=== PATIENT | male | born 1935 | race Caucasian/White ===

== ENCOUNTER 2016-09-11 11:24 | Inpatient (IN) | payer OTHER, MEDICARE ==
[~2016-09-11] VITALS: Ht 165.1 cm; Wt 90.7 kg
[~2016-09-11 11:24] MED LIST: ASPIRIN81 M4 PO; ATORVASTATIN CA40 M1 PO; BACTROBAN22 GM TOP; BLM PO; CALCIUM CARBON500 M2 PO; CALCIUM500 M1 PO; CALCIUM600 M2 PO; COUMADIN4 M1 PO; COUMADIN5 M2 PO; CYANOCOBAL1000 MCG/2 IM; DOXYCYCLINE HY100 M2 PO; GABAPENTIN300 M2 PO; LASIX40 M1 PO; LOVENOX100 MG/1 M SC; LOVENOX80 MG/0.1 SC; MEPRON750 MG/51 PO; METOPROLOL TART50 M1 PO; MILLIPRED5 M1 PO; MIRALAX119 GM PO; MIRALAX17 G1 PO; MULTI-DAY VITA1 EACH PO; OMEPRAZOLE20 M2 PO; PREDNISONE 10MG10 M1 PO; PREDNISONE10 M2 PO; PREDNISONE2.5 M1 PO; PREDNISONE20 M1 PO; PREDNISONE5 M1 PO; SENNA PLUS TAB1 EACH PO; TYLENOL325 M1 PO; VALACYCLOVIR1000 MG PO; ZITHROMAX500 M2 PO
--- NOTE | 2016-09-11 11:29 | NUR ---
PER PT VNA CAME TO VISIT AND SENT ME HERE HAD FEVER YESTERDAY AND A COUGH, ALSO FEELING KIND OF WEAK, LAST TELENOL YESTERDAY.
--- NOTE | 2016-09-11 11:30 | NUR ---
PER EMS DAUGHTER STATES JUST WEENED OFF O2.
--- NOTE | 2016-09-11 11:43 | ED DYSPNEA/ASTHMA COMPLAINT ---
History of Present Illness General Chief Complaint: Dyspnea (COPD, CHF, Other) Stated Complaint: BIBA FOR SOB Source: patient, old records, EMS Exam Limitations: no limitations Vital Signs & Intake/Output Vital Signs & Intake/Output Vital Signs Date Time Temp Pulse Resp B/P Pulse O2 O2 Flow FiO2 Ox Delivery Rate 09/12 0822 98.2 78 16 144/60 98 Nasal 2.0L Cannula 09/12 0800 92 Nasal 2.0L Cannula 09/12 0158 98.8 98 30 136/70 92 Nasal 2.0L Cannula 09/12 0156 98.8 09/12 0140 130 210/90 09/12 0133 130 210/90 09/12 0124 92 Nasal 2.0L Cannula 09/12 0054 100.0 09/12 0045 100.0 120 36 192/90 94 Nasal 2.0L Cannula 09/12 0000 92 Nasal 2.0L Cannula 09/11 2303 97.6 72 18 108/60 95 Room Air 09/11 2154 80 108/60 09/11 1942 Room Air Room Air 09/11 1907 97.4 74 22 96 Room Air 09/11 1820 97.1 79 16 110/59 94 Room Air 09/11 1555 Room Air 09/11 1412 102.0 99 20 111/53 94 Room Air 09/11 1310 101.8 09/11 1254 101.8 09/11 1130 99.7 86 24 140/60 95 Room Air ED Intake and Output 09/12 0000 09/11 1200 Intake Total 1000 Output Total 200 Balance 800 Intake, IV 1000 Number 1 Bowel Movements Output, Urine 200 Patient 200 lb 200 lb Weight Allergies Coded Allergies: NO KNOWN ALLERGIES (08/07/16) Triage Note: PER PT VNA CAME TO VISIT AND SENT ME HERE HAD FEVER YESTERDAY AND A COUGH, ALSO FEELING KIND OF WEAK, LAST TELENOL YESTERDAY. Triage Nurses Notes Reviewed? yes HPI: PATIENT IS AN 81-YEAR-OLD MALE PRESENTS COMPLAINING OF WEAKNESS, FEVERS, COUGH. Cough onset approximately 1 week ago with dietrich sputum production. Fevers and weakness onset yesterday. Patient reports he was too weak to stand this morning. Fevers up to 102F. Weakness is moderate to severe. Pain is 0 out of 10. Patient reports he received an influenza vaccination this season. Chronic lower extremity edema which is unchanged. Patient denies chest pain, abdominal pain, nausea, vomiting. (JESU COX) Reconcile Medications Aspirin (Aspirin*) 81 MG TAB.CHEW 1 TAB PO DAILY HEART Atorvastatin Calcium 40 MG TABLET 1 TAB PO 1700 HEART DISEASE Calcium Carbonate (Calcium) 600 MG (1,500 MG) TABLET 1 TAB PO DAILY SUPPLEMENT (Reported) Cyanocobalamin (Vitamin B-12) (Cyanocobalamin Injection) 1,000 MCG/1 ML VIAL 1 ML IM Q30D SUPPLEMENT (Reported) Furosemide 20 MG TABLET 1 TAB PO EOD WATER PILL (Reported) Furosemide 40 MG TABLET 1 TAB PO EOD WATER PILL (Reported) Gabapentin 300 MG CAPSULE 1 CAP PO DAILY SHINGLES (Reported) Metoprolol Tartrate 50 MG TABLET 1 TAB PO BID HEART RATE Omeprazole 20 MG CAPSULE.DR 1 CAP PO DAILY GERD (Reported) Prednisone 10 MG TABLET 0 PO DAILY POLYCHONDRITIS TAKE 3 TABS ON 08/11,08/12,08/13 TAKE 2 TABS FROM 08/13 AND STAY ON TI TILL YOU SEE DR. ZARATE Warfarin Sodium (Coumadin) 5 MG TABLET 1 TAB PO DAILY BLOOD CLOT (STANLEY BORJA,[facility]) Past History Travel History Traveled to [place] past 21 day No Medical History Any Pertinent Medical History? see below for history Neurological: Shingles left trigeminal EENT: NONE Cardiovascular: AFIB, chronic venous insuff Respiratory: NONE Gastrointestinal: GERD Hepatic: NONE Renal: NONE Musculoskeletal: osteoarthritis, rheumatoid arthritis, relapsing polychondritis SHINGLES Psychiatric: NONE Endocrine: NONE Blood Disorders: DVT (left leg) Cancer(s): NONE CIRCLE EDGER/Reproductive: NONE Other Medical Hx: Sweet syndrome Babesiosis History of MRSA: No History of VRE: No History of CDIFF: No Pneumonia Vaccine: 02/24/13 Influenza Vaccine: 06/27/16 Surgical History Surgical History: HERNIA REPAIR Psychosocial History Who do you live with Daughter Services at Home Home Health Aide, Nursing What is your primary language Sinhala Tobacco Use: Never used Family History Family History, If Any: BROTHER FH: diabetes mellitus SISTER FH: diabetes mellitus MOTHER FH: diabetes mellitus Hx Contributory? No (JESU COX) Review of Systems Review of Systems Constitutional: Reports: fever, malaise, weakness. EENTM: Reports: no symptoms. Respiratory: Reports: cough, short of breath, sputum production. Cardiovascular: Reports: peripheral edema (chronic, unchanged). Denies: chest pain, orthopena, palpitations. GI: Denies: abdominal pain, diarrhea, nausea, vomiting. Genitourinary: Reports: no symptoms. Musculoskeletal: Reports: no symptoms. Skin: Reports: no symptoms. Neurological/Psychological: Reports: no symptoms. Hematologic/Endocrine: Reports: no symptoms. Immunologic/Allergic: Reports: no symptoms. (JESU COX) Physical Exam Physical Exam General Appearance: alert, awake Head: atraumatic, normal appearance Eyes: Bilateral: normal appearance, PERRL, EOMI. Ears, Nose, Throat: normal pharynx, normal ENT inspection, hearing grossly normal Neck: normal inspection, supple, full range of motion Respiratory: chest non-tender, no respiratory distress, mild congestion left lung base Cardiovascular: regular rate/rhythm Peripheral Pulses: 2+ dorsalis pedis (R), 2+ dorsalis pedis (L) Gastrointestinal: soft, non-tender Extremities: normal capillary refill, normal range of motion, 1+ bilateral lower extremity edema Neurologic/Psych: awake, alert, oriented x 3 Skin: warm/dry Lymphatic: no anterior cervical butch Core Measures ACS in differential dx? Yes ASA ordered for poss ACS? Yes-ordered Severe Sepsis Present: No Septic Shock Present: No (JESU COX) Progress Differential Diagnosis: asthma, AMI, bronchitis, CHF, COPD, pulmonary embolism, pneumonia, unstable angina Plan of Care: Orders Procedure Date/time Status PROTHROMBIN TIME 09/12 0600 Complete MAGNESIUM 09/12 0600 Complete CBC WITHOUT DIFFERENTIAL 09/12 0600 Complete BASIC ELECTROLYTES PLUS BUN&CR 09/12 0600 Complete Lab Add-on Test 09/12 0124 Active OXYGEN SETUP (GEN) 09/12 0110 Complete TRC EVALUATION (GEN) 09/12 0100 Active TROPONIN LEVEL 09/12 0000 Complete EKG 09/12 0000 Active Heart Healthy Diet 09/11 D Active Vital Signs 09/11 2141 Active Teach/Educate 09/11 2141 Active Nutritional Intake, Monitor 09/11 2141 Active Isolation 09/11 2141 Active Intake & Output 09/11 2141 Active Patient Care Conference 09/11 2141 Active Activity/Ambulation 09/11 2141 Active RT: Evaluation 09/11 1942 Active Intake & Output 09/11 1825 Active TROPONIN LEVEL 09/11 1800 Complete EKG 09/11 1800 Active Add-on Test (ER Only) 09/11 1601 Active TRC EVALUATION (GEN) 09/11 1532 Complete Add-on Test (ER Only) 09/11 1532 Active MISTAKE 09/11 1532 Active C.DIFFICILE 09/11 1532 Active Add-on Test (ER Only) 09/11 1525 Active CULTURE,URINE 09/11 1453 Active LOWER RESPIRATORY CULTURE 09/11 1453 Active Pathway - chart 09/11 1450 Active House Staff 09/11 1450 Active Code Status 09/11 1450 Active Patient Data 09/11 1414 Active Code Status 09/11 1350 Complete Admit to inpatient 09/11 1349 Active Vital Signs 09/11 1349 Active Telemetry/Chemistry Teacher 09/11 1346 Active D-DIMER 09/11 1345 Complete THYROID STIMULATING HORMONE 09/11 1250 Complete PHOSPHORUS 09/11 1250 Complete MAGNESIUM 09/11 1250 Complete FREE T4 09/11 1250 Complete PROTHROMBIN TIME 09/11 1151 Complete RAPID VIRAL INFLUENZA A 09/11 1150 Complete LEGIONELLA URINARY ANTIGEN 09/11 1150 Active BLOOD CULTURE 09/11 1150 Active URINALYSIS 09/11 1150 Complete TROPONIN LEVEL 09/11 1150 Complete LACTIC ACID 09/11 1150 Complete COMPREHENSIVE METABOLIC PANEL 09/11 1150 Complete CBC WITHOUT DIFFERENTIAL 09/11 1150 Complete EKG 09/11 1126 Active Current Medications Sig/Renetta Start time Last Medication Dose Stop Time Status Admin Furosemide 40 MG Q48 09/13 1000 AC (Lasix) Aspirin 81 MG DAILY 09/12 1000 AC (Aspirin) Furosemide 20 MG Q48 09/12 1000 AC (Lasix) Gabapentin 300 MG DAILY 09/12 1000 AC (Neurontin) Omeprazole 20 MG DAILY 09/12 1000 AC (Prilosec) Prednisone 10 MG DAILY 09/12 1000 AC Polyethylene Glycol 17 GM AT BEDTIME 09/11 2200 AC (Miralax) Albuterol Sulfate 3 ML Q4H PRN 09/11 1545 AC (Proventil) Benzonatate 100 MG TID PRN 09/11 1500 AC (Tessalon Capsule) Diphenhydramine HCl 25 MG Q6P PRN 09/11 1500 AC (Benadryl) Hydromorphone HCl 0.5 MG Q4P PRN 09/11 1500 AC (Dilaudid) Ketorolac 15 MG Q6P PRN 09/11 1500 AC Tromethamine 09/16 1459 (Toradol) Prochlorperazine 10 MG Q6P PRN 09/11 1500 AC (Compazine) Laboratory Tests 09/12/16 0607: Anion Gap 7, Estimated GFR > 60, BUN/Creatinine Ratio 19.1, Magnesium 1.6, PT 33.7 H, INR 3.25 H, CBC w Diff NO MAN DIFF REQ, RBC 2.58 L, MCV 104.3 H, MCH 35.5 H, RDW 16.4 H, MPV 7.8, Gran % 71.3, Lymphocytes % 16.5 L, Monocytes % 11.3 H, Eosinophils % 0.6, Basophils % 0.3, Absolute Granulocytes 3.9, Absolute Lymphocytes 0.9 L, Absolute Monocytes 0.6, Absolute Eosinophils 0, Absolute Basophils 0, PUBS MCHC 34.0 09/12/16 0015: Troponin I 0.11 *H 09/11/16 1925: Urine Color YEL, Urine Clarity CLEAR, Urine pH 6.5, Ur Specific [place] 1.015, Urine Protein 100 H, Urine Ketones NEG, Urine Nitrite NEG, Urine Bilirubin NEG, Urine Urobilinogen 0.2, Ur Leukocyte Esterase TRACE H, Ur Microscopic SEDIMENT EXAMINED, Urine RBC >75 H, Urine WBC 10-15 H, Ur Epithelial Cells FEW, Granular Casts 3-5 H, Urine Hemoglobin LARGE H, Urine Glucose NEG 09/11/16 1818: Troponin I 0.17 *H 09/11/16 1450: Lactic Acid Cancelled 09/11/16 1345: PT 32.0 H, INR 3.08 H, D-Dimer 538 H 09/11/16 1250: Anion Gap 6, Estimated GFR > 60, BUN/Creatinine Ratio 23.3, Glucose 110 H, Lactic Acid 1.6, Calcium 9.2, Phosphorus 2.6, Magnesium 1.5 L, Total Bilirubin 0.5, AST 31, ALT 38, Alkaline Phosphatase 52, Troponin I 0.19 *H, Total Protein 6.6, Albumin 3.2 L, Globulin 3.4, Albumin/Globulin Ratio 0.9 L, TSH 3.510, Free T4 1.11, CBC w Diff NO MAN DIFF REQ, RBC 3.03 L, MCV 103.0 H, MCH 34.8 H , RDW 15.9 H, MPV 7.6, Gran % 69.4, Lymphocytes % 17.9 L, Monocytes % 12.1 H, Eosinophils % 0.1, Basophils % 0.5, Absolute Granulocytes 4.6, Absolute Lymphocytes 1.2, Absolute Monocytes 0.8 H, Absolute Eosinophils 0, Absolute Basophils 0, PUBS MCHC 33.8 Microbiology 09/11 1925 URINE ROUT: Urine Culture - RECD 09/11 1554 LOWER RESP: Respiratory Culture - RES 09/11 1554 LOWER RESP: Gram Stain - RES 09/11 1532 STOOL: Clostridium difficile Toxin A & B - COLB 09/11 1245 BLOOD: Blood Culture - RECD 09/11 1225 BLOOD: Blood Culture - RECD 09/11 1150 URINE ROUT: Legionella Antigen - ORD Discussed with and seen by Dr. Park 1250: Patient reevaluated. Patient's daughter reports that fever was up to 103 F yesterday evening. Increasing weakness today. Patient had a fever of 101 prior to arrival today. Patient has not taken any anti-pyretics today. Tylenol ordered. Awaiting results of chest x-ray and labs. 1340: Results of labs discussed with patient and his daughter. No chest pain. Aspirin ordered. Dr. Park to discuss case with hospitalist for admission. Cardiology paged to discuss. 1348: Dr. Park discussed patient with Dr. Gordon for admission. 1430: Discussed with Dr. Rose, will consult on patient. (EVERTON MAR,JESU) Diagnostic Imaging: Viewed by Me: Radiology Read. Discussed w/RAD: Radiology Read. Radiology Impression: PATIENT: EDITH ZHANG PRESENT AGE: 81 PATIENT ACCOUNT NO: [id number] : 33 LOCATION: [facility] ORDERING PHYSICIAN: JESU MAR SERVICE DATE: 09/11/16 EXAM TYPE: RAD - XRY-PORTABLE CHEST XRAY EXAMINATION: XR PORTABLE CHEST CLINICAL INFORMATION: Cough. Fever. Weakness. COMPARISON: Chest x-rays of 08/09/2016, 07/2016. CT chest of 08/07/16. TECHNIQUE: Portable view of the chest was obtained. FINDINGS: The patient is mildly rotated. The cardiomediastinal silhouette is unchanged with cardiomegaly. Mild blunting of the left lateral costophrenic sulcus is a stable finding and is likely related to prominent pericardial fat pad. No focal consolidation, changes of congestion or significant pleural effusions. No pneumothorax. The visualized osseous structures are unremarkable without acute abnormality. IMPRESSION: 1. No radiographic evidence of pneumonia. 2. No acute pulmonary process. DICTATED BY: TOBIN ÁLVAREZ MD DATE/TIME DICTATED:09/11/161232 COPRA PROCESSOR:ONUR DATE/TIME TRANSCRIBED:09/11/161232 CONFIDENTIAL, DO NOT COPY WITHOUT APPROPRIATE AUTHORIZATION. <Electronically signed in Other Vendor System> SIGNED BY: TOBIN ÁLVAREZ MD 09/11/16 1305 Initial ED EKG: sinus tachycardia 107 beats per minute normal axis, normal intervals, PVCs present, poor baseline in V6, no apparent acute ST/T-wave changes compared to previous EKG Rhythm Strip: normal sinus rhythm (JESU COX) Departure Departure Disposition: STILL A PATIENT Condition: Stable Clinical Impression Primary Impression: Bronchitis Secondary Impressions: Elevated troponin Referrals: SUKHJINDER CATALAN DO (PCP/Family) Departure Forms: Customer Survey General Discharge Information Admission Note Spoke With: JOYCELYN GORDON MD Documentation of Exam: Documentation of any treatments & extenuating circumstances including Concerns Regarding Discharge (functional status, medication knowledge or non-compliance, living conditions, etc.) that warrant an admission rather than observation: Cardiology consultation, telemetry monitoring, serial EKGs, serial troponins, echocardiogram (JESU COX) PA/EXCHANGE UNDERWRITING CONSULTANT Co-Sign Statement Statement: ED Attending supervision documentation- [X] I saw and evaluated the patient. I have also reviewed all the pertinent lab results and diagnostic results. I agree with the findings and the plan of care as documented in the PA's/EXCHANGE UNDERWRITING CONSULTANT's documentation. [X] I have reviewed the ED Record and agree with the PA's/EXCHANGE UNDERWRITING CONSULTANT's documentation. [] Additions or exceptions (if any) to the PAs/EXCHANGE UNDERWRITING CONSULTANT's note and plan are summarized below: [] (STANLEY BORJA,SHANNON) Critical Care Note Critical Care Note Critical Care Time: non-applicable (JESU COX)
[2016-09-11] MEDS ORDERED: FUROSEMIDE20 M1 PO (12:05)
[2016-09-11] MEDS ORDERED: FUROSEMIDE40 M1 PO (12:06)
--- NOTE | 2016-09-11 12:51 | NUR ---
PT LABORED AT REST, APPEARS SOB ALTHOUGH STATEWS O2 DOES NOT HELP
[2016-09-11 12:53] LABS: ABSOLUTE BASOPHIL COUNT 0 /CUMM (0.0-0.2); ABSOLUTE EOSINOPHIL COUNT 0 /CUMM (0.0-0.7); ABSOLUTE GRANULOCYTE CT 4.6 /CUMM (1.4-6.5); ABSOLUTE LYMPH COUNT 1.2 /CUMM (1.2-3.4); ABSOLUTE MONOCYTE COUNT 0.8 /CUMM (0.10-0.60); BASOPHIL % 0.5 % (0.0-2.0); EOSINOPHIL % 0.1 % (0-5); GRANULOCYTE % 69.4 % (42.2-75.2); HEMATOCRIT 31.2 % (42-52); MEAN CORPUSCULAR HGB 34.8 PG (27.0-31.0); MEAN CORPUSCULAR HGB CONC 33.8 G/DL (33.0-37.0); MEAN PLATELET VOLUME 7.6 FL (7.4-10.4); PLATELET COUNT 219 /CUMM (130-400); RBC DISTRIBUTION WIDTH 15.9 % (11.5-14.5); RED BLOOD CELL CT 3.03 /CUMM (4.70-6.10); WHITE BLOOD CELL COUNT 6.6 /CUMM (4.8-10.8)
--- NOTE | 2016-09-11 13:05 | RADIOLOGY REPORT ---
EXAMINATION: XR PORTABLE CHEST CLINICAL INFORMATION: Cough. Fever. Weakness. COMPARISON: Chest x-rays of 08/09/2016, 08/07/2016. CT chest of 08/07/16. TECHNIQUE: Portable view of the chest was obtained. FINDINGS: The patient is mildly rotated. The cardiomediastinal silhouette is unchanged with cardiomegaly. Mild blunting of the left lateral costophrenic sulcus is a stable finding and is likely related to prominent pericardial fat pad. No focal consolidation, changes of congestion or significant pleural effusions. No pneumothorax. The visualized osseous structures are unremarkable without acute abnormality. IMPRESSION: 1. No radiographic evidence of pneumonia. 2. No acute pulmonary process.
--- NOTE | 2016-09-11 13:10 | NUR ---
EATING SOUP AND TEA CLEARED BY ISABELA.
--- NOTE | 2016-09-11 13:38 | NUR ---
CRITICAL TEST RESULTS [id number] EDITH ZHANG 81 M TESTS AND RESULTS: TROP 0.19 Results received and read back by: EDEL PELAEZ Results received date and time: 09/11/16 1338 The following provider was notified of the results, and read the results back: ISABELA TOSCANO Notified date and time: 09/11/16 at 1333
--- NOTE | 2016-09-11 13:48 | NUR ---
BLUE TOP DRAWN AND SENT TO LAB.
--- NOTE | 2016-09-11 14:17 | NUR ---
DR. BERNARD AT BEDSIDE.
--- NOTE | 2016-09-11 14:31 | History & Physical ---
MAY BORJA,[facility] 09/11/16 1431: General Information and HPI MD Statement: I have seen and personally examined EDITH ZHANG and documented this H&P. The patient is a 81 year old M who presented with a patient stated chief complaint of [fever and weakness]. Source of Information: patient, family, old records Exam Limitations: poor historian History of Present Illness: Mr. Zhang is 81 y/o male with PMH significant for relapsing polychondritis, sweets syndrome, paroxysmal atrial fibrillation on Coumadin, rheumatoid arthritis on prednisone, DVT status post completion of Coumadin for 3 months. He has chief complaint of weakness for 3 days and fever for one day. Most of the history was obtained from his daughter, the patient is a poor historian. Patient woke up this morning feeling very weak to level that he couldn't get up from the chair and BTHBA. The patient reported that he was in his regular state of health since 3 days, afterward the patient started to have weakness and lightheadedness upon standing up from bed, and subjective fever with chills, yesterday his daughter measured his temperature and was 103 and she gave him Tylenol 2 tablets 500 mg. Also patient reported cough that started a few days ago with greenish sputum tingled with blood. He denied any chest pain, palpitation or shortness of breath on exertion although his daughter noticed some difficulty breathing this morning. The patient reported chronic diarrhea of small amount of loose stool that not associated with mucus or blood and didn' t change in frequency or consistency over period of one month. No history of recent antibiotic use. He denied any abdominal pain, nausea or vomiting, problem with urination hematuria or dysuria, new joint or muscular pain although he has chronic bilateral knee pain, skin lesions, vision changes or heating changes, no weight changes. Patient denied any history of sick contact. Patient has visiting nurse is to visit him 3 times per week, she also used to measure his INR that was 1.2 last week. Patient lives by himself and he is independent ADL and IADL Allergies/Medications Allergies: Coded Allergies: NO KNOWN ALLERGIES (08/07/16) Home Med list Aspirin (Aspirin*) 81 MG TAB.CHEW 1 TAB PO DAILY HEART Atorvastatin Calcium 40 MG TABLET 1 TAB PO 1700 HEART DISEASE Calcium Carbonate (Calcium) 600 MG (1,500 MG) TABLET 1 TAB PO DAILY SUPPLEMENT (Reported) Cyanocobalamin (Vitamin B-12) (Cyanocobalamin Injection) 1,000 MCG/1 ML VIAL 1 ML IM Q30D SUPPLEMENT (Reported) Furosemide 20 MG TABLET 1 TAB PO EOD WATER PILL (Reported) Furosemide 40 MG TABLET 1 TAB PO EOD WATER PILL (Reported) Gabapentin 300 MG CAPSULE 1 CAP PO DAILY SHINGLES (Reported) Metoprolol Tartrate 50 MG TABLET 1 TAB PO BID HEART RATE Omeprazole 20 MG CAPSULE.DR 1 CAP PO DAILY GERD (Reported) Prednisone 10 MG TABLET 0 PO DAILY POLYCHONDRITIS TAKE 3 TABS ON 08/11,08/12,08/13 TAKE 2 TABS FROM 08/13 AND STAY ON TI TILL YOU SEE DR. 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 self Services at Home: Home Health Aide, Nursing Primary Language: [place] Islander Smoking Status: Never Smoked Living Will? unknown Power of Cage Cashier/HCP? yes Functional Ability ADLs Independent: eating. Needs Assist: dressing, toileting, bathing. Ambulation: walker, non-ambulatory IADLs Independent: telephone. Needs Assist: shopping, housework, finances, food prep, transportation, medication admin. Review of Systems Review of Systems Constitutional: Denies: see HPI. Exam & Diagnostic Data Last 24 Hrs of Vital Signs/I&O Vital Signs Date Time Temp Pulse Resp B/P Pulse O2 O2 Flow FiO2 Ox Delivery Rate 09/11 1820 97.1 79 16 110/59 94 Room Air 09/11 1412 102.0 99 20 111/53 94 Room Air 09/11 1310 101.8 09/11 1254 101.8 09/11 1130 99.7 86 24 140/60 95 Room Air Intake & Output 09/11 1600 09/11 0800 09/11 0000 Intake Total Output Total Balance Patient 90.718 kg Weight Physical Exam General Appearance Alert, Oriented X3, Cooperative, No Acute Distress Skin No Rashes, No Breakdown, No Significant Lesion HEENT Atraumatic, PERRLA, EOMI, Mucous Membr. moist/pink Neck Supple Lymphatic no cervical lymphadenopathy Cardiovascular irrigular irrigular Lungs Clear to Auscultation, Normal Air Movement Abdomen Normal Bowel Sounds, Soft, No Tenderness Neurological Normal Gait, Normal Speech, Strength at 5/5 X4 Ext, Normal Tone, Sensation Intact, Cranial Nerves 3-12 NL, Reflexes 2+ Extremities No Clubbing, No Cyanosis, bilateral +1 pedal edema Vascular Normal Pulses, Pulses Symmetrical Assessment/Plan Assessment: Mr. Zhang is 81 y/o male with PMH significant for relapsing polychondritis, sweets syndrome, paroxysmal atrial fibrillation on Coumadin, rheumatoid arthritis on prednisone, DVT status post completion of Coumadin for 3 months. He has chief complaint of weakness for 3 days and fever for one day. On admission Vital signs blood pressure 111/53, pulse 99, respiratory rate 20 on room air saturation 94%, temperature 102 Labs WBC 6.6, platelet 219, H&H 10.5/31.2, sodium 152, potassium 3.5, chloride 99, bicarbonate 28, BUN 21, creatinine 0.9, glucose 110, troponin 0.1 EKG shows irregular rhythm with PVC rate of 107 and QTC 453 Chest x-ray didn't show any acute pulmonary process and no evidence of pneumonia Problem list -Productive cough -Fever -Atrial fibrillation on Coumadin -Elevated troponin #Productive cough -Patient has history of productive cough with green blood tinged sputum -History of fever with no white blood cell count -Patient saturated well on room air 94% -Chest x-ray didn't show any acute pulmonary process or evidence of pneumonia -Chest examination WNL -Acute bronchitis could be a possible cause for his cough -TRC -Consider Mucinex and/or Tessalon Perles -We will hold for antibiotic for now -Consider repeat chest x-ray within 2 days for any possible signs of pneumonia #Fever -Patient was admitted in July 2016 with history of fever of unknown origin -Urine culture, blood culture and sputum culture -Consider ESR and C reactive protein -Consider ID consultation -Consider Tylenol and Ibuprofen and [id number]-svr-[id number] for fever -PE should be ruled out, consider d-dimer, CTA in case of positive d-dimer #Elevated troponin -Troponin on admission 0.19 -EKG changes on admission -Troponin and EKG serial every 6 to trend down -Aspirin 81 mg daily #Atrial fibrillation on Coumadin -INR on admission 3.08 -Coumadin for supratherapeutic INR #Rheumatoid arthritis -Continue prednisone 10 mg by mouth daily #Hypertension and hyperlipidemia -Continue Lopressor 50 mg twice a day -Continue atorvastatin 40 mg daily -Continue frusemide 20 mg every 48 and 40 mg every 48 #History of shingles with neuropathy -Continue gabapentin 300 mg daily #Diet heart healthy diet #DVT prophylaxis ALPS, hold Coumadin for therapeutic INR #Code DNR/DNI As Ranked By This Provider Problem List: 1. Upper respiratory infection 2. Sweet syndrome 3. Varicella zoster 4. Elevated troponin 5. Shortness of breath 6. Bronchitis Core Measures/Miscellaneous Acute Coronary Syndrome ACS Diagnosis: No Cerebrovascular Accident CVA/TIA Diagnosis: No Congestive Heart Failure CHF Diagnosis: No Venous Thromboembolism VTE Risk Factors: Age > 40 VTE Prophylaxis Ordered Inpt: Pharm- [facility] prophylaxis d/t: No contraindications No VTE Pharm Prophylaxis d/t: No contraindications VTE Diagnosis: No VTE Type: NONE VTE Confirmed by (Test): NONE Severe Sepsis Severe Sepsis Present: No Septic Shock Septic Shock Present: No Miscellaneous Documentation Attending Case Discussed With: JOYCELYN BERNARD MD Primary Care Physician: SUKHJINDER CATALAN DO Patient sees these Specialists cardiology Level of Patient Care: Telemetry MAYRA BORJA,[facility] 09/11/16 1602: Resident Review Statement Resident Statement: examined this patient, discussed with record label internship, agreed with record label internship, discussed with family, reviewed EMR data (avail), discussed with nursing , discussed with case mgmt, reviewed images, amended to note Other Findings: Edith is 81-year-old man with a medical history of atrial fibrillation DVT severe pulmonary hypertension heart failure with recent ejection fraction old CVA polychondritis, Sweet syndrome, monoclonal gammopathy of unknown significance, history of pancytopenia babesiosis, sixth nerve palsy presents with 3 days of weakness subjective and objective fevers up to 102F, productive cough with greenish sputum. Also admits to chronic diarrhea for approximately one month. Denies any chest pain or any other symptom review and details. Vital signs notable for high-grade fever part 2F, heart rate 94 blood pressure 111/53, 94% on room air. Agree with Physical examination above; lungs clear, heart rate irregularly irregular. Trace pedal edema. No other findings. No leukocytosis, macrocytic anemia, CBC otherwise unremarkable troponin 0.19. INR is 3, d-dimer is elevated at 538. Urinalysis pending. We suspect this patient has viral bronchitis. He does have underlying Sweet syndrome which is a chronic inflammatory state they can elicit high-grade temperatures. Notably, however he is maintained on steroids for polychondritis. We do not suspect this patient has a bacterial infection at this point. Elevated troponin is likely demand ischemia. His Wells score for PE is 5.5. D- dimer is elevated. SaO2 is wnl, and he is not tachypneic. Do not suspect PE. - Problems - Bronchitis Pyrexia Afib DVT - Plan - Tele monitor Serial enzyme/ekg Supportive tx w/ antipyretics, anti-tussive Await blood,urine,sputum cx, urine ag for legionella & strep Cont beta amadou, aspirin, statin, lasix EOD DVT ppx; therapeutic inr DNR/DNI JOYCELYN BERNARD MD 09/11/16 0038: Attending MD Review Statement Attending Statement Attending MD Statement: examined this patient, discuss w/resident/PA/SACK FILLER, agreed w/resident/PA/SACK FILLER, discussed with family, reviewed EMR data (avail), discussed with nursing, reviewed images, amended to note Attending Assessment/Plan: The patient is an 81 yo male with h/o relapsing polychondritis, PAF (on Coumadin ), & RA who presented on the day of admission with c/o 3 day h/o progressive increased cough productive of yellow-green sputum. He also noted some weakness and lightheadedness x 3 days. abd pain. Did spike fever to 101.9. Physical Exam: VS: T 101.9, P 82, R 24, BP 140/60, PO 95% HEENT: eyes- PERRLA, EOMI flores- no lesions Neck: no bruits/JVD Chest: few rhonchi, diminished BS Cor: sl irreg, nl rate, nl S1, S2 w/o murm Abd: BS+, soft, NT, - masses or HSM Ext: mild symmetric edema 1+, non-tender, no cords Neuro: non-focal Impression/Plan: #Cough/Bronchitis- no infiltrate on CXR. Plan: Admit to telemetry (abnormal Troponin I) Follow EKG Mucinex/Tessalon PEERLA Albuterol/Tiotropium aerosol. Culture sputum. #Elevated Troponin I- no chest pain, possible demand ischemia. Plan: Continue to trend troponins. Aspirin to restart. #Rheumatoid Arthritis - Has had some recent symptoms. Plan: Continue Prednisone. Follow ESR and symptoms. #Paroxysmal Atrial Fibrillation- no h/o recent increased HR. Plan: Maintain INR 2-3 (now supratherapeutic). Continue Metoprolol. #HL- on Atorvastatin. Plan: Continue Atorvastatin. #HTN- BP as above. Plan: Continue Metoprolol. #Neuropathy- on gabapentin. Plan: Continue gabapentin.
--- NOTE | 2016-09-11 15:04 | NUR ---
DINNER TRAY ORDERED
--- NOTE | 2016-09-11 15:25 | NUR ---
ASSUMING CARE OF PT AT THIS TIME
--- NOTE | 2016-09-11 15:56 | NUR ---
SPUTUM SENT TO LAB
--- NOTE | 2016-09-11 16:38 | NUR ---
[facility] ASSIGNMENT [id number]
--- NOTE | 2016-09-11 18:21 | NUR ---
REPEAT TROPONIN DRAWN AND SENT TO LAB.
--- NOTE | 2016-09-11 18:25 | NUR ---
REPORT GIVEN TO NEISHA TORO
--- NOTE | 2016-09-11 19:41 | Cons- Cardiology ---
General Information and HPI Consulting Request Date of Consult: 09/11/16 Requested By: JOYCELYN BERNARD MD Reason for Consult: Elevated troponin History of Present Illness: The patient is an 81-year-old male with history of paroxysmal atrial fibrillation, rheumatoid arthritis, deep vein thrombosis who is followed by Dr. Gama. The patient was in his usual state of health until 3 days ago when he began developing weakness and lightheadedness. He has subjective fever and chills. Yesterday his dose measure his temperature and found to be 103. He was noted to have a recent cough productive of greenish sputum. The patient woke up in the morning feeling very weak, and he was unable to get up from a chair. He denied chest pain or shortness of breath, however his daughter noticed that he appeared to be having difficulty breathing. The patient is sleepy and is currently able to give only limited history. Allergies/Medications Allergies: Coded Allergies: NO KNOWN ALLERGIES (08/07/16) Home Med List: Aspirin (Aspirin*) 81 MG TAB.CHEW 1 TAB PO DAILY HEART Atorvastatin Calcium 40 MG TABLET 1 TAB PO 1700 HEART DISEASE Calcium Carbonate (Calcium) 600 MG (1,500 MG) TABLET 1 TAB PO DAILY SUPPLEMENT (Reported) Cyanocobalamin (Vitamin B-12) (Cyanocobalamin Injection) 1,000 MCG/1 ML VIAL 1 ML IM Q30D SUPPLEMENT (Reported) Furosemide 20 MG TABLET 1 TAB PO EOD WATER PILL (Reported) Furosemide 40 MG TABLET 1 TAB PO EOD WATER PILL (Reported) Gabapentin 300 MG CAPSULE 1 CAP PO DAILY SHINGLES (Reported) Metoprolol Tartrate 50 MG TABLET 1 TAB PO BID HEART RATE Omeprazole 20 MG CAPSULE. 1 CAP PO DAILY GERD (Reported) Prednisone 10 MG TABLET 0 PO DAILY POLYCHONDRITIS TAKE 3 TABS ON 08/11,08/12,08/13 TAKE 2 TABS FROM 08/13 AND STAY ON TI TILL YOU SEE DR. ZARATE Warfarin Sodium (Coumadin) 5 MG TABLET 1 TAB PO DAILY BLOOD CLOT Current Medications: Current Medications Sig/Renetta Start time Last Medication Dose Route Stop Time Status Admin Acetaminophen 650 MG Q6P PRN 09/11 1500 AC PO Acetaminophen 0 .STK-MED ONE 09/11 1310 DC PO Acetaminophen 650 MG ONCE ONE 09/11 1300 DC 09/11 PO 09/11 1301 1310 Albuterol Sulfate 3 ML Q4H PRN 09/11 1545 AC INH Aspirin 81 MG DAILY 09/12 1000 AC PO Aspirin 0 .STK-MED ONE 09/11 1412 DC PO Aspirin 325 MG ONCE ONE 09/11 1345 DC 09/11 PO 09/11 1346 1417 Atorvastatin Calcium 40 MG 1700 09/11 1700 AC PO Benzonatate 100 MG TID PRN 09/11 1500 AC PO Diphenhydramine HCl 25 MG Q6P PRN 09/11 1500 AC IV Furosemide 40 MG Q48 09/13 1000 AC PO Furosemide 20 MG Q48 09/12 1000 AC PO Gabapentin 300 MG DAILY 09/12 1000 AC PO Hydromorphone HCl 0.5 MG Q4P PRN 09/11 1500 AC IV Ketorolac 15 MG Q6P PRN 09/11 1500 AC Tromethamine IV 09/16 1459 Metoprolol Tartrate 50 MG BID 09/11 2200 AC PO Omeprazole 20 MG DAILY 09/12 1000 AC PO Polyethylene Glycol 17 GM AT BEDTIME 09/11 2200 AC PO Prednisone 10 MG DAILY 09/12 1000 AC PO Prochlorperazine 10 MG Q6P PRN 09/11 1500 AC IV Senna/Docusate Sodium 1 TAB AT BEDTIME 09/11 2200 AC PO Sodium Chloride 1,000 ML BOLUS ONE 09/11 1330 DC 09/11 IV 09/11 1429 1417 Review of Systems Review of Systems: No rash. No tremor. No hemoptysis. All other systems were reviewed, and were noted to be negative. 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 self Services at Home: Home Health Aide, Nursing Primary Language: German Smoking Status: Never Smoked Living Will? unknown Power of Research Study Assistant/HCP? yes Functional Ability ADLs Independent: eating. Needs Assist: dressing, toileting, bathing. Ambulation: walker, non-ambulatory IADLs Independent: telephone. Needs Assist: shopping, housework, finances, food prep, transportation, medication admin. Exam & Diagnostic Data Vital Signs and I&O Vital Signs Date Time Temp Pulse Resp B/P Pulse O2 O2 Flow FiO2 Ox Delivery Rate 09/11 1907 97.4 74 22 96 Room Air 09/11 1820 97.1 79 16 110/59 94 Room Air 09/11 1412 102.0 99 20 111/53 94 Room Air 09/11 1310 101.8 09/11 1254 101.8 09/11 1130 99.7 86 24 140/60 95 Room Air Intake & Output 09/11 1600 09/11 0800 09/11 0000 09/10 1600 09/10 0800 09/10 0000 Intake Total Output Total Balance Patient 200 lb Weight Physical Exam: Gen: The patient is in no acute distress HEENT: Normal nose, ears, and oropharynx. Pupils equal bilaterally. Conjunctiva normal. Neck: Supple with no JVD, no masses, and no thyromegaly Lungs: Clear to auscultation with normal respiratory effort Heart: RRR, S1, S2 with ectopy noted, 1/6 systolic murmur. 1+ peripheral edema, 2+ pulses in the lower extremities bilaterally Abdomen: Soft, nontender, no masses. No hepatomegaly. No splenomegaly Extremities: No clubbing or cyanosis. Normal muscle strength in the upper and lower extremities Skin: Normal skin turgor with no skin ulcers or lesions noted. Neuro: Cranial nerves intact. Sensation intact Psych: Alert and oriented 3 with appropriate affect Labs/Efrain Results: Laboratory Tests 09/11 09/11 09/11 1818 1450 1345 Chemistry Lactic Acid Cancelled Troponin I (<0.11 ng/ml) 0.17 *H Coagulation PT (9.4 - 12.5 SEC) 32.0 H INR (0.90 - 1.17) 3.08 H D-Dimer (70 - 232 ng/ml) 538 H 09/11 1250 Chemistry Sodium (137 - 145 mmol/L) 132 L Potassium (3.5 - 5.1 mmol/L) 3.5 Chloride (98 - 107 mmol/L) 99 Carbon Dioxide (22 - 30 mmol/L) 28 Anion Gap (5 - 16) 6 BUN (9 - 20 mg/dL) 21 H Creatinine (0.7 - 1.2 mg/dL) 0.9 Estimated GFR (>60 ml/min) > 60 BUN/Creatinine Ratio (7 - 25 %) 23.3 Glucose (65 - 99 mg/dL) 110 H Lactic Acid (0.7 - 2.1 mmol/L) 1.6 Calcium (8.4 - 10.2 mg/dL) 9.2 Total Bilirubin (0.2 - 1.3 mg/dL) 0.5 AST (17 - 59 U/L) 31 ALT (21 - 72 U/L) 38 Alkaline Phosphatase (< 127 U/L) 52 Troponin I (<0.11 ng/ml) 0.19 *H Total Protein (6.3 - 8.2 g/dL) 6.6 Albumin (3.5 - 5.0 g/dL) 3.2 L Globulin (1.9 - 4.2 gm/dL) 3.4 Albumin/Globulin Ratio (1.1 - 2.2 %) 0.9 L TSH (0.270 - 4.200 uIU/mL) 3.510 Free T4 (0.85 - 1.93 ng/dL) 1.11 Hematology CBC w Diff NO MAN DIFF REQ WBC (4.8 - 10.8 /CUMM) 6.6 RBC (4.70 - 6.10 /CUMM) 3.03 L Hgb (14.0 - 18.0 G/DL) 10.5 L Hct (42 - 52 %) 31.2 L MCV (80.0 - 94.0 FL) 103.0 H MCH (27.0 - 31.0 PG) 34.8 H RDW (11.5 - 14.5 %) 15.9 H Plt Count (130 - 400 /CUMM) 219 MPV (7.4 - 10.4 FL) 7.6 Gran % (42.2 - 75.2 %) 69.4 Lymphocytes % (20.5 - 51.1 %) 17.9 L Monocytes % (1.7 - 9.3 %) 12.1 H Eosinophils % (0 - 5 %) 0.1 Basophils % (0.0 - 2.0 %) 0.5 Absolute Granulocytes (1.4 - 6.5 /CUMM) 4.6 Absolute Lymphocytes (1.2 - 3.4 /CUMM) 1.2 Absolute Monocytes (0.10 - 0.60 /CUMM) 0.8 H Absolute Eosinophils (0.0 - 0.7 /CUMM) 0 Absolute Basophils (0.0 - 0.2 /CUMM) 0 PUBS MCHC (33.0 - 37.0 G/DL) 33.8 Diagnostic Data EKG Results EKG tracing is independently reviewed, and reveals normal sinus rhythm at 74 with frequent premature atrial contractions CXR Results Chest x-ray: 1. No radiographic evidence of pneumonia 2. No acute pulmonary process. Other Results Echocardiogram: There is mild to moderate concentric left ventricular hypertrophy. The inferior and posterior cole appear hypokinetic to akinetic. Left ventricular ejection fraction is visually estimated at 40-45%. Abnormal relaxation filling pattern of the left ventricle for age (stage 1 diastolic dysfunction). Right ventricular contractility is mildly decreased. Mild left atrial dilatation. The mitral valve leaflets are mild to moderately thickened. There is moderate calcification of the mitral annulus posteriorly. There is mild to moderate mitral regurgitation. Diffuse thickening of the aortic valve cusps with mildly reduced excursion. No aortic stenosis. Trace aortic regurgitation. [id number] tricuspid regurgitation. Right ventricular systolic pressure estimated to be elevated at 65-70 mmHg. Moderate to severe pulmonary hypertension. The aortic root is mildly dilated. Assessment/Plan Assessment/Plan Assessment: The patient is an 81-year-old male with history of atrial fibrillation, DVT, pulmonary hypertension, heart failure with reduced ejection fraction presenting with weakness fevers and cough. He is noted to have mild troponin elevation. He is anticoagulated on warfarin with INR 3.08. Recommendations: * Check 3rd troponin * Monitor on telemetry for arrhythmias * Continue aspirin * Continue po Lasix * Continue metoprolol Consult Acknowledgment - Thank you for your consult request.
[2016-09-11 23:03] VITALS: BP 108/60
--- NOTE | 2016-09-12 00:37 | Admission Certification ---
Admission Certification Certification Statement - As attending physician, I certify that at the time of - admission, based on clinical presentation, severity of - symptoms, need for further diagnostic testing and - therapeutic interventions, and risk of adverse outcomes - without in-hospital treatment, in my clinical assessment, - this patient requires an acute hospital stay for a minimum - of two nights or longer. I have also considered psychsocial - factors such as support system, advanced age, financial - issues, cognitive issues, and failed out-patient treatments, - past re-admission history, safety of patient, and lack of - compliance as applicable. Specific rationale supporting this admission is: Patient admitted with fever, dyspnea, elevated troponin I, atrial fibrillaion. Needs Cardiology evaluation. Serical troponins. Cardiololgy consult.
[2016-09-12 00:45] VITALS: BP 192/90
--- NOTE | 2016-09-12 01:22 | NUR ---
PATIENT NOTED TO BE IN RESPIRATORY DISTRESS AT 0015. RR 40, OXYGEN SAT 85% ON ROOM AIR, LUNG SOUNDS DIMINISHED. DR THOMAS NOTIFIED AND RESPIRATORY CALLED TO ASSESS PATIENT. PATIENT PLACED ON 2LNC OXYGEN SAT 92% RR STILL 40 PATIENT REPORTS SHORTNESS OF BREATH. BP 192/92 [address] RATE [address]. [address] THOMAS IN TO ASSESS PATIENT. DR. LUDWIG IN TO ASSESS PATIENT. RESPIRATORY ADMINISTERED ATROVENT NEBULIZER. TEMPERATURE 100.0 650 PO TYLENOL GIVEN.
[2016-09-12 01:33] VITALS: BP 210/90
--- NOTE | 2016-09-12 01:38 | RADIOLOGY REPORT ---
EXAMINATION: XR PORTABLE CHEST CLINICAL INFORMATION: Shortness of breath COMPARISON: 09/11/2016 TECHNIQUE: Portable view of the chest was obtained. FINDINGS: Lung volumes are symmetric. Assessment of the left base is limited due to the enlarged cardiac silhouette, though there may be developing patchy airspace disease. Developing mild consolidation may also be present in the right lung base. No evidence of pneumothorax or significant pleural effusion. The cardiac silhouette is enlarged. Calcification is present at the aortic arch. No acute osseous findings are seen. IMPRESSION: Suggestion of developing patchy airspace opacity in the left midlung and right base; short-term radiographic follow-up is advised.
--- NOTE | 2016-09-12 01:39 | NUR ---
PATIENT HAVING INCREASED ECTOPY. [address] LUDWIG NOTIFIED. AT BEDSIDE.
[2016-09-12 01:58] VITALS: BP 136/70
--- NOTE | 2016-09-12 02:30 | Event Note ---
Event Note Event Note: Situation: * Narrow complex tachycardia * Hypertensive emergency Brief: * Approximately 1 PM the patient was noted to be using accessory muscles for respiration. ROS: Negative for chest pain, palpitations * HR: 130s on telemetry and intermittent PVCs * BP 210/90 * Concern for patient going into unstable tachycardia A/P: * Stat CXR: Suggestion of developing patchy airspace opacity in the left midlung and right base; short-term radiographic follow-up is advised * Rx: Ipratropium 1 from respiratory therapy * Lopressor5 mg IV push 1 at 0137 with heart rate responding appropriately. NSR on telemetry * Repeat BP: 136/70 * Potassium: 3.5, magnesium: 1.5. Rx Mag-Ox 800 mg 1, k-Dur 40 mg X1 * Follow repeat electrolytes in the a.m.
[2016-09-12 06:53] LABS: ABSOLUTE BASOPHIL COUNT 0 /CUMM (0.0-0.2); ABSOLUTE EOSINOPHIL COUNT 0 /CUMM (0.0-0.7); ABSOLUTE GRANULOCYTE CT 3.9 /CUMM (1.4-6.5); ABSOLUTE LYMPH COUNT 0.9 /CUMM (1.2-3.4); ABSOLUTE MONOCYTE COUNT 0.6 /CUMM (0.10-0.60); BASOPHIL % 0.3 % (0.0-2.0); EOSINOPHIL % 0.6 % (0-5); GRANULOCYTE % 71.3 % (42.2-75.2); HEMATOCRIT 26.9 % (42-52); MEAN CORPUSCULAR HGB 35.5 PG (27.0-31.0); MEAN CORPUSCULAR VOLUME 104.3 FL (80.0-94.0); MEAN PLATELET VOLUME 7.8 FL (7.4-10.4); PLATELET COUNT 164 /CUMM (130-400); RBC DISTRIBUTION WIDTH 16.4 % (11.5-14.5); RED BLOOD CELL CT 2.58 /CUMM (4.70-6.10); WHITE BLOOD CELL COUNT 5.4 /CUMM (4.8-10.8)
[2016-09-12 06:56] LABS: PT 33.7 SEC (9.4-12.5)
--- NOTE | 2016-09-12 07:10 | PN- Housestaff ---
MAY BORJA,[facility] 09/12/16 0710: Subjective Follow-up For: Community-acquired pneumonia Atrial fibrillation on Coumadin Complaints: no complaints Tele-Events Since Last Visit: Sinus rhythm, 75-91bpm, PAC's/PVC's Over night, Sinus rhythm, sinus tachycardia 86-101 with one rise to 138bpm when he had a 5 beat run. Subjective: Patient was seen and examined this morning, no acute distress, vital signs are stable. Patient had an overnight events, SOB and blood pressure of 210/90, heart rate 1: 30 Chest x-ray shows new patchy airspace opacity in the left midlung and right base. Patient received TRC and 1 dose of Lopressor 5 mg IV and responded well Review of Systems Constitutional: Denies: see HPI. EENTM: Denies: blurred vision, nasal congestion, throat pain. Cardiovascular: Denies: chest pain, edema, palpitations. Respiratory: Reports: cough, short of breath, sputum production. Denies: hemoptysis. Gastrointestinal: Denies: abdominal pain, constipation, diarrhea, distention, nausea, bloody stool , vomiting. Genitourinary: Denies: dysuria, hematuria. Musculoskeletal: Reports: no symptoms. Objective Last 24 Hrs of Vital Signs/I&O Vital Signs Date Time Temp Pulse Resp B/P Pulse O2 O2 Flow FiO2 Ox Delivery Rate 09/12 1218 92 126/68 09/12 0928 120 140/66 09/12 0914 96 Nasal 2.0L Cannula 09/12 0822 98.2 78 16 144/60 98 Nasal 2.0L Cannula 09/12 0800 92 Nasal 2.0L Cannula 09/12 0158 98.8 98 30 136/70 92 Nasal 2.0L Cannula 09/12 0156 98.8 09/12 0140 130 210/90 09/12 0133 130 210/90 09/12 0124 92 Nasal 2.0L Cannula 09/12 0054 100.0 09/12 0045 100.0 120 36 192/90 94 Nasal 2.0L Cannula 09/12 0000 92 Nasal 2.0L Cannula 09/11 2303 97.6 72 18 108/60 95 Room Air 09/11 2154 80 108/60 09/11 1942 Room Air Room Air 09/11 1907 97.4 74 22 96 Room Air 09/11 1820 97.1 79 16 110/59 94 Room Air Intake & Output 09/12 1600 09/12 0800 09/12 0000 Intake Total 651 385 1333 Output Total 100 300 200 Balance 550 180 800 Intake, IV 250 1000 Intake, Oral 400 480 Number 1 Bowel Movements Output, Urine 100 300 200 Patient 90.718 kg Weight Physical Exam General Appearance: Alert, Oriented X3, Cooperative, No Acute Distress Skin: multiple skin rashes over bilateral forearms HEENT: Atraumatic, PERRLA, EOMI, Mucous Membr. moist/pink Neck: Supple Lymphatic: no cervical lymphadenopathy Cardiovascular: No Murmurs, irregular rate Lungs: Decreased breath sound on Right, audible wheeze, No ronchi or crepts on auscultation Abdomen: Normal Bowel Sounds, Soft, No Tenderness Neurological: Normal Gait, Normal Speech, Strength at 5/5 X4 Ext, Normal Tone, Sensation Intact, Cranial Nerves 3-12 NL, Reflexes 2+ Extremities: 1+ bilateral pedal edema Vascular: Pulses Symmetrical Assessment/Plan Assessment: Mr. Anne is 81 y/o male with PMH significant for relapsing polychondritis, sweets syndrome, paroxysmal atrial fibrillation on Coumadin, rheumatoid arthritis on prednisone, DVT status post completion of Coumadin for 3 months. He has chief complaint of weakness for 3 days and fever for one day. Problem list -Community-acquired pneumonia -Atrial fibrillation on Coumadin -Elevated troponin #Community-acquired pneumonia -Patient has history of productive cough with green blood tinged sputum -The chest x-ray was negative for any acute changes, following chest x-ray showed new patchy airspace opacity in the left midlung and right base. -Start Ceftriaxone 1000 mg daily IV and azithromycin 250 mg IV daily DAY#1 -Sputum culture grew heavy growth of staph aureus, follow up sensitivity tomorrow morning -ID consultaion #Fever -This morning temperature 98.2, on admission fever of 102, since admission patient had one spike fever overnight of 100 -Patient was admitted in July 2016 with history of fever of unknown origin -Follow up urine culture, blood culture #Elevated troponin -Troponin trending down on admission 0.19 trend down to 0.11 -EKG no changes on admission -Aspirin 81 mg daily #Atrial fibrillation on Coumadin -INR 3.25 -Hold Coumadin for supratherapeutic INR -INR target 2-3 #Rheumatoid arthritis -Continue prednisone 10 mg by mouth daily #Hypertension and hyperlipidemia -Continue Lopressor 50 mg twice a day -Continue atorvastatin 40 mg daily -Continue frusemide 20 mg every 48 and 40 mg every 48 -Start lisinopril 10 mg PO daily -Orthostate measurment is negative #History of shingles with neuropathy -Continue gabapentin 300 mg daily #Diet heart healthy diet #DVT prophylaxis ALPS, hold Coumadin for therapeutic INR #Code DNR/DNI -Consulation ID, Cardio Problem List: 1. Community acquired bacterial pneumonia 2. Bronchitis Pain Ratin Pain Location: n/a Pain Goal: Remain pain free Pain Plan: see medication Tomorrow's Labs & Rationales: CBc, CMP JOANA BORJA,JOYCELYN 09/13/16 0819: Attending MD Review Statement Attending Statement Attending MD Statement: examined this patient, discuss w/resident/PA/RESEARCH METHODOLOGIST, agreed w/resident/PA/RESEARCH METHODOLOGIST, reviewed EMR data (avail), discussed with nursing, discussed with case mgmt, amended to note Attending Assessment/Plan: The patient was seen and discussed with house staff.
--- NOTE | 2016-09-12 07:22 | Event Note ---
Event Note Event Note: Situation: Respiratory distress requiring O2 supplementation on 2L Brief assessment * VS: BP 192/90, HR 105-110 upto 130s, O2: 95 (2L) * Physical examination: Patient was alert and oriented, however in moderate distress. Respiratory: Use of accessory muscles of respiration, harsh inspiratory breath sounds. * Stat chest x-ray was unremarkable * Start troponins and EKGs were unremarkable for any new acute changes * Telemetry reading showed sinus tachycardia with some ectopy * Stat magnesium (1.5) and potassium (3.5) Assessment and plan Administered 5 mg IV bolus with improvement of heart rate to 90s, Magnesium and potassium replaced Administered ipratropium nebulizer therapy, in the setting of tachycardia albuterol was held.
[2016-09-12 08:22] VITALS: BP 144/60
--- NOTE | 2016-09-12 11:04 | PN- Cardiology ---
Subjective Subjective: The patient had an episode of moderate shortness of breath at 1:00 AM. This was associated with elevated blood pressure of 210/90 and heart rate in the 130s. He was noted to have premature ventricular contractions, sinus tachycardia, and short runs of SVT on telemetry. The episode resolved in approximately 30 minutes. A stat chest x-ray was performed which revealed a patchy airspace opacity in the left midlung and the right base. IV Lopressor was given for her rate control. Cough is somewhat better today. Weakness is improving. He had a fever of 100 at midnight, and the fever has subsequently resolved. Objective Vital Signs and I&Os Vital Signs Date Time Temp Pulse Resp B/P Pulse O2 O2 Flow FiO2 Ox Delivery Rate 09/12 0928 120 140/66 09/12 0914 96 Nasal 2.0L Cannula 09/12 0822 98.2 78 16 144/60 98 Nasal 2.0L Cannula 09/12 0800 92 Nasal 2.0L Cannula 09/12 0158 98.8 98 30 136/70 92 Nasal 2.0L Cannula 09/12 0156 98.8 09/12 0140 130 210/90 09/12 0133 130 210/90 09/12 0124 92 Nasal 2.0L Cannula 09/12 0054 100.0 09/12 0045 100.0 120 36 192/90 94 Nasal 2.0L Cannula 09/12 0000 92 Nasal 2.0L Cannula 09/11 2303 97.6 72 18 108/60 95 Room Air 09/11 2154 80 108/60 09/11 1942 Room Air Room Air 09/11 1907 97.4 74 22 96 Room Air 09/11 1820 97.1 79 16 110/59 94 Room Air 09/11 1555 Room Air 09/11 1412 102.0 99 20 111/53 94 Room Air 09/11 1310 101.8 09/11 1254 101.8 09/11 1130 99.7 86 24 140/60 95 Room Air Intake & Output 09/12 1600 09/12 0800 09/12 0000 09/11 1600 09/11 0800 09/11 0000 Intake Total 480 1000 Output Total 300 200 Balance 180 800 Intake, IV 1000 Intake, Oral 480 Number 1 Bowel Movements Output, Urine 300 200 Patient 200 lb 200 lb Weight Physical Exam: Gen: The patient is in no acute distress HEENT: Normal nose, ears, and oropharynx. Pupils equal bilaterally. Conjunctiva normal. Neck: Supple with no JVD, no masses, and no thyromegaly Lungs: Clear to auscultation with normal respiratory effort Heart: RRR, S1, S2 with ectopy noted, 1/6 systolic murmur. 1+ peripheral edema, 2+ pulses in the lower extremities bilaterally Abdomen: Soft, nontender, no masses. No hepatomegaly. No splenomegaly Extremities: No clubbing or cyanosis. Normal muscle strength in the upper and lower extremities Skin: Normal skin turgor with no skin ulcers or lesions noted. Neuro: Cranial nerves intact. Sensation intact Psych: Alert and oriented 3 with appropriate affect Current Medications: Current Medications Sig/Renetta Start time Last Medication Dose Route Stop Time Status Admin Acetaminophen 650 MG .STK-MED ONE 09/12 0041 DC PO 09/12 0042 Acetaminophen 650 MG Q6P PRN 09/11 1500 AC 09/12 PO 0054 Acetaminophen 0 .STK-MED ONE 09/11 1310 DC PO Acetaminophen 650 MG ONCE ONE 09/11 1300 DC 09/11 PO 09/11 1301 1310 Albuterol Sulfate 3 ML Q4H PRN 09/11 1545 AC INH Aspirin 81 MG DAILY 09/12 1000 AC 09/12 PO 0927 Aspirin 0 .STK-MED ONE 09/11 1412 DC PO Aspirin 325 MG ONCE ONE 09/11 1345 DC 09/11 PO 09/11 1346 1417 Atorvastatin Calcium 40 MG 1700 09/11 1700 AC 09/11 PO 2152 Azithromycin 500 MG DAILY 09/12 1000 AC Dextrose/Water 250 ML IV Benzonatate 100 MG TID PRN 09/11 1500 AC PO Ceftriaxone Sodium 1,000 MG DAILY 09/12 1000 AC IV Diphenhydramine HCl 25 MG Q6P PRN 09/11 1500 AC IV Furosemide 40 MG Q48 09/13 1000 AC PO Furosemide 20 MG Q48 09/12 1000 AC 09/12 PO 0927 Gabapentin 300 MG DAILY 09/12 1000 AC 09/12 PO 0927 Hydromorphone HCl 0.5 MG Q4P PRN 09/11 1500 AC IV Ipratropium [place] 2.5 ML Q4P PRN 09/12 0900 AC INH Ipratropium [place] 2.5 ML ONE TIME ONE 09/12 0115 DC 09/12 INH 09/12 0116 0110 Ketorolac 15 MG Q6P PRN 09/11 1500 AC Tromethamine IV 09/16 1459 Magnesium Oxide 800 MG ONE ONE 09/12 0230 DC 09/12 PO 09/12 0231 0258 Metoprolol Tartrate 5 MG ONCE ONE 09/12 0145 DC 09/12 IV 09/12 0146 0140 Metoprolol Tartrate 50 MG BID 09/11 2200 AC 09/12 PO 0928 Omeprazole 20 MG DAILY 09/12 1000 AC 09/12 PO 0927 Patient Medication 1 UNIT ONE NR 09/12 0930 Teaching ED 09/12 1530 Polyethylene Glycol 17 GM AT BEDTIME 09/11 2200 AC PO Potassium Chloride 40 MEQ ONCE ONE 09/12 0230 DC 09/12 PO 09/12 023 0258 Prednisone 10 MG DAILY 09/12 1000 AC 09/12 PO 0927 Prochlorperazine 10 MG Q6P PRN 09/11 1500 AC IV Senna/Docusate Sodium 1 TAB AT BEDTIME 09/11 2200 AC 09/11 PO 2152 Sodium Chloride 1,000 ML BOLUS ONE 09/11 1330 DC 09/11 IV 09/11 1429 1417 Results Last 48 Hrs of Labs/Mics: Laboratory Tests 09/12/16 0607: Anion Gap 7, Estimated GFR > 60, BUN/Creatinine Ratio 19.1, Magnesium 1.6, PT 33.7 H, INR 3.25 H, CBC w Diff NO MAN DIFF REQ, RBC 2.58 L, MCV 104.3 H, MCH 35.5 H, RDW 16.4 H, MPV 7.8, Gran % 71.3, Lymphocytes % 16.5 L, Monocytes % 11.3 H, Eosinophils % 0.6, Basophils % 0.3, Absolute Granulocytes 3.9, Absolute Lymphocytes 0.9 L, Absolute Monocytes 0.6, Absolute Eosinophils 0, Absolute Basophils 0, PUBS MCHC 34.0 09/12/16 0015: Troponin I 0.11 *H 09/11/165: Urine Color YEL, Urine Clarity CLEAR, Urine pH 6.5, Ur Specific Violet 1.015, Urine Protein 100 H, Urine Ketones NEG, Urine Nitrite NEG, Urine Bilirubin NEG, Urine Urobilinogen 0.2, Ur Leukocyte Esterase TRACE H, Ur Microscopic SEDIMENT EXAMINED, Urine RBC >75 H, Urine WBC 10-15 H, Ur Epithelial Cells FEW, Granular Casts 3-5 H, Urine Hemoglobin LARGE H, Urine Glucose NEG 09/11/16 1818: Troponin I 0.17 *H 09/11/16 1450: Lactic Acid Cancelled 09/11/16 1345: PT 32.0 H, INR 3.08 H, D-Dimer 538 H 09/11/16 1250: Anion Gap 6, Estimated GFR > 60, BUN/Creatinine Ratio 23.3, Glucose 110 H, Lactic Acid 1.6, Calcium 9.2, Phosphorus 2.6, Magnesium 1.5 L, Total Bilirubin 0.5, AST 31, ALT 38, Alkaline Phosphatase 52, Troponin I 0.19 *H, Total Protein 6.6, Albumin 3.2 L, Globulin 3.4, Albumin/Globulin Ratio 0.9 L, TSH 3.510, Free T4 1.11, CBC w Diff NO MAN DIFF REQ, RBC 3.03 L, MCV 103.0 H, MCH 34.8 H , RDW 15.9 H, MPV 7.6, Gran % 69.4, Lymphocytes % 17.9 L, Monocytes % 12.1 H, Eosinophils % 0.1, Basophils % 0.5, Absolute Granulocytes 4.6, Absolute Lymphocytes 1.2, Absolute Monocytes 0.8 H, Absolute Eosinophils 0, Absolute Basophils 0, PUBS MCHC 33.8 Recent Imaging Studies: traffic monitor specialist tracings are independently reviewed, and reveals sinus rhythm with episodes of sinus tachycardia and short runs of SVT. Chest x-ray 09/12/15: Suggestion of developing patchy airspace opacity in the left midlung and right base; short-term radiographic follow-up is advised. Images are reviewed. EKG tracing from today is reviewed, and reveals sinus rhythm at 96 with premature atrial complexes Assessment/Plan Assessment/Plan Assessment: 1. Paroxysmal atrial fibrillation 2. History of DVT 3. Acute on chronic HFrEF 4. Hypertension, with hypertensive urgency last night 5. Mild troponin elevation secondary to demand ischemia, decreasing Recommendations: * IV antibiotics as per the medical service * Start lisinopril 10 mg P0 daily for treatment of hypertension and left ventricle systolic dysfunction * Continue PO Lasix * Continue metoprolol 50 mg P0 twice a day * Dose warfarin for INR 2-3 Continue telemetry? Yes
[2016-09-12 16:59] VITALS: BP 110/53
--- NOTE | 2016-09-12 17:45 | Cons- Infect Disease ---
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, treated in the past with Cytoxan and Methotrexate and currently maintained on prednisone 10 mg a day, with his most recent hospitalization one month prior to admission felt to be secondary to a flareup of this disease, for which his steroids were temporarily increased, and with a history of Sweet syndrome, hospitalized 2 months prior to admission with what was felt to be a flareup of this disease, with a chronic left leg DVT and possibly new right leg DVT, for which he was restarted on Coumadin on his recent hospitalization, with the recommendation at that time for a follow-up right lower extremity Doppler after 7-10 days admitted on September 11 after presenting to the emergency room with several days of increasing weakness and cough, with green sputum, and more acute onset of fevers, chills and increasing shortness of breath. On admission he was febrile to 102. Laboratory data revealed a white blood cell count of 7000, BUN/creatinine 21 and 0.9, normal liver enzymes, troponin 0.19, INR 3.08. Urinalysis greater than 75 RBC/10-15 WBCs. Chest x-ray was negative. He was initially treated symptomatically. Overnight he was noted to be tachypneic with an increased heart rate and blood pressure. A repeat chest x-ray revealed patchy opacities in the left midlung and right base, and he was begun on Ceftriaxone and Azithromycin. His temperatures have decreased over the day. Presently he does not report any shortness of breath or chest pain. He notes an occasional cough and generalized weakness. Allergies/Medications Allergies: Coded Allergies: NO KNOWN ALLERGIES (08/07/16) Home Med List: Aspirin (Aspirin*) 81 MG TAB.CHEW 1 TAB PO DAILY HEART Atorvastatin Calcium 40 MG TABLET 1 TAB PO 1700 HEART DISEASE Calcium Carbonate (Calcium) 600 MG (1,500 MG) TABLET 1 TAB PO DAILY SUPPLEMENT (Reported) Cyanocobalamin (Vitamin B-12) (Cyanocobalamin Injection) 1,000 MCG/1 ML VIAL 1 ML IM Q30D SUPPLEMENT (Reported) Furosemide 20 MG TABLET 1 TAB PO EOD WATER PILL (Reported) Furosemide 40 MG TABLET 1 TAB PO EOD WATER PILL (Reported) Gabapentin 300 MG CAPSULE 1 CAP PO DAILY SHINGLES (Reported) Metoprolol Tartrate 50 MG TABLET 1 TAB PO BID HEART RATE Omeprazole 20 MG CAPSULE.DR 1 CAP PO DAILY GERD (Reported) Prednisone 10 MG TABLET 0 PO DAILY POLYCHONDRITIS TAKE 3 TABS ON 08/11,08/12,08/13 TAKE 2 TABS FROM 08/13 AND STAY ON TI TILL YOU SEE DR. ZARATE Warfarin Sodium (Coumadin) 5 MG TABLET 1 TAB PO DAILY BLOOD CLOT Past History Travel History Traveled to [place] past 21 day No Medical History Blood Transfusion Hx: Yes Neurological: Shingles left trigeminal EENT: NONE Cardiovascular: AFIB, chronic venous insuff Respiratory: NONE Gastrointestinal: GERD Hepatic: NONE Renal: NONE Musculoskeletal: osteoarthritis, rheumatoid arthritis, relapsing polychondritis Psychiatric: NONE Endocrine: NONE Blood Disorders: DVT (chronic on left and acute on r) Cancer(s): NONE BAR CATCHER/Reproductive: NONE Other Medical Hx: Sweet syndrome Babesiosis History of MRSA: No History of VRE: No History of CDIFF: No Isolation History: Standard Influenza Vaccine: 05/27/16 Surgical History Surgical History: HERNIA REPAIR Family History Relations & Conditions If Any: BROTHER FH: diabetes mellitus SISTER FH: diabetes mellitus MOTHER FH: diabetes mellitus Psychosocial History Where Do You Live? Home Who Do You Live With? self Services at Home: Home Health Aide, Nursing Primary Language: Latvian Smoking Status: Never Smoked Living Will? unknown Power of Electricity Trader/HCP? yes Functional Ability ADLs Independent: eating. Needs Assist: dressing, toileting, bathing. Ambulation: walker, non-ambulatory IADLs Independent: telephone. Needs Assist: shopping, housework, finances, food prep, transportation, medication admin. Review of Systems Review of Systems All Other Systems: Reviewed and Negative Exam & Diagnostic Data Last 24 Hrs of Vital Signs/I&O Vital Signs Date Time Temp Pulse Resp B/P Pulse O2 O2 Flow FiO2 Ox Delivery Rate 09/12 1659 99.2 85 17 110/53 96 Nasal 2.0L Cannula 09/12 1218 92 126/68 09/12 0928 120 140/66 09/12 0914 96 Nasal 2.0L Cannula 09/12 0822 98.2 78 16 144/60 98 Nasal 2.0L Cannula 09/12 0800 92 Nasal 2.0L Cannula 09/12 0158 98.8 98 30 136/70 92 Nasal 2.0L Cannula 09/12 0156 98.8 09/12 0140 130 210/90 09/12 0133 130 210/90 09/12 0124 92 Nasal 2.0L Cannula 09/12 0054 100.0 09/12 0045 100.0 120 36 192/90 94 Nasal 2.0L Cannula 09/12 0000 92 Nasal 2.0L Cannula 09/11 2303 97.6 72 18 108/60 95 Room Air 09/11 2154 80 108/60 09/11 1942 Room Air Room Air 09/11 1907 97.4 74 22 96 Room Air 09/11 1820 97.1 79 16 110/59 94 Room Air Intake & Output 09/12 1600 09/12 0800 09/12 0000 Intake Total 061 367 7498 Output Total 100 300 200 Balance 550 180 800 Intake, IV 250 1000 Intake, Oral 400 480 Number 1 Bowel Movements Output, Urine 100 300 200 Patient 200 lb Weight Physical Exam Other Physical Findings: He is awake and alert but appears weak and fatigued. MAXIMUM TEMPERATURE 102. Skin reveals no rash. HEENT exam mild erythema of the uvula and pharynx. Neck is supple with no adenopathy. Lungs scattered wheezes with crackles at the right base. Heart irregular rhythm with a 1/6 systolic ejection murmur. Abdomen is soft, nontender with positive bowel sounds. Back no CVA tenderness. Extremities trace edema both lower extremities, with chronic venous stasis changes. Neuro is without focality. Last 24 Hours of Lab Results: Laboratory Tests 09/12 09/12 0607 0015 Chemistry Sodium (137 - 145 mmol/L) 136 L Potassium (3.5 - 5.1 mmol/L) 3.9 Chloride (98 - 107 mmol/L) 101 Carbon Dioxide (22 - 30 mmol/L) 27 Anion Gap (5 - 16) 7 BUN (9 - 20 mg/dL) 21 H Creatinine (0.7 - 1.2 mg/dL) 1.1 Estimated GFR (>60 ml/min) > 60 BUN/Creatinine Ratio (7 - 25 %) 19.1 Magnesium (1.6 - 2.3 mg/dL) 1.6 Troponin I (<0.11 ng/ml) 0.11 *H Coagulation PT (9.4 - 12.5 SEC) 33.7 H INR (0.90 - 1.17) 3.25 H Hematology CBC w Diff NO MAN DIFF REQ WBC (4.8 - 10.8 /CUMM) 5.4 RBC (4.70 - 6.10 /CUMM) 2.58 L Hgb (14.0 - 18.0 G/DL) 9.2 L Hct (42 - 52 %) 26.9 L MCV (80.0 - 94.0 FL) 104.3 H MCH (27.0 - 31.0 PG) 35.5 H RDW (11.5 - 14.5 %) 16.4 H Plt Count (130 - 400 /CUMM) 164 MPV (7.4 - 10.4 FL) 7.8 Gran % (42.2 - 75.2 %) 71.3 Lymphocytes % (20.5 - 51.1 %) 16.5 L Monocytes % (1.7 - 9.3 %) 11.3 H Eosinophils % (0 - 5 %) 0.6 Basophils % (0.0 - 2.0 %) 0.3 Absolute Granulocytes (1.4 - 6.5 /CUMM) 3.9 Absolute Lymphocytes (1.2 - 3.4 /CUMM) 0.9 L Absolute Monocytes (0.10 - 0.60 /CUMM) 0.6 Absolute Eosinophils (0.0 - 0.7 /CUMM) 0 Absolute Basophils (0.0 - 0.2 /CUMM) 0 PUBS MCHC (33.0 - 37.0 G/DL) 34.0 09/11 1818 Chemistry Troponin I (<0.11 ng/ml) 0.17 *H Urines Urine Color (YEL,AMB,STR) YEL Urine Clarity (CLEAR) CLEAR Urine pH (5.0 - 8.0) 6.5 Ur Specific [place] (1.001 - 1.035) 1.015 Urine Protein (NEG,<30 MG/DL) 100 H Urine Ketones (NEG) NEG Urine Nitrite (NEG) NEG Urine Bilirubin (NEG) NEG Urine Urobilinogen (0.1 - 1.0 EU/dl) 0.2 Ur Leukocyte Esterase (NEG) TRACE H Ur Microscopic SEDIMENT EXAMINED Urine RBC (0 - 5 /HPF) >75 H Urine WBC (0 - 2 /HPF) 10-15 H Ur Epithelial Cells (NONE,FEW) FEW Granular Casts (NONE /LPF) 3-5 H Urine Hemoglobin (NEG) LARGE H Urine Glucose (N MG/DL) NEG Last 24 Hours of E[place] Results: Blood cultures 2 September 11 negative Urine culture September 11 negative Sputum culture September 11 positive for Staph aureus Rapid flu swab September 11 negative Diagnostic Data Recent Imaging Findings: Chest x-ray September 11, personally reviewed, negative Chest x-ray September 12, personally reviewed, reveals patchy airspace disease in the left midlung and right base Assessment/Plan Assessment/Plan Impression: This is an 81-year-old man, maintained on steroids for relapsing polychondritis, status post multiple hospitalizations over the past 9 months for different problems including Herpes zoster, Babesiosis, a flareup of his Sweet syndrome and, most recently, a flareup of his polychondritis, admitted on September 11 with several days of increasing weakness, with cough, and more acute onset of fevers, chills and shortness of breath, found to be febrile with initial chest x-ray negative but with the development of patchy opacities in the left midlung and right base on a repeat chest x-ray with sputum culture positive for Staph aureus. His clinical picture is most consistent with pneumonia, and his antibiotics can be adjusted to cover Staph aureus. Given his recent hospitalizations the possibility of MRSA must be considered and this can be covered pending the final culture. Staph aureus can complicate viral infections , such as Influenza, and it is possible that his initial illness was viral with a secondary bacterial pneumonia. Of note on his recent hospitalization a follow -up right lower extremity Doppler was recommended. Suggestion: 1. Consider need for a follow-up right lower extremity Doppler as noted above 2. Follow-up final sputum culture 3. Discontinue Ceftriaxone and Azithromycin 4. Begin Vancomycin 1 g IV every 24 hours pending above Consult Acknowledgment - Thank you for your consult request.
--- NOTE | 2016-09-12 21:56 | ULTRASOUND REPORT ---
EXAMINATION: US TRIPLEX LOWER EXTREMITY, BILATERAL CLINICAL INFORMATION: Suspected deep venous thrombosis. COMPARISON: No relevant prior imaging is available. TECHNIQUE: Color-flow triplex imaging with spectral analysis and compression Doppler were performed on the bilateral lower extremities. FINDINGS: Right: The diagnostic accuracy of this examination is limited due to patient habitus. There is a partially occlusive thrombus located within the right femoral vein. There is pitting edema within the right lower extremity. Left: The diagnostic accuracy of this examination is limited due to patient habitus. There is a partially occlusive thrombus located within the upper and mid sections of the left femoral vein. There is pitting edema within the distal left lower extremity. IMPRESSION: Positive study. There are partially occlusive deep venous thrombi within both femoral veins. This critical result was discussed with Dr. Denise Linder at 09/12/2016 9:51 PM and it was ascertained that the content and urgency of the report was understood at the time of direct communication.
--- NOTE | 2016-09-12 22:29 | Event Note ---
Event Note Event Note: Situation: * Ultrasound positive for partially occlusive deep vein thrombosis within both femoral veins BRIEF: * BL LE ultrasound today: Partially occlusive thrombus located within the right femoral vein. Partially occlusive thrombus located within the upper and mid sections of the left femoral vein * Left LE ultrasound (04/07/16): Nonocclusive thrombus is seen in the left common and superficial femoral vein extending down into the posterior tibial and peroneal trunk * BL LE ultrasound (08/08/16): Findings similar to prior exam consistent with chronic left DVT. On right, following was somewhat indeterminate and may be related to technical factors versus nonocclusive thrombus * Of note, information obtained from the patient's daughter indicates possible subtherapeutic INR (1.2) sometime prior to this admission with dosage changes in Coumadin (increased from 4-6) * Patient's INR since admission has been therapeutic: 3.08, 3.25 A/R: * After discussion with [facility] radiology, they confirmed that the right DVT appears to be a new finding in comparison with prior study * Initial plan was to start the patient on heparin drip with the differential of failed therapy while on Coumadin. However, considering that the patient was subtherapeutic at some point prior to this admission (unclear duration), there is a good possibility that this DVT on the right may have developed around that time. We thus decided NOT to start the patient on heparin drip * No evidence of PE at this time. Recommend further discussion with primary team and city carrier on continued coumadin/utility of switching to NOAC/outpatient follow-up ultrasound to assess resolution or progression of clots
[2016-09-12 23:38] VITALS: BP 120/64
--- NOTE | 2016-09-13 07:20 | PN- Housestaff ---
MAY BORJA,[facility] 09/13/16 0719: Subjective Follow-up For: Community-acquired pneumonia Atrial fibrillation on Coumadin Tele-Events Since Last Visit: Sinus rhythm 82-79 with PVC and PAC Subjective: Patient was seen and examined this morning. No night events. This morning, he had shortness of breath and audible wheezing, on 2L maintuinging satuartion above 90%. Respiratory therapist was called for TRC. His cough has improved and has no other complaints. Temperature this morning 102.7 with Tmax 102.7 developed 1 spike a fever of 100 at midnight Heart rate 120, blood pressure 150/72, respiratory rate 24 on 2 L nasal cannula 94% saturation Tele reported sinus rhythm, 82-97 beats/min, PAC's, PVC's Review of Systems Constitutional: Reports: fever. Cardiovascular: Denies: palpitations. Respiratory: Reports: cough, short of breath, sputum production, wheezing. Gastrointestinal: Denies: abdominal pain, constipation, diarrhea, nausea, vomiting. Genitourinary: Denies: dysuria, hematuria. Objective Last 24 Hrs of Vital Signs/I&O Vital Signs Date Time Temp Pulse Resp B/P Pulse O2 O2 Flow FiO2 Ox Delivery Rate 09/13 1041 98.3 09/13 0837 102.7 120 24 150/72 94 Nasal 2.0L Cannula 09/13 0830 150/72 09/13 0829 102.7 09/13 0829 150/72 09/13 0800 94 Nasal 3.0L Cannula 09/13 0800 95 Nasal 2.0L Cannula 09/13 0000 Nasal 2.0L Cannula 09/12 2338 98.3 72 18 120/64 98 Nasal 2.0L Cannula 09/12 2203 92 112/60 09/12 1659 99.2 85 17 110/53 96 Nasal 2.0L Cannula 09/12 1600 96 Nasal 2.0L Cannula Intake & Output 09/13 1600 09/13 0800 09/13 0000 Intake Total 720 890 Output Total 400 700 475 Balance 320 -700 415 Intake, IV 250 Intake, Oral 720 640 Number 1 Bowel Movements Output, Urine 400 700 475 Patient 90.718 kg Weight Physical Exam General Appearance: Alert, Oriented X3, Cooperative, Mild Distress Skin: No Rashes, No Breakdown, multiple skin rash in right upper exteremity HEENT: Atraumatic, PERRLA, EOMI, Mucous Membr. moist/pink Neck: Supple Cardiovascular: Regular Rate, Normal S1, Normal S2, No Murmurs Lungs: widspread wheeze with decrease air entery using accessory muscle Abdomen: Normal Bowel Sounds, Soft, No Tenderness Neurological: Normal Speech, Strength at 5/5 X4 Ext, Normal Tone, Sensation Intact, Cranial Nerves 3-12 NL, Reflexes 2+ Extremities: No Clubbing, No Cyanosis, Bilateral LE +1 edema Vascular: Normal Pulses Assessment/Plan Assessment: Mr. Anne is 81 y/o male with PMH significant for relapsing polychondritis, sweets syndrome, paroxysmal atrial fibrillation on Coumadin, rheumatoid arthritis on prednisone, DVT status post completion of Coumadin for 3 months. He has chief complaint of weakness for 3 days and fever for one day. Problem list -Community-acquired pneumonia -Atrial fibrillation on Coumadin -Elevated troponin #Staph aureus pneumonia -Patient has history of productive cough with green blood tinged sputum -The chest x-ray was negative for any acute changes, following chest x-ray showed new patchy airspace opacity in the left midlung and right base. -Patient recevied one dose of Ceftriaxone IV 1000 mg, azithromycin 250 mg IV, and vancomycin 1000 mg IV -Sputum culture positive for MSSA -Start oxacillin 2 mg every 4 IV -ID consultaion was obtained, thanks for recommendation we'll continue to follow #Fever -This morning temperature of 102.7 with Tmax 102.7 -Patient was admitted in July 2016 with history of fever of unknown origin -Follow up urine culture, blood culture #Elevated troponin -Troponin trending down on admission 0.19 trend down to 0.11 -EKG no changes on admission -Aspirin 81 mg daily #Atrial fibrillation on Coumadin -INR 2.14, will dose warfrain 5mg -INR target 2-3 -patient had bilateral LE doppler US yeaterday based on old recommendation from last admission 08/11, taht showed acute right femoral DVT and old left femoral DVT -Patient has HX of subtheraputic INR 1 week proir to admission #Rheumatoid arthritis -Continue prednisone 10 mg by mouth daily #Hypertension and hyperlipidemia -Continue Lopressor 50 mg twice a day -Continue atorvastatin 40 mg daily -Continue frusemide 20 mg every 48 and 40 mg every 48 -Continue lisinopril 10 mg PO daily -Orthostate measurment is negative #History of shingles with neuropathy -Continue gabapentin 300 mg daily #Diet heart healthy diet #DVT prophylaxis ALPS, hold Coumadin for therapeutic INR #Code DNR/DNI -Consulation ID, Cardio Problem List: 1. Staphylococcus aureus pneumonia 2. Atrial fibrillation Pain Ratin Pain Location: n/a Pain Goal: Remain pain free Pain Plan: see mediaction Tomorrow's Labs & Rationales: cbc, CMP, INR JOYCELYN BERNARD MD 09/13/16 2131: Attending MD Review Statement Attending Statement Attending MD Statement: examined this patient, discuss w/resident/PA/SAMPLE PREP TECHNICIAN, agreed w/resident/PA/SAMPLE PREP TECHNICIAN, reviewed EMR data (avail), discussed with nursing, discussed with case mgmt, reviewed images, amended to note Attending Assessment/Plan: The patient was seen and discussed with resident. Agree with the plan of care as outlined.
[2016-09-13 08:13] LABS: ABSOLUTE BASOPHIL COUNT 0 /CUMM (0.0-0.2); ABSOLUTE EOSINOPHIL COUNT 0.1 /CUMM (0.0-0.7); ABSOLUTE GRANULOCYTE CT 3.1 /CUMM (1.4-6.5); ABSOLUTE LYMPH COUNT 1.2 /CUMM (1.2-3.4); ABSOLUTE MONOCYTE COUNT 0.4 /CUMM (0.10-0.60); BASOPHIL % 0.5 % (0.0-2.0); EOSINOPHIL % 1.1 % (0-5); GRANULOCYTE % 63.9 % (42.2-75.2); HEMATOCRIT 27.7 % (42-52); MEAN CORPUSCULAR HGB 35.5 PG (27.0-31.0); MEAN CORPUSCULAR HGB CONC 34.2 G/DL (33.0-37.0); MEAN CORPUSCULAR VOLUME 103.9 FL (80.0-94.0); MEAN PLATELET VOLUME 8.2 FL (7.4-10.4); PLATELET COUNT 150 /CUMM (130-400); RBC DISTRIBUTION WIDTH 16.4 % (11.5-14.5); RED BLOOD CELL CT 2.67 /CUMM (4.70-6.10); WHITE BLOOD CELL COUNT 4.8 /CUMM (4.8-10.8)
[2016-09-13 08:21] LABS: PT 22.3 SEC (9.4-12.5)
[2016-09-13 08:37] VITALS: BP 150/72
--- NOTE | 2016-09-13 10:35 | PN- Infect Dx ---
Subjective Subjective: MAXIMUM TEMPERATURE 102.7 on steroids. He was short of breath earlier this morning but feels improved now, with no cough or chest discomfort. Objective Last 24 Hrs of Vital Signs/I&O Vital Signs Date Time Temp Pulse Resp B/P Pulse O2 O2 Flow FiO2 Ox Delivery Rate 09/13 0837 102.7 120 24 150/72 94 Nasal 2.0L Cannula 09/13 0830 150/72 09/13 0829 102.7 09/13 0829 150/72 09/13 0000 Nasal 2.0L Cannula 09/12 2338 98.3 72 18 120/64 98 Nasal 2.0L Cannula 09/12 2203 92 112/60 09/12 1659 99.2 85 17 110/53 96 Nasal 2.0L Cannula 09/12 1600 96 Nasal 2.0L Cannula 09/12 1218 92 126/68 Intake & Output 09/13 1600 09/13 0800 09/13 0000 Intake Total 890 Output Total 700 475 Balance -700 415 Intake, IV 250 Intake, Oral 640 Number 1 Bowel Movements Output, Urine 700 475 Physical Exam Other Physical Findings: He appears mildly dyspneic Lungs bilateral inspiratory wheezes with scattered rhonchi Heart irregular rhythm with a 1/6 systolic ejection murmur Extremities minimal edema both lower extremities Results Last 24 Hours of Lab Results: Laboratory Tests 09/13 0650 Chemistry Sodium (137 - 145 mmol/L) 133 L Potassium (3.5 - 5.1 mmol/L) 4.2 Chloride (98 - 107 mmol/L) 100 Carbon Dioxide (22 - 30 mmol/L) 24 Anion Gap (5 - 16) 10 BUN (9 - 20 mg/dL) 19 Creatinine (0.7 - 1.2 mg/dL) 0.9 Estimated GFR (>60 ml/min) > 60 BUN/Creatinine Ratio (7 - 25 %) 21.1 Coagulation PT (9.4 - 12.5 SEC) 22.3 H INR (0.90 - 1.17) 2.14 H Hematology CBC w Diff NO MAN DIFF REQ WBC (4.8 - 10.8 /CUMM) 4.8 RBC (4.70 - 6.10 /CUMM) 2.67 L Hgb (14.0 - 18.0 G/DL) 9.5 L Hct (42 - 52 %) 27.7 L MCV (80.0 - 94.0 FL) 103.9 H MCH (27.0 - 31.0 PG) 35.5 H RDW (11.5 - 14.5 %) 16.4 H Plt Count (130 - 400 /CUMM) 150 MPV (7.4 - 10.4 FL) 8.2 Gran % (42.2 - 75.2 %) 63.9 Lymphocytes % (20.5 - 51.1 %) 25.8 Monocytes % (1.7 - 9.3 %) 8.7 Eosinophils % (0 - 5 %) 1.1 Basophils % (0.0 - 2.0 %) 0.5 Absolute Granulocytes (1.4 - 6.5 /CUMM) 3.1 Absolute Lymphocytes (1.2 - 3.4 /CUMM) 1.2 Absolute Monocytes (0.10 - 0.60 /CUMM) 0.4 Absolute Eosinophils (0.0 - 0.7 /CUMM) 0.1 Absolute Basophils (0.0 - 0.2 /CUMM) 0 PUBS MCHC (33.0 - 37.0 G/DL) 34.2 Last 24 Hours of Efrain Results: Blood cultures 2 September 11 negative Sputum culture September 11 positive for Staph aureus sensitive to Oxacillin Urine culture September 11 negative Recent Imaging Studies: Dopplers of both lower extremities September 12 revealed partially occlusive DVTs within both femoral veins Assessment/Plan Impression: Fevers persist presumably secondary to Staph aureus pneumonia, which appears to be multilobar, now on Vancomycin Day 2 of treatment. The lower extremity Doppler results are noted, with confirmation of the right leg DVT. Suggestion: 1. Discontinue Vancomycin 2. Begin Oxacillin 2 g IV every 4 hours
--- NOTE | 2016-09-13 14:04 | PN- Cardiology ---
Subjective Subjective: Doing OK at the moment. Had episode of increased SOB with wheezing and elevate T earlier today. At the moment he seems slightly confused to me but denies any symptoms. Objective Vital Signs and I&Os Vital Signs Date Time Temp Pulse Resp B/P Pulse O2 O2 Flow FiO2 Ox Delivery Rate 09/13 1041 98.3 09/13 0837 102.7 120 24 150/72 94 Nasal 2.0L Cannula 09/13 0830 150/72 09/13 0829 102.7 09/13 0829 150/72 09/13 0800 94 Nasal 3.0L Cannula 09/13 0800 95 Nasal 2.0L Cannula 09/13 0000 Nasal 2.0L Cannula 09/12 2338 98.3 72 18 120/64 98 Nasal 2.0L Cannula 09/12 2203 92 112/60 09/12 1659 99.2 85 17 110/53 96 Nasal 2.0L Cannula 09/12 1600 96 Nasal 2.0L Cannula Intake & Output 09/13 1600 09/13 0800 09/13 0000 09/12 1600 09/12 0800 09/12 0000 Intake Total 890 050 458 3176 Output Total 700 475 100 300 200 Balance -700 415 550 180 800 Intake, IV 445 672 8092 Intake, Oral 640 400 480 Number 1 1 Bowel Movements Output, Urine 700 475 100 300 200 Patient 200 lb 200 lb Weight Physical Exam: General Appearance: Alert, Oriented X3, Cooperative, Mild Distress Skin: No Rashes, No Breakdown, multiple skin rash in right upper exteremity HEENT: Atraumatic, PERRLA, EOMI, Mucous Membr. moist/pink Neck: Supple Cardiovascular: Regular Rate, Normal S1, Normal S2, No Murmurs Lungs: widspread wheeze with decrease air entery using accessory muscle Abdomen: Normal Bowel Sounds, Soft, No Tenderness Neurological: Normal Speech, Strength at 5/5 X4 Ext, Normal Tone, Sensation Intact, Cranial Nerves 3-12 NL, Reflexes 2+ Extremities: No Clubbing, No Cyanosis, Bilateral LE +1 edema Vascular: Normal Pulses Current Medications: Current Medications Sig/Renetta Start time Last Medication Dose Route Stop Time Status Admin Acetaminophen 650 MG Q6P PRN 09/11 1500 AC 09/13 PO 0829 Albuterol Sulfate 3 ML BID 09/13 2200 AC INH Albuterol Sulfate 3 ML Q4H PRN 09/11 1545 AC 09/13 INH 0806 Aspirin 81 MG DAILY 09/12 1000 AC 09/13 PO 0830 Atorvastatin Calcium 40 MG 1700 09/11 1700 AC 09/12 PO 1812 Azithromycin 500 MG DAILY 09/12 1000 DC 09/12 Dextrose/Water 250 ML IV 1054 Benzonatate 100 MG TID PRN 09/11 1500 AC PO Ceftriaxone Sodium 1,000 MG DAILY 09/12 1000 DC 09/12 IV 1054 Diphenhydramine HCl 25 MG Q6P PRN 09/11 1500 AC IV Furosemide 40 MG Q48 09/13 1000 AC 09/13 PO 0830 Furosemide 20 MG Q48 09/12 1000 AC 09/12 PO 0927 Gabapentin 300 MG DAILY 09/12 1000 AC 09/13 PO 0830 Heparin Sodium 25,000 UNIT Q24H 09/12 2215 DC (Porcine) IV Sodium Chloride 500 ML Hydromorphone HCl 0.5 MG Q4P PRN 09/11 1500 AC IV Ipratropium [place] 2.5 ML BID 09/13 2200 AC INH Ipratropium [place] 2.5 ML Q4P PRN 09/12 0900 AC 09/13 INH 0806 Ketorolac 15 MG Q6P PRN 09/11 1500 AC Tromethamine IV 09/16 1459 Lisinopril 10 MG DAILY 09/12 1134 AC 09/13 PO 0829 Metoprolol Tartrate 50 MG BID 09/11 2200 AC 09/13 PO 0830 Omeprazole 20 MG DAILY 09/12 1000 AC 09/13 PO 0830 Oxacillin Sodium 2,000 MG Q4 09/13 1400 AC Sodium Chloride 100 ML IV Patient Medication 1 UNIT ONE NR 09/12 0930 DC Teaching ED 09/12 1530 Polyethylene Glycol 17 GM AT BEDTIME 09/11 2200 AC PO Prednisone 10 MG DAILY 09/12 1000 AC 09/13 PO 0830 Prochlorperazine 10 MG Q6P PRN 09/11 1500 AC IV Senna/Docusate Sodium 1 TAB AT BEDTIME 09/11 2200 AC 09/11 PO 2152 Vancomycin HCl 1,000 MG 1800 09/12 1800 DC 09/12 Dextrose/Water 250 ML IV 1825 Warfarin Sodium 5 MG COUMADIN 1700 ONE 09/13 1700 AC PO 09/13 1701 Results Last 48 Hrs of Labs/Mics: Laboratory Tests 09/13/16 0650: Anion Gap 10, Estimated GFR > 60, BUN/Creatinine Ratio 21.1, PT 22.3 H, INR 2.14 H, CBC w Diff NO MAN DIFF REQ, RBC 2.67 L, MCV 103.9 H, MCH 35.5 H, RDW 16.4 H, MPV 8.2, Gran % 63.9, Lymphocytes % 25.8, Monocytes % 8.7, Eosinophils % 1.1, Basophils % 0.5, Absolute Granulocytes 3.1, Absolute Lymphocytes 1.2, Absolute Monocytes 0.4, Absolute Eosinophils 0.1, Absolute Basophils 0, PUBS MCHC 34.2 09/12/16 0607: Anion Gap 7, Estimated GFR > 60, BUN/Creatinine Ratio 19.1, Magnesium 1.6, PT 33.7 H, INR 3.25 H, CBC w Diff NO MAN DIFF REQ, RBC 2.58 L, MCV 104.3 H, MCH 35.5 H, RDW 16.4 H, MPV 7.8, Gran % 71.3, Lymphocytes % 16.5 L, Monocytes % 11.3 H, Eosinophils % 0.6, Basophils % 0.3, Absolute Granulocytes 3.9, Absolute Lymphocytes 0.9 L, Absolute Monocytes 0.6, Absolute Eosinophils 0, Absolute Basophils 0, PUBS MCHC 34.0 09/12/16 0015: Troponin I 0.11 *H 09/11/161924: Urine Color YEL, Urine Clarity CLEAR, Urine pH 6.5, Ur Specific [place] 1.015, Urine Protein 100 H, Urine Ketones NEG, Urine Nitrite NEG, Urine Bilirubin NEG, Urine Urobilinogen 0.2, Ur Leukocyte Esterase TRACE H, Ur Microscopic SEDIMENT EXAMINED, Urine RBC >75 H, Urine WBC 10-15 H, Ur Epithelial Cells FEW, Granular Casts 3-5 H, Urine Hemoglobin LARGE H, Urine Glucose NEG 09/11/16 1818: Troponin I 0.17 *H 09/11/16 1450: Lactic Acid Cancelled Microbiology 09/11 1924 URINE ROUT: Urine Culture - COMP 09/11 1554 LOWER RESP: Respiratory Culture - COMP STAPH AUREUS 09/11 155 LOWER RESP: Gram Stain - COMP Assessment/Plan Assessment/Plan Assessment: 1. Paroxysmal atrial fibrillation 2. History of DVT 3. Acute on chronic HFrEF 4. Hypertension, with hypertensive urgency last night 5. Mild troponin elevation secondary to demand ischemia, decreasing 6. Fever with probable Staph pneumonia Recommendations: - COntinue current treatment for now. - Echocardiogram pending - COntinue antibiotics per ID - Continue anticoagulation adjusted to therapeutic INR Continue telemetry? Yes
[2016-09-13 15:47] VITALS: BP 98/56
[2016-09-13 22:41] VITALS: BP 112/66
[2016-09-14 07:45] LABS: ABSOLUTE BASOPHIL COUNT 0 /CUMM (0.0-0.2); ABSOLUTE EOSINOPHIL COUNT 0 /CUMM (0.0-0.7); ABSOLUTE GRANULOCYTE CT 3.9 /CUMM (1.4-6.5); ABSOLUTE LYMPH COUNT 0.9 /CUMM (1.2-3.4); ABSOLUTE MONOCYTE COUNT 0.4 /CUMM (0.10-0.60); BASOPHIL % 0.4 % (0.0-2.0); EOSINOPHIL % 0.7 % (0-5); GRANULOCYTE % 74.8 % (42.2-75.2); HEMATOCRIT 29.5 % (42-52); MEAN CORPUSCULAR HGB 35.3 PG (27.0-31.0); MEAN CORPUSCULAR HGB CONC 33.8 G/DL (33.0-37.0); MEAN CORPUSCULAR VOLUME 104.5 FL (80.0-94.0); MEAN PLATELET VOLUME 8.1 FL (7.4-10.4); PLATELET COUNT 143 /CUMM (130-400); RBC DISTRIBUTION WIDTH 15.8 % (11.5-14.5); RED BLOOD CELL CT 2.82 /CUMM (4.70-6.10); WHITE BLOOD CELL COUNT 5.3 /CUMM (4.8-10.8)
[2016-09-14 08:29] LABS: PT 26.2 SEC (9.4-12.5)
[2016-09-14 08:43] VITALS: BP 145/65
--- NOTE | 2016-09-14 08:50 | PN- Housestaff ---
MAY BORJA,[facility] 09/14/16 0850: Subjective Follow-up For: Staph auries pneumonia Atrial fibrillation on Coumadin Tele-Events Since Last Visit: Tele reported Sinus rhythm, 1st degree heart block, 60-97 beats/min, MS interval 0.24, PVC's, PAC's, Couplets and BBB noted. Subjective: Patient was seen and examined this morning. Patient endorses feeling cold and almost chills. He feels his cough has increased compared to yesterday but sputum appears the same yellow with no blood. No fevers. He is in mild distress due to shortness of breath and has audible wheeze. He is on 2L O2 with sat 98%. Overnight, his nurse reported that he had a few spells of feeling short of breath. Though he is on PRN and q8 TRC, he did not need PRN TRC overnight. This morning while the patient was having the PT session, he desat on 2 L nasal canula to 86% and HR increased to 180 RR with PVCs and PACs. Review of Systems Constitutional: Reports: fever. Denies: chills. EENTM: Denies: hearing changes, nasal congestion. Cardiovascular: Denies: chest pain, palpitations. Respiratory: Reports: cough, short of breath, sputum production. Gastrointestinal: Denies: abdominal pain, constipation, diarrhea, nausea, vomiting. Genitourinary: Denies: dysuria, hematuria. Objective Last 24 Hrs of Vital Signs/I&O Vital Signs Date Time Temp Pulse Resp B/P Pulse O2 O2 Flow FiO2 Ox Delivery Rate 09/14 0848 110 146/66 09/14 0847 110 146/66 09/14 0843 101.3 56 145/65 98 Room Air 09/14 0755 101.3 09/14 0000 93 Nasal 2.0L Cannula 09/13 2241 97.8 64 18 112/66 99 Nasal 2.0L Cannula 09/13 2159 80 106/60 09/13 2040 99 Nasal 3.0L Cannula 09/13 1600 Nasal 3.0L Cannula 09/13 1547 97.9 82 24 98/56 96 Nasal 2.0L Cannula 09/13 1041 98.3 Intake & Output 09/14 1600 09/14 0800 09/14 0000 Intake Total 300 700 Output Total 400 200 Balance -100 500 Intake, IV 200 220 Intake, Oral 100 480 Output, Urine 400 200 Physical Exam General Appearance: Alert, Oriented X3, Cooperative, Mild Distress Skin: right arm rash HEENT: Atraumatic, PERRLA, EOMI, Mucous Membr. moist/pink Neck: Supple Cardiovascular: Regular Rate, Normal S1, Normal S2, No Murmurs Lungs: BL expioratory wheeze Abdomen: Normal Bowel Sounds, Soft, No Tenderness Neurological: Normal Speech, Strength at 5/5 X4 Ext, Normal Tone, Sensation Intact, Cranial Nerves 3-12 NL, Reflexes 2+ Extremities: No Clubbing, No Cyanosis, No Edema Vascular: Pulses Symmetrical Assessment/Plan Assessment: Mr. Anne is 81 y/o male with PMH significant for relapsing polychondritis, sweets syndrome, paroxysmal atrial fibrillation on Coumadin, rheumatoid arthritis on prednisone, DVT status post completion of Coumadin for 3 months. He has chief complaint of weakness for 3 days and fever for one day. Problem list -Staph aureus multilobar pneumonia -Atrial fibrillation on Coumadin -Elevated troponin #Staph aureus multilobar pneumonia -Patient has history of productive cough with green blood tinged sputum -The chest x-ray was initially negative for any acute changes, following chest x -ray showed new patchy airspace opacity in the left midlung and right base. Consider repeating chest x-ray tomorrow morning -Patient recevied one dose of Ceftriaxone IV 1000 mg, azithromycin 250 mg IV, and vancomycin 1000 mg IV -Sputum culture positive for MSSA -Continue oxacillin 2 mg every 4 IV Day#3 -ID consultaion was obtained, thanks for recommendation we'll continue to follow -Patient continued to have wheezing although decreased oxygen requirement from 3 L to 2 L with saturation 98%, patient is on prednisone 10 mg by mouth daily the rheumatoid arthritis does. Will obtain pulmonology consultation -Pulmonology consultation was obtained given presistant wheeze and cough. recommenadtion to continue the current management. -Due to the fact that he has significant staph aureus pneumonia, hold off on increasing steroids -Presistant wheezing most likely related to mild pulmonary edema with betablockers playing a small role. 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 #Fever -Presistant low grade fever this morning temperature 101.3 Tmax 101.3 -Patient was admitted in July 2016 with history of fever of unknown origin -Follow up urine culture, blood culture, no growth after 2 days #Elevated troponin -Troponin trending down on admission 0.19 trend down to 0.11 -EKG no changes on admission -Aspirin 81 mg daily #Atrial fibrillation on Coumadin -INR 2.9 to will dose 2.5 warfarin -INR target 2-3 -patient had bilateral LE doppler US yeaterday based on old recommendation from last admission 08/11, taht showed acute right femoral DVT and old left femoral DVT -Patient has HX of subtheraputic INR 1 week proir to admission #Rheumatoid arthritis -Continue prednisone 10 mg by mouth daily #Hypertension and hyperlipidemia -Continue Lopressor 50 mg twice a day -Continue atorvastatin 40 mg daily -Continue frusemide 20 mg every 48 and 40 mg every 48 -Increase lisinopril 20 mg PO daily -Orthostate measurment is negative #History of shingles with neuropathy -Continue gabapentin 300 mg daily #Diet heart healthy diet #DVT prophylaxis ALPS, hold Coumadin for therapeutic INR #Code DNR/DNI -Consulation ID, Cardio, pulmonology Problem List: 1. Atrial fibrillation 2. Staphylococcus aureus pneumonia 3. Shortness of breath Pain Ratin Pain Location: N/A Pain Goal: Remain pain free Pain Plan: see mediaction Tomorrow's Labs & Rationales: CBC, CMP, INR JOANA BORJA,JOYCELYN 09/14/16 1639: Attending MD Review Statement Attending Statement Attending MD Statement: examined this patient, discuss w/resident/PA/HUMAN INSIGHTS LEAD ADS MARKETING, agreed w/resident/PA/HUMAN INSIGHTS LEAD ADS MARKETING, discussed with nursing, discussed with case mgmt, amended to note Attending Assessment/Plan: The patient was seen and discussed with house staff. Agree with the plan of care as outlined.
--- NOTE | 2016-09-14 10:24 | NUR ---
PATIENT HEART RATE WENT UP TO 190'S WHILE AMBULATING WITH PT. OXYGEN SATURATION ALSO DROPPED TO 86% ON 2L WHILE AMBULATING. PATIENT ASSISTED TO CHAIR, HEART RATE BACK TO 100'S WITH FREQUENT PVC'S. OXYGEN SATURATION BACK TO 93%. BP 140/80. DR. OLVERA NOTIFIED. STRIP PLACED IN CHART. NO FURTHER INTERVENTIONS ORDERED AT THIS TIME. WILL CONTINUE TO MONITOR.
--- NOTE | 2016-09-14 10:55 | PN- Infect Dx ---
Subjective Subjective: MAXIMUM TEMPERATURE 101.3 on steroids. He was again short of breath this morning but feels better now. He does not report cough or chest pain and has no GI or symptoms. Objective Last 24 Hrs of Vital Signs/I&O Vital Signs Date Time Temp Pulse Resp B/P Pulse O2 O2 Flow FiO2 Ox Delivery Rate 09/14 0854 99.7 09/14 0848 110 146/66 09/14 0847 110 146/66 09/14 0843 101.3 56 145/65 98 Room Air 09/14 0800 93 Nasal 2.0L Cannula 09/14 0755 101.3 09/14 0000 93 Nasal 2.0L Cannula 09/13 2241 97.8 64 18 112/66 99 Nasal 2.0L Cannula 09/13 2159 80 106/60 09/13 2040 99 Nasal 3.0L Cannula 09/13 1600 Nasal 3.0L Cannula 09/13 1547 97.9 82 24 98/56 96 Nasal 2.0L Cannula Intake & Output 09/14 1600 09/14 0800 09/14 0000 Intake Total 300 700 Output Total 400 200 Balance -100 500 Intake, IV 200 220 Intake, Oral 100 480 Output, Urine 400 200 Physical Exam Other Physical Findings: He appears more comfortable in no acute distress Lungs bilateral expiratory wheezes, with crackles at the right base, overall improved from yesterday's exam Heart irregular rhythm with no murmur Extremities minimal edema both lower extremities Results Last 24 Hours of Lab Results: Laboratory Tests 09/14 0635 Chemistry Sodium (137 - 145 mmol/L) 135 L Potassium (3.5 - 5.1 mmol/L) 4.3 Chloride (98 - 107 mmol/L) 99 Carbon Dioxide (22 - 30 mmol/L) 26 Anion Gap (5 - 16) 10 BUN (9 - 20 mg/dL) 25 H Creatinine (0.7 - 1.2 mg/dL) 1.1 Estimated GFR (>60 ml/min) > 60 BUN/Creatinine Ratio (7 - 25 %) 22.7 Coagulation PT (9.4 - 12.5 SEC) 26.2 H INR (0.90 - 1.17) 2.52 H Hematology CBC w Diff NO MAN DIFF REQ WBC (4.8 - 10.8 /CUMM) 5.3 RBC (4.70 - 6.10 /CUMM) 2.82 L Hgb (14.0 - 18.0 G/DL) 10.0 L Hct (42 - 52 %) 29.5 L MCV (80.0 - 94.0 FL) 104.5 H MCH (27.0 - 31.0 PG) 35.3 H RDW (11.5 - 14.5 %) 15.8 H Plt Count (130 - 400 /CUMM) 143 MPV (7.4 - 10.4 FL) 8.1 Gran % (42.2 - 75.2 %) 74.8 Lymphocytes % (20.5 - 51.1 %) 17.4 L Monocytes % (1.7 - 9.3 %) 6.7 Eosinophils % (0 - 5 %) 0.7 Basophils % (0.0 - 2.0 %) 0.4 Absolute Granulocytes (1.4 - 6.5 /CUMM) 3.9 Absolute Lymphocytes (1.2 - 3.4 /CUMM) 0.9 L Absolute Monocytes (0.10 - 0.60 /CUMM) 0.4 Absolute Eosinophils (0.0 - 0.7 /CUMM) 0 Absolute Basophils (0.0 - 0.2 /CUMM) 0 PUBS MCHC (33.0 - 37.0 G/DL) 33.8 Last 24 Hours of Efrain Results: Blood cultures September 11 negative Assessment/Plan Impression: Appears to be improving with persistent though lower grade fevers and with decreased oxygen requirements on Oxacillin now Day 3 of treatment for multilobar Staph aureus pneumonia. Suggestion: 1. Continue Oxacillin 2 g IV every 4 hours
--- NOTE | 2016-09-14 11:02 | PN- Cardiology ---
Subjective Subjective: The patient is comfortable. No current shortness of breath chest pain, or palpitations. No diaphoresis. No lightheadedness or dizziness. No nausea or vomiting. He continues to be febrile. Objective Vital Signs and I&Os Vital Signs Date Time Temp Pulse Resp B/P Pulse O2 O2 Flow FiO2 Ox Delivery Rate 09/14 0854 99.7 09/14 0848 110 146/66 09/14 0847 110 146/66 09/14 0843 101.3 56 145/65 98 Room Air 09/14 0800 93 Nasal 2.0L Cannula 09/14 0755 101.3 09/14 0000 93 Nasal 2.0L Cannula 09/13 2241 97.8 64 18 112/66 99 Nasal 2.0L Cannula 09/13 2159 80 106/60 09/13 2040 99 Nasal 3.0L Cannula 09/13 1600 Nasal 3.0L Cannula 09/13 1547 97.9 82 24 98/56 96 Nasal 2.0L Cannula Intake & Output 09/14 1600 09/14 0800 09/14 0000 09/13 1600 09/13 0800 09/13 0000 Intake Total 300 700 720 890 Output Total 400 200 400 700 475 Balance -100 500 320 -700 415 Intake, IV 200 220 250 Intake, Oral 100 480 720 640 Number 1 Bowel Movements Output, Urine 400 200 400 700 475 Patient 200 lb Weight Physical Exam: Gen: The patient is in no acute distress HEENT: Normal nose, ears, and oropharynx. Pupils equal bilaterally. Conjunctiva normal. Neck: Supple with no JVD, no masses, and no thyromegaly Lungs: Clear to auscultation with normal respiratory effort Heart: RRR, S1, S2 with ectopy noted, 1/6 systolic murmur. 1+ peripheral edema, 2+ pulses in the lower extremities bilaterally Abdomen: Soft, nontender, no masses. No hepatomegaly. No splenomegaly Extremities: No clubbing or cyanosis. Normal muscle strength in the upper and lower extremities Skin: Normal skin turgor with no skin ulcers or lesions noted. Neuro: Cranial nerves intact. Sensation intact Current Medications: Current Medications Sig/Renetta Start time Last Medication Dose Route Stop Time Status Admin Acetaminophen 650 MG Q6P PRN 09/11 1500 AC 09/14 PO 0755 Albuterol Sulfate 3 ML BID 09/13 2200 AC 09/14 INH 0755 Albuterol Sulfate 3 ML Q4H PRN 09/11 1545 AC 09/13 INH 0806 Aspirin 81 MG DAILY 09/12 1000 AC 09/14 PO 0847 Atorvastatin Calcium 40 MG 1700 09/11 1700 AC 09/13 PO 1742 Benzonatate 100 MG TID PRN 09/11 1500 AC PO Diphenhydramine HCl 25 MG Q6P PRN 09/11 1500 AC IV Furosemide 40 MG Q48 09/13 1000 AC 09/13 PO 0830 Furosemide 20 MG Q48 09/12 1000 AC 09/14 PO 0847 Gabapentin 300 MG DAILY 09/12 1000 AC 09/14 PO 0847 Hydromorphone HCl 0.5 MG Q4P PRN 09/11 1500 AC IV Ipratropium [place] 2.5 ML BID 09/13 2200 AC 09/14 INH 0752 Ipratropium [place] 2.5 ML Q4P PRN 09/12 0900 AC 09/13 INH 0806 Ketorolac 15 MG Q6P PRN 09/11 1500 AC Tromethamine IV 09/16 1459 Lisinopril 10 MG DAILY 09/12 1134 AC 09/14 PO 0848 Metoprolol Tartrate 50 MG BID 09/11 2200 AC 09/14 PO 0847 Omeprazole 20 MG DAILY 09/12 1000 AC 09/14 PO 0847 Oxacillin Sodium 2,000 MG Q4 09/13 1400 AC 09/14 Sodium Chloride 100 ML IV 0948 Polyethylene Glycol 17 GM AT BEDTIME 09/11 2200 AC PO Prednisone 10 MG DAILY 09/12 1000 AC 09/14 PO 0847 Prochlorperazine 10 MG Q6P PRN 09/11 1500 AC IV Senna/Docusate Sodium 1 TAB AT BEDTIME 09/11 2200 AC 09/11 PO 2152 Vancomycin HCl 1,000 MG 1800 09/12 1800 DC 09/12 Dextrose/Water 250 ML IV 1825 Warfarin Sodium 5 MG COUMADIN 1700 ONE 09/13 1700 DC 09/13 PO 09/13 1701 1743 Results Last 48 Hrs of Labs/Mics: Laboratory Tests 09/14/16 0635: Anion Gap 10, Estimated GFR > 60, BUN/Creatinine Ratio 22.7, PT 26.2 H, INR 2.52 H, CBC w Diff NO MAN DIFF REQ, RBC 2.82 L, MCV 104.5 H, MCH 35.3 H, RDW 15.8 H, MPV 8.1, Gran % 74.8, Lymphocytes % 17.4 L, Monocytes % 6.7, Eosinophils % 0.7, Basophils % 0.4, Absolute Granulocytes 3.9, Absolute Lymphocytes 0.9 L, Absolute Monocytes 0.4, Absolute Eosinophils 0, Absolute Basophils 0, PUBS MCHC 33.8 09/13/16 0650: Anion Gap 10, Estimated GFR > 60, BUN/Creatinine Ratio 21.1, PT 22.3 H, INR 2.14 H, CBC w Diff NO MAN DIFF REQ, RBC 2.67 L, MCV 103.9 H, MCH 35.5 H, RDW 16.4 H, MPV 8.2, Gran % 63.9, Lymphocytes % 25.8, Monocytes % 8.7, Eosinophils % 1.1, Basophils % 0.5, Absolute Granulocytes 3.1, Absolute Lymphocytes 1.2, Absolute Monocytes 0.4, Absolute Eosinophils 0.1, Absolute Basophils 0, PUBS MCHC 34.2 Assessment/Plan Assessment/Plan Assessment: 1. Paroxysmal atrial fibrillation 2. History of DVT 3. Acute on chronic HFrEF 4. Hypertension, mostly controlled 5. Mild troponin elevation secondary to demand ischemia, decreasing Recommendations: * IV antibiotics as per the medical service * Increase lisinopril to 20 mg daily for treatment of HFrEF, and hypertension * Continue PO Lasix * Continue metoprolol 50 mg P0 twice a day * Dose warfarin for INR 2-3 Continue telemetry? No
--- NOTE | 2016-09-14 13:36 | Cons- Pulmonary ---
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, treated in the past with Cytoxan and Methotrexate and currently maintained on prednisone 10 mg a day, with his most recent hospitalization one month prior to admission felt to be secondary to a flareup of this disease, for which his steroids were temporarily increased, and with a history of Sweet syndrome, hospitalized 2 months prior to admission with what was felt to be a flareup of this disease, with a chronic left leg DVT and possibly new right leg DVT, for which he was restarted on Coumadin on his recent hospitalization, with the recommendation at that time for a follow-up right lower extremity Doppler after 7-10 days admitted on September 11 after presenting to the emergency room with several days of increasing weakness and cough, with green sputum, and more acute onset of fevers, chills and increasing shortness of breath. On admission he was febrile to 102. Laboratory data revealed a white blood cell count of 7000, BUN/creatinine 21 and 0.9, normal liver enzymes, troponin 0.19, INR 3.08. Urinalysis greater than 75 RBC/10-15 WBCs. Subsequently he still continued to have cough and wheezing hence this consult. Patient has been on 10 mg of prednisone for his autoimmune disorder. He has had the appropriate antibiotics. After reviewing his previous history and appears that he has had the nonspecific bilateral groundglass opacities before in middle of July. He has had chronic microvascular disease and has had and he also has a hiatal hernia with chronic by basilar atelectasis bronchial wall thickening aortic valve calcification. He does not have any history suggestive of any significant smoking. Recent lower extremity Doppler has shown partially occlusive DVT within both femoral veins which appears to be chronic and seems to have had it for at least few months. Patient is on anticoagulation with INR of 2.52. Last CTA done in middle of July had shown no evidence suggestive of pulmonary embolism Recent flu swab was unremarkable Allergies/Medications Allergies: Coded Allergies: NO KNOWN ALLERGIES (08/07/16) Home Med List: Aspirin (Aspirin*) 81 MG TAB.CHEW 1 TAB PO DAILY HEART Atorvastatin Calcium 40 MG TABLET 1 TAB PO 1700 HEART DISEASE Calcium Carbonate (Calcium) 600 MG (1,500 MG) TABLET 1 TAB PO DAILY SUPPLEMENT (Reported) Cyanocobalamin (Vitamin B-12) (Cyanocobalamin Injection) 1,000 MCG/1 ML VIAL 1 ML IM Q30D SUPPLEMENT (Reported) Furosemide 20 MG TABLET 1 TAB PO EOD WATER PILL (Reported) Furosemide 40 MG TABLET 1 TAB PO EOD WATER PILL (Reported) Gabapentin 300 MG CAPSULE 1 CAP PO DAILY SHINGLES (Reported) Metoprolol Tartrate 50 MG TABLET 1 TAB PO BID HEART RATE Omeprazole 20 MG CAPSULE.DR 1 CAP PO DAILY GERD (Reported) Prednisone 10 MG TABLET 0 PO DAILY POLYCHONDRITIS TAKE 3 TABS ON 08/11,08/12,08/13 TAKE 2 TABS FROM 08/13 AND STAY ON TI TILL YOU SEE DR. ZARATE Warfarin Sodium (Coumadin) 5 MG TABLET 1 TAB PO DAILY BLOOD CLOT Review of Systems Review of Systems Constitutional: Reports: see HPI. 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 Home Who Do You Live With? self Services at Home: Home Health Aide, Nursing Primary Language: [place]ian Smoking Status: Never Smoked Living Will? unknown Power of Industrial Analyst/HCP? yes Functional Ability ADLs Independent: eating. Needs Assist: dressing, toileting, bathing. Ambulation: walker, non-ambulatory IADLs Independent: telephone. Needs Assist: shopping, housework, finances, food prep, transportation, medication admin. Exam & Diagnostic Data Last 24 Hrs of Vital Signs/I&O Vital Signs Date Time Temp Pulse Resp B/P Pulse O2 O2 Flow FiO2 Ox Delivery Rate 09/14 0854 99.7 09/14 0848 110 146/66 09/14 0847 110 146/66 09/14 0843 101.3 56 145/65 98 Room Air 09/14 0800 93 Nasal 2.0L Cannula 09/14 0755 101.3 09/14 0000 93 Nasal 2.0L Cannula 09/13 2241 97.8 64 18 112/66 99 Nasal 2.0L Cannula 09/13 2159 80 106/60 09/13 2040 99 Nasal 3.0L Cannula 09/13 1600 Nasal 3.0L Cannula 09/13 1547 97.9 82 24 98/56 96 Nasal 2.0L Cannula Intake & Output 09/14 1600 09/14 0800 09/14 0000 Intake Total 300 700 Output Total 400 200 Balance -100 500 Intake, IV 200 220 Intake, Oral 100 480 Output, Urine 400 200 Last 48 Hrs of Labs/Efrain: Laboratory Tests 09/14/16 0635: Anion Gap 10, Estimated GFR > 60, BUN/Creatinine Ratio 22.7, PT 26.2 H, INR 2.52 H, CBC w Diff NO MAN DIFF REQ, RBC 2.82 L, MCV 104.5 H, MCH 35.3 H, RDW 15.8 H, MPV 8.1, Gran % 74.8, Lymphocytes % 17.4 L, Monocytes % 6.7, Eosinophils % 0.7, Basophils % 0.4, Absolute Granulocytes 3.9, Absolute Lymphocytes 0.9 L, Absolute Monocytes 0.4, Absolute Eosinophils 0, Absolute Basophils 0, PUBS MCHC 33.8 09/13/16 0650: Anion Gap 10, Estimated GFR > 60, BUN/Creatinine Ratio 21.1, PT 22.3 H, INR 2.14 H, CBC w Diff NO MAN DIFF REQ, RBC 2.67 L, MCV 103.9 H, MCH 35.5 H, RDW 16.4 H, MPV 8.2, Gran % 63.9, Lymphocytes % 25.8, Monocytes % 8.7, Eosinophils % 1.1, Basophils % 0.5, Absolute Granulocytes 3.1, Absolute Lymphocytes 1.2, Absolute Monocytes 0.4, Absolute Eosinophils 0.1, Absolute Basophils 0, PUBS MCHC 34.2 Assessment/Plan Impression/Plan: SIGNIFICANT DATA Chest x-ray showed bilateral pulmonary infiltrates more in the left and the right Lower extremity ultrasound showed partial occlusive DVT within the both femoral veins. This appears to be chronic Previous CTA done on 08/07/2016 showed no pulmonary embolism nonspecific mild chronic probably glass opacities CT of the head done August 07 showed parenchymal volume loss CT scan of the abdomen in March 2016 showed degenerative lumbar disease otherwise unremarkable Blood work reviewed creatinine 1.1 which is slightly elevated lactic acid was normal last LDH was elevated white count has improved to 5.3 with no significant left shift his MCV has been elevated since April is anemic with hemoglobin of 10 Physical Exam: Gen: The patient is in no acute distress HEENT: Normal nose, ears, and oropharynx. Pupils equal bilaterally. Conjunctiva normal. Neck: Supple with no JVD, no masses, and no thyromegaly Lungs: Mild bilateral crackles with mild wheezing. Heart: S1, S2 with ectopy noted, 1/6 systolic murmur. 1+ peripheral edema, 2+ pulses in the lower extremities bilaterally Abdomen: Soft, nontender, no masses. No hepatomegaly. No splenomegaly Extremities: No clubbing or cyanosis. Normal muscle strength in the upper and lower extremities, minimal edema Skin: Normal skin turgor with no skin ulcers or lesions noted. Neuro: Cranial nerves intact. 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 His slowly seems to be improving with current antibiotics. (flu swab neg initially) * Nosignificant evidence suggestive of COPD and he is not a smoker * Proximal atrial fibrillation with recent acute on chronic heart failure with preserved ejection fraction on Lasix * 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 appears to be adequately anticoagulated with no evidence suggestive of active PE * Slightly elevated creatinine stage II chronic kidney disease probably * Relapsing polychondritis with some evidence suggestive of vocal cord involvement with mild wheezing with transmitted sounds but does not seem to be of any significance at this time RECOMMENDATION * Continue antibiotic - oxacillin * Continue current dose of steroid. Due to the fact that he has significant staph aureus pneumonia we will hold off on increasing his steroids * Patient does have mild wheezing most likely related to mild pulmonary edema with betablockers playing a small role. 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
[2016-09-14 16:40] VITALS: BP 127/56
[2016-09-14 20:52] VITALS: BP 120/74
[2016-09-14 23:29] VITALS: BP 120/74
--- NOTE | 2016-09-15 08:02 | PN- Housestaff ---
ASHUTOSH BORJA,[facility] 09/15/16 0802: Subjective Follow-up For: Staph auries pneumonia Atrial fibrillation on Coumadin Tele-Events Since Last Visit: SR-ST, 90-100, PACs, PVCs, triplets, couplets, 4 beats of Vtach Subjective: Patient is seen and examined at bedside today, he is alert and oriented, in no distress, mentions he is dry and wants to drink more water, also reports coughing. Patient developed fever this AM of 101.6 F Review of Systems Constitutional: Denies: chills, fever, weakness. EENTM: Reports: no symptoms. Cardiovascular: Denies: chest pain, orthopena, palpitations. Respiratory: Reports: cough. Denies: short of breath, sputum production, wheezing. Gastrointestinal: Denies: abdominal pain, changes in stool. Genitourinary: Reports: no symptoms. Denies: discharge. Musculoskeletal: Reports: no symptoms. Objective Last 24 Hrs of Vital Signs/I&O Vital Signs Date Time Temp Pulse Resp B/P Pulse O2 O2 Flow FiO2 Ox Delivery Rate 09/15 1602 97.8 73 20 108/60 93 Room Air 09/15 0914 101.6 09/15 0912 101.6 09/15 0859 130 150/72 09/15 0832 96 Nasal 1.0L Cannula 09/15 0818 99.5 130 20 152/70 94 Nasal Cannula 09/15 0800 Nasal 1.0L Cannula 09/15 0000 97 Nasal 1.0L Cannula 09/149 98.0 88 18 120/74 99 Nasal Cannula 09/14 2054 93 120/74 09/14 2051 93 120/74 97 Nasal 1.0L Cannula 09/14 2035 95 Nasal 1.0L Cannula Intake & Output 09/15 1600 09/15 0800 09/15 0000 Intake Total 150 530 720 Output Total 390 600 575 Balance -240 -70 145 Intake, IV 150 130 200 Intake, Oral 400 520 Number 1 Bowel Movements Output, Urine 390 600 575 Physical Exam General Appearance: Alert, Oriented X3, Cooperative, No Acute Distress Skin: No Rashes, No Breakdown, No Significant Lesion HEENT: Atraumatic, PERRLA, EOMI, Mucous Membr. moist/pink Neck: Supple, No JVD Cardiovascular: Regular Rate, Normal S1, Normal S2, No Murmurs Lungs: wheezing bilaterally Abdomen: Normal Bowel Sounds, Soft, No Tenderness Neurological: Normal Speech, Strength at 5/5 X4 Ext, Normal Tone, Sensation Intact Extremities: No Clubbing, No Cyanosis, No Edema, Normal Pulses, No Tenderness/ Swelling Vascular: Normal Pulses, Pulses Symmetrical Current Medications: Current Medications Sig/Renetta Start time Last Medication Dose Route Stop Time Status Admin Acetaminophen 650 MG .STK-MED ONE 09/15 0911 DC PO 09/15 0912 Acetaminophen 650 MG Q6P PRN 09/11 1500 AC 09/15 PO 0914 Albuterol Sulfate 3 ML BID 09/13 2200 AC 09/15 INH 0830 Albuterol Sulfate 3 ML Q4H PRN 09/11 1545 AC 09/13 INH 0806 Aspirin 81 MG DAILY 09/12 1000 AC 09/15 PO 0900 Atorvastatin Calcium 40 MG 1700 09/11 1700 AC 09/14 PO 1747 Benzonatate 100 MG TID 09/15 1600 AC PO Cyanocobalamin 250 MCG DAILY 09/15 1315 AC PO Diphenhydramine HCl 25 MG Q6P PRN 09/11 1500 AC IV Folic Acid 1 MG DAILY 09/15 1315 AC PO Furosemide 40 MG Q48 09/13 1000 AC 09/15 PO 0900 Furosemide 20 MG Q48 09/12 1000 AC 09/14 PO 0847 Gabapentin 300 MG DAILY 09/12 1000 AC 09/15 PO 0859 Hydromorphone HCl 0.5 MG Q4P PRN 09/11 1500 AC IV Ipratropium [place] 2.5 ML BID 09/13 2200 AC 09/15 INH 0830 Ipratropium [place] 2.5 ML Q4P PRN 09/12 0900 AC 09/13 INH 0806 Ketorolac 15 MG Q6P PRN 09/11 1500 AC Tromethamine IV 09/16 1459 Lisinopril 20 MG DAILY 09/15 1000 AC 09/15 PO 0859 Metoprolol Tartrate 50 MG BID 09/11 2200 AC 09/15 PO 0900 Omeprazole 20 MG DAILY 09/12 1000 AC 09/15 PO 0859 Oxacillin Sodium 2,000 MG Q4 09/13 1400 AC 09/15 Sodium Chloride 100 ML IV 1434 Polyethylene Glycol 17 GM AT BEDTIME 09/11 2200 AC PO Prednisone 10 MG DAILY 09/12 1000 AC 09/15 PO 0859 Prochlorperazine 10 MG Q6P PRN 09/11 1500 AC IV Senna/Docusate Sodium 1 TAB AT BEDTIME 09/11 2200 AC 09/11 PO 2152 Last 24 Hrs of Lab/Efrain Results Last 24 Hrs of Labs/Mics: Laboratory Tests 09/15/16 1740: ESR [place] Pending 09/15/16 0710: Anion Gap 8, Estimated GFR 58 L, BUN/Creatinine Ratio 19.2, PT 49.7 *H, INR 4.81 *H, CBC w Diff NO MAN DIFF REQ, RBC 2.70 L, MCV 102.8 H, MCH 35.0 H, RDW 16.4 H, MPV 8.1, Gran % 71.6, Lymphocytes % 21.3, Monocytes % 5.9, Eosinophils % 0.8, Basophils % 0.4, Absolute Granulocytes 3.8, Absolute Lymphocytes 1.1 L, Absolute Monocytes 0.3, Absolute Eosinophils 0, Absolute Basophils 0, PUBS MCHC 34.0 Microbiology 09/15 1740 BLOOD: Blood Culture - RECD 09/15 1257 BLOOD: Blood Culture - COLB Assessment/Plan Assessment: Mr. Anne is 81 y/o male with PMH significant for relapsing polychondritis, sweets syndrome, paroxysmal atrial fibrillation on Coumadin, rheumatoid arthritis on prednisone, DVT status post completion of Coumadin for 3 months. He has chief complaint of weakness for 3 days and fever for one day. Problem list -Staph aureus multilobar pneumonia -Atrial fibrillation on Coumadin -Elevated troponin #Staph aureus multilobar pneumonia -Patient has history of productive cough with green blood tinged sputum -The chest x-ray was initially negative for any acute changes, following chest x -ray showed new patchy airspace opacity in the left midlung and right base. -Patient received one dose of Ceftriaxone IV 1000 mg, azithromycin 250 mg IV, and vancomycin 1000 mg IV -Sputum culture positive for MSSA -Continue oxacillin 2 mg every 4 IV Day#4 (continue per ID for now, eventually will be able to switch to PO) -Patient continued to have wheezing although decreased oxygen requirement from 3 L to 2 L with saturation 98%, patient is on prednisone 10 mg by mouth daily the rheumatoid arthritis does. Ordered chest CT scan today (09/15/16), will follow results -Pulmonology consultation was obtained given persistent wheeze and cough -Due to the fact that he has significant staph aureus pneumonia, hold off on increasing steroids -Persistent wheezing most likely related to mild pulmonary edema with betablockers playing a small role. 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 #Fever -Persistent low grade fever, this morning temperature 101.6, new set of BCx2 sent today (09/15/16), repeated ESR -Patient was admitted in July 2016 with history of fever of unknown origin -Follow up urine culture, blood culture #Elevated troponin -Troponin trending down on admission 0.19 trend down to 0.11 -EKG no changes on admission -Aspirin 81 mg daily #Atrial fibrillation on Coumadin -INR 4.81, urine appeared pinkish-suggested mild hematuria (RBC>75 in urine analysis on admission) -held coumadin for today, will repeat INR tomorrow -INR target 2-3 -patient had bilateral LE doppler US based on old recommendation from last admission 08/11, that showed acute right femoral DVT and old left femoral DVT -Patient has HX of subtherapeutic INR 1 week prior to admission #Rheumatoid arthritis -Continue prednisone 10 mg by mouth daily #Hypertension and hyperlipidemia -Continue Lopressor 50 mg twice a day -Continue atorvastatin 40 mg daily -Continue frusemide 20 mg every 48 and 40 mg every 48 -Increase lisinopril 20 mg PO daily -Orthostats measurement is negative #History of shingles with neuropathy -Continue gabapentin 300 mg daily #Diet heart healthy diet #DVT prophylaxis ALPS, hold Coumadin for therapeutic INR #Code DNR/DNI -Consultation ID, Cardio, pulmonology Problem List: 1. Atrial fibrillation 2. Staphylococcus aureus pneumonia 3. Shortness of breath Pain Ratin Pain Location: no pain Pain Goal: Pain 4 or less Pain Plan: tylenol for mil pain Tomorrow's Labs & Rationales: CBC (anemia), BEP and Mg (hyponatremia, hypomagnesemia), INR (afib on coumadin INR supratherapeutic) JOYCELYN BERNARD MD 09/15/16 2123: Attending Review Statement Attending Statement Attending Statement: examined this patient, discuss w/resident/PA/ACCESS REPRESENTATIVE, agreed w/resident/PA/ACCESS REPRESENTATIVE, reviewed EMR data (avail), discussed with nursing, discussed with case mgmt, reviewed images, amended to note Attending Assessment/Plan: The patient was seen and discussed with house staff. Appreciate ID, pulmonary follow-up. Had temp this morning and repeat cultures. CT chest shows no empyema. Abx as per ID.
[2016-09-15 08:18] VITALS: BP 152/70
[2016-09-15 08:26] LABS: ABSOLUTE BASOPHIL COUNT 0 /CUMM (0.0-0.2); ABSOLUTE EOSINOPHIL COUNT 0 /CUMM (0.0-0.7); ABSOLUTE GRANULOCYTE CT 3.8 /CUMM (1.4-6.5); ABSOLUTE LYMPH COUNT 1.1 /CUMM (1.2-3.4); ABSOLUTE MONOCYTE COUNT 0.3 /CUMM (0.10-0.60); BASOPHIL % 0.4 % (0.0-2.0); EOSINOPHIL % 0.8 % (0-5); GRANULOCYTE % 71.6 % (42.2-75.2); HEMATOCRIT 27.8 % (42-52); MEAN CORPUSCULAR VOLUME 102.8 FL (80.0-94.0); MEAN PLATELET VOLUME 8.1 FL (7.4-10.4); PLATELET COUNT 144 /CUMM (130-400); RBC DISTRIBUTION WIDTH 16.4 % (11.5-14.5); WHITE BLOOD CELL COUNT 5.3 /CUMM (4.8-10.8)
[2016-09-15 08:31] LABS: PT 49.7 SEC (9.4-12.5)
--- NOTE | 2016-09-15 09:30 | PN- Pulmonary ---
Subjective HPI/Critical Care Issues: Complaints of feeling fatigued Still has fever Does complain of soreness in his mouth Did not sleep well Oxygen saturation is improved now on 1 L saturating 95% No nausea vomiting diarrhea, no abdominal pain. Review of symptoms otherwise unremarkable Objective Current Medications: Current Medications Sig/Renetta Start time Last Medication Dose Route Stop Time Status Admin Acetaminophen 650 MG Q6P PRN 09/11 1500 AC 09/15 PO 0914 Albuterol Sulfate 3 ML BID 09/13 2200 AC 09/15 INH 0830 Albuterol Sulfate 3 ML Q4H PRN 09/11 1545 AC 09/13 INH 0806 Aspirin 81 MG DAILY 09/12 1000 AC 09/15 PO 0900 Atorvastatin Calcium 40 MG 1700 09/11 1700 AC 09/14 PO 1747 Benzonatate 100 MG TID PRN 09/11 1500 DC PO Diphenhydramine HCl 25 MG Q6P PRN 09/11 1500 AC IV Furosemide 40 MG Q48 09/13 1000 AC 09/15 PO 0900 Furosemide 20 MG Q48 09/12 1000 AC 09/14 PO 0847 Gabapentin 300 MG DAILY 09/12 1000 AC 09/15 PO 0859 Hydromorphone HCl 0.5 MG Q4P PRN 09/11 1500 AC IV Ipratropium [place] 2.5 ML BID 09/13 2200 AC 09/15 INH 0830 Ipratropium [place] 2.5 ML Q4P PRN 09/12 0900 AC 09/13 INH 0806 Ketorolac 15 MG Q6P PRN 09/11 1500 AC Tromethamine IV 09/16 1459 Lisinopril 20 MG DAILY 09/15 1000 AC 09/15 PO 0859 Lisinopril 10 MG DAILY 09/12 1134 DC 09/14 PO 0848 Metoprolol Tartrate 50 MG BID 09/11 2200 AC 09/15 PO 0900 Omeprazole 20 MG DAILY 09/12 1000 AC 09/15 PO 0859 Oxacillin Sodium 2,000 MG Q4 09/13 1400 AC 09/15 Sodium Chloride 100 ML IV 0641 Patient Medication 1 ED .STK-MED ONE 09/14 1353 DC Teaching ED 09/14 1354 Polyethylene Glycol 17 GM AT BEDTIME 09/11 2200 AC PO Prednisone 10 MG DAILY 09/12 1000 AC 09/15 PO 0859 Prochlorperazine 10 MG Q6P PRN 09/11 1500 AC IV Senna/Docusate Sodium 1 TAB AT BEDTIME 09/11 2199 AC 09/11 PO 215 Warfarin Sodium 2.5 MG COUMADIN 1700 ONE 09/14 1700 DC 09/14 PO 09/14 1701 1747 Vital Signs & I&O Last 24 Hrs of Vitals and I&O: Vital Signs Date Time Temp Pulse Resp B/P Pulse O2 O2 Flow FiO2 Ox Delivery Rate 09/15 0914 101.6 09/15 0912 101.6 09/15 0859 130 150/72 09/15 0832 96 Nasal 1.0L Cannula 09/15 0818 99.5 130 20 152/70 94 Nasal Cannula 09/15 0000 97 Nasal 1.0L Cannula 09/14 2328 98.0 88 18 120/74 99 Nasal Cannula 09/14 2054 93 120/74 09/14 2051 93 120/74 97 Nasal 1.0L Cannula 09/14 2035 95 Nasal 1.0L Cannula 09/14 1640 97.9 59 20 127/56 98 Nasal 2.0L Cannula 09/14 1600 98 Nasal 2.0L Cannula Intake & Output 09/15 1600 09/15 0800 09/15 0000 Intake Total 530 720 Output Total 600 575 Balance -70 145 Intake, IV 130 200 Intake, Oral 400 520 Number 1 Bowel Movements Output, Urine 600 575 Laboratory Tests 09/15 09/14 0710 0635 Chemistry Sodium (137 - 145 mmol/L) 132 L 135 L Potassium (3.5 - 5.1 mmol/L) 3.8 4.3 Chloride (98 - 107 mmol/L) 97 L 99 Carbon Dioxide (22 - 30 mmol/L) 27 26 Anion Gap (5 - 16) 8 10 BUN (9 - 20 mg/dL) 23 H 25 H Creatinine (0.7 - 1.2 mg/dL) 1.2 1.1 Estimated GFR (>60 ml/min) 58 L > 60 BUN/Creatinine Ratio (7 - 25 %) 19.2 22.7 Coagulation PT (9.4 - 12.5 SEC) 49.7 *H 26.2 H INR (0.90 - 1.17) 4.81 *H 2.52 H Hematology CBC w Diff NO MAN DIFF REQ NO MAN DIFF REQ WBC (4.8 - 10.8 /CUMM) 5.3 5.3 RBC (4.70 - 6.10 /CUMM) 2.70 L 2.82 L Hgb (14.0 - 18.0 G/DL) 9.4 L 10.0 L Hct (42 - 52 %) 27.8 L 29.5 L MCV (80.0 - 94.0 FL) 102.8 H 104.5 H MCH (27.0 - 31.0 PG) 35.0 H 35.3 H RDW (11.5 - 14.5 %) 16.4 H 15.8 H Plt Count (130 - 400 /CUMM) 144 143 MPV (7.4 - 10.4 FL) 8.1 8.1 Gran % (42.2 - 75.2 %) 71.6 74.8 Lymphocytes % (20.5 - 51.1 %) 21.3 17.4 L Monocytes % (1.7 - 9.3 %) 5.9 6.7 Eosinophils % (0 - 5 %) 0.8 0.7 Basophils % (0.0 - 2.0 %) 0.4 0.4 Absolute Granulocytes (1.4 - 6.5 /CUMM) 3.8 3.9 Absolute Lymphocytes (1.2 - 3.4 /CUMM) 1.1 L 0.9 L Absolute Monocytes (0.10 - 0.60 /CUMM) 0.3 0.4 Absolute Eosinophils (0.0 - 0.7 /CUMM) 0 0 Absolute Basophils (0.0 - 0.2 /CUMM) 0 0 PUBS MCHC (33.0 - 37.0 G/DL) 34.0 33.8 Impression/Plan Impression/Plan Impression/Plan: SIGNIFICANT DATA Chest x-ray showed bilateral pulmonary infiltrates more in the left and the right Lower extremity ultrasound showed partial occlusive DVT within the both femoral veins. This appears to be chronic Previous CTA done on 08/07/2016 showed no pulmonary embolism nonspecific mild chronic probably glass opacities CT of the head done August 07 showed parenchymal volume loss CT scan of the abdomen in March 2016 showed degenerative lumbar disease otherwise unremarkable Blood work reviewed creatinine 1.1 which is slightly elevated lactic acid was normal last LDH was elevated white count has improved to 5.3 with no significant left shift his MCV has been elevated since April is anemic with hemoglobin of 10 Physical Exam: Gen: The patient is in no acute distress HEENT: Normal nose, ears, and oropharynx. Pupils equal bilaterally. Conjunctiva normal. Neck: Supple with no JVD, no masses, and no thyromegaly Lungs: Mild bilateral crackles with mild wheezing. Heart: S1, S2 with ectopy noted, 1/6 systolic murmur. Trace peripheral edema, 2+ pulses in the lower extremities bilaterally Abdomen: Soft, nontender, no masses. No hepatomegaly. No splenomegaly Extremities: No clubbing or cyanosis. Normal muscle strength in the upper and lower extremities, minimal edema Skin: Normal skin turgor with no skin ulcers or lesions noted. Neuro: Cranial nerves intact. 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 His slowly seems to be improving with current antibiotics. (flu swab neg initially). 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 If he continues to be febrile other infectious sites like seeding of the bacteria needs to be ruled out * Continue current dose of steroid. As is clinically stable we will hold off on increasing his steroids * Patient does have mild wheezing most likely related to mild pulmonary edema with betablockers playing a small role. If he continues to wheeze he probably would benefit from slight reduction of his metoprolol and institution of low- dose diltiazem for his heart rate control * Continue his nebulizer as needed 3 times a day * Can resume benzonatate for cough suppression * Magic mouthwash, by mouth B12 and folic acid * Avoid sedatives narcotics * Keep his INR more than 2 * Watch his renal function * Continue his other medications * Would need outpatient hematology evaluation for microcytic anemia despite having normal B12 and chronic venous thromboembolism * Further evaluation per ID to see whether he would need any other imaging if he continues to be febrile
--- NOTE | 2016-09-15 12:40 | PN- Infect Dx ---
Subjective Subjective: MAXIMUM TEMPERATURE 101.6 on steroids. He feels somewhat improved with decreased shortness of breath, though still reports a mild cough. He has no chest pain. He denies any GI or symptoms. Objective Last 24 Hrs of Vital Signs/I&O Vital Signs Date Time Temp Pulse Resp B/P Pulse O2 O2 Flow FiO2 Ox Delivery Rate 09/15 0914 101.6 09/15 0912 101.6 09/15 0859 130 150/72 09/15 0832 96 Nasal 1.0L Cannula 09/15 0818 99.5 130 20 152/70 94 Nasal Cannula 09/15 0000 97 Nasal 1.0L Cannula 09/14 2329 98.0 88 18 120/74 99 Nasal Cannula 09/14 2054 93 120/74 09/14 2051 93 120/74 97 Nasal 1.0L Cannula 09/14 2035 95 Nasal 1.0L Cannula 09/14 1640 97.9 59 20 127/56 98 Nasal 2.0L Cannula 09/14 1600 98 Nasal 2.0L Cannula Intake & Output 09/15 1600 09/15 0800 09/15 0000 Intake Total 530 720 Output Total 600 575 Balance -70 145 Intake, IV 130 200 Intake, Oral 400 520 Number 1 Bowel Movements Output, Urine 600 575 Physical Exam Other Physical Findings: He appears comfortable in no acute distress Lungs bibasilar crackles with no wheezes appreciated Heart regular rhythm with no murmur Abdomen is soft, nontender with positive bowel sounds Extremities trace edema both lower extremities Results Last 24 Hours of Lab Results: Laboratory Tests 09/15 0710 Chemistry Sodium (137 - 145 mmol/L) 132 L Potassium (3.5 - 5.1 mmol/L) 3.8 Chloride (98 - 107 mmol/L) 97 L Carbon Dioxide (22 - 30 mmol/L) 27 Anion Gap (5 - 16) 8 BUN (9 - 20 mg/dL) 23 H Creatinine (0.7 - 1.2 mg/dL) 1.2 Estimated GFR (>60 ml/min) 58 L BUN/Creatinine Ratio (7 - 25 %) 19.2 Coagulation PT (9.4 - 12.5 SEC) 49.7 *H INR (0.90 - 1.17) 4.81 *H Hematology CBC w Diff NO MAN DIFF REQ WBC (4.8 - 10.8 /CUMM) 5.3 RBC (4.70 - 6.10 /CUMM) 2.70 L Hgb (14.0 - 18.0 G/DL) 9.4 L Hct (42 - 52 %) 27.8 L MCV (80.0 - 94.0 FL) 102.8 H MCH (27.0 - 31.0 PG) 35.0 H RDW (11.5 - 14.5 %) 16.4 H Plt Count (130 - 400 /CUMM) 144 MPV (7.4 - 10.4 FL) 8.1 Gran % (42.2 - 75.2 %) 71.6 Lymphocytes % (20.5 - 51.1 %) 21.3 Monocytes % (1.7 - 9.3 %) 5.9 Eosinophils % (0 - 5 %) 0.8 Basophils % (0.0 - 2.0 %) 0.4 Absolute Granulocytes (1.4 - 6.5 /CUMM) 3.8 Absolute Lymphocytes (1.2 - 3.4 /CUMM) 1.1 L Absolute Monocytes (0.10 - 0.60 /CUMM) 0.3 Absolute Eosinophils (0.0 - 0.7 /CUMM) 0 Absolute Basophils (0.0 - 0.2 /CUMM) 0 PUBS MCHC (33.0 - 37.0 G/DL) 34.0 Last 24 Hours of Efrain Results: No recent cultures Assessment/Plan Impression: Persistent fevers despite 4 days of treatment, currently Oxacillin, for Staph aureus pneumonia, raising concern for a complication of pneumonia, for example empyema. His blood cultures were negative, making it less likely that he has seeded other areas and, therefore, endocarditis is less of a concern. A noninfectious process, such as a relapse of his polychondritis, is also possible. Suggestion: 1. Would do a CT of the chest, followed by thoracentesis if any significant effusion is present 2. Repeat blood cultures 2 3. Repeat ESR 4. Continue Oxacillin
--- NOTE | 2016-09-15 12:58 | PN- Cardiology ---
Subjective Subjective: clinically looks better today. No new complaints Objective Vital Signs and I&Os Vital Signs Date Time Temp Pulse Resp B/P Pulse O2 O2 Flow FiO2 Ox Delivery Rate 09/15 0914 101.6 09/15 0912 101.6 09/15 0859 130 150/72 09/15 0832 96 Nasal 1.0L Cannula 09/15 0818 99.5 130 20 152/70 94 Nasal Cannula 09/15 0000 97 Nasal 1.0L Cannula 09/14 2329 98.0 88 18 120/74 99 Nasal Cannula 09/14 2055 93 120/74 09/14 205 93 120/74 97 Nasal 1.0L Cannula 09/14 2036 95 Nasal 1.0L Cannula 09/14 1640 97.9 59 20 127/56 98 Nasal 2.0L Cannula 09/14 1600 98 Nasal 2.0L Cannula Intake & Output 09/15 1600 09/15 0800 09/15 0000 09/14 1600 09/14 0800 09/14 0000 Intake Total 530 720 740 300 700 Output Total 600 575 400 200 Balance -70 145 740 -100 500 Intake, IV 130 200 100 200 220 Intake, Oral 400 520 640 100 480 Number 1 2 Bowel Movements Output, Urine 600 575 400 200 Physical Exam: General: The patient is in no acute distress, sitting comfortably in bedside chair HEENT: Normal Neck: Supple with no JVD, no masses, and no thyromegaly, carotids normal bilaterally Lungs: Scattered rhonchi bilaterally Heart: RRR, S1, S2 with ectopy noted, 1/6 systolic murmur. Abdomen: Soft, nontender, no masses. No hepatomegaly. No splenomegaly Extremities: No clubbing or cyanosis. 1+ bilateral edema Skin: Normal Neuro: Nonfocal Current Medications: Current Medications Sig/Renetta Start time Last Medication Dose Route Stop Time Status Admin Acetaminophen 650 MG Q6P PRN 09/11 1500 AC 09/15 PO 0914 Albuterol Sulfate 3 ML BID 09/13 2200 AC 09/15 INH 0830 Albuterol Sulfate 3 ML Q4H PRN 09/11 1545 AC 09/13 INH 0806 Aspirin 81 MG DAILY 09/12 1000 AC 09/15 PO 0900 Atorvastatin Calcium 40 MG 1700 09/11 1700 AC 09/14 PO 1747 Benzonatate 100 MG TID PRN 09/11 1500 DC PO Diphenhydramine HCl 25 MG Q6P PRN 09/11 1500 AC IV Furosemide 40 MG Q48 09/13 1000 AC 09/15 PO 0900 Furosemide 20 MG Q48 09/12 1000 AC 09/14 PO 0847 Gabapentin 300 MG DAILY 09/12 1000 AC 09/15 PO 0859 Hydromorphone HCl 0.5 MG Q4P PRN 09/11 1500 AC IV Ipratropium [place] 2.5 ML BID 09/13 2200 AC 09/15 INH 0830 Ipratropium [place] 2.5 ML Q4P PRN 09/12 0900 AC 09/13 INH 0806 Ketorolac 15 MG Q6P PRN 09/11 1500 AC Tromethamine IV 09/16 1459 Lisinopril 20 MG DAILY 09/15 1000 AC 09/15 PO 0859 Metoprolol Tartrate 50 MG BID 09/11 2200 AC 09/15 PO 0900 Omeprazole 20 MG DAILY 09/12 1000 AC 09/15 PO 0859 Oxacillin Sodium 2,000 MG Q4 09/13 1400 AC 09/15 Sodium Chloride 100 ML IV 1103 Patient Medication 1 ED .STK-MED ONE 09/14 1353 [place] Teaching ED 09/14 1354 Polyethylene Glycol 17 GM AT BEDTIME 09/11 2200 AC PO Prednisone 10 MG DAILY 09/12 1000 AC 09/15 PO 0859 Prochlorperazine 10 MG Q6P PRN 09/11 1500 AC IV Senna/Docusate Sodium 1 TAB AT BEDTIME 09/11 2200 AC 09/11 PO 2152 Warfarin Sodium 2.5 MG COUMADIN 1700 ONE 09/14 1700 [place] 09/14 PO 09/14 1701 1747 Results Last 48 Hrs of Labs/Mics: Laboratory Tests 09/15/16 0710: Anion Gap 8, Estimated GFR 58 L, BUN/Creatinine Ratio 19.2, PT 49.7 *H, INR 4.81 *H, CBC w Diff NO MAN DIFF REQ, RBC 2.70 L, MCV 102.8 H, MCH 35.0 H, RDW 16.4 H, MPV 8.1, Gran % 71.6, Lymphocytes % 21.3, Monocytes % 5.9, Eosinophils % 0.8, Basophils % 0.4, Absolute Granulocytes 3.8, Absolute Lymphocytes 1.1 L, Absolute Monocytes 0.3, Absolute Eosinophils 0, Absolute Basophils 0, PUBS MCHC 34.0 09/14/16 0635: Anion Gap 10, Estimated GFR > 60, BUN/Creatinine Ratio 22.7, PT 26.2 H, INR 2.52 H, CBC w Diff NO MAN DIFF REQ, RBC 2.82 L, MCV 104.5 H, MCH 35.3 H, RDW 15.8 H, MPV 8.1, Gran % 74.8, Lymphocytes % 17.4 L, Monocytes % 6.7, Eosinophils % 0.7, Basophils % 0.4, Absolute Granulocytes 3.9, Absolute Lymphocytes 0.9 L, Absolute Monocytes 0.4, Absolute Eosinophils 0, Absolute Basophils 0, PUBS MCHC 33.8 Assessment/Plan Assessment/Plan Assessment: 1. Paroxysmal atrial fibrillation 2. History of DVT 3. Acute on chronic HFrEF 4. Hypertension, with hypertensive urgency last night 5. Mild troponin elevation secondary to demand ischemia, decreasing 6. Fever with probable Staph pneumonia Recommendations: - COntinue current treatment for now. - Echocardiogram pending - COntinue antibiotics per ID - Continue anticoagulation adjusted to therapeutic INR - Continue lasix as presently Continue telemetry? Yes
--- NOTE | 2016-09-15 15:05 | CT SCAN REPORT ---
EXAMINATION: CT CHEST WITHOUT CONTRAST CLINICAL INFORMATION: Staph aureus pneumonia. Evaluate for empyema. Shortness of breath and cough. COMPARISON: Previous chest x-rays most recent 09/12/2016 and CTA of the chest July 2016. TECHNIQUE: Multidetector volumetric CT imaging of the chest was done. Axial MIP volume rendering provided. Sagittal and coronal reformatted images were obtained. DLP: 613 mGy-cm FINDINGS: PAROLE OR PROBATION OFFICER: The cardiac silhouette is enlarged. LUNGS: There is new atelectasis or small infiltrate in the left lower lobe. There is new subsegmental atelectasis in the left upper lobe along the fissure. The previously identified increased ground-glass attenuation is still seen. This is peribronchial in distribution, greatest in the right middle and lower lobe and may be related to airways disease. The lungs are otherwise clear. No evidence of emphysema, interstitial lung disease or bronchiectasis is seen. MEDIASTINUM: There is calcification of the left lobe thyroid gland. There is diffuse prominent mediastinal lymphadenopathy. Largest lymph node is a subcarinal lymph node measuring 1.4 x 2.6 cm axial image 29 series 2 similar to CTA July 2016. Evaluation for hilar adenopathy is limited without IV contrast. There is evidence of atherosclerotic disease and coronary artery calcification. Heart is upper normal in size. There is aortic valve calcification. The thoracic aorta is upper normal in size. There is no pericardial effusion. PLEURA: There are new small bilateral pleural effusions, left greater than right. No air, heterogeneous attenuation or focal thickening to suggest empyema is seen. AXILLA: No chest wall mass or axillary adenopathy is seen. UPPER ABDOMEN: There is a 1 cm low-attenuation lesion probably representing a cyst exophytic to the upper pole of the right kidney. There is evidence of diverticulosis. OSSEOUS STRUCTURES: There are degenerative changes of the spine. There is loss of height of multiple mid and lower thoracic vertebral bodies and upper lumbar vertebral bodies unchanged from July 2016 exam. IMPRESSION: New atelectasis or small pneumonia in the left lower lobe. New subsegmental atelectasis in the posterior left upper lobe adjacent to the fissure. Persistent ground-glass attenuation seen in the lungs, greatest in the right middle and right lower lobes, peribronchial in distribution suggestive of airways disease increased from July 2016. New small bilateral pleural effusions, left greater than right. IV contrast was not administered however there are no signs to suggest an empyema. Diffuse stable mediastinal lymphadenopathy. Enlarged heart, atherosclerotic disease with coronary artery calcification. Aortic valve calcification and upper normal size thoracic aorta. Multiple stable old-appearing compression fractures.
[2016-09-15 16:02] VITALS: BP 108/60
--- NOTE | 2016-09-15 19:39 | NUR ---
MULTIPLE ATTEMPTS AT ORDERED BLOOD CULTURES. ONE SET SUCESSFULLY DRAWN, 2ND SET ATTMEPTED BY (2) MST'S AND THIS RN. PASSED INFO IN REPORT TO FOLLOWING RN.
[2016-09-15 23:22] VITALS: BP 108/56
--- NOTE | 2016-09-16 05:19 | Event Note ---
Event Note Event Note: Around 5 AM patient was noted to have multiple episodes of vtach, with the longest run being 10 beats long. Patient was asymptomatic and denied chest pain, palpitations or shortness of breath. Mg and Phos were added to AM labs to be drawn. EKG showed sinus tachycardia with HR [address]-T wave abnormalities.
--- NOTE | 2016-09-16 07:56 | PN- Housestaff ---
[facility] 09/16/16 0756: Subjective Follow-up For: Staph auries pneumonia Atrial fibrillation on Coumadin Subjective: Patient seen and examined today. Overnight reported to to have multiple episodes of vtach, with the longest run being 10 beats long. Patient was asymptomatic and denied chest pain, palpitations or shortness of breath. EKG showed sinus tachycardia with HR [address]-T wave abnormalities. He was lying comfortably in no distress this morning, he had a fever 102.6 today, otherwise otherwise does remain within normal limits. He endorses cough, but otherwise no complaints. Review of Systems Constitutional: Reports: see HPI. Objective Last 24 Hrs of Vital Signs/I&O Vital Signs Date Time Temp Pulse Resp B/P Pulse O2 O2 Flow FiO2 Ox Delivery Rate 09/16 0849 65 140/60 09/16 0848 65 140/60 09/16 0800 102.6 65 20 140/60 91 Room Air 09/16 0732 100.4 09/16 0000 94 Room Air 09/15 2322 97.7 78 16 108/56 94 Room Air 09/15 2212 85 110/64 09/15 2146 95 Room Air 09/15 1602 97.8 73 20 108/60 93 Room Air 09/15 0914 101.6 09/15 0912 101.6 Intake & Output 09/16 1600 09/16 0800 09/16 0000 Intake Total 660 320 Output Total 1575 675 Balance -915 -355 Intake, IV 260 220 Intake, Oral 400 100 Number 0 0 Bowel Movements Output, Urine 1575 675 Physical Exam General Appearance: Alert, Oriented X3, Cooperative, No Acute Distress Cardiovascular: Regular Rate, Normal S1, Normal S2 Lungs: bilateral wheeze Abdomen: Normal Bowel Sounds, Soft, No Tenderness Extremities: No Clubbing, No Cyanosis, No Edema Current Medications: Current Medications Sig/Renetta Start time Last Medication Dose Route Stop Time Status Admin Acetaminophen 650 MG ONCE ONE 09/16 0715 DC 09/16 PO 09/16 715 0732 Acetaminophen 650 MG .STK-MED ONE 09/15 0911 DC PO 09/15 0912 Acetaminophen 650 MG Q6P PRN 09/11 1500 AC 09/15 PO 0914 Albuterol Sulfate 3 ML BID 09/13 2200 AC 09/15 INH 2038 Albuterol Sulfate 3 ML Q4H PRN 09/11 1545 AC 09/13 INH 0806 Aspirin 81 MG DAILY 09/12 1000 AC 09/16 PO 0848 Atorvastatin Calcium 40 MG 1700 09/11 1700 AC 09/15 PO 1935 Benzonatate 100 MG TID 09/15 1600 AC 09/16 PO 0849 Cyanocobalamin 250 MCG DAILY 09/15 1315 AC 09/16 PO 0849 Diphenhydramine HCl 25 MG Q6P PRN 09/11 1500 AC IV Folic Acid 1 MG DAILY 09/15 1315 AC 09/16 PO 0848 Furosemide 40 MG Q48 09/13 1000 AC 09/15 PO 0900 Furosemide 20 MG Q48 09/12 1000 AC 09/16 PO 0848 Gabapentin 300 MG DAILY 09/12 1000 AC 09/16 PO 0849 Hydromorphone HCl 0.5 MG Q4P PRN 09/11 1500 AC IV Ipratropium [place] 2.5 ML BID 09/13 2200 AC 09/15 INH 2038 Ipratropium [place] 2.5 ML Q4P PRN 09/12 0900 AC 09/13 INH 0806 Ketorolac 15 MG Q6P PRN 09/11 1500 AC Tromethamine IV 09/16 1459 Lidocaine/Diphenhydr/ 10 ML BID PRN 09/15 2030 AC 09/15 Alum/Mg/Simeth PO 2219 Lisinopril 20 MG DAILY 09/15 1000 AC 09/16 PO 0849 Metoprolol Tartrate 50 MG BID 09/11 2200 AC 09/16 PO 0848 Omeprazole 20 MG DAILY 09/12 1000 AC 09/16 PO 0849 Oxacillin Sodium 2,000 MG Q4 09/13 1400 AC 09/16 Sodium Chloride 100 ML IV 0848 Polyethylene Glycol 17 GM AT BEDTIME 09/11 2200 AC PO Prednisone 10 MG DAILY 09/12 1000 AC 09/16 PO 0849 Prochlorperazine 10 MG Q6P PRN 09/11 1500 AC IV Senna/Docusate Sodium 1 TAB AT BEDTIME 09/11 2199 AC 09/11 PO 2152 Last 24 Hrs of Lab/Efrain Results Last 24 Hrs of Labs/Mics: Laboratory Tests 09/16/16 0715: Anion Gap 11, Estimated GFR 48 L, BUN/Creatinine Ratio 20.7, Phosphorus 3.7, Magnesium 1.3 L, PT 50.3 *H, INR 4.87 *H, CBC w Diff Pending, WBC Pending, RBC Pending, Hgb Pending, Hct Pending, MCV Pending, MCH Pending, RDW Pending, Plt Count Pending, MPV Pending, PUBS MCHC Pending 09/15/16 1740: ESR Westergren > 130 H Microbiology 09/15 2223 BLOOD: Blood Culture - RECD 09/15 1739 BLOOD: Blood Culture - RECD Assessment/Plan Assessment: Mr. Anne is 81 y/o male with PMH significant for relapsing polychondritis, sweets syndrome, paroxysmal atrial fibrillation on Coumadin, rheumatoid arthritis on prednisone, DVT status post completion of Coumadin for 3 months. He has chief complaint of weakness for 3 days and fever for one day. Problem list -Staph aureus multilobar pneumonia -Atrial fibrillation on Coumadin -Elevated troponin #Staph aureus multilobar pneumonia -Patient has history of productive cough with green blood tinged sputum -The chest x-ray was initially negative for any acute changes, following chest x -ray showed new patchy airspace opacity in the left midlung and right base. -Patient received one dose of Ceftriaxone IV 1000 mg, azithromycin 250 mg IV, and vancomycin 1000 mg IV -Sputum culture positive for MSSA -Continue oxacillin 2 mg every 4 IV Day#5 (continue per ID for now, eventually will be able to switch to PO) -Patient continued to have wheezing although decreased oxygen requirement from 3 L to 2 L with saturation 98%, patient is on prednisone 10 mg by mouth daily the rheumatoid arthritis does. chest CT showed evidence of New atelectasis or small pneumonia in the left lower lobe -Pulmonology consultation was obtained given persistent wheeze and cough -Due to the fact that he has significant staph aureus pneumonia, hold off on increasing steroids -Persistent wheezing most likely related to mild pulmonary edema with betablockers playing a small role. 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 #Fever -Persistent low grade fever, this morning temperature 102.6, new set of BCx2 pending, repeated ESR increased -Patient was admitted in July 2016 with history of fever of unknown origin -Follow up urine culture, blood culture #Elevated troponin -Troponin trending down on admission 0.19 trend down to 0.11 -EKG no changes on admission -Aspirin 81 mg daily #Atrial fibrillation on Coumadin -INR 4.81, urine appeared pinkish-suggested mild hematuria (RBC>75 in urine analysis on admission) -held coumadin for today as INR supratherapeutic, will repeat INR tomorrow -INR target 2-3 -patient had bilateral LE doppler US based on old recommendation from last admission 08/11, that showed acute right femoral DVT and old left femoral DVT -Patient has HX of subtherapeutic INR 1 week prior to admission #Rheumatoid arthritis -Continue prednisone 10 mg by mouth daily #Hypertension and hyperlipidemia -Continue Lopressor 50 mg twice a day -Continue atorvastatin 40 mg daily -Continue frusemide 20 mg every 48 and 40 mg every 48 -Increase lisinopril 20 mg PO daily -Orthostats measurement is negative #History of shingles with neuropathy -Continue gabapentin 300 mg daily #Diet heart healthy diet #DVT prophylaxis ALPS, hold Coumadin for therapeutic INR #Code DNR/DNI -Consultation ID, Cardio, pulmonology Problem List: 1. Atrial fibrillation 2. Staphylococcus aureus pneumonia 3. Shortness of breath Pain Ratin Pain Location: none Pain Goal: Pain 4 or less Pain Plan: Mild pain pathway Tomorrow's Labs & Rationales: CBC wbC monitoring in setting of infection, BEP and Mg (hyponatremia, hypomagnesemia), INR (afib on coumadin INR supratherapeutic) [facility] 09/16/16 1409: Attending MD Review Statement Attending Statement Attending MD Statement: examined this patient, discuss w/resident/PA/RECEPTIONIST SCHEDULER, agreed w/resident/PA/RECEPTIONIST SCHEDULER, discussed with family, reviewed EMR data (avail), discussed with nursing, discussed with case mgmt, reviewed images, amended to note Attending Assessment/Plan: Patient sitting comfortably in bed. Denies any chest pain or trouble breathing. Low-grade temperatures since morning. CT scan of the chest without contrast performed yesterday shows small bilateral pleural effusion. He defervesced to 97.5. Worsening creatinine noted. Had runs of SVTs overnight most likely secondary to hypomagnesemia. Recommendations 1. Fever -? Ongoing infectious process / relapsing polychondritis involving the airways/ drug fever Repeat blood cultures. Continue oxacillin for now. Follow-up ID recommendations. We may need rheumatology input, if the patient keeps on spiking fever to rule out relapsing polychondritis, the a CT chest showing airway disease(current infection could be the secondary infection because of airway obstruction primarily due to polychondritis) and worsening renal function. ? Increase the dose of steroids. 2. Replete electrolytes. Keep magnesium 2 and potassium 4. Make sure cardiology is aware about the runs of SVTs, most likely it is secondary to hypomagnesemia. 3. Hold Coumadin for supratherapeutic INR 4. Hold Lasix for now as his kidney function is worsening. Could give 500 ml IVF as he already got his lasix today. Monitor renal function closely. waych for fluid overload, as he has Diastolic CHF (EF 45%).
[2016-09-16 08:00] VITALS: BP 140/60
[2016-09-16 08:28] LABS: ABSOLUTE BASOPHIL COUNT 0 /CUMM (0.0-0.2); ABSOLUTE EOSINOPHIL COUNT 0 /CUMM (0.0-0.7); ABSOLUTE GRANULOCYTE CT 5.7 /CUMM (1.4-6.5); ABSOLUTE LYMPH COUNT 1.3 /CUMM (1.2-3.4); ABSOLUTE MONOCYTE COUNT 0 /CUMM (0.10-0.60); BASOPHIL % 0.2 % (0.0-2.0); EOSINOPHIL % 0.5 % (0-5); GRANULOCYTE % 80.7 % (42.2-75.2); HEMATOCRIT 29.5 % (42-52); MEAN CORPUSCULAR HGB 34.8 PG (27.0-31.0); MEAN CORPUSCULAR HGB CONC 33.6 G/DL (33.0-37.0); MEAN CORPUSCULAR VOLUME 103.5 FL (80.0-94.0); MEAN PLATELET VOLUME 8.2 FL (7.4-10.4); PLATELET COUNT 144 /CUMM (130-400); RBC DISTRIBUTION WIDTH 16.3 % (11.5-14.5); RED BLOOD CELL CT 2.85 /CUMM (4.70-6.10)
[2016-09-16 08:44] LABS: PT 50.3 SEC (9.4-12.5)
--- NOTE | 2016-09-16 09:32 | PN- Pulmonary ---
Subjective HPI/Critical Care Issues: Patient feels comfortable without shortness of breath or chest pain Objective Current Medications: Current Medications Sig/Renetta Start time Last Medication Dose Route Stop Time Status Admin Acetaminophen 650 MG ONCE ONE 09/16 0715 DC 09/16 PO 09/16 0716 0732 Acetaminophen 650 MG Q6P PRN 09/11 1500 AC 09/15 PO 0914 Albuterol Sulfate 3 ML BID 09/13 2200 AC 09/16 INH 0923 Albuterol Sulfate 3 ML Q4H PRN 09/11 1545 AC 09/13 INH 0806 Aspirin 81 MG DAILY 09/12 1000 AC 09/16 PO 0848 Atorvastatin Calcium 40 MG 1700 09/11 1700 AC 09/15 PO 1935 Benzonatate 100 MG TID 09/15 1600 AC 09/16 PO 0849 Cyanocobalamin 250 MCG DAILY 09/15 1315 AC 09/16 PO 0849 Diphenhydramine HCl 25 MG Q6P PRN 09/11 1500 AC IV Folic Acid 1 MG DAILY 09/15 1315 AC 09/16 PO 0848 Furosemide 40 MG Q48 09/13 1000 AC 09/15 PO 0900 Furosemide 20 MG Q48 09/12 1000 AC 09/16 PO 0848 Gabapentin 300 MG DAILY 09/12 1000 AC 09/16 PO 0849 Hydromorphone HCl 0.5 MG Q4P PRN 09/11 1500 AC IV Ipratropium [place] 2.5 ML BID 09/13 2200 AC 09/15 INH 2038 Ipratropium [place] 2.5 ML Q4P PRN 09/12 0900 AC 09/13 INH 0806 Ketorolac 15 MG Q6P PRN 09/11 1500 AC Tromethamine IV 09/16 1459 Lidocaine/Diphenhydr/ 10 ML BID PRN 09/15 2030 AC 09/15 Alum/Mg/Simeth PO 2219 Lisinopril 20 MG DAILY 09/15 1000 AC 09/16 PO 0849 Metoprolol Tartrate 50 MG BID 09/11 2200 AC 09/16 PO 0848 Omeprazole 20 MG DAILY 09/12 1000 AC 09/16 PO 0849 Oxacillin Sodium 2,000 MG Q4 09/13 1400 AC 09/16 Sodium Chloride 100 ML IV 0848 Polyethylene Glycol 17 GM AT BEDTIME 09/11 2200 AC PO Prednisone 10 MG DAILY 09/12 1000 AC 09/16 PO 0849 Prochlorperazine 10 MG Q6P PRN 09/11 1500 AC IV Senna/Docusate Sodium 1 TAB AT BEDTIME 09/11 2200 AC 09/11 PO 2152 Vital Signs & I&O Last 24 Hrs of Vitals and I&O: Vital Signs Date Time Temp Pulse Resp B/P Pulse O2 O2 Flow FiO2 Ox Delivery Rate 09/16 0925 93 Room Air 09/16 0918 100.2 09/16 0917 100.2 09/16 0849 65 140/60 09/16 0848 65 140/60 09/16 0800 Nasal 5.0L Cannula 09/16 0800 102.6 65 20 140/60 91 Room Air 09/16 0732 100.4 09/16 0000 94 Room Air 09/15 2322 97.7 78 16 108/56 94 Room Air 09/15 2212 85 110/64 09/15 2146 95 Room Air 09/15 1602 97.8 73 20 108/60 93 Room Air Intake & Output 09/16 1600 09/16 0800 09/16 0000 Intake Total 660 320 Output Total 1575 675 Balance -915 -355 Intake, IV 260 220 Intake, Oral 400 100 Number 0 0 Bowel Movements Output, Urine 1575 675 Room air oxygen saturation 93% patient continues to remain febrile [address] scan does not show significant effusions Impression/Plan Impression/Plan Impression/Plan: 81-year-old gentleman persistent fevers in the setting of what is believed to be MSSA pneumonia. Recommendations: Follow-up on previous recommendations. Discuss with infectious disease for evaluation of his persistent fever. Repeat sputum C&S
--- NOTE | 2016-09-16 09:55 | NUR ---
PT AT 0827 HAD A 4 BEAT RUN OF VTACH. PT VSS. PT HAS NO COMPLAINTS AT THIS TIME. DR. SMALLS MADE AWARE, WILL CHECK BLOOD WORK AND CONTINUE TO MONITOR.
[2016-09-16 16:20] VITALS: BP 102/58
[2016-09-16 16:35] VITALS: BP 102/56
--- NOTE | 2016-09-16 16:44 | NUR ---
PT HAD 6 BEAT RUN OF VTACH AT 1620. PT DENIED ANY SYMPTOMS, STATED HE JUST COUGHED. BP 102/60, HR 66, O2 SAT 95% ON RA. DR SMALLS NOTIFIED. WILL CONTINUE TO MONITOR.
[2016-09-16 18:00] VITALS: BP 98/58
--- NOTE | 2016-09-16 18:00 | NUR ---
PT HAD 17 BEAT RUN OF VTACH. PT ALERT, EATING DINNER. HE STATED THAT HE COUGHED. DENIED ANY SYMPTOMS. BP 98/58. DR SMALLS NOTIFIED. NEW ORDER OBTAINED TO REDRAW MAGNESIUM LEVEL, AND RECHECK BP IN 1 HOUR. WILL CONTINUE TO MONITOR. PT NOW IN NSR, HR 70S.
[2016-09-16 19:10] VITALS: BP 96/60
[2016-09-17 00:27] VITALS: BP 118/78
[2016-09-17 07:56] VITALS: BP 136/70
--- NOTE | 2016-09-17 08:25 | PN- Infect Dx ---
Subjective Subjective: MAXIMUM TEMPERATURE 102.6 on steroids, with temperature to 102 again this morning. He notes a mild, nonproductive cough, but denies any shortness of breath or chest discomfort. He notes some loose or soft, but not liquidy, stools, with mild abdominal discomfort. He denies any dysuria. He has no other complaints of pain. He has had multiple episodes of V. tach, which have been asymptomatic. Objective Last 24 Hrs of Vital Signs/I&O Vital Signs Date Time Temp Pulse Resp B/P Pulse O2 O2 Flow FiO2 Ox Delivery Rate 09/17 0756 102.0 94 20 136/70 94 Room Air 09/17 0027 97.9 65 20 118/78 94 09/16 2200 78 108/70 09/16 1935 98 Room Air 09/16 1910 96/60 09/16 1800 98/58 09/16 1635 97.6 70 22 102/56 96 Room Air 09/16 1620 102/58 09/16 1038 97.5 09/16 0925 93 Room Air 09/16 0918 100.2 09/16 0917 100.2 09/16 0849 65 140/60 09/16 0848 65 140/60 Intake & Output 09/17 1600 09/17 0800 09/17 0000 Intake Total 250 1162.5 Output Total 1150 600 Balance -900 562.5 Intake, IV 250 562.5 Intake, Oral 600 Output, Urine 1150 600 Physical Exam Other Physical Findings: He appears mildly uncomfortable but in no acute distress Skin no rash HEENT negative Neck is supple with no adenopathy Lungs crackles at the right base Heart regular rhythm with no murmur Abdomen is soft, mildly tender on palpation diffusely, with no guarding or rebound, positive bowel sounds Back no CVA tenderness Extremities trace edema both lower extremities, with chronic venous stasis changes Results Last 24 Hours of Lab Results: Laboratory Tests 09/17 09/16 0700 1830 Chemistry Sodium Pending Potassium Pending Chloride Pending Carbon Dioxide Pending Anion Gap Pending BUN Pending Creatinine Pending BUN/Creatinine Ratio Pending Phosphorus Pending Magnesium (1.6 - 2.3 mg/dL) Pending 2.0 Coagulation PT Pending INR Pending Hematology CBC w Diff Pending WBC Pending RBC Pending Hgb Pending Hct Pending MCV Pending MCH Pending RDW Pending Plt Count Pending MPV Pending PUBS MCHC Pending Last 24 Hours of Efrain Results: Blood cultures September 15 negative Recent Imaging Studies: CT of the chest September 15 new left lower lobe density; new subsegmental atelectasis in the left upper lobe; groundglass attenuation, peribronchial in distribution, greatest in the right middle lobe and right lower lobe; new small bilateral pleural effusions, left greater than right Assessment/Plan Impression: Recurrent fevers despite now 6 days of treatment, currently on Oxacillin, for Staph aureus pneumonia. His respiratory status has improved, and the recent CT scan does not suggest any obstruction or significant effusion to suggest an empyema. He has no other obvious focus of infection, though he does report loose stools, raising concern for C. difficile. His white blood cell count remains normal, but this has not been a useful parameter for him in the past and is, therefore, of unclear significance. A flareup of his relapsing polychondritis is possible, with his ESR still quite elevated, though he has no new symptoms to suggest this. Drug fever is also possible, though he has no rash or eosinophils on his recent CBC. His elevated BUN/creatinine yesterday may be prerenal, with Lasix held, but other possibilities include urinary retention or interstitial nephritis, for example secondary to the Oxacillin. Suggestion: 1. Stool for C. difficile 2. Repeat urinalysis and urine culture 3. Bladder scan to rule out urinary retention and follow BUN/creatinine closely 4. Follow-up Echocardiogram, with further evaluation/management of his runs of V. tach per Cardiology 5. Would consider ultrasound of the left chest to better evaluate the left pleural effusion (with possible thoracentesis if significant) 6. Would consider increasing steroids empirically if above evaluation negative 7. Continue Oxacillin pending above
[2016-09-17 08:37] LABS: PT 40.3 SEC (9.4-12.5)
[2016-09-17 10:24] LABS: ABSOLUTE BASOPHIL COUNT 0 /CUMM (0.0-0.2); ABSOLUTE EOSINOPHIL COUNT 0.1 /CUMM (0.0-0.7); ABSOLUTE GRANULOCYTE CT 5.6 /CUMM (1.4-6.5); ABSOLUTE LYMPH COUNT 1.4 /CUMM (1.2-3.4); ABSOLUTE MONOCYTE COUNT 0.3 /CUMM (0.10-0.60); BASOPHIL % 0.2 % (0.0-2.0); EOSINOPHIL % 0.8 % (0-5); GRANULOCYTE % 76.3 % (42.2-75.2); MEAN CORPUSCULAR HGB 34.6 PG (27.0-31.0); MEAN CORPUSCULAR HGB CONC 33.6 G/DL (33.0-37.0); MEAN PLATELET VOLUME 8.1 FL (7.4-10.4); PLATELET COUNT 155 /CUMM (130-400); RBC DISTRIBUTION WIDTH 16.5 % (11.5-14.5); RED BLOOD CELL CT 2.82 /CUMM (4.70-6.10); WHITE BLOOD CELL COUNT 7.4 /CUMM (4.8-10.8)
--- NOTE | 2016-09-17 10:56 | PN- Housestaff ---
MAY BORJA,[facility] 09/17/16 1056: Subjective Follow-up For: Staph auries pneumonia Atrial fibrillation on Coumadin Subjective: Patient was seen and examined this morning. He reported not feeling well becuase of the fever 102 and cough with yellow-white sputum. He is not in distress although he still complains of being short of breath on ambulation and at times, at rest. He reported having 2 bowel movements this morning. Review of Systems Constitutional: Reports: fever. Denies: chills. Respiratory: Reports: cough, short of breath, sputum production. Gastrointestinal: Reports: changes in stool. Denies: abdominal pain, constipation, nausea, vomiting. Genitourinary: Denies: dysuria, hematuria. Objective Last 24 Hrs of Vital Signs/I&O Vital Signs Date Time Temp Pulse Resp B/P Pulse O2 O2 Flow FiO2 Ox Delivery Rate 09/17 1011 98.7 09/17 0821 102.0 09/17 0821 94 136/70 09/17 0820 94 136/70 09/17 0800 Nasal 2.0L Cannula 09/17 0756 102.0 94 20 136/70 94 Room Air 09/17 0027 97.9 65 20 118/78 94 09/16 2200 78 108/70 09/16 1935 98 Room Air 09/16 1910 96/60 09/16 1800 98/58 09/16 1635 97.6 70 22 102/56 96 Room Air 09/16 1620 102/58 Intake & Output 09/17 1600 09/17 0800 09/17 0000 Intake Total 250 1162.5 Output Total 1150 600 Balance -900 562.5 Intake, IV 250 562.5 Intake, Oral 600 Output, Urine 1150 600 Physical Exam General Appearance: Alert, Oriented X3, Cooperative, Mild Distress Skin: No Rashes, No Breakdown, No Significant Lesion Cardiovascular: irrigular irrigular Lungs: Normal Air Movement, scattered wheeze Abdomen: Normal Bowel Sounds, Soft, No Tenderness Neurological: Normal Speech, Strength at 5/5 X4 Ext, Normal Tone, Sensation Intact, Cranial Nerves 3-12 NL, Reflexes 2+ Extremities: No Clubbing, No Cyanosis, bilateral trace edema Assessment/Plan Assessment: Mr. Anne is 81 y/o male with PMH significant for relapsing polychondritis, sweets syndrome, paroxysmal atrial fibrillation on Coumadin, rheumatoid arthritis on prednisone, DVT status post completion of Coumadin for 3 months. He has chief complaint of weakness for 3 days and fever for one day. Problem list -Staph aureus multilobar pneumonia -Atrial fibrillation on Coumadin -Elevated troponin #Staph aureus multilobar pneumonia -Patient has history of productive cough with green blood tinged sputum -The chest x-ray was initially negative for any acute changes, following chest x -ray showed new patchy airspace opacity in the left midlung and right base. -Patient received one dose of Ceftriaxone IV 1000 mg, azithromycin 250 mg IV, and vancomycin 1000 mg IV -Sputum culture positive for MSSA -Continue oxacillin 2 mg every 4 IV Day#6 (continue per ID for now, eventually will be able to switch to PO) -Patient continued to have wheezing although decreased oxygen requirement from 3 L to 2 L with saturation 98%, patient is on prednisone 10 mg by mouth daily the rheumatoid arthritis does. chest CT showed evidence of New atelectasis or small pneumonia in the left lower lobe -Pulmonology consultation was obtained given persistent wheeze and cough -Due to the fact that he has significant staph aureus pneumonia, hold off on increasing steroids -Persistent wheezing most likely related to mild pulmonary edema with betablockers playing a small role. 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 Repeated ESR is elevated 09/15 130 -Patient was admitted in July 2016 with history of fever of unknown origin -Follow up urine culture, blood culture #Elevated troponin -Troponin trending down on admission 0.19 trend down to 0.11 -EKG no changes on admission -Aspirin 81 mg daily #Atrial fibrillation on Coumadin -INR 3.89 -held coumadin for today as INR supratherapeutic, will repeat INR tomorrow -INR target 2-3 -patient had bilateral LE doppler US based on old recommendation from last admission 08/11, that showed acute right femoral DVT and old left femoral DVT -Patient has HX of subtherapeutic INR 1 week prior to admission #Rheumatoid arthritis -Continue prednisone 10 mg by mouth daily #Hypertension and hyperlipidemia -Continue Lopressor 50 mg twice a day -Continue atorvastatin 40 mg daily -Continue frusemide 20 mg every 48 and 40 mg every 48 -Increase lisinopril 20 mg PO daily -Orthostats measurement is negative #History of shingles with neuropathy -Continue gabapentin 300 mg daily #Diet heart healthy diet #DVT prophylaxis ALPS, hold Coumadin for therapeutic INR #Code DNR/DNI -Consultation ID, Cardio, pulmonology Problem List: 1. Staphylococcus aureus pneumonia 2. Atrial fibrillation Pain Ratin Pain Location: n/a Pain Goal: Pain 4 or less Pain Plan: see mediaction Tomorrow's Labs & Rationales: cbc, cmp, inr BELLA BORJA,[facility] 09/17/16 1200: Attending MD Review Statement Attending Statement Attending MD Statement: examined this patient, discuss w/resident/PA/CAR CLERK PULLMAN, agreed w/resident/PA/CAR CLERK PULLMAN, discussed with family, reviewed EMR data (avail), discussed with nursing, discussed with case mgmt, reviewed images, amended to note Attending Assessment/Plan: Patient sitting comfortably in bed. Offers no complaints. Is concerned about his ongoing fevers. Had a run of 17 beats last evening and has been having PVCs. Appreciate ID input. Please follow-up ID recommendations. Replete electrolytes as needed Please inform cardiology regarding his arrhythmias. Most likely this is due to his ongoing fevers and electrolyte depletion. ? Increase the dose of metoprolol.
--- NOTE | 2016-09-17 11:28 | PN- Pulmonary ---
Subjective HPI/Critical Care Issues: Patient feels comfortable without short of breath or chest pain he remains on room air oxygen he continues to have daily fevers infectious disease recommendations reviewed Objective Current Medications: Current Medications Sig/Renetta Start time Last Medication Dose Route Stop Time Status Admin Acetaminophen 650 MG Q6P PRN 09/11 1500 AC 09/17 PO 0821 Albuterol Sulfate 3 ML Q4P PRN 09/16 1945 AC INH Albuterol Sulfate 3 ML BID 09/13 2200 DC 09/16 INH 0923 Albuterol Sulfate 3 ML Q4H PRN 09/11 1545 DC 09/13 INH 0806 Aspirin 81 MG DAILY 09/12 1000 AC 09/17 PO 0820 Atorvastatin Calcium 40 MG 1700 09/11 1700 AC 09/16 PO 1614 Benzonatate 100 MG TID 09/15 1600 AC 09/17 PO 0821 Cyanocobalamin 250 MCG DAILY 09/15 1315 AC 09/17 PO 0821 Diphenhydramine HCl 25 MG Q6P PRN 09/11 1500 AC IV Folic Acid 1 MG DAILY 09/15 1315 AC 09/17 PO 0820 Furosemide 20 MG Q48 09/12 1000 DC 09/16 PO 0848 Gabapentin 300 MG DAILY 09/12 1000 AC 09/17 PO 0821 Hydromorphone HCl 0.5 MG Q4P PRN 09/11 1500 AC IV Ipratropium [place] 2.5 ML Q4P PRN 09/16 1945 AC INH Ipratropium [place] 2.5 ML BID 09/13 2200 DC 09/15 INH 2038 Ipratropium [place] 2.5 ML Q4P PRN 09/12 0900 DC 09/13 INH 0806 Ketorolac 15 MG Q6P PRN 09/11 1500 DC Tromethamine IV 09/16 1459 Lidocaine/Diphenhydr/ 10 ML BID PRN 09/15 2030 AC 09/15 Alum/Mg/Simeth PO 2219 Lisinopril 20 MG DAILY 09/15 1000 AC 09/17 PO 0821 Magnesium Oxide 400 MG ONE ONE 09/17 1100 DC PO 09/17 1101 Magnesium Sulfate 1 GM Q2H 09/16 1045 DC 09/16 Dextrose/Water 100 ML IV 09/16 1444 1417 Metoprolol Tartrate 50 MG BID 09/11 2200 AC 09/17 PO 0820 Omeprazole 20 MG DAILY 09/12 1000 AC 09/17 PO 0821 Oxacillin Sodium 2,000 MG Q4 09/13 1400 AC 09/17 Sodium Chloride 100 ML IV 1013 Polyethylene Glycol 17 GM AT BEDTIME 09/11 2200 AC 09/16 PO 2159 Potassium Chloride 20 MEQ ONCE ONE 09/17 1100 DC PO 09/17 1101 Prednisone 10 MG DAILY 09/12 1000 AC 09/17 PO 0821 Prochlorperazine 10 MG Q6P PRN 09/11 1500 AC IV Senna/Docusate Sodium 1 TAB AT BEDTIME 09/11 2200 AC 09/16 PO 2200 Sodium Chloride 500 ML BOLUS ONE 09/16 1445 DC 09/16 IV 09/16 2124 1615 Vital Signs & I&O Last 24 Hrs of Vitals and I&O: Vital Signs Date Time Temp Pulse Resp B/P Pulse O2 O2 Flow FiO2 Ox Delivery Rate 09/17 1011 98.7 09/17 0821 102.0 09/17 0821 94 136/70 09/17 0820 94 136/70 09/17 0800 Nasal 2.0L Cannula 09/17 0756 102.0 94 20 136/70 94 Room Air 09/17 0027 97.9 65 20 118/78 94 09/16 2200 78 108/70 09/16 1935 98 Room Air 09/16 1910 96/60 09/16 1800 98/58 09/16 1635 97.6 70 22 102/56 96 Room Air 09/16 1620 102/58 Intake & Output 09/17 1600 09/17 0800 09/17 0000 Intake Total 250 1162.5 Output Total 1150 600 Balance -900 562.5 Intake, IV 250 562.5 Intake, Oral 600 Output, Urine 1150 600 Oxygen saturation room air 94% exam of his chest shows scattered rhonchi cardiac exam shows regular S1 and S2 without murmurs Impression/Plan Impression/Plan Impression/Plan: 81-year-old gentleman persistent fevers in the setting of what is believed to be MSSA pneumonia. Recommendations: Follow-up on previous recommendations. Discuss with infectious disease for evaluation of his persistent fever. Repeat sputum C&S. Agree with re-imaging of the chest to evaluate left pleural effusion for possible thoracentesis. Respiratory status otherwise stable
--- NOTE | 2016-09-17 15:59 | ULTRASOUND REPORT ---
EXAMINATION: US PLEURAL EFFUSION CLINICAL INFORMATION: Fever, cough and shortness of breath cervical question pleural effusion. COMPARISON: CT thorax dated 09/15/2015. TECHNIQUE: A curved array transducer is utilized. FINDINGS: No definite pleural effusion is seen bilaterally. IMPRESSION: No definite pleural effusion is seen of the bilateral pleural cavities upon examination with ultrasound.
[2016-09-17 16:01] VITALS: BP 110/64
[2016-09-17 23:00] VITALS: BP 122/60
[2016-09-18 07:44] VITALS: BP 148/62
[2016-09-18 08:25] LABS: PT 24.5 SEC (9.4-12.5)
[2016-09-18 08:34] LABS: ABSOLUTE BASOPHIL COUNT 0 /CUMM (0.0-0.2); ABSOLUTE EOSINOPHIL COUNT 0.1 /CUMM (0.0-0.7); ABSOLUTE LYMPH COUNT 1.5 /CUMM (1.2-3.4); ABSOLUTE MONOCYTE COUNT 0.4 /CUMM (0.10-0.60); BASOPHIL % 0.2 % (0.0-2.0); EOSINOPHIL % 1.1 % (0-5); GRANULOCYTE % 70.9 % (42.2-75.2); HEMATOCRIT 29.3 % (42-52); MEAN CORPUSCULAR HGB 34.6 PG (27.0-31.0); MEAN CORPUSCULAR HGB CONC 33.4 G/DL (33.0-37.0); MEAN CORPUSCULAR VOLUME 103.6 FL (80.0-94.0); MEAN PLATELET VOLUME 7.8 FL (7.4-10.4); PLATELET COUNT 163 /CUMM (130-400); RBC DISTRIBUTION WIDTH 16.8 % (11.5-14.5); RED BLOOD CELL CT 2.83 /CUMM (4.70-6.10)
--- NOTE | 2016-09-18 09:21 | PN- Housestaff ---
MAY BORJA,[facility] 09/18/16 0920: Subjective Follow-up For: Staph auries pneumonia Atrial fibrillation on Coumadin Tele-Events Since Last Visit: Sinus rhythm, heart rate 61-93 with PVC Patient had a run of V. tach on Saturday 09/16 Subjective: Patient was seen and examined this morning. He complains of stomach discomfort, no pain/nausea/diarrhea. He has had 4 soft stools with no blood or mucous. His stool was sent for C.Diff toxin and report pending. He continues to cough up yellow-white sputum, but has improved compared since yesterday. Nurse reported a temperature of 102 F yesterday. This morning he had a temperature of 99.8. Review of Systems Constitutional: Denies: see HPI. Objective Last 24 Hrs of Vital Signs/I&O Vital Signs Date Time Temp Pulse Resp B/P Pulse O2 O2 Flow FiO2 Ox Delivery Rate 09/18 0917 95 Room Air 09/18 0744 99.3 90 18 148/62 94 Room Air 09/17 2300 97.7 68 18 122/60 96 Room Air 09/17 2214 83 110/60 09/17 1601 97.6 71 20 110/64 94 Room Air 09/17 1011 98.7 Intake & Output 09/18 1600 09/18 0800 09/18 0000 Intake Total 750 460 Output Total 1100 600 Balance -350 -140 Intake, IV 200 100 Intake, Oral 550 360 Number 0 0 Bowel Movements Output, Urine 1100 600 Physical Exam General Appearance: Alert, Oriented X3, Cooperative, No Acute Distress Skin: No Rashes, No Breakdown HEENT: Atraumatic, PERRLA, EOMI, Mucous Membr. moist/pink Neck: Supple Cardiovascular: Regular Rate, Normal S1, Normal S2, No Murmurs Lungs: Clear to Auscultation, Normal Air Movement Abdomen: Normal Bowel Sounds, Soft, No Tenderness Neurological: Normal Speech, Strength at 5/5 X4 Ext, Normal Tone, Sensation Intact, Cranial Nerves 3-12 NL, Reflexes 2+ Extremities: No Clubbing, No Cyanosis, bilateral trace pedal edema Vascular: Pulses Symmetrical Assessment/Plan Assessment: Mr. Anne is 81 y/o male with PMH significant for relapsing polychondritis, sweets syndrome, paroxysmal atrial fibrillation on Coumadin, rheumatoid arthritis on prednisone, DVT status post completion of Coumadin for 3 months. He has chief complaint of weakness for 3 days and fever for one day. Problem list -Staph aureus multilobar pneumonia -Atrial fibrillation on Coumadin -Elevated troponin #Staph aureus multilobar pneumonia -Patient has history of productive cough with green blood tinged sputum -The chest x-ray was initially negative for any acute changes, following chest x -ray showed new patchy airspace opacity in the left midlung and right base. -Patient received one dose of Ceftriaxone IV 1000 mg, azithromycin 250 mg IV, and vancomycin 1000 mg IV -Sputum culture positive for MSSA -Continue oxacillin 2 mg every 4 IV Day#7 (continue per ID for now, eventually will be able to switch to PO) -Patient continued to have wheezing although decreased oxygen requirement from 3 L to 2 L with saturation 98%, patient is on prednisone 10 mg by mouth daily the rheumatoid arthritis does. -Chest CT showed evidence of New atelectasis or small pneumonia in the left lower lobe 09/15 -Chest US for evaluation of plueral effusion perviously noted in last chest CT failed to define pleural effusion 09/17 -A decubetus CXR was ordered today09/18, will holdvASA in anticipation for thoracocentesis -Pulmonology consultation was obtained given persistent wheeze and cough -Due to the fact that he has significant staph aureus pneumonia, hold off on increasing steroids -Persistent wheezing most likely related to mild pulmonary edema with betablockers playing a small role. 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 Repeated ESR is elevated 09/15 130 -Patient was admitted in July 2016 with history of fever of unknown origin -Follow up urine culture, blood culture and sputum culture #Elevated troponin -Troponin trending down on admission 0.19 trend down to 0.11 -EKG no changes on admission -Aspirin 81 mg daily #Atrial fibrillation on Coumadin -INR 2.35 -coumadin 1 mg dosed today -INR target 2-3 -patient had bilateral LE doppler US based on old recommendation from last admission 08/11, that showed acute right femoral DVT and old left femoral DVT -Patient has HX of subtherapeutic INR 1 week prior to admission #Rheumatoid arthritis -Continue prednisone 10 mg by mouth daily -Rheumatology consulation was placed for next Sunday #Hypertension and hyperlipidemia -Increase Lopressor to 100 mg twice a day given the runs of Nisa in 09/16. Watch for worsening wheezing -Continue atorvastatin 40 mg daily -Continue frusemide 20 mg every 48 and 40 mg every 48 -Increase lisinopril 20 mg PO daily -Orthostats measurement is negative #History of shingles with neuropathy -Continue gabapentin 300 mg daily #Diet heart healthy diet #DVT prophylaxis ALPS, hold Coumadin for therapeutic INR #Code DNR/DNI -Consultation ID, Cardio, pulmonology, Rheum pending Problem List: 1. Sweet syndrome 2. Atrial fibrillation 3. Staphylococcus aureus pneumonia 4. Shortness of breath Pain Ratin Pain Location: n/a Pain Goal: Pain 4 or less Pain Plan: see medication Tomorrow's Labs & Rationales: CBC, CMP, INR JOYCELYN BERNARD MD 09/18/16 2133: Attending MD Review Statement Attending Statement Attending MD Statement: examined this patient, discuss w/resident/PA/VESSEL TRAFFIC OFFICER, agreed w/resident/PA/VESSEL TRAFFIC OFFICER, reviewed EMR data (avail), discussed with nursing, discussed with case mgmt, amended to note Attending Assessment/Plan: The patient was seen and discussed with house staff. Appreciate Cardiology input regarding vtach. Stool negative for C-diff. Only low grade fever today. Will continue to follow.
--- NOTE | 2016-09-18 12:01 | PN- Cardiology ---
Subjective Subjective: Feeling well. No chest pain. No palpitations. No lightheadedness or dizziness. No nausea or vomiting. He was noted to have a 17 beat run of ventricular tachycardia on September 06 setting of hypomagnesemia. Magnesium was repleted, and he has not had significant recurrent ventricular tachycardia. Objective Vital Signs and I&Os Vital Signs Date Time Temp Pulse Resp B/P Pulse O2 O2 Flow FiO2 Ox Delivery Rate 09/18 0942 99.8 90 18 148/62 09/18 0941 99.8 90 18 148/62 09/18 0940 99.8 09/18 0917 95 Room Air 09/18 0744 99.3 90 18 148/62 94 Room Air 09/17 2300 97.7 68 18 122/60 96 Room Air 09/17 2214 83 110/60 09/17 1601 97.6 71 20 110/64 94 Room Air Intake & Output 09/18 1600 09/18 0800 09/18 0000 09/17 1600 09/17 0800 09/17 0000 Intake Total 750 460 368 060 2126.5 Output Total 1100 299 635 8518 600 Balance -350 -140 430 -900 562.5 Intake, IV 200 100 200 250 562.5 Intake, Oral 550 360 480 600 Number 0 0 1 Bowel Movements Output, Urine 1100 881 480 3357 600 Physical Exam: Gen: NAD HEENT: normal Lungs: clear to auscultation, normal resp. effort Heart: RRR, S1, S2, 1/6 systolic murmur Abdomen: Soft, nontender, no masses Extremities: Trace edema Neuro: Alert and oriented x 3, cranial nerves intact Current Medications: Current Medications Sig/Renetta Start time Last Medication Dose Route Stop Time Status Admin Acetaminophen 650 MG Q6P PRN 09/11 1500 AC 09/18 PO 0940 Albuterol Sulfate 3 ML Q4P PRN 09/16 1945 AC INH Aspirin 81 MG DAILY 09/12 1000 AC 09/18 PO 0941 Atorvastatin Calcium 40 MG 1700 09/11 1700 AC 09/17 PO 1759 Benzonatate 100 MG TID 09/15 1600 AC 09/18 PO 0942 Cyanocobalamin 250 MCG DAILY 09/15 1315 AC 09/18 PO 0941 Diphenhydramine HCl 25 MG Q6P PRN 09/11 1500 AC IV Folic Acid 1 MG DAILY 09/15 1315 AC 09/18 PO 0941 Gabapentin 300 MG DAILY 09/12 1000 AC 09/18 PO 0942 Hydromorphone HCl 0.5 MG Q4P PRN 09/11 1500 AC IV Ipratropium [place] 2.5 ML Q4P PRN 09/16 1945 AC INH Lidocaine/Diphenhydr/ 10 ML BID PRN 09/15 2030 AC 09/15 Alum/Mg/Simeth PO 2219 Lisinopril 20 MG DAILY 09/15 1000 AC 09/18 PO 0942 Metoprolol Tartrate 50 MG BID 09/11 220 AC 09/18 PO 0941 Omeprazole 20 MG DAILY 09/12 1000 AC 09/18 PO 0942 Oxacillin Sodium 2,000 MG Q4 09/13 1400 AC 09/18 Sodium Chloride 100 ML IV 0946 Polyethylene Glycol 17 GM AT BEDTIME 09/11 2199 AC 09/16 PO 2159 Prednisone 10 MG DAILY 09/12 1000 AC 09/18 PO 0942 Prochlorperazine 10 MG Q6P PRN 09/11 1500 AC IV Senna/Docusate Sodium 1 TAB AT BEDTIME 09/11 2199 AC 09/16 PO 2200 Results Last 48 Hrs of Labs/Mics: Laboratory Tests 09/18/16 0650: Anion Gap 10, Estimated GFR 53 L, BUN/Creatinine Ratio 19.2 09/18/16 0645: PT 24.5 H, INR 2.35 H, CBC w Diff NO MAN DIFF REQ, RBC 2.83 L, MCV 103.6 H, MCH 34.6 H, RDW 16.8 H, MPV 7.8, Gran % 70.9, Lymphocytes % 22.0, Monocytes % 5.8, Eosinophils % 1.1, Basophils % 0.2, Absolute Granulocytes 5.0, Absolute Lymphocytes 1.5, Absolute Monocytes 0.4, Absolute Eosinophils 0.1, Absolute Basophils 0, PUBS MCHC 33.4 09/17/16 1359: Urine Color YEL, Urine Clarity CLEAR, Urine pH 6.5, Ur Specific [place] 1.010, Urine Protein 30 H, Urine Ketones NEG, Urine Nitrite NEG, Urine Bilirubin NEG, Urine Urobilinogen 0.2, Ur Leukocyte Esterase NEG, Ur Microscopic SEDIMENT EXAMINED, Urine RBC 50-75 H, Urine WBC 3-5 H, Ur Epithelial Cells RARE, Urine Hemoglobin LARGE H, Urine Glucose NEG 09/17/16 0700: Anion Gap 9, Estimated GFR 53 L, BUN/Creatinine Ratio 20.8, Phosphorus 3.7, Magnesium 1.7, PT 40.3 H, INR 3.89 H, CBC w Diff NO MAN DIFF REQ, RBC 2.82 L, MCV 103.0 H, MCH 34.6 H, RDW 16.5 H, MPV 8.1, Gran % 76.3 H, Lymphocytes % 18.7 L, Monocytes % 4.0, Eosinophils % 0.8, Basophils % 0.2, Absolute Granulocytes 5.6, Absolute Lymphocytes 1.4, Absolute Monocytes 0.3, Absolute Eosinophils 0.1, Absolute Basophils 0, PUBS MCHC 33.6 09/16/16 1830: Magnesium 2.0 Assessment/Plan Assessment/Plan Assessment: 1. Paroxysmal atrial fibrillation 2. History of DVT 3. Acute on chronic HFrEF, improved. LVEF 40-45 percent 4. Hypertension, mostly controlled 5. Mild troponin elevation secondary to demand ischemia 6. Nonsustained ventricular tachycardia in the setting of hypomagnesemia, improved Recommendations: * Increase metoprolol to 100 mg PO twice a day for treatment of nonsustained ventricular tachycardia, and HFrEF * Continue other cardiac medications. * Dose warfarin for INR 2-3 Continue telemetry? Yes
--- NOTE | 2016-09-18 13:33 | PN- Pulmonary ---
Subjective HPI/Critical Care Issues: Feeling well. No chest pain. No palpitations. No lightheadedness or dizziness. No nausea or vomiting. He was noted to have a 17 beat run of ventricular tachycardia on September 06 setting of hypomagnesemia. Magnesium was repleted, and he has not had significant recurrent ventricular tachycardia. Objective Current Medications: Current Medications Sig/Renetta Start time Last Medication Dose Route Stop Time Status Admin Acetaminophen 650 MG Q6P PRN 09/11 1500 AC 09/18 PO 0940 Albuterol Sulfate 3 ML Q4P PRN 09/16 194 AC INH Aspirin 81 MG DAILY 09/12 1000 AC 09/18 PO 0941 Atorvastatin Calcium 40 MG 1700 09/11 1700 AC 09/17 PO 1759 Benzonatate 100 MG TID 09/15 1600 AC 09/18 PO 0942 Cyanocobalamin 250 MCG DAILY 09/15 1315 AC 09/18 PO 0941 Diphenhydramine HCl 25 MG Q6P PRN 09/11 1500 AC IV Folic Acid 1 MG DAILY 09/15 1315 AC 09/18 PO 0941 Gabapentin 300 MG DAILY 09/12 1000 AC 09/18 PO 0942 Hydromorphone HCl 0.5 MG Q4P PRN 09/11 1500 AC IV Ipratropium [place] 2.5 ML Q4P PRN 09/16 194 AC INH Lidocaine/Diphenhydr/ 10 ML BID PRN 09/15 2030 AC 09/15 Alum/Mg/Simeth PO 2219 Lisinopril 20 MG DAILY 09/15 1000 AC 09/18 PO 0942 Metoprolol Tartrate 50 MG BID 09/11 2200 AC 09/18 PO 0941 Omeprazole 20 MG DAILY 09/12 1000 AC 09/18 PO 0942 Oxacillin Sodium 2,000 MG Q4 09/13 1400 AC 09/18 Sodium Chloride 100 ML IV 0946 Polyethylene Glycol 17 GM AT BEDTIME 09/11 2200 AC 09/16 PO 2159 Prednisone 10 MG DAILY 09/12 1000 AC 09/18 PO 0942 Prochlorperazine 10 MG Q6P PRN 09/11 1500 AC IV Senna/Docusate Sodium 1 TAB AT BEDTIME 09/110 AC 09/16 PO 2200 Vital Signs & I&O Last 24 Hrs of Vitals and I&O: Vital Signs Date Time Temp Pulse Resp B/P Pulse O2 O2 Flow FiO2 Ox Delivery Rate 09/18 0942 99.8 90 18 148/62 09/18 0941 99.8 90 18 148/62 09/18 0940 99.8 09/18 0917 95 Room Air 09/18 0744 99.3 90 18 148/62 94 Room Air 09/17 2300 97.7 68 18 122/60 96 Room Air 09/17 2214 83 110/60 09/17 1601 97.6 71 20 110/64 94 Room Air Intake & Output 09/18 1600 09/18 0800 09/18 0000 Intake Total 750 460 Output Total 1100 600 Balance -350 -140 Intake, IV 200 100 Intake, Oral 550 360 Number 0 0 Bowel Movements Output, Urine 1100 600 Impression/Plan Impression/Plan Impression/Plan: SIGNIFICANT DATA CT chest on IMPRESSION: New atelectasis or small pneumonia in the left lower lobe. New subsegmental atelectasis in the posterior left upper lobe adjacent to the fissure. Persistent ground-glass attenuation seen in the lungs, greatest in the right middle and right lower lobes, peribronchial in distribution suggestive of airways disease increased from July 2016. New small bilateral pleural effusions, left greater than right. IV contrast was not administered however there are no signs to suggest an empyema. Diffuse stable mediastinal lymphadenopathy. Enlarged heart, atherosclerotic disease with coronary artery calcification. Aortic valve calcification and upper normal size thoracic aorta. Multiple stable old-appearing compression fractures. Chest x-ray showed bilateral pulmonary infiltrates more in the left and the right Lower extremity ultrasound showed partial occlusive DVT within the both femoral veins. This appears to be chronic Previous CTA done on 08/07/2016 showed no pulmonary embolism nonspecific mild chronic probably glass opacities CT of the head done August 07 showed parenchymal volume loss CT scan of the abdomen in March 2016 showed degenerative lumbar disease otherwise unremarkable Blood work reviewed creatinine 1.1 which is slightly elevated lactic acid was normal last LDH was elevated white count has improved to 5.3 with no significant left shift his MCV has been elevated since April is anemic with hemoglobin of 10 Physical Exam: Gen: The patient is in no acute distress HEENT: Normal nose, ears, and oropharynx. Pupils equal bilaterally. Conjunctiva normal. Neck: Supple with no JVD, no masses, and no thyromegaly Lungs: Mild bilateral crackles with mild wheezing. Heart: S1, S2 with ectopy noted, 1/6 systolic murmur. Trace peripheral edema, 2+ pulses in the lower extremities bilaterally Abdomen: Soft, nontender, no masses. No hepatomegaly. No splenomegaly Extremities: No clubbing or cyanosis. Normal muscle strength in the upper and lower extremities, minimal edema Skin: Normal skin turgor with no skin ulcers or lesions noted. Neuro: Cranial nerves intact. 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 His slowly seems to be improving with current antibiotics. (flu swab neg initially). 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 As is clinically stable we will hold off on increasing his steroids * Patient does have mild wheezing most likely related to mild pulmonary edema with betablockers playing a small role. IF beta blockers were to be increase watch for worsening wheezing * Continue his nebulizer as needed 3 times a day only as needed with ipratropium and use albuterol only as needed * Benzonatate for cough suppression, can dc in few days * Magic mouthwash can be dcd if he is better, by mouth B12 and folic acid * Avoid sedatives narcotics * Keep his INR more than 2 * Watch his renal function * Hold asa in anticipation of thoracentesis * We may have to transition to heparin if his effusion is large by cxr * Continue his other medications * Would need outpatient hematology evaluation for macrocytic anemia despite having normal B12 and chronic venous thromboembolism
--- NOTE | 2016-09-18 14:38 | PN- Infect Dx ---
Subjective Subjective: Afebrile with last fever, to 102, yesterday morning. He feels well with minimal cough and no shortness of breath or chest pain. Objective Last 24 Hrs of Vital Signs/I&O Vital Signs Date Time Temp Pulse Resp B/P Pulse O2 O2 Flow FiO2 Ox Delivery Rate 09/18 0942 99.8 90 18 148/62 09/18 0941 99.8 90 18 148/62 09/18 0940 99.8 09/18 0917 95 Room Air 09/18 0744 99.3 90 18 148/62 94 Room Air 09/17 2300 97.7 68 18 122/60 96 Room Air 09/17 2214 83 110/60 09/17 1601 97.6 71 20 110/64 94 Room Air Intake & Output 09/18 1600 09/18 0800 09/18 0000 Intake Total 750 460 Output Total 1100 600 Balance -350 -140 Intake, IV 200 100 Intake, Oral 550 360 Number 0 0 Bowel Movements Output, Urine 1100 600 Physical Exam Other Physical Findings: He appears comfortable in no acute distress Lungs bibasilar crackles Heart regular rhythm with no murmur Extremities trace edema both lower extremities Results Last 24 Hours of Lab Results: Laboratory Tests 09/18 09/18 0650 0645 Chemistry Sodium (137 - 145 mmol/L) 137 Potassium (3.5 - 5.1 mmol/L) 4.2 Chloride (98 - 107 mmol/L) 101 Carbon Dioxide (22 - 30 mmol/L) 25 Anion Gap (5 - 16) 10 BUN (9 - 20 mg/dL) 25 H Creatinine (0.7 - 1.2 mg/dL) 1.3 H Estimated GFR (>60 ml/min) 53 L BUN/Creatinine Ratio (7 - 25 %) 19.2 Coagulation PT (9.4 - 12.5 SEC) 24.5 H INR (0.90 - 1.17) 2.35 H Hematology CBC w Diff NO MAN DIFF REQ WBC (4.8 - 10.8 /CUMM) 7.0 RBC (4.70 - 6.10 /CUMM) 2.83 L Hgb (14.0 - 18.0 G/DL) 9.8 L Hct (42 - 52 %) 29.3 L MCV (80.0 - 94.0 FL) 103.6 H MCH (27.0 - 31.0 PG) 34.6 H RDW (11.5 - 14.5 %) 16.8 H Plt Count (130 - 400 /CUMM) 163 MPV (7.4 - 10.4 FL) 7.8 Gran % (42.2 - 75.2 %) 70.9 Lymphocytes % (20.5 - 51.1 %) 22.0 Monocytes % (1.7 - 9.3 %) 5.8 Eosinophils % (0 - 5 %) 1.1 Basophils % (0.0 - 2.0 %) 0.2 Absolute Granulocytes (1.4 - 6.5 /CUMM) 5.0 Absolute Lymphocytes (1.2 - 3.4 /CUMM) 1.5 Absolute Monocytes (0.10 - 0.60 /CUMM) 0.4 Absolute Eosinophils (0.0 - 0.7 /CUMM) 0.1 Absolute Basophils (0.0 - 0.2 /CUMM) 0 PUBS MCHC (33.0 - 37.0 G/DL) 33.4 Last 24 Hours of Efrain Results: Blood cultures September 17 negative Urine culture September 17 negative Stool C. difficile September 17 negative Recent Imaging Studies: Ultrasound of the chest September 17 no definite pleural effusion Assessment/Plan Impression: No further fevers over the past 24 hours now Day 7 of treatment, currently on Oxacillin, for Staph aureus pneumonia. His respiratory status has improved, and the recent ultrasound does not reveal any definite pleural effusion to suggest an empyema. His BUN/creatinine have improved slightly, suggesting the increase was secondary to a prerenal process, likely related to the Lasix, which has been held. Suggestion: 1. Follow-up Echocardiogram, with further evaluation/management of his runs of V. tach and fluids per Cardiology 2. Continue Oxacillin
[2016-09-18 16:30] VITALS: BP 118/58
--- NOTE | 2016-09-18 23:06 | RADIOLOGY REPORT ---
EXAMINATION: XR DECUBITUS FILMS CLINICAL INFORMATION: Left pleural effusion COMPARISON: Chest CT 09/15/2016. FINDINGS: A small left-sided pleural effusion is seen layering dependently within the left thoracic cavity. There is similar airspace opacity at the left lung base that could again reflect pneumonia. Cardiac silhouette is enlarged and unchanged. Osseous structures remain stable. No pneumothorax. IMPRESSION: Small left pleural effusion. There is similar airspace opacity at the left lung base that could again reflect pneumonia.
[2016-09-19] VITALS: BP 124/62
[2016-09-19 07:51] LABS: ABSOLUTE BASOPHIL COUNT 0 /CUMM (0.0-0.2); ABSOLUTE EOSINOPHIL COUNT 0.1 /CUMM (0.0-0.7); ABSOLUTE GRANULOCYTE CT 3.5 /CUMM (1.4-6.5); ABSOLUTE LYMPH COUNT 1.7 /CUMM (1.2-3.4); ABSOLUTE MONOCYTE COUNT 0.4 /CUMM (0.10-0.60); BASOPHIL % 0.4 % (0.0-2.0); HEMATOCRIT 26.4 % (42-52); MEAN CORPUSCULAR HGB CONC 33.9 G/DL (33.0-37.0); MEAN CORPUSCULAR VOLUME 103.3 FL (80.0-94.0); MEAN PLATELET VOLUME 7.6 FL (7.4-10.4); PLATELET COUNT 166 /CUMM (130-400); RBC DISTRIBUTION WIDTH 16.5 % (11.5-14.5); RED BLOOD CELL CT 2.56 /CUMM (4.70-6.10); WHITE BLOOD CELL COUNT 5.6 /CUMM (4.8-10.8)
[2016-09-19 08:27] LABS: PT 19.3 SEC (9.4-12.5)
[2016-09-19 08:51] VITALS: BP 160/76
--- NOTE | 2016-09-19 09:50 | PN- Housestaff ---
MAY BORJA,[facility] 09/19/16 0950: Subjective Follow-up For: Staph auries pneumonia Atrial fibrillation on Coumadin Tele-Events Since Last Visit: Sinus rhythm with heart rate 72-82 with multiple PVC and PAC overnight Subjective: Patient was seen and examined this morning. He feels well and says his cough has reduced. He had no overnight events. Review of Systems Constitutional: Denies: see HPI. Objective Last 24 Hrs of Vital Signs/I&O Vital Signs Date Time Temp Pulse Resp B/P Pulse O2 O2 Flow FiO2 Ox Delivery Rate 09/19 1454 97.8 63 18 121/58 93 Room Air 09/19 1121 87 160/76 09/19 1120 87 160/76 09/19 0945 93 Room Air Room Air 09/19 0851 98.5 87 22 160/76 95 Room Air 09/19 0000 97.2 75 20 124/62 96 Room Air 09/18 2300 69 124/62 09/18 2228 94 Room Air Intake & Output 09/19 1600 09/19 0800 09/19 0000 Intake Total 500 650 850 Output Total 755 814 0823 Balance 75 -150 -250 Intake, IV 200 200 Intake, Oral 500 450 650 Number 0 0 Bowel Movements Output, Urine 198 919 5385 Physical Exam General Appearance: Alert, Oriented X3, Cooperative, No Acute Distress Skin: No Rashes, No Breakdown, No Significant Lesion HEENT: Atraumatic, PERRLA, EOMI, Mucous Membr. moist/pink Neck: Supple Cardiovascular: Regular Rate, Normal S1, Normal S2, No Murmurs Lungs: Normal Air Movement, occational wheeze Abdomen: Normal Bowel Sounds, Soft, No Tenderness Neurological: Normal Gait, Normal Speech, Strength at 5/5 X4 Ext, Normal Tone, Sensation Intact, Cranial Nerves 3-12 NL, Reflexes 2+ Extremities: No Clubbing, No Cyanosis, bilateral +1 pedal edema Assessment/Plan Assessment: Mr. Anne is 81 y/o male with PMH significant for relapsing polychondritis, sweets syndrome, paroxysmal atrial fibrillation on Coumadin, rheumatoid arthritis on prednisone, DVT status post completion of Coumadin for 3 months. He has chief complaint of weakness for 3 days and fever for one day. Patient is for an suspected discharge tomorrow morning Problem list -Staph aureus multilobar pneumonia -Atrial fibrillation on Coumadin -Elevated troponin #Staph aureus multilobar pneumonia -Patient has history of productive cough with green blood tinged sputum, improved -The chest x-ray was initially negative for any acute changes, following chest x -ray showed new patchy airspace opacity in the left midlung and right base. -Patient received one dose of Ceftriaxone IV 1000 mg, azithromycin 250 mg IV, and vancomycin 1000 mg IV -Sputum culture positive for MSSA -Discontinue oxacillin 2 mg every 4 IV Day#8 -Start Dicloxacillin 500 mg po every 6 hours to complete a ten-day course of antibiotics -Continue prednisone 10 mg by mouth daily the rheumatoid arthritis does. -Chest CT showed evidence of New atelectasis or small pneumonia in the left lower lobe 09/15 -Chest US for evaluation of plueral effusion perviously noted in last chest CT failed to define pleural effusion 09/17 -A decubetus CXR small left pleural effusion. 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 #Fever -MAXIMUM TEMPERATURE 99.8 -Sputum culture, blood culture 09/17 pending -Urinalysis is negative, urine culture positive for gram-negative throats mostly contamination given that patient has no urinary symptoms and negative UA Repeated -Patient was admitted in July 2016 with history of fever of unknown origin #Elevated troponin -Troponin trending down on admission 0.19 trend down to 0.11 -EKG no changes on admission -Continue Aspirin 81 mg daily #Atrial fibrillation on Coumadin -INR 1.85 -Dose coumadin 5 mg today -INR target 2-3 -patient had bilateral LE doppler US based on old recommendation from last admission 08/11, that showed acute right femoral DVT and old left femoral DVT -Patient has HX of subtherapeutic INR 1 week prior to admission #Rheumatoid arthritis -Continue prednisone 10 mg by mouth daily -Rheumatology consulation was placed for next Sunday #Hypertension and hyperlipidemia -Continue Lopressor to 100 mg twice a day given the runs of Nisa in 09/16. Watch for worsening wheezing -Continue atorvastatin 40 mg daily -Continue frusemide 20 mg every 48 and 40 mg every 48 -Increase lisinopril 20 mg PO daily -Orthostats measurement is negative #History of shingles with neuropathy -Continue gabapentin 300 mg daily #Diet heart healthy diet #DVT prophylaxis ALPS, hold Coumadin for therapeutic INR #Code DNR/DNI -Consultation ID, Cardio, pulmonology, Rheum pending Problem List: 1. Atrial fibrillation 2. Staphylococcus aureus pneumonia Pain Ratin Pain Location: n/a Pain Goal: Pain 4 or less Pain Plan: see medication Tomorrow's Labs & Rationales: CBC, CMP, INR JOYCELYN BERNARD MD 09/19/16 2306: Attending MD Review Statement Attending Statement Attending MD Statement: examined this patient, discuss w/resident/PA/[employer], agreed w/resident/PA/[employer], reviewed EMR data (avail), discussed with nursing, discussed with case mgmt, amended to note Attending Assessment/Plan: The patient was seen and discussed with house staff. Agree with the plan of care as outlined. Appreciate ID input.
--- NOTE | 2016-09-19 11:25 | PN- Pulmonary ---
Subjective HPI/Critical Care Issues: Sleeping comfortably. Minimal cough. Fever curve has certainly come down and has been afebrile since Oxygen saturation is adequate. Still complains of fatigue. No significant arrhythmia. Significant data reviewed. Chest x-ray showed small left pleural effusion airspace opacities. The left lung base. Ultrasound of the chest did not reveal much of pleural fluid. Blood work reviewed creatinine up to 1.4. White count 5.9 hemoglobin 9. INR is 1.85 Objective Current Medications: Current Medications Sig/Renetta Start time Last Medication Dose Route Stop Time Status Admin Acetaminophen 650 MG Q6P PRN 09/11 1500 AC 09/18 PO 0940 Albuterol Sulfate 3 ML Q4P PRN 09/16 194 AC INH Aspirin 81 MG DAILY 09/12 1000 DC 09/18 PO 0941 Atorvastatin Calcium 40 MG 1700 09/11 1700 AC 09/18 PO 1634 Benzonatate 100 MG TID 09/15 1600 AC 09/19 PO 1121 Cyanocobalamin 250 MCG DAILY 09/15 1315 AC 09/19 PO 1121 Diphenhydramine HCl 25 MG Q6P PRN 09/11 1500 AC IV Folic Acid 1 MG DAILY 09/15 1315 AC 09/19 PO 1120 Gabapentin 300 MG DAILY 09/12 1000 AC 09/19 PO 1121 Hydromorphone HCl 0.5 MG Q4P PRN 09/11 1500 DC IV Ipratropium [place] 2.5 ML Q4P PRN 09/16 194 AC INH Lidocaine/Diphenhydr/ 10 ML BID PRN 09/15 2030 AC 09/15 Alum/Mg/Simeth PO 2219 Lisinopril 20 MG DAILY 09/15 1000 AC 09/19 PO 1121 Loperamide HCl 2 MG Q6P PRN 09/18 2230 AC PO Metoprolol Tartrate 100 MG BID 09/18 2200 AC 09/19 PO 1120 Metoprolol Tartrate 50 MG BID 09/11 2200 DC 09/18 PO 0941 Omeprazole 20 MG DAILY 09/12 1000 AC 09/19 PO 1121 Oxacillin Sodium 2,000 MG Q4 09/13 1400 AC 09/19 Sodium Chloride 100 ML IV 1121 Polyethylene Glycol 17 GM AT BEDTIME 09/11 2200 AC 09/16 PO 2159 Prednisone 10 MG DAILY 09/12 1000 AC 09/19 PO 1121 Prochlorperazine 10 MG Q6P PRN 09/11 1500 AC IV Senna/Docusate Sodium 1 TAB AT BEDTIME 09/11 2200 AC 09/16 PO 2200 Warfarin Sodium 1 MG COUMADIN 1700 ONE 09/18 1700 DC 09/18 PO 09/18 1701 1634 Vital Signs & I&O Last 24 Hrs of Vitals and I&O: Vital Signs Date Time Temp Pulse Resp B/P Pulse O2 O2 Flow FiO2 Ox Delivery Rate 09/19 1121 87 160/76 09/19 1120 87 160/76 09/19 0945 93 Room Air Room Air 09/19 0851 98.5 87 22 160/76 95 Room Air 09/19 0000 97.2 75 20 124/62 96 Room Air 09/18 2300 69 124/62 09/18 2228 94 Room Air 09/18 1630 97.7 71 20 118/58 93 Room Air Intake & Output 09/19 1600 09/19 0800 09/19 0000 Intake Total 650 850 Output Total 800 1100 Balance -150 -250 Intake, IV 200 200 Intake, Oral 450 650 Number 0 0 Bowel Movements Output, Urine 800 1100 Impression/Plan Impression/Plan Impression/Plan: SIGNIFICANT DATA CT chest on IMPRESSION: New atelectasis or small pneumonia in the left lower lobe. New subsegmental atelectasis in the posterior left upper lobe adjacent to the fissure. Persistent ground-glass attenuation seen in the lungs, greatest in the right middle and right lower lobes, peribronchial in distribution suggestive of airways disease increased from July 2016. New small bilateral pleural effusions, left greater than right. IV contrast was not administered however there are no signs to suggest an empyema. Diffuse stable mediastinal lymphadenopathy. Enlarged heart, atherosclerotic disease with coronary artery calcification. Aortic valve calcification and upper normal size thoracic aorta. Multiple stable old-appearing compression fractures. Chest x-ray showed bilateral pulmonary infiltrates more in the left and the right Lower extremity ultrasound showed partial occlusive DVT within the both femoral veins. This appears to be chronic Previous CTA done on 08/07/2016 showed no pulmonary embolism nonspecific mild chronic probably glass opacities CT of the head done August 07 showed parenchymal volume loss CT scan of the abdomen in March 2016 showed degenerative lumbar disease otherwise unremarkable Blood work reviewed creatinine 1.1 which is slightly elevated lactic acid was normal last LDH was elevated white count has improved to 5.3 with no significant left shift his MCV has been elevated since April is anemic with hemoglobin of 10 Physical Exam: Gen: The patient is in no acute distress HEENT: Normal nose, ears, and oropharynx. Pupils equal bilaterally. Conjunctiva normal. Neck: Supple with no JVD, no masses, and no thyromegaly Lungs: Mild bilateral crackles with mild wheezing. Heart: S1, S2 with ectopy noted, 1/6 systolic murmur. Trace peripheral edema, 2+ pulses in the lower extremities bilaterally Abdomen: Soft, nontender, no masses. No hepatomegaly. No splenomegaly Extremities: No clubbing or cyanosis. Normal muscle strength in the upper and lower extremities, minimal edema Skin: Normal skin turgor with no skin ulcers or lesions noted. Neuro: Cranial nerves intact. 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 His slowly seems to be improving with current antibiotics. (flu swab neg initially). Fever seems to have resolved * Small non tapable effusions both sides due to fluid overload, improving. 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 As is clinically stable we will hold off on increasing his steroids * Patient does have mild wheezing most likely related to mild pulmonary edema with betablockers playing a small role. IF beta blockers were to be increase watch for worsening wheezing, if he develops significant wheezing with very high -dose of beta amadou. This may need to be reduced * Continue his nebulizer as needed 3 times a day only as needed with ipratropium and use albuterol only as needed * Benzonatate for cough suppression, can dc in few days * Magic mouthwash can be dcd if he is better, by mouth B12 and folic acid * Avoid sedatives narcotics * Keep his INR more than 2 * Watch his renal function * If asa needed can resume * Continue his other medications * Would need outpatient hematology evaluation for macrocytic anemia despite having normal B12 and for eval of chronic venous thromboembolism
--- NOTE | 2016-09-19 13:51 | PN- Infect Dx ---
Subjective Subjective: Afebrile on steroids. He feels well with no complaints. Objective Last 24 Hrs of Vital Signs/I&O Vital Signs Date Time Temp Pulse Resp B/P Pulse O2 O2 Flow FiO2 Ox Delivery Rate 09/19 1121 87 160/76 09/19 1120 87 160/76 09/19 0945 93 Room Air Room Air 09/19 0851 98.5 87 22 160/76 95 Room Air 09/19 0000 97.2 75 20 124/62 96 Room Air 09/18 2300 69 124/62 09/18 2228 94 Room Air 09/18 1630 97.7 71 20 118/58 93 Room Air Intake & Output 09/19 1600 09/19 0800 09/19 0000 Intake Total 650 850 Output Total 800 1100 Balance -150 -250 Intake, IV 200 200 Intake, Oral 450 650 Number 0 0 Bowel Movements Output, Urine 800 1100 Physical Exam Other Physical Findings: He appears comfortable in no acute distress Lungs are clear Heart regular rhythm with no murmur Back no CVA tenderness Extremities trace pedal edema both lower extremities Results Last 24 Hours of Lab Results: Laboratory Tests 09/19 0635 Chemistry Sodium (137 - 145 mmol/L) 138 Potassium (3.5 - 5.1 mmol/L) 4.1 Chloride (98 - 107 mmol/L) 103 Carbon Dioxide (22 - 30 mmol/L) 25 Anion Gap (5 - 16) 10 BUN (9 - 20 mg/dL) 24 H Creatinine (0.7 - 1.2 mg/dL) 1.4 H Estimated GFR (>60 ml/min) 48 L BUN/Creatinine Ratio (7 - 25 %) 17.1 Magnesium (1.6 - 2.3 mg/dL) 1.7 Coagulation PT (9.4 - 12.5 SEC) 19.3 H INR (0.90 - 1.17) 1.85 H Hematology CBC w Diff NO MAN DIFF REQ WBC (4.8 - 10.8 /CUMM) 5.6 RBC (4.70 - 6.10 /CUMM) 2.56 L Hgb (14.0 - 18.0 G/DL) 9.0 L Hct (42 - 52 %) 26.4 L MCV (80.0 - 94.0 FL) 103.3 H MCH (27.0 - 31.0 PG) 35.0 H RDW (11.5 - 14.5 %) 16.5 H Plt Count (130 - 400 /CUMM) 166 MPV (7.4 - 10.4 FL) 7.6 Gran % (42.2 - 75.2 %) 62.0 Lymphocytes % (20.5 - 51.1 %) 29.6 Monocytes % (1.7 - 9.3 %) 7.0 Eosinophils % (0 - 5 %) 1.0 Basophils % (0.0 - 2.0 %) 0.4 Absolute Granulocytes (1.4 - 6.5 /CUMM) 3.5 Absolute Lymphocytes (1.2 - 3.4 /CUMM) 1.7 Absolute Monocytes (0.10 - 0.60 /CUMM) 0.4 Absolute Eosinophils (0.0 - 0.7 /CUMM) 0.1 Absolute Basophils (0.0 - 0.2 /CUMM) 0 PUBS MCHC (33.0 - 37.0 G/DL) 33.9 Last 24 Hours of Efrain Results: Blood cultures 2 September 17 negative Urine culture September 17 greater than 100,000 colonies of gram-negative rods Recent Imaging Studies: Decubitus x-ray of the chest September 18 reveals a small layering left pleural effusion Assessment/Plan Impression: Overall improved on Oxacillin now Day 8 of treatment for Staph aureus pneumonia, with temperatures and white blood cell count remaining normal (on steroids). The positive urine culture may represent a contaminant as he has no urinary symptoms and his urinalysis is not suggestive of infection; therefore no treatment should be necessary. Suggestion: 1. Discontinue Oxacillin and begin Dicloxacillin 500 mg po every 6 hours to complete a ten-day course of antibiotics
[2016-09-19 14:54] VITALS: BP 121/58
--- NOTE | 2016-09-19 16:31 | PN- Cardiology ---
Subjective Subjective: Feeling well. No chest pain. No palpitations. No lightheadedness or dizziness. No nausea or vomiting. Multiple 3 beat runs of ventricular tachycardia noted. Objective Vital Signs and I&Os Vital Signs Date Time Temp Pulse Resp B/P Pulse O2 O2 Flow FiO2 Ox Delivery Rate 09/19 1454 97.8 63 18 121/58 93 Room Air 09/19 1121 87 160/76 09/19 1120 87 160/76 09/19 0945 93 Room Air Room Air 09/19 0851 98.5 87 22 160/76 95 Room Air 09/19 0000 97.2 75 20 124/62 96 Room Air 09/18 2300 69 124/62 09/18 2228 94 Room Air 09/18 1630 97.7 71 20 118/58 93 Room Air Intake & Output 09/19 1600 09/19 0800 09/19 0000 09/18 1600 09/18 0800 09/18 0000 Intake Total 500 650 850 530 750 460 Output Total 607 327 9831 375 1100 600 Balance 75 -150 -250 155 -350 -140 Intake, IV 200 200 80 200 100 Intake, Oral 500 450 650 450 550 360 Number 0 0 0 0 Bowel Movements Output, Urine 516 904 5492 375 1100 600 Physical Exam: Gen: NAD HEENT: normal Lungs: clear to auscultation, normal resp. effort Heart: RRR, S1, S2, 1/6 systolic murmur Abdomen: Soft, nontender, no masses Extremities: Trace edema Neuro: Alert and oriented x 3, cranial nerves intact Current Medications: Current Medications Sig/Renetta Start time Last Medication Dose Route Stop Time Status Admin Acetaminophen 650 MG Q6P PRN 09/11 1500 AC 09/18 PO 0940 Albuterol Sulfate 3 ML Q4P PRN 09/16 1945 AC INH Atorvastatin Calcium 40 MG 1700 09/11 1700 AC 09/18 PO 1634 Benzonatate 100 MG TID 09/15 1600 AC 09/19 PO 1121 Cyanocobalamin 250 MCG DAILY 09/15 1315 AC 09/19 PO 1121 Dicloxacillin Sodium 500 MG Q6 09/20 0600 AC PO 09/21 2300 Diphenhydramine HCl 25 MG Q6P PRN 09/11 1500 AC IV Folic Acid 1 MG DAILY 09/15 1315 AC 09/19 PO 1120 Gabapentin 300 MG DAILY 09/12 1000 AC 09/19 PO 1121 Ipratropium Dearing 2.5 ML Q4P PRN 09/16 1945 AC INH Lidocaine/Diphenhydr/ 10 ML BID PRN 09/15 2030 AC 09/15 Alum/Mg/Simeth PO 2219 Lisinopril 20 MG DAILY 09/15 1000 AC 09/19 PO 1121 Loperamide HCl 2 MG Q6P PRN 09/18 2230 AC PO Metoprolol Tartrate 100 MG BID 09/18 2200 AC 09/19 PO 1120 Omeprazole 20 MG DAILY 09/12 1000 AC 09/19 PO 1121 Oxacillin Sodium 2,000 MG Q4 09/13 1400 AC 09/19 Sodium Chloride 100 ML IV 1121 Polyethylene Glycol 17 GM AT BEDTIME 09/11 2200 AC 09/16 PO 2159 Prednisone 10 MG DAILY 09/12 1000 AC 09/19 PO 1121 Prochlorperazine 10 MG Q6P PRN 09/11 1500 AC IV Senna/Docusate Sodium 1 TAB AT BEDTIME 09/11 2200 AC 09/16 PO 2200 Warfarin Sodium 5 MG COUMADIN 1700 ONE 09/19 1700 AC PO 09/19 1701 Warfarin Sodium 1 MG COUMADIN 1700 ONE 09/18 1700 DC 09/18 PO 09/18 1701 1634 Results Last 48 Hrs of Labs/Mics: Laboratory Tests 09/19/16 0635: Anion Gap 10, Estimated GFR 48 L, BUN/Creatinine Ratio 17.1, Magnesium 1.7, PT 19.3 H, INR 1.85 H, CBC w Diff NO MAN DIFF REQ, RBC 2.56 L, MCV 103.3 H, MCH 35.0 H, RDW 16.5 H, MPV 7.6, Gran % 62.0, Lymphocytes % 29.6, Monocytes % 7.0, Eosinophils % 1.0, Basophils % 0.4, Absolute Granulocytes 3.5, Absolute Lymphocytes 1.7, Absolute Monocytes 0.4, Absolute Eosinophils 0.1, Absolute Basophils 0, PUBS MCHC 33.9 09/18/16 0650: Anion Gap 10, Estimated GFR 53 L, BUN/Creatinine Ratio 19.2 09/18/16 0645: PT 24.5 H, INR 2.35 H, CBC w Diff NO MAN DIFF REQ, RBC 2.83 L, MCV 103.6 H, MCH 34.6 H, RDW 16.8 H, MPV 7.8, Gran % 70.9, Lymphocytes % 22.0, Monocytes % 5.8, Eosinophils % 1.1, Basophils % 0.2, Absolute Granulocytes 5.0, Absolute Lymphocytes 1.5, Absolute Monocytes 0.4, Absolute Eosinophils 0.1, Absolute Basophils 0, PUBS MCHC 33.4 Recent Imaging Studies: Decubitus CXR: Small left pleural effusion. There is similar airspace opacity at the left lung base that could again reflect pneumonia. Assessment/Plan Assessment/Plan Assessment: 1. Paroxysmal atrial fibrillation 2. History of DVT 3. Acute on chronic HFrEF, improved. LVEF 40-45 percent 4. Hypertension, mostly controlled 5. Mild troponin elevation secondary to demand ischemia 6. Nonsustained ventricular tachycardia in the setting of hypomagnesemia, improved 7. Community acquired pneumonia Recommendations: * Continue metoprolol * Antibiotics as per the medical service * Continue other cardiac medications. * Dose warfarin for INR 2-3 Continue telemetry? Yes
--- NOTE | 2016-09-19 20:07 | ECHOCARDIOGRAM REPORT ---
EDITH ZHANG Age: 81 : 1935 Gender: M Exam Date: 09/19/2016 10:51 Exam Location: [address] Ht (in): 65 Wt (lb): 199 BSA: 2.07 BP: 160 / 76 Ordering Physician: RICARDO OLVERA MD Referring Physician: RICARDO OLVERA MD Technologist: Sami Iverson [facility] Room Number: 189-1 Indications: Atrial fibrillation Rhythm: Sinus Technical Quality: Technically difficult study FINDINGS Left Ventricle Normal size left ventricle. Normal left ventricular wall thickness. Borderline reduced left ventricular systolic function. Left ventricular ejection fraction is estimated at 50%. Mild global hypokinesis. Right Ventricle Right ventricle at upper limits of normal. Reduced right ventricular global systolic function. Right Atrium Normal right atrial size. Left Atrium Mild left atrial dilatation. Mitral Valve Mitral valve thickened. Mild mitral regurgitation. Aortic Valve Diffuse thickening of the aortic valve cusps with reduced excursion. No aortic stenosis. No aortic regurgitation. Tricuspid Valve Tricuspid valve not well visualized, grossly normal. Mild tricuspid regurgitation. Right ventricular systolic pressure estimated to be elevated at 70 mmHg. Pulmonic Valve Pulmonic valve not well visualized, grossly normal. Pericardium No pericardial effusion. Great Vessels Normal size aortic root. CONCLUSIONS Normal size left ventricle. Normal left ventricular wall thickness. Left ventricular ejection fraction is estimated at 50%. Mild global hypokinesis. Right ventricle at upper limits of normal. Reduced right ventricular global systolic function. Mild left atrial dilatation. Mild mitral regurgitation. Mild tricuspid regurgitation. Right ventricular systolic pressure estimated to be elevated at 70 mmHg. Borderline reduced left ventricular systolic function. Tray Rose M.D. (Electronically Signed) Final Date: 19 September 2016 20:07 MEASUREMENTS (Male / Female) Normal Values 2D ECHO LV Diastolic Diameter PLAX 5.3 cm 4.2 - 5.9 / 3.9 - 5.3 cm LV Systolic Diameter PLAX 3.8 cm 2.1 - 4.0 cm LV Fractional Shortening PLAX 28.3 % 25 - 46 % LV Ejection Fraction 2D Teich 54.2 % IVS Diastolic Thickness 1.0 cm LVPW Diastolic Thickness 1.0 cm LV Relative Wall Thickness 0.4 RV Internal Dim ED PLAX 3.8 cm 1.9 - 3.8 cm LVOT Diameter 2.1 cm Aortic Root Diameter 3.7 cm LA Systolic Diameter LX 4.2 cm 3.0 - 4.0 / 2.7 - 3.8 cm Ascending Aorta Diameter 3.4 cm DOPPLER AV Peak Velocity 190.0 cm/s AV Peak Gradient 14.4 mmHg AV Mean Velocity 133.0 cm/s AV Mean Gradient 8.0 mmHg AV Velocity Time Integral 45.3 cm LVOT Peak Velocity 79.7 cm/s LVOT Peak Gradient 2.5 mmHg LVOT Mean Velocity 48.2 cm/s LVOT Mean Gradient 1.0 mmHg LVOT Velocity Time Integral 21.7 cm LVOT Stroke Volume 75.2 cm AV Area Cont Eq vti 1.7 cm AV Area Cont Eq pk 1.5 cm MV Peak Velocity 109.0 cm/s MV Peak Gradient 4.8 mmHg MV Mean Velocity 55.2 cm/s MV Mean Gradient 1.0 mmHg Mitral E Point Velocity 92.3 cm/s Mitral A Point Velocity 84.4 cm/s Mitral E to A Ratio 1.1 MV PHT Velocity 83.0 cm/s MV Deceleration [place] 197.0 cm/s MV Pressure Half Time 126.4 ms MV Area PHT 1.7 cm MV Deceleration Time 232.0 ms MR Peak Velocity 571.0 cm/s MR Peak Gradient 130.4 mmHg TR Peak Velocity 389.0 cm/s TR Peak Gradient 60.5 mmHg Right Atrial Pressure 10.0 mmHg Pulmonary Artery Systolic Pressu 70.5 mmHg Right Ventricular Systolic Press 70.5 mmHg PV Peak Velocity 76.1 cm/s PV Peak Gradient 2.3 mmHg PV Mean Velocity 55.8 cm/s PV Mean Gradient 1.0 mmHg PV Velocity Time Integral 16.3 cm LV E' Lateral Velocity 6.3 cm/s Mitral E to LV E' Lateral Ratio 14.6 LV E' Septal Velocity 6.4 cm/s Mitral E to LV E' Septal Ratio 14.4
[2016-09-19 23:00] VITALS: BP 116/60
--- NOTE | 2016-09-20 07:21 | PN- Housestaff ---
MAY BORJA,[facility] 09/20/16 0721: Subjective Follow-up For: Staph auries pneumonia Atrial fibrillation on Coumadin Tele-Events Since Last Visit: Sinus rhythm sinus bradycardia with heart rate 50s to 70s 3 beats of Review of Systems Constitutional: Denies: no symptoms. Objective Last 24 Hrs of Vital Signs/I&O Vital Signs Date Time Temp Pulse Resp B/P Pulse O2 O2 Flow FiO2 Ox Delivery Rate 09/20 1047 144/70 09/20 1047 144/70 09/20 0808 98.3 68 20 150/72 96 Room Air 09/20 0000 Room Air 09/19 2300 98.0 68 18 116/60 95 Room Air 09/19 2130 96 Room Air 09/19 2129 83 116/60 09/19 1454 97.8 63 18 121/58 93 Room Air Intake & Output 09/20 1600 09/20 0800 09/20 0000 Intake Total 220 440 Output Total 600 450 Balance -380 -10 Intake, IV 100 200 Intake, Oral 120 240 Output, Urine 600 450 Physical Exam General Appearance: Alert, Oriented X3, Cooperative, No Acute Distress Skin: No Rashes, No Breakdown, No Significant Lesion HEENT: Atraumatic, PERRLA, EOMI, Mucous Membr. moist/pink Neck: Supple, No JVD Cardiovascular: irrigular irrigular Lungs: Clear to Auscultation, Normal Air Movement Abdomen: Normal Bowel Sounds, Soft, No Tenderness Neurological: Normal Gait, Normal Speech, Strength at 5/5 X4 Ext, Normal Tone, Sensation Intact, Cranial Nerves 3-12 NL, Reflexes 2+ Extremities: No Clubbing, No Cyanosis, bilateral +1 pedal edema Assessment/Plan Assessment: Mr. Anne is 81 y/o male with PMH significant for relapsing polychondritis, sweets syndrome, paroxysmal atrial fibrillation on Coumadin, rheumatoid arthritis on prednisone, DVT status post completion of Coumadin for 3 months. He has chief complaint of weakness for 3 days and fever for one day. Patient will be discharged to home/self care this afternoon Problem list -Staph aureus multilobar pneumonia -Atrial fibrillation on Coumadin -Elevated troponin #Staph aureus multilobar pneumonia -Patient has history of productive cough with green blood tinged sputum, improved -The chest x-ray was initially negative for any acute changes, following chest x -ray showed new patchy airspace opacity in the left midlung and right base. -Patient received one dose of Ceftriaxone IV 1000 mg, azithromycin 250 mg IV, and vancomycin 1000 mg IV -Sputum culture positive for MSSA -Continue Dicloxacillin 500 mg po every 6 hours Day#8 -To complete ten-day course of antibiotics -Continue prednisone 10 mg by mouth daily the rheumatoid arthritis does. -Chest CT showed evidence of New atelectasis or small pneumonia in the left lower lobe 09/15 -Chest US for evaluation of plueral effusion perviously noted in last chest CT failed to define pleural effusion 09/17 -A decubetus CXR small left pleural effusion. 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 patient recevied 5 mg yesterday -INR target 2-3 -patient had bilateral LE doppler US based on old recommendation from last admission 08/11, that showed acute right femoral DVT and old left femoral DVT -Patient has HX of subtherapeutic INR 1 week prior to admission #Rheumatoid arthritis -Continue prednisone 10 mg by mouth daily -Rheumatology consulation was placed for next Sunday #Hypertension and hyperlipidemia -Continue Lopressor to 100 mg twice a day given the runs of JessciaFib in 09/16. Watch for worsening wheezing -Continue atorvastatin 40 mg daily -Continue frusemide 20 mg every 48 and 40 mg every 48 -Increase lisinopril 20 mg PO daily -Orthostats measurement is negative #History of shingles with neuropathy -Continue gabapentin 300 mg daily #Diet heart healthy diet #DVT prophylaxis ALPS, hold Coumadin for therapeutic INR #Code DNR/DNI -Consultation ID, Cardio, pulmonology, Rheum pending Problem List: 1. Staphylococcus aureus pneumonia 2. Atrial fibrillation Pain Ratin Pain Location: n/a Pain Goal: Remain pain free Pain Plan: see medication Tomorrow's Labs & Rationales: none JOYCELYN BERNARD MD 09/20/162045: Attending MD Review Statement Attending Statement Attending MD Statement: examined this patient, discuss w/resident/PA/ASSEMBLER SKYLIGHTS, agreed w/resident/PA/ASSEMBLER SKYLIGHTS, reviewed EMR data (avail), discussed with nursing, discussed with case mgmt, amended to note Attending Assessment/Plan: The patient was seen and discussed with house staff. Agree with plan of care as outlined. OK to discharge today with 2 days remaining of 10 day course of antibiotics.
[2016-09-20 08:08] VITALS: BP 150/72
[2016-09-20 08:32] LABS: PT 16.9 SEC (9.4-12.5)
[2016-09-20 08:40] LABS: ABSOLUTE BASOPHIL COUNT 0 /CUMM (0.0-0.2); ABSOLUTE EOSINOPHIL COUNT 0.1 /CUMM (0.0-0.7); ABSOLUTE GRANULOCYTE CT 3.1 /CUMM (1.4-6.5); ABSOLUTE LYMPH COUNT 1.9 /CUMM (1.2-3.4); ABSOLUTE MONOCYTE COUNT 0.3 /CUMM (0.10-0.60); BASOPHIL % 0.5 % (0.0-2.0); EOSINOPHIL % 1.2 % (0-5); GRANULOCYTE % 56.9 % (42.2-75.2); HEMATOCRIT 26.5 % (42-52); MEAN CORPUSCULAR HGB 34.7 PG (27.0-31.0); MEAN CORPUSCULAR HGB CONC 33.6 G/DL (33.0-37.0); MEAN CORPUSCULAR VOLUME 103.4 FL (80.0-94.0); MEAN PLATELET VOLUME 7.6 FL (7.4-10.4); PLATELET COUNT 180 /CUMM (130-400); RBC DISTRIBUTION WIDTH 16.6 % (11.5-14.5); RED BLOOD CELL CT 2.57 /CUMM (4.70-6.10); WHITE BLOOD CELL COUNT 5.5 /CUMM (4.8-10.8)
[2016-09-20] MEDS ORDERED: DICLOXACILLIN500 M2 PO (09:44)
[2016-09-20] MEDS ORDERED: LISINOPRIL20 M1 PO (09:46)
[2016-09-20] MEDS ORDERED: FOLIC ACID1 M1 PO (09:56)
[2016-09-20] MEDS ORDERED: METOPROLOL TART50 M1 PO (10:00)
--- NOTE | 2016-09-20 10:09 | Patient Discharge Instructions ---
Discharge Instructions General Discharge Information You were seen/treated for: Staph auries pneumonia Atrial fibrillation on Coumadin Special Instructions: -Please follow up with your PCP within one week after discharge -Please follow up with your flight engineer within one week after discharge -Please follow up with INR clinic tomorrow, you will be given for prescripation INR Acute Coronary Syndrome Inclusion Criteria At DC or during hospital stay patient has or had the following: ACS DIAGNOSIS No Discharge Core Measures Meds if any: Prescribed or Continued at Discharge Meds if any: NOT Prescribed or Continued at Discharge Congestive Heart Failure Inclusion Criteria At DC or during hospital stay patient has or had the following: CHF DIAGNOSIS No Discharge Core Measures Meds if any: Prescribed or Continued at Discharge Meds if any: NOT Prescribed or Continued at Discharge Cerebrovascular accident Inclusion Criteria At DC or during hospital stay patient has or had the following: CVA/TIA Diagnosis No Discharge Core Measures Meds if any: Prescribed or Continued at Discharge Meds if any: NOT Prescribed or Continued at Discharge Venous thromboembolism Inclusion Criteria VTE Diagnosis Yes VTE Type Deep Venous Thrombosis VTE Confirmed by (Test) EXT BILATERAL VENOUS DOPP Discharge Core Measures - Per Current guidelines, there needs to be overlap - treatment for the first 5 days of Warfarin therapy. - If discharged on Warfarin prior to 5 days of - overlap therapy, the patient will need to be - assessed for post discharge needs including - *Post discharge parental anticoagulation - *Warfarin and/or parental anticoagulation education - *Follow up date to check INR post discharge At least 5 days overlap therapy as Inpatient Yes Meds if any: Prescribed or Continued at Discharge Warfarin Yes Note: Overlap Therapy is Warfarin and Anticoagulant Meds if any: NOT Prescribed or Continued at Discharge
[2016-09-20 10:47] VITALS: BP 144/70
--- NOTE | 2016-09-20 13:09 | PN- Pulmonary ---
Subjective HPI/Critical Care Issues: Staph auries pneumonia Atrial fibrillation on Coumadin Tele-Events Since Last Visit: Sinus rhythm sinus bradycardia with heart rate 50s to 70s 3 beats of Feels well afebrile ROs neg Objective Current Medications: Current Medications Sig/Renetta Start time Last Medication Dose Route Stop Time Status Admin Acetaminophen 650 MG Q6P PRN 09/11 1500 AC 09/18 PO 0940 Albuterol Sulfate 3 ML Q4P PRN 09/16 194 AC INH Aspirin 81 MG DAILY 09/20 1000 AC 09/20 PO 1048 Atorvastatin Calcium 40 MG 1700 09/11 1700 AC 09/19 PO 1700 Benzonatate 100 MG TID 09/15 1600 AC 09/20 PO 1047 Cyanocobalamin 250 MCG DAILY 09/15 1315 AC 09/20 PO 1047 Dicloxacillin Sodium 500 MG Q6 09/20 0600 AC 09/20 PO 09/21 2300 1052 Diphenhydramine HCl 25 MG Q6P PRN 09/11 1500 AC IV Folic Acid 1 MG DAILY 09/15 1315 AC 09/20 PO 1048 Furosemide 20 MG Q48 09/20 1000 AC 09/20 PO 1048 Gabapentin 300 MG DAILY 09/12 1000 AC 09/20 PO 1047 Ipratropium [place] 2.5 ML Q4P PRN 09/16 194 AC INH Lidocaine/Diphenhydr/ 10 ML BID PRN 09/15 2030 AC 09/15 Alum/Mg/Simeth PO 2219 Lisinopril 20 MG DAILY 09/15 1000 AC 09/20 PO 1047 Loperamide HCl 2 MG Q6P PRN 09/18 2230 AC PO Magnesium Oxide 400 MG ONE ONE 09/19 1715 DC 09/19 PO 09/19 1716 1840 Metoprolol Tartrate 100 MG BID 09/18 2200 AC 09/20 PO 1047 Omeprazole 20 MG DAILY 09/12 1000 AC 09/20 PO 1047 Oxacillin Sodium 2,000 MG Q4 09/13 1400 DC 09/20 Sodium Chloride 100 ML IV 0256 Polyethylene Glycol 17 GM AT BEDTIME 09/11 2200 AC 09/16 PO 2159 Prednisone 10 MG DAILY 09/12 1000 AC 09/20 PO 1047 Prochlorperazine 10 MG Q6P PRN 09/11 1500 AC IV Senna/Docusate Sodium 1 TAB AT BEDTIME 09/11 2199 AC 09/16 PO 220 Warfarin Sodium 5 MG COUMADIN 170 ONE 09/20 1700 AC PO 09/20 1701 Warfarin Sodium 5 MG COUMADIN 170 ONE 09/19 170 DC 09/19 PO 09/19 1700 170 Vital Signs & I&O Last 24 Hrs of Vitals and I&O: Vital Signs Date Time Temp Pulse Resp B/P Pulse O2 O2 Flow FiO2 Ox Delivery Rate 09/20 1047 144/70 09/20 1047 144/70 09/20 0808 98.3 68 20 150/72 96 Room Air 09/20 0000 Room Air 09/19 2300 98.0 68 18 116/60 95 Room Air 09/19 2130 96 Room Air 09/19 2129 83 116/60 09/19 1454 97.8 63 18 121/58 93 Room Air Intake & Output 09/20 1600 09/20 0800 09/20 0000 Intake Total 220 440 Output Total 600 450 Balance -380 -10 Intake, IV 100 200 Intake, Oral 120 240 Output, Urine 600 450 Laboratory Tests 09/20 09/19 0700 0635 Chemistry Sodium (137 - 145 mmol/L) 135 L 138 Potassium (3.5 - 5.1 mmol/L) 4.0 4.1 Chloride (98 - 107 mmol/L) 104 103 Carbon Dioxide (22 - 30 mmol/L) 24 25 Anion Gap (5 - 16) 7 10 BUN (9 - 20 mg/dL) 22 H 24 H Creatinine (0.7 - 1.2 mg/dL) 1.3 H 1.4 H Estimated GFR (>60 ml/min) 53 L 48 L BUN/Creatinine Ratio (7 - 25 %) 16.9 17.1 Magnesium (1.6 - 2.3 mg/dL) 1.7 Coagulation PT (9.4 - 12.5 SEC) 16.9 H 19.3 H INR (0.90 - 1.17) 1.62 H 1.85 H Hematology CBC w Diff NO MAN DIFF REQ NO MAN DIFF REQ WBC (4.8 - 10.8 /CUMM) 5.5 5.6 RBC (4.70 - 6.10 /CUMM) 2.57 L 2.56 L Hgb (14.0 - 18.0 G/DL) 8.9 L 9.0 L Hct (42 - 52 %) 26.5 L 26.4 L MCV (80.0 - 94.0 FL) 103.4 H 103.3 H MCH (27.0 - 31.0 PG) 34.7 H 35.0 H RDW (11.5 - 14.5 %) 16.6 H 16.5 H Plt Count (130 - 400 /CUMM) 180 166 MPV (7.4 - 10.4 FL) 7.6 7.6 Gran % (42.2 - 75.2 %) 56.9 62.0 Lymphocytes % (20.5 - 51.1 %) 35.2 29.6 Monocytes % (1.7 - 9.3 %) 6.2 7.0 Eosinophils % (0 - 5 %) 1.2 1.0 Basophils % (0.0 - 2.0 %) 0.5 0.4 Absolute Granulocytes (1.4 - 6.5 /CUMM) 3.1 3.5 Absolute Lymphocytes (1.2 - 3.4 /CUMM) 1.9 1.7 Absolute Monocytes (0.10 - 0.60 /CUMM) 0.3 0.4 Absolute Eosinophils (0.0 - 0.7 /CUMM) 0.1 0.1 Absolute Basophils (0.0 - 0.2 /CUMM) 0 0 PUBS MCHC (33.0 - 37.0 G/DL) 33.6 33.9 Microbiology Date/Time Procedure - Status Source Growth 09/17 2034 Blood Culture - RES BLOOD 09/17 2034 Blood Culture - RES BLOOD 09/17 1358 Urine Culture - RES URINE ROUT GRAM NEGATIVE RODS 09/17 1358 Clostridium difficile Toxin A & B - COMP STOOL Impression/Plan Impression/Plan Impression/Plan: SIGNIFICANT DATA CT chest on IMPRESSION: New atelectasis or small pneumonia in the left lower lobe. New subsegmental atelectasis in the posterior left upper lobe adjacent to the fissure. Persistent ground-glass attenuation seen in the lungs, greatest in the right middle and right lower lobes, peribronchial in distribution suggestive of airways disease increased from July 2016. New small bilateral pleural effusions, left greater than right. IV contrast was not administered however there are no signs to suggest an empyema. Diffuse stable mediastinal lymphadenopathy. Enlarged heart, atherosclerotic disease with coronary artery calcification. Aortic valve calcification and upper normal size thoracic aorta. Multiple stable old-appearing compression fractures. Chest x-ray showed bilateral pulmonary infiltrates more in the left and the right Lower extremity ultrasound showed partial occlusive DVT within the both femoral veins. This appears to be chronic Previous CTA done on 08/07/2016 showed no pulmonary embolism nonspecific mild chronic probably glass opacities CT of the head done August 07 showed parenchymal volume loss CT scan of the abdomen in March 2016 showed degenerative lumbar disease otherwise unremarkable Blood work reviewed creatinine 1.1 which is slightly elevated lactic acid was normal last LDH was elevated white count has improved to 5.3 with no significant left shift his MCV has been elevated since April is anemic with hemoglobin of 10 Physical Exam: Gen: The patient is in no acute distress HEENT: Normal nose, ears, and oropharynx. Pupils equal bilaterally. Conjunctiva normal. Neck: Supple with no JVD, no masses, and no thyromegaly Lungs: Mild bilateral crackles with mild wheezing. Heart: S1, S2 with ectopy noted, 1/6 systolic murmur. Trace peripheral edema, 2+ pulses in the lower extremities bilaterally Abdomen: Soft, nontender, no masses. No hepatomegaly. No splenomegaly Extremities: No clubbing or cyanosis. Normal muscle strength in the upper and lower extremities, minimal edema Skin: Normal skin turgor with no skin ulcers or lesions noted. Neuro: Cranial nerves intact. 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 His slowly seems to be improving with current antibiotics. (flu swab neg initially). Fever seems to have resolved. NOw on po abx * Small non tapable effusions both sides due to fluid overload, improving. Ultrasound did not reveal enough fluid to be tapped * No significant evidence suggestive of COPD and he is not a smoker * Proximal atrial fibrillation with recent acute on chronic heart failure with preserved ejection fraction on Lasix * 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 appears to be adequately anticoagulated with no evidence suggestive of active PE * Slightly elevated creatinine stage II chronic kidney disease probably * Relapsing polychondritis with some evidence suggestive of vocal cord involvement with mild wheezing with transmitted sounds but does not seem to be of any significance at this time * Has chronic low back pain and degenerative back issues * * NSVT with low magnesium now stable RECOMMENDATION * Continue antibiotic - PO diclox * Warfain, prednisone po * Seems to be tolerating high dose betablocker * Use neb only prn from now on * dc Benzonatate * Start proair 2 puff q 4 prn and spiriva one puff daily * Avoid sedatives narcotics * Keep his INR more than 2 IF dcd will follow as out pt with a cxr prior to appt
--- NOTE | 2016-09-20 13:28 | PN- Cardiology ---
Subjective Subjective: Clinical stable. Respiratory status stable. Edema improved. No specific complaints. Objective Vital Signs and I&Os Vital Signs Date Time Temp Pulse Resp B/P Pulse O2 O2 Flow FiO2 Ox Delivery Rate 09/20 1047 144/70 09/20 1047 144/70 09/20 0808 98.3 68 20 150/72 96 Room Air 09/20 0000 Room Air 09/19 2300 98.0 68 18 116/60 95 Room Air 09/19 2130 96 Room Air 09/19 2129 83 116/60 09/19 1454 97.8 63 18 121/58 93 Room Air Intake & Output 09/20 1600 09/20 0800 09/20 0000 09/19 1600 09/19 0800 09/19 0000 Intake Total 220 440 500 650 850 Output Total 600 450 328 204 7781 Balance -380 -10 75 -150 -250 Intake, IV 100 200 200 200 Intake, Oral 120 240 500 450 650 Number 0 0 Bowel Movements Output, Urine 600 450 510 542 8097 Current Medications: Current Medications Sig/Renetta Start time Last Medication Dose Route Stop Time Status Admin Acetaminophen 650 MG Q6P PRN 09/11 1500 AC 09/18 PO 0940 Albuterol Sulfate 3 ML Q4P PRN 09/16 194 AC INH Aspirin 81 MG DAILY 09/20 1000 AC 09/20 PO 1048 Atorvastatin Calcium 40 MG 1700 09/11 1700 AC 09/19 PO 1700 Benzonatate 100 MG TID 09/15 1600 AC 09/20 PO 1047 Cyanocobalamin 250 MCG DAILY 09/15 1315 AC 09/20 PO 1047 Dicloxacillin Sodium 500 MG Q6 09/20 0600 AC 09/20 PO 09/21 2300 1052 Diphenhydramine HCl 25 MG Q6P PRN 09/11 1500 AC IV Folic Acid 1 MG DAILY 09/15 1315 AC 09/20 PO 1048 Furosemide 20 MG Q48 09/20 1000 AC 09/20 PO 1048 Gabapentin 300 MG DAILY 09/12 1000 AC 09/20 PO 1047 Ipratropium [place] 2.5 ML Q4P PRN 09/16 194 AC INH Lidocaine/Diphenhydr/ 10 ML BID PRN 09/15 2030 AC 09/15 Alum/Mg/Simeth PO 2219 Lisinopril 20 MG DAILY 09/15 1000 AC 09/20 PO 1047 Loperamide HCl 2 MG Q6P PRN 09/18 2230 AC PO Magnesium Oxide 400 MG ONE ONE 09/19 1715 DC 09/19 PO 09/19 1716 1840 Metoprolol Tartrate 100 MG BID 09/18 2200 AC 09/20 PO 1047 Omeprazole 20 MG DAILY 09/12 1000 AC 09/20 PO 1047 Oxacillin Sodium 2,000 MG Q4 09/13 1400 DC 09/20 Sodium Chloride 100 ML IV 0256 Polyethylene Glycol 17 GM AT BEDTIME 09/11 220 AC 09/16 PO 2159 Prednisone 10 MG DAILY 09/12 1000 AC 09/20 PO 1047 Prochlorperazine 10 MG Q6P PRN 09/11 1500 AC IV Senna/Docusate Sodium 1 TAB AT BEDTIME 09/11 220 AC 09/16 PO 2200 Warfarin Sodium 5 MG COUMADIN 170 ONE 09/20 1700 AC PO 09/20 1701 Warfarin Sodium 5 MG COUMADIN 1700 ONE 09/19 1700 DC 09/19 PO 09/19 170 1702 Results Last 48 Hrs of Labs/Mics: Laboratory Tests 09/20/16 0700: Anion Gap 7, Estimated GFR 53 L, BUN/Creatinine Ratio 16.9, PT 16.9 H, INR 1.62 H, CBC w Diff NO MAN DIFF REQ, RBC 2.57 L, MCV 103.4 H, MCH 34.7 H, RDW 16.6 H, MPV 7.6, Gran % 56.9, Lymphocytes % 35.2, Monocytes % 6.2, Eosinophils % 1.2, Basophils % 0.5, Absolute Granulocytes 3.1, Absolute Lymphocytes 1.9, Absolute Monocytes 0.3, Absolute Eosinophils 0.1, Absolute Basophils 0, PUBS MCHC 33.6 09/19/16 0635: Anion Gap 10, Estimated GFR 48 L, BUN/Creatinine Ratio 17.1, Magnesium 1.7, PT 19.3 H, INR 1.85 H, CBC w Diff NO MAN DIFF REQ, RBC 2.56 L, MCV 103.3 H, MCH 35.0 H, RDW 16.5 H, MPV 7.6, Gran % 62.0, Lymphocytes % 29.6, Monocytes % 7.0, Eosinophils % 1.0, Basophils % 0.4, Absolute Granulocytes 3.5, Absolute Lymphocytes 1.7, Absolute Monocytes 0.4, Absolute Eosinophils 0.1, Absolute Basophils 0, PUBS MCHC 33.9 Assessment/Plan Assessment/Plan Assessment: 1. Paroxysmal atrial fibrillation 2. History of DVT 3. Acute on chronic HFrEF 4. Hypertension, with hypertensive urgency last night 5. Mild troponin elevation secondary to demand ischemia, decreasing 6. Fever with probable Staph pneumonia Recommendations: Continue telemetry? Yes
--- NOTE | 2016-09-20 14:53 | Discharge Summary ---
Visit Information Visit Dates Admission Date: 09/11/16 Discharge Date: 09/20/16 Hospital Course Course Attending Physician: JOYCELYN BERNARD MD Primary Care Physician: SUKHJINDER CATALAN DO Hospital Course: Mr. Anne is 81 y/o male with a past medical history significant for relapsing polychondritis, Sweets syndrome, paroxysmal atrial fibrillation on Coumadin, rheumatoid arthritis on prednisone, DVT status post completion of Coumadin for 3 months. He was admitted for a chief complaint of weakness for 3 days and fever for one day. Problem list -Staph aureus multilobar pneumonia -Atrial fibrillation on Coumadin -Elevated troponin #Staph aureus multilobar pneumonia -Patient has history of productive cough with green blood tinged sputum, improved -The chest x-ray was initially negative for any acute changes, following chest x -ray showed new patchy airspace opacity in the left midlung and right base. -Patient received one dose of Ceftriaxone IV 1000 mg, azithromycin 250 mg IV, and vancomycin 1000 mg IV -Sputum culture positive for MSSA and patient was started on oxacillin 2g IV q4 till 8 days of antibiotics and sent home on Dicloxacillin 500 mg po every 6 hours for the 2 days. He should complete a ten-day course of antibiotics -Continue prednisone 10 mg by mouth daily the rheumatoid arthritis does. -Chest CT showed evidence of New atelectasis or small pneumonia in the left lower lobe on 09/15 -Chest USG for evaluation of plueral effusion perviously noted in last chest CT failed to define pleural effusion 09/17 -A decubetus CXR small left pleural effusion. 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 #Fever -Most probably related to current infection MMSA pneumonia -Patient was admitted in July 2016 with history of fever of unknown origin #Elevated troponin -Troponin trending down on admission 0.19 trend down to 0.11 -EKG no changes on admission -Continue Aspirin 81 mg daily #Atrial fibrillation on Coumadin -INR 1.62 -Continue coumadin 5 mg PO daily -INR target 2-3 -patient had bilateral LE doppler US based on old recommendation from last admission 08/11, that showed acute right femoral DVT and old left femoral DVT -Patient has HX of subtherapeutic INR 1 week prior to admission #Rheumatoid arthritis -Continue prednisone 10 mg by mouth daily #Hypertension and hyperlipidemia -Lopressor to 100 mg twice a day -atorvastatin 40 mg daily -frusemide 20 mg every 48 and 40 mg every 48 -lisinopril 20 mg PO daily -Orthostats measurement is negative #History of shingles with neuropathy -Continue gabapentin 300 mg daily Allergies: Coded Allergies: NO KNOWN ALLERGIES (08/07/16) Disposition Summary Disposition Principal Diagnosis: Staph aureus community acquired pneumonia Additional Diagnosis: Atrial fibrillation Discharge Disposition: home or self care Discharge Instructions General Discharge Information Code Status: Do Not Resucitate/Intubat Patient's Diet: Heart healthy diet Patient's Activity: As tolerated Follow-Up Instructions/Appts: -Please follow up with your PCP within one week after discharge -Please follow up with your computing tutor within one week after discharge -Please follow up with INR clinic tomorrow, you will be given for prescripation INR Medications at Discharge Discharge Medications: Continue taking these medications: Omeprazole (Omeprazole) 20 MG CAPSULE. 1 Capsule ORAL DAILY Comments: GIVEN 09/20/16 @ 104 Cyanocobalamin (Vitamin B-12) (Cyanocobalamin Injection) 1,000 MCG/1 ML VIAL 1 Milliliters INTRAMUSC ONCE A MONTH Comments: GIVEN 09/20/16 @ 1041 Gabapentin (Gabapentin) 300 MG CAPSULE 1 Capsule ORAL DAILY Qty = 60 Comments: GIVEN 09/20/16 @ 1042 Calcium Carbonate (Calcium) 600 MG (1,500 MG) TABLET 1 Tablet ORAL DAILY Comments: NOT GIVEN THIS ADMISSION Atorvastatin Calcium (Atorvastatin Calcium) 40 MG TABLET 1 Tablet ORAL 5 PM Days = 30 Comments: GIVEN 09/19/16 @ 1700 Aspirin (Aspirin*) 81 MG TAB.CHEW 1 Tablet ORAL DAILY Days = 30 Comments: GIVEN 09/20/16 @ 1048 Prednisone (Prednisone) 10 MG TABLET 0 ORAL DAILY Qty = 30 Instructions: TAKE 3 TABS ON 08/11,08/12,08/13 TAKE 2 TABS FROM 08/13 AND STAY ON TI TILL YOU SEE DR. ZARATE Comments: GIVEN 09/20/16 @ 1049 Warfarin Sodium (Coumadin) 5 MG TABLET 1 Tablet ORAL DAILY Days = 30 Comments: GIVEN 09/19/16 @ 1702 TAKE 5 MG TONIGHT Furosemide (Furosemide) 20 MG TABLET 1 Tablet ORAL Every other day Comments: GIVEN 09/20/16 @ 1048 Furosemide (Furosemide) 40 MG TABLET 1 Tablet ORAL Every other day Comments: GIVEN 09/15/16 @ 0900 Start taking the following new medications: Dicloxacillin Sodium (Dicloxacillin Sodium) 500 MG CAPSULE 1 Capsule ORAL 4 TIMES A DAY Qty = 7 No Refills Comments: GIVEN 09/20/16 @ 1052 Lisinopril (Lisinopril) 20 MG TABLET 1 Tablet ORAL DAILY Qty = 30 No Refills Comments: GIVEN 09/20/16 @ 1047 Folic Acid (Folic Acid) 1 MG TABLET 1 Tablet ORAL DAILY Qty = 30 No Refills Comments: GIVEN 09/20/16 @ 1048 The following medications have been changed: Old: Metoprolol Tartrate (Metoprolol Tartrate) 50 MG TABLET 1 Tablet ORAL TWICE DAILY Days = 30 New: Metoprolol Tartrate (Metoprolol Tartrate) 50 MG TABLET 100 Tablet ORAL TWICE DAILY Qty = 60 Comments: GIVEN 09/20/16 @ 1047 Copies To: JAROCHO BORJA,TATMU Amaya; SUKHJINDER CATALAN DO; EFRAIN BORJA,KARINA Attending MD Review Statement Documenting Attending: JOYCELYN BERNARD MD Other Findings: The patient was seen and agree with the plan of care upon discharge.
== END 2016-09-20 14:59 | disposition home health service (06) | DRG 178 ==
LOC: ENRESERVTM → ENRESERVDT → ERH 11:24 → ERHI 13:49 → 1NO 13:49 → ENPENDDIS 13:49 → ERHI 14:26 → ERH 14:26 → 1NO 18:47
PROVIDERS: Internal Medicine Hematology & Oncology; Ophthalmology; Physician Assistant; Student in an Organized Health Care Education/Training Program; ADMIT Internal Medicine
DX: J15.211 Pneumonia due to Methicillin susceptible Staphylococcus aureus (principal); I24.8 Other forms of acute ischemic heart disease; I50.22 Chronic systolic (congestive) heart failure; I27.2 Other secondary pulmonary hypertension; E83.42 Hypomagnesemia; I11.0 Hypertensive heart disease with heart failure; I48.0 Paroxysmal atrial fibrillation; J20.9 Acute bronchitis, unspecified; I47.9 Paroxysmal tachycardia, unspecified; Z79.01 Long term (current) use of anticoagulants; M94.1 Relapsing polychondritis; Z86.718 Personal history of other venous thrombosis and embolism
CPT/HCPCS: 1NP; 87184; 36415; 71035; 81001; 82436; 87040; 87070; 87086; 87147; 87449; 87804; 87804-59; 93005; 93010; 93306; 93970; 97110-GO; 97116-GO; 97162-GP; 97530-GO; J0456; J0696; J0780; J1200; J1644; J3370; J3490; J7040; J7060; J7512

== ENCOUNTER 2017-03-13 19:40 | Inpatient (IN) | payer OTHER, MEDICARE ==
[~2017-03-13] VITALS: Ht 167.6 cm; Wt 93.4 kg
[~2017-03-13 19:40] MED LIST changes: +CALCIUM 600 +1 EAC6 PO; -CALCIUM600 M2 PO; +DICLOXACILLIN500 M2 PO; +FOLIC ACID1 M1 PO; +FUROSEMIDE20 M1 PO; +FUROSEMIDE40 M1 PO; +LISINOPRIL20 M1 PO
--- NOTE | 2017-03-13 19:56 | ED AMS/SEIZURE/WEAK/DIZZY ---
History of Present Illness General Chief Complaint: Altered Mental Status Stated Complaint: BIBA AMS Source: patient Exam Limitations: confusion, poor historian Vital Signs & Intake/Output Vital Signs & Intake/Output Vital Signs Date Time Temp Pulse Resp B/P B/P Pulse O2 O2 Flow FiO2 Mean Ox Delivery Rate 03/16 2249 98.0 72 20 130/68 98 Room Air 03/16 2153 94 130/68 03/16 1448 98.1 72 18 138/80 98 Room Air 03/16 1132 88 146/82 03/16 1129 88 146/82 03/16 0800 Room Air 03/16 0736 152/78 03/16 0718 98.4 66 20 98 Room Air 03/16 0000 Room Air ED Intake and Output 03/16 0000 03/15 1200 Intake Total 1650 100 Output Total 550 Balance 1100 100 Intake, IV 450 Intake, Oral 1200 100 Number 3 Bowel Movements Output, Urine 550 Allergies Coded Allergies: NO KNOWN ALLERGIES (08/07/16) Reconcile Medications Aspirin (Aspirin*) 81 MG TAB.CHEW 1 TAB PO DAILY HEART Atorvastatin Calcium (Lipitor) 20 MG TABLET 1 TAB PO DAILY CHOLESTEROL ( Reported) Calcium Carbonate/Vitamin D3 (Calcium 600 + Vitamin D Sftgl) 600 MG-500 CAPSULE 1 TAB PO DAILY SUPPLEMENT (Reported) Cyanocobalamin (Vitamin B-12) (Cyanocobalamin Injection) 1,000 MCG/1 ML VIAL 1 ML IM Q30D SUPPLEMENT (Reported) Folic Acid 1 MG TABLET 1 TAB PO DAILY ANEMIA Furosemide 20 MG TABLET 1 TAB PO EOD WATER PILL (Reported) Gabapentin 300 MG CAPSULE 1 CAP PO TID SHINGLES (Reported) Lisinopril 20 MG TABLET 1 TAB PO DAILY HIGH BLOOD PRESSURE Metoprolol Tartrate 50 MG TABLET 100 TAB PO BID HEART RATE Omeprazole 20 MG CAPSULE.DR 1 CAP PO DAILY GERD (Reported) Prednisone 5 MG TABLET 1 TAB PO BID POLYCHONDRITIS (Reported) Warfarin Sodium (Coumadin) 5 MG TABLET 1 TAB PO DAILY BLOOD CLOT Triage Nurses Notes Reviewed? yes HPI: Patient presents for evaluation of altered mental status. He apparently was found at home (he lives alone) by his daughter just prior to arrival he was last seen at about 6:00 last night. Patient was found somnolent and incontinent. He has no specific complaint at this time but does not know why he is here in the emergency department. Past History Travel History Traveled to [place] past 21 day No Medical History Any Pertinent Medical History? 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 No Review of Systems Review of Systems Constitutional: Reports: no symptoms. EENTM: Reports: no symptoms. Respiratory: Reports: no symptoms. Cardiovascular: Reports: no symptoms. GI: Reports: no symptoms. Genitourinary: Reports: no symptoms. Musculoskeletal: Reports: no symptoms. Skin: Reports: no symptoms. Neurological/Psychological: Reports: no symptoms. Hematologic/Endocrine: Reports: no symptoms. Immunologic/Allergic: Reports: no symptoms. All Other Systems: Reviewed and Negative Physical Exam Physical Exam General Appearance: SEE BELOW Comments: Gen.: Well-nourished, well-developed, no acute respiratory distress. Head: Normocephalic, atraumatic. Eyes: Normal inspection bilaterally Ears: Normal inspection bilaterally Nose: Normal inspection Throat/mouth : Moist mucosa Neck: Supple, full range of motion, no goiter Heart: Regular rate and rhythm, no murmurs rubs or gallops Lungs: Clear to auscultation bilaterally with normal air entry Chest: Nontender Back: Normal range of motion Abdomen: Soft, nontender, nondistended, normal bowel sounds Extremities: Normal range of motion grossly, equal radial pulses, no cyanosis, bilateral lower extremity edema Neurologic: Cranial nerves grossly intact, speech is clear Skin: warm and dry Psychiatric: Calm, cooperative, no apparent delusions or hallucinations Core Measures ACS in differential dx? No CVA/TIA Diagnosis: No Severe Sepsis Present: No Septic Shock Present: No Progress Differential Diagnosis: arrythmia, anemia, CVA/stroke, dehydration, electrolyte imbalance, GI bleed, hypoglycemia, pneumonia, sepsis, UTI/pyelo Plan of Care: Orders Procedure Date/time Status PROTHROMBIN TIME 03/17 600 Active LDH (LACT ACID DEHYDROGENASE) 03/17 600 Active CBC WITHOUT DIFFERENTIAL 03/17 600 Active BASIC ELECTROLYTES PLUS BUN&CR 03/17 600 Active Therapeutic Exercise 03/16 UNK Complete Gait Training 03/16 UNK Complete MISSING MEDICATION FORM 03/16 UNK Active Current Medications Sig/Renetta Start time Last Medication Dose Stop Time Status Admin Azithromycin 500 MG DAILY 03/17 1000 AC (Zithromax) Warfarin Sodium 7.5 MG COUMADIN 1700 ONE 03/16 1700 CAN (Coumadin) 03/16 1701 Atovaquone 750 MG BID 03/16 1306 AC 03/16 (Mepron Sanjana 750MG/ 2147 5ML) Metoprolol Tartrate 25 MG BID 03/16 1000 AC 03/16 (Lopressor) 2153 Doxycycline Hyclate 100 MG Q12 03/15 1000 AC 03/16 (Vibramycin) 2147 Sodium Chloride 100 ML (Normal Saline 0.9%) Gabapentin 300 MG DAILY 03/14 1200 AC 03/16 (Neurontin) 0917 Aspirin 81 MG DAILY 03/14 1000 AC 03/16 (Aspirin) 0917 Atorvastatin Calcium 20 MG DAILY 03/14 1000 AC 03/16 (Lipitor) 0917 Prednisone 5 MG BID 03/14 1000 AC 03/16 2147 Metronidazole 500 MG Q8H 03/14 0600 AC 03/16 (Flagyl) 1352 N/A 1 UNIT (No Carrier) Acetaminophen 650 MG Q6P PRN 03/14 0045 AC (Tylenol) Acetaminophen 1,000 MG Q8P PRN 03/14 0045 AC 03/14 (Ofirmev) 0515 Laboratory Tests 03/16/17 0618: Anion Gap 5, Estimated GFR > 60, BUN/Creatinine Ratio 25.6 H, Total Bilirubin 0.3, Direct Bilirubin 0.3, AST 77 H, ALT 59, Alkaline Phosphatase 52, Lactate Dehydrogenase 884 H, Total Protein 5.4 L, Albumin 2.5 L, PT 21.7 H, INR 2.08 H, CBC w Diff MAN DIFF ORDERED, RBC 3.10 L, MCV 99.6 H, MCH 33.0 H, RDW 15.2 H, MPV 8.8, Gran % 48.8, Lymphocytes % 42.7, Monocytes % 6.0, Eosinophils % 1.7 , Basophils % 0.8, Absolute Granulocytes 1.0 L, Segmented Neutrophils 40 L, Band Neutrophils 12 H, Absolute Lymphocytes 0.8 L, Lymphocytes 44, Absolute Monocytes 0.1 L, Eosinophils 3, Absolute Eosinophils 0, Absolute Basophils 0, Metamyelocytes 1, Platelet Estimate DECREASED, Normocytic RBCs VERIFIED, Normochromic RBCs VERIFIED, PUBS MCHC 33.1 Diagnostic Imaging: Discussed w/RAD: Radiology Read, CT Scan. Radiology Impression: PATIENT: EDITH ZHANG PRESENT AGE: 82 PATIENT ACCOUNT NO: [id number] : 33 LOCATION: [facility] ORDERING PHYSICIAN: LUIS A RYAN MD SERVICE DATE: 03/13/17 EXAM TYPE: CAT - CT HEAD WO IV CONTRAST EXAMINATION: CT HEAD WITHOUT CONTRAST CLINICAL INFORMATION: CVA. Altered mental status. COMPARISON: CT head 08/07/2016 TECHNIQUE: Contiguous axial imaging was performed from the skull base to vertex without intravenous administration of contrast. DLP: 619.83 mGy-cm FINDINGS: There is no evidence of acute intracranial hemorrhage or territorial infarction. No abnormal mass effect or midline shift is seen. Aguilar to white matter differentiation is well preserved. No extra-axial fluid collections are identified. There is atrophy with prominence of the ventricles and the sulci and hypodensity of the periventricular white matter due to chronic small vessel ischemic disease. There is vascular calcifications of the internal carotid arteries bilaterally. The osseous structures and soft tissues are normal. The mastoid air cells and visualized portions of the paranasal sinuses are well aerated. IMPRESSION: No acute intracranial pathology. DICTATED BY: DEMARCO MODI MD DATE/TIME DICTATED:03/13/172102 CALL CENTER RECEPTIONIST:ONUR DATE/TIME TRANSCRIBED:03/13/172102 CONFIDENTIAL, DO NOT COPY WITHOUT APPROPRIATE AUTHORIZATION. <Electronically signed in Other Vendor System> SIGNED BY: DEMARCO MODI MD 03/13/172112 CXR Impression: PATIENT: EDITH ZHANG PRESENT AGE: 82 PATIENT ACCOUNT NO: [id number] : 33 LOCATION: [facility] ORDERING PHYSICIAN: LUIS A RYAN MD SERVICE DATE: 03/13/17 EXAM TYPE: RAD - XRY-PORTABLE CHEST XRAY EXAMINATION: CHEST 1 VIEW CLINICAL INFORMATION: Altered mental status. CHF. COMPARISON: 11/02/2016. TECHNIQUE: An AP view of the chest is provided. FINDINGS: The cardiac silhouette is enlarged, but stable. The mediastinal and hilar contours are unremarkable. There are neither pleural effusions nor pneumothoraces. There are no consolidations. The osseous structures are unremarkable. IMPRESSION: No evidence for acute disease. DICTATED BY: JOYCELYN HSIEH MD DATE/TIME DICTATED:03/13/172132 CALL CENTER RECEPTIONIST: ONUR DATE/TIME TRANSCRIBED:03/13/172132 CONFIDENTIAL, DO NOT COPY WITHOUT APPROPRIATE AUTHORIZATION. <Electronically signed in Other Vendor System> SIGNED BY: JOYCELYN HSIEH MD 03/13/172137 Initial ED EKG: NSR, nonspecific ST T wave chg Prior EKG: unchanged Departure Departure Disposition: STILL A PATIENT Condition: Stable Clinical Impression Primary Impression: Fever Qualifiers: Fever type: unspecified Qualified Code: R50.9 - Fever, unspecified Secondary Impressions: Anemia Qualifiers: Anemia type: unspecified type Qualified Code: D64.9 - Anemia, unspecified Hypoglycemia Hypokalemia Referrals: SUKHJINDER CATALAN DO (PCP/Family) Departure Forms: Customer Survey General Discharge Information Admission Note Spoke With: GABRIELA ROGERS MDKonrad Documentation of Exam: Documentation of any treatments & extenuating circumstances including Concerns Regarding Discharge (functional status, medication knowledge or non-compliance, living conditions, etc.) that warrant an admission rather than observation: Patient has a fever of unclear etiology. If the fever is due to an underlying bacterial infection this patient is at very high risk of sepsis and mortality. His fever has altered his mental status and has caused profound weakness as indicated by the fact that he was found in his own excrement at home. He is unable to maintain ADLs or comply with outpatient treatment. He now requires hospitalization and treatment with IV fluids, antipyretics and monitoring of vital signs electrolytes and hematocrit/hemoglobin. Culture results should be followed and treated accordingly. Infectious disease consultation should be considered given the unclear nature of the patient's fever. Given his advanced age and multiple medical comorbidities and I feel his treatment and recovery will be prolonged and complicated. I feel this patient will require a multiple day hospitalization.
[2017-03-13] MEDS ORDERED: LIPITOR20 M2 PO (19:58)
[2017-03-13] MEDS ORDERED: PREDNISONE5 M1 PO (20:00)
--- NOTE | 2017-03-13 20:14 | NUR ---
PT BIBA FROM HOME WITH ALTERED MENTAL STATUS. PER EMS, PT LIVES HOME ALONE AND CARES FOR HIMSELF. PER EMS, PT'S DAUGHTER WAS NOT ABLE TO GET IN CONTACT WITH PT TODAY, SO SHE STOPPED BY HIS HOUSE AND FOUND THE PT ALTERED, SITTING IN A CHAIR INCONTINENT OF STOOL. PT ARRIVES TO ED ALERT AND ORIENTED. ANSWERING QUESTIONS CORRECTLY. PT HAS MASSIVE AMOUNT OF DRY STOOL TO GROIN, LEGS, ABDOMEN AND HANDS. PT STATES HE DOES NOT REMEMBER WHEN ANY OF THAT HAPPENED. PT ARRIVES WITH RECTAL TEMP OF 104.6, 95% ON ROOM AIR AND HEART RATE OF [address] RYAN AT BEDSIDE FOR EVAL.
--- NOTE | 2017-03-13 20:30 | NUR ---
OFIRMEV ADMINISTERED BY MUNA GRIFFIN FOR RECTAL TEMP OF 104.6. NS INFUSING PER EMAR. WILL CONTINUE TO MONITOR.
--- NOTE | 2017-03-13 20:46 | NUR ---
LAV, BLUE, SSTX3, PINK, DELEON AND 1ST SET OF BLOOD CULTURES SENT TO LAB.
--- NOTE | 2017-03-13 20:47 | NUR ---
PT TAKEN FOR CAT SCAN AT THIS TIME.
[2017-03-13 20:56] LABS: ABSOLUTE BASOPHIL COUNT 0 /CUMM (0.0-0.2); ABSOLUTE EOSINOPHIL COUNT 0 /CUMM (0.0-0.7); ABSOLUTE GRANULOCYTE CT 1.7 /CUMM (1.4-6.5); ABSOLUTE LYMPH COUNT 1.1 /CUMM (1.2-3.4); ABSOLUTE MONOCYTE COUNT 0.2 /CUMM (0.10-0.60); BASOPHIL % 0.4 % (0.0-2.0); EOSINOPHIL % 0.6 % (0-5); MEAN CORPUSCULAR HGB 32.7 PG (27.0-31.0); MEAN CORPUSCULAR VOLUME 99.3 FL (80.0-94.0); MEAN PLATELET VOLUME 7.4 FL (7.4-10.4); PLATELET COUNT 108 /CUMM (130-400); RED BLOOD CELL CT 2.72 /CUMM (4.70-6.10)
--- NOTE | 2017-03-13 21:05 | NUR ---
CRITICAL TEST RESULTS [id number] EDITH ZHANG 82 M TESTS AND RESULTS: POTASSIUM 2.6 CALCIUM 5.5 Results received and read back by: WOODROW SARABIA Results received date and time: 03/13/172104 The following provider was notified of the results, and read the results back: DR RYAN Notified date and time: 03/13/17 at 210
--- NOTE | 2017-03-13 21:13 | CT SCAN REPORT ---
EXAMINATION: CT HEAD WITHOUT CONTRAST CLINICAL INFORMATION: CVA. Altered mental status. COMPARISON: CT head 08/07/2016 TECHNIQUE: Contiguous axial imaging was performed from the skull base to vertex without intravenous administration of contrast. DLP: 619.83 mGy-cm FINDINGS: There is no evidence of acute intracranial hemorrhage or territorial infarction. No abnormal mass effect or midline shift is seen. Aguilar to white matter differentiation is well preserved. No extra-axial fluid collections are identified. There is atrophy with prominence of the ventricles and the sulci and hypodensity of the periventricular white matter due to chronic small vessel ischemic disease. There is vascular calcifications of the internal carotid arteries bilaterally. The osseous structures and soft tissues are normal. The mastoid air cells and visualized portions of the paranasal sinuses are well aerated. IMPRESSION: No acute intracranial pathology.
--- NOTE | 2017-03-13 21:38 | RADIOLOGY REPORT ---
EXAMINATION: CHEST 1 VIEW CLINICAL INFORMATION: Altered mental status. CHF. COMPARISON: 11/02/2016. TECHNIQUE: An AP view of the chest is provided. FINDINGS: The cardiac silhouette is enlarged, but stable. The mediastinal and hilar contours are unremarkable. There are neither pleural effusions nor pneumothoraces. There are no consolidations. The osseous structures are unremarkable. IMPRESSION: No evidence for acute disease.
--- NOTE | 2017-03-13 21:50 | NUR ---
PT BP 92/50. DR RYAN MADE AWARE. WILL RE-EVALUATE BP. PT PLACED ON BED MAC.
--- NOTE | 2017-03-13 22:13 | NUR ---
PT BP NOW 99/54. DR RYAN AWARE.
--- NOTE | 2017-03-13 23:19 | NUR ---
HOUSESTAFF AT BEDSIDE FOR EVAL
--- NOTE | 2017-03-13 23:19 | NUR ---
VANCOMYCIN INITATED PER EMAR.
--- NOTE | 2017-03-14 00:37 | History & Physical ---
ELZA MANNING 03/14/17 0037: General Information and HPI MD Statement: I have seen and personally examined EDITH ZHANG and documented this H&P. The patient is a 82 year old M who presented with a patient stated chief complaint of lethargy, weakness and diarrhea for one day []. Source of Information: patient, family Exam Limitations: no limitations History of Present Illness: Patient is 82-year-old male with past medical history significant for hypertension, sWEETS disease, poly chondritis, rheumatoid arthritis, osteoarthritis, questionable atrial fibrillation, congestive heart failure, history of DVT on Coumadin came with chief complaint of lethargy and weakness for 1 day. Patient lives by himself and visited by her daughter almost daily. When her daughter went to check on him he was found very weak and lethargic and had loose stool all around him. He was alert but was very weak. According to daughter he was having some diarrhea and fever last week but they thought he had some viral infection which she might give him. He was doing fine until yesterday when her daughter saw him around 6 PM when he had soup. He denied any outside food intake. Patient admit for having dry heaves/nausea but he denied any vomiting. He admits that he has multiple loose bowel movements since morning but denied any blood in stool. He had we abdominal pain especially right lower quadrant. He denied any black tarry stools. He didn't travel recently or any recent antibiotic use. He wasn't sure if he passed out. He denied any chest pain, palpitations, headache, dizziness, shortness of breath, any urinary complaints. Of note patient's daughter found ticks on him recently. Vital signs on admission were temperature 104.6, pulse 95, respiratory rate 20, blood pressure 169% 3 later on dropped to 99/54 and he was saturating 94% on 2 L nasal cannula. Labs were RBC count 3.0, hemoglobin 8.9, hematocrit 27.0, platelet count 108, INR 3.57, sodium 135, potassium 2.6, BUNs 24, creatinine 1.0, magnesium 1.0, phosphorus 1.7, calcium 5.5, albumin 1.7. T4 3 0.2, thyroxine-binding index 63.[address] and chest x-ray were negative Physical examination Alert and oriented 2 Head atraumatic Neck supple Chest left basal rhonchi/ Heart S1-S2 normal with no added sounds Abdomen soft and nontender Extremities shows mild bilateral lower extremity edema and chronic venous stasis changes No neurological deficit noted on neurological examination Allergies/Medications Allergies: Coded Allergies: NO KNOWN ALLERGIES (08/07/16) Home Med list Aspirin (Aspirin*) 81 MG TAB.CHEW 1 TAB PO DAILY HEART Atorvastatin Calcium (Lipitor) 20 MG TABLET 1 TAB PO DAILY CHOLESTEROL ( Reported) Calcium Carbonate/Vitamin D3 (Calcium 600 + Vitamin D Sftgl) 600 MG-500 CAPSULE 1 TAB PO DAILY SUPPLEMENT (Reported) Cyanocobalamin (Vitamin B-12) (Cyanocobalamin Injection) 1,000 MCG/1 ML VIAL 1 ML IM Q30D SUPPLEMENT (Reported) Folic Acid 1 MG TABLET 1 TAB PO DAILY ANEMIA Furosemide 20 MG TABLET 1 TAB PO EOD WATER PILL (Reported) Gabapentin 300 MG CAPSULE 1 CAP PO TID SHINGLES (Reported) Lisinopril 20 MG TABLET 1 TAB PO DAILY HIGH BLOOD PRESSURE Metoprolol Tartrate 50 MG TABLET 100 TAB PO BID HEART RATE Omeprazole 20 MG CAPSULE.DR 1 CAP PO DAILY GERD (Reported) Prednisone 5 MG TABLET 1 TAB PO BID POLYCHONDRITIS (Reported) Warfarin Sodium (Coumadin) 5 MG TABLET 1 TAB PO DAILY BLOOD CLOT Compliance With Home Meds: GOOD Past History Travel History Traveled to [place] past 21 day No Medical History Neurological: Shingles left trigeminal EENT: NONE Cardiovascular: AFIB, chronic venous insuff Respiratory: NONE Gastrointestinal: GERD Hepatic: NONE Renal: NONE Musculoskeletal: osteoarthritis, rheumatoid arthritis, relapsing polychondritis SWEETS DISEASE Psychiatric: NONE Endocrine: NONE Blood Disorders: 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 self Services at Home: Home Health Aide, Nursing Primary Language: Setswana ETOH Use: denies use Illicit Drug Use: denies illicit drug use Living Will? unknown Power of Learning Services Coordinator/HCP? yes Functional Ability ADLs Independent: eating. Needs Assist: dressing, toileting, bathing. Ambulation: walker, non-ambulatory IADLs Independent: telephone. Needs Assist: shopping, housework, finances, food prep, transportation, medication admin. Review of Systems Review of Systems Constitutional: Reports: fever, malaise, weakness. Denies: chills. EENTM: Denies: blurred vision, double vision. Cardiovascular: Reports: edema. Denies: chest pain. Respiratory: Denies: cough, hemoptysis, orthopnea. GI: Reports: diarrhea, nausea. Genitourinary: Denies: dysuria, frequency. Musculoskeletal: Denies: gout, joint pain. Skin: Reports: see HPI. Exam & Diagnostic Data Last 24 Hrs of Vital Signs/I&O Vital Signs Date Time Temp Pulse Resp B/P B/P Pulse O2 O2 Flow FiO2 Mean Ox Delivery Rate 03/14 0027 97.6 74 16 113/54 98 Nasal 5.0L Cannula 03/13 2317 98/54 03/13 2239 90/52 03/13 2212 102.3 93 20 99/54 94 Nasal 2.0L Cannula 03/13 2144 92/50 03/13 2030 104.6 03/13 2012 104.6 95 20 169/73 95 Room Air Intake & Output 03/14 0800 03/14 0000 03/13 1600 Intake Total 0 Output Total Balance 0 Intake, Oral 0 Patient 206 lb Weight Weight Reported by Patient Measurement Method Physical Exam General Appearance Alert, Cooperative, No Acute Distress Skin No Rashes HEENT Atraumatic, PERRLA, DRY MUCUS MEMBRANES Neck Supple, No JVD Cardiovascular Regular Rate, Normal S1, Normal S2 Lungs Normal Air Movement Abdomen Soft, No Tenderness Last 24 Hrs of Labs/Efrain: Laboratory Tests 03/13/172116: Urine Opiates Screen < 100.00, Methadone Screen < 40, Barbiturate Screen < 60, Ur Phencyclidine Scrn < 6.00, Amphetamines Screen < 100, U Benzodiazepines Scrn < 85, Urine Cocaine Screen < 50, Urine Cannabis Screen < 5.00, Urine Color YEL, Urine Clarity CLEAR, Urine pH 6.0, Ur Specific [place] 1.015, Urine Protein TRACE H, Urine Ketones NEG, Urine Nitrite NEG, Urine Bilirubin NEG, Urine Urobilinogen 0.2, Ur Leukocyte Esterase NEG, Ur Microscopic SEDIMENT EXAMINED, Urine RBC 3-5, Urine WBC 5-10 H, Ur Epithelial Cells RARE, Urine Bacteria FEW H, Urine Hemoglobin MOD H, Urine Glucose NEG 03/13/172036: Lactic Acid 1.1 03/13/172036: Anion Gap 6, Estimated GFR > 60, BUN/Creatinine Ratio 24.0, Glucose 63 L, Calcium 5.5 *L, Phosphorus 1.7 L, Magnesium 1.0 L, Total Bilirubin 0.2, AST 26 , ALT 30, Alkaline Phosphatase 32, Troponin I 0.09, Total Protein 4.0 L, Albumin 1.7 L, Globulin 2.3, Albumin/Globulin Ratio 0.7 L, 25-OH Vitamin D Total 29.0 L, TSH 4.070, Thyroxine (T4) 3.2 L, Thyroxine Binding Indx 63.6 H, PTH Intact 17.5, PT 37.0 H, INR 3.57 H, CBC w Diff NO MAN DIFF REQ, RBC 2.72 L, MCV 99.3 H, MCH 32.7 H, RDW 15.0 H, MPV 7.4, Gran % 58.0, Lymphocytes % 35.8, Monocytes % 5.2, Eosinophils % 0.6, Basophils % 0.4, Absolute Granulocytes 1.7, Absolute Lymphocytes 1.1 L, Absolute Monocytes 0.2, Absolute Eosinophils 0 , Absolute Basophils 0, PUBS MCHC 33.0, Serum Alcohol < 10.0 Microbiology 03/14 200 STOOL: Vibrio Culture - ORD 03/14 020 STOOL: Yersinia Culture - ORD 03/14 020 STOOL: Stool Culture - ORD 03/13 2341 STOOL: Clostridium difficile Toxin A & B - ORD 03/13 2305 LOWER RESP: Respiratory Culture - ORD 03/13 230 LOWER RESP: Gram Stain - ORD 03/13 214 BLOOD: Blood Culture - RECD 03/13 2117 URINE ROUT: Urine Culture - RECD 03/13 2037 BLOOD: Blood Culture - RECD Diagnostic Data EKG Results Normal sinus rhythm no acute changes CXR Results FINDINGS: The cardiac silhouette is enlarged, but stable. The mediastinal and hilar contours are unremarkable. There are neither pleural effusions nor pneumothoraces. There are no consolidations. The osseous structures are unremarkable. IMPRESSION: No evidence for acute disease. Assessment/Plan Assessment: Assessment and plan Patient is 82-year-old male with history of CHF, DVT/atrial fibrillation on Coumadin, hypertension, dyslipidemia, sweets disease, poly chondritis on chronic prednisone, rheumatoid arthritis, osteoarthritis came with weakness pathology and diarrhea. Admit patient under medical floor and will take care for the following problems 1. Worsening lethargy and weakness most likely due to diarrhea which could be viral but we will rule out C. difficile/diverticulitis 2. Fever could be due to abdominal infection/viral etiology/tickborne illness 3. History of Sweet syndrome 4. History of rheumatoid arthritis/osteoarthritis and poorly chondritis 5. History of atrial fibrillation/DVT on Coumadin with supratherapeutic INR Plan We will admit patient on general medical floor Patient had episodes of hypotension in the emergency room most likely due to dehydration due to diarrhea and responded well with fluid resuscitation. We will continue gentle IV hydration and will keep his blood pressure within normal range We will hold on his antihypertensives and nephrotoxic medications Given his history of tick bite we will give patient a dose of doxycycline and patient was already given ceftaz and vancomycin in the emergency room due to high-grade fever of unknown etiology We ordered CT abdomen and chest look for source of infection and we will treat him accordingly. We will check peripheral smear for any evidence of babesiosis We will continue his prednisone Given supratherapeutic INR we will hold Coumadin dose according to INR We will request ID evaluation in a.m. Patient was found to be hypokalemic on admission which was repleted and we will repeat labs in a few hours and will replete potassium accordingly Most likely due to diarrhea was found to be hypokalemic and hypomagnesemic we will replete his electrolytes. We will check his stool for C. difficile, stool culture, stool for ova and parasites We will trend troponins EKGs to rule out ACS. Consider repeating thyroid function once he will be more stable. Heart healthy diet Pharmacological DVT prophylaxis on Coumadin currently supratherapeutic INR Patient is DNI DNR but okay for central line and pressors if needed As Ranked By This Provider Problem List: 1. Fever Qualifiers Fever type: unspecified Qualified Code: R50.9 - Fever, unspecified 2. Hypokalemia 3. Hypoglycemia Core Measures/Miscellaneous Acute Coronary Syndrome ACS Diagnosis: No Cerebrovascular Accident CVA/TIA Diagnosis: No Congestive Heart Failure CHF Diagnosis: No VTE (View Protocol) VTE Risk Factors: Age > 40 No [facility] VTE prophylaxis d/t: No contraindications No VTE Pharm Prophylaxis d/t: Blood coag disorder VTE Diagnosis: No VTE Type: NONE VTE Confirmed by (Test): NONE Sepsis (View Protocol) Severe Sepsis Present: No Septic Shock Septic Shock Present: No Miscellaneous Documentation Attending Case Discussed With: [facility] Primary Care Physician: SUKHJINDER CATALAN DO Patient sees these Specialists [facility] Level of Patient Care: General Medicine Resident Review Statement Resident Statement: examined this patient Other Findings: Patient was admitted by resident [facility]17 0547: Attending MD Review Statement Attending Statement Attending MD Statement: examined this patient, discuss w/resident/PA/REFERENCE INVESTIGATOR, agreed w/resident/PA/REFERENCE INVESTIGATOR, discussed with family Attending Assessment/Plan: 82 yo M with h/o 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 Daughter Scarlet is a pharmacy informaticist at [place]. Daughter states, patient was in his usual state of health until last night. Patient lives by himself. This evening, he did not answer his phone, so daughter went to check on him and found him slumped over the kitchen table although not unconscious. He was very weak, and was found sitting in his own feces. He apparently had episode of diarrhea and fever 1 week prior but since it resolved on its own, daughter felt it was viral. Today, he started experiencing multiple episodes of diarrhea, right sided abdominal discomfort and nausea, but no vomiting. No outside food intake and no recent antibiotic use. There is also a h/o tick bites, 2 weeks back she removed a tick from his body. No obvious rash. Vitals: Tmax 104.7, tachycardic to 100-110's, BP 92/50 --> 90/52 --> 113/54, sats 100% on 4L. Exam: awake, lethargic, oriented and arousable to verbal stimuli, diaphoretic in mild distress, dry mucous membranes, Chest bibasilar crackles, Heart S1S2 regular, systolic murmur+, Abd soft, distended, lower abdomen tenderness, BS+. LE: trace edema, with chronic venous stasis. Labs: WBC 3.0, bands 4, H/H 8.9/27 (baseline), macrocytic anemia, Plt 108, INR 3.57, Na 135, K 2.6, bicarb 15, BUN 24, creat 1.0, glucose 63, lactic acid 1.1, Ca 5.5, PO4 1.7, Mag 1.0, LFTs normal, trop neg, Albumin 1.7, TSH normal, PTH normal. UA clear. Utox neg. Alcohol < 10. CXR neg. Head CT neg. EKG: SR, PVCs. Echo (Aug 2016): EF 50%, mild global hypokinesis, pulm htn. Nuclear stress test (November 2016): reversible ischemia of apex and apical anterior wall, EF normal. Stool guaiac negative. 1. Lethargy, AMS with fever, hypotension in this elderly patient with profuse diarrhea, ruling in for sepsis (leukopenia, fever, tachycardia). Plan was to admit to medical floor, aggressive fluid resuscitation, trend lactic acid and broad spectrum antibiotics (Ceftaz and Vanco were given in ER), we added Doxycycline for tick-borne illness. Given his profuse diarrhea, we sent him for panCT with IV contrast for concerns of acute abdominal pathology and possibility of a pneumonia. CT showed moderate to severe diverticulosis in descending and sigmoid colon with signs of early diverticulitis. Panculture, stool studies, rule out Cdiff, fluids, monitor for fluid overload given h/o HfrEF, IV ceftriaxone and flagyl for now. Last EGD/colonscopy (2013): nonerosive GERD, extensive diverticula sigmoid to proximal transverse, left colon polyp. Please note, repeat BEP showed worsening renal functions DESHAUN (creat 1.7 from 1.0 on admission) with metabolic acidosis. CT with contrast was performed prior to these results. We have given 2 L Normal saline after this, will trend renal functions in AM. Hold all anti-hypertensives until BP stabilizes. If persistent hypotension, will give stress dose steroids as patient is on chronic prednisone therapy. Given his previous h/o babesiosis (Mar 2016), and recent tick encounter with pancytopenia, tick borne illness remains in the differential. One dose of Doxycycline was given in ER. We will obtain peripheral smear and obtain ID and hematology consults. Send Lyme and tick panel. Patient has received about 3.5 L of fluid in the ER, we are backing off for now as BP has improved and patient has tendency to go into heart failure. Please monitor respiratory status for the same. 2. Elevated troponin (0.18 2nd set) with no acute EKG changes, likely demand ischemia. Patient will now be admitted to Telemetry, monitored for arrhythmias. Trend troponins, continue aspirin. Obtain echo and cardio consult. Replete all electrolytes potassium, magnesium and calcium. Corrected calcium is 7.3. 3. Supratherapeutic INR.Hold coumadin, recheck INR in AM. DVT ppx INR supratherapeutic on coumadin. DNR/I but ok with central line and pressors.
--- NOTE | 2017-03-14 01:27 | NUR ---
PT ASSIGNED TO [facility] [phone]
--- NOTE | 2017-03-14 02:02 | NUR ---
REPORT GIVEN TO MNUA COLE ON GEN MED.
--- NOTE | 2017-03-14 03:35 | NUR ---
LABS DRAWN -- SST X 2, DELEON,LAV ALL SENT
--- NOTE | 2017-03-14 04:14 | NUR ---
PT TO CAT SCAN AT THIS TIME.
--- NOTE | 2017-03-14 04:19 | NUR ---
CRITICAL TEST RESULTS [id number] EDITH ZHANG 82 M TESTS AND RESULTS: TROPONIN 0.18 Results received and read back by: WOODROW SARABIA Results received date and time: 03/14/17 8057 The following provider was notified of the results, and read the results back: LORI AT [facility] Notified date and time: 03/14/17 at 8751
--- NOTE | 2017-03-14 05:04 | NUR ---
PER DR ROGERS, PT WILL BE ADMITTED TO TELEMETRY.
--- NOTE | 2017-03-14 05:06 | CT SCAN REPORT ---
EXAMINATION: CT CHEST WITH AND WITHOUT CONTRAST CT ABDOMEN AND PELVIS WITH CONTRAST CLINICAL INFORMATION: Fever. Abdominal pain. Diarrhea. COMPARISON: No pertinent prior studies are available for comparison. TECHNIQUE: Multidetector volumetric imaging was performed from the thoracic inlet through the pubic symphysis before and after the administration of intravenous contrast material. A total of 95 mL Optiray-320 was administered intravenously. Sagittal and coronal images were reformatted. DOSE: 2666 mGy-cm FINDINGS: -CHEST- LUNG: Mild dependent atelectasis is present within the lower lobes. No consolidation. Central airways are clear. No pulmonary nodules. MEDIASTINUM: Calcific atherosclerosis is present in the thoracic aorta and coronary arteries. Calcifications are present on the aortic and mitral valves. No pericardial effusion. PERICARDIUM/PLEURA: No significant effusion. No pleural mass or thickening. CHEST WALL/AXILLA: Healing fractures of the right fourth, fifth, sixth, and seventh ribs are noted anteriorly, likely chronic in nature. No acute fractures. No axillary adenopathy. -ABDOMEN/PELVIS- LIVER, GALLBLADDER, BILIARY TREE: The liver is normal in size, shape, and attenuation. No focal hepatic lesion or biliary ductal dilatation is present. The gallbladder is unremarkable with no evidence of radiopaque gallstones, gallbladder wall thickening, or obvious pericholecystic inflammatory changes. PANCREAS: Unremarkable. SPLEEN: Unremarkable. ADRENAL GLANDS: Unremarkable. KIDNEYS AND URETERS: Small subcentimeter cystic foci are present in both kidneys, too small to characterize but most likely corresponding to simple renal cysts. No suspicious renal lesions are identified. Kidneys normal in size, contour, and attenuation. There is perinephric stranding bilaterally. No hydronephrosis. Ureters are normal in course and caliber. BLADDER: Multiple small bladder diverticula are identified. Bladder is otherwise unremarkable. GASTROINTESTINAL TRACT: Small sliding-type hernia. Stomach, small bowel, and colon are normal in caliber. There is moderate to severe diverticulosis in the descending and sigmoid colon. At the junction of the sigmoid colon and descending colon, there is very mild pericolonic fat stranding which may be due to an area of early acute diverticulitis or mild diverticular inflammation. No evidence of perforation or abscess. No separate areas of pericolonic inflammation or bowel wall thickening identified. Appendix is normal. ABDOMINAL WALL: No significant hernia is appreciated. VASCULATURE: Abdominal aorta is normal in caliber. Calcific atherosclerotic disease is present in the abdominal aorta and it iliac and visceral branches. LYMPH NODES: No lymphadenopathy. . PELVIC VISCERA: The prostate and seminal vesicles are normal in size. Central calcifications are present in the prostate gland. OSSEUS STRUCTURES: Bones are osteopenic. Compression deformities are present throughout the lower thoracic and lumbar spine involving T7, T8, T10, T11, L1, L2, L3, L4, and L5. This appearance is unchanged from prior. No new compression deformities are identified. There is moderate to severe multilevel degenerative disc disease and facet arthropathy throughout the lumbar spine. Degenerative arthritis is present in both hips and SI joints. IMPRESSION: 1. Moderate to severe diverticulosis in the descending and sigmoid colon with subtle pericolonic fat stranding around the diverticula at the junction of the descending sigmoid colon. These findings are concerning for early changes of diverticulitis/very mild diverticular inflammation. Recommend correlation for tenderness or pain in the left midabdomen. 2. Otherwise, no acute findings are identified in the chest, abdomen, and pelvis. 3. Bladder diverticula. 4. Multilevel compression deformities in the lower thoracic and lumbar spine, unchanged from prior. No acute fractures are identified.
--- NOTE | 2017-03-14 05:13 | Admission Certification ---
Admission Certification Certification Statement - As attending physician, I certify that at the time of - admission, based on clinical presentation, severity of - symptoms, need for further diagnostic testing and - therapeutic interventions, and risk of adverse outcomes - without in-hospital treatment, in my clinical assessment, - this patient requires an acute hospital stay for a minimum - of two nights or longer. I have also considered psychsocial - factors such as support system, advanced age, financial - issues, cognitive issues, and failed out-patient treatments, - past re-admission history, safety of patient, and lack of - compliance as applicable. Specific rationale supporting this admission is: Fever, altered mental status, diverticulitis, elevated troponin.
--- NOTE | 2017-03-14 05:21 | NUR ---
INCONTINENT OF LG AMT OF LOOSE LIQ BROWN STOOL. SKINS VERY WARM. REMAINS COOPERATIVE AND ALERT.
[2017-03-14 06:57] LABS: ABSOLUTE BASOPHIL COUNT 0 /CUMM (0.0-0.2); ABSOLUTE EOSINOPHIL COUNT 0 /CUMM (0.0-0.7); ABSOLUTE GRANULOCYTE CT 2.8 /CUMM (1.4-6.5); ABSOLUTE LYMPH COUNT 1.1 /CUMM (1.2-3.4); ABSOLUTE MONOCYTE COUNT 0.1 /CUMM (0.10-0.60); BASOPHIL % 0.4 % (0.0-2.0); EOSINOPHIL % 0.3 % (0-5); GRANULOCYTE % 69.1 % (42.2-75.2); MEAN CORPUSCULAR HGB 32.9 PG (27.0-31.0); MEAN CORPUSCULAR HGB CONC 32.9 G/DL (33.0-37.0); MEAN CORPUSCULAR VOLUME 100.1 FL (80.0-94.0); MEAN PLATELET VOLUME 8.4 FL (7.4-10.4); PLATELET COUNT 126 /CUMM (130-400); RBC DISTRIBUTION WIDTH 15.5 % (11.5-14.5)
[2017-03-14 06:58] LABS: HEMATOCRIT 36.5 % (42-52); RED BLOOD CELL CT 3.64 /CUMM (4.70-6.10)
--- NOTE | 2017-03-14 07:33 | NUR ---
REPORT GIVEN TO MUNA PAT.
--- NOTE | 2017-03-14 07:53 | NUR ---
SMALL AMOUNT OF BROWN MUCOUS STOOL NOTED, SKIN AND PERICARE GIVEN, REPEAT RECTAL TEMP 101.9, BP 76/40, DR Yrn ARCE NOTIFIED AND IN TO EVAL PT. DAUGHTER REMAINS AT BEDSIDE.
--- NOTE | 2017-03-14 09:17 | NUR ---
AM MEDS GIVEN ORDERED, TOLERATED WELL. DAUGHTER REMAINS AT BEDSIDE.
--- NOTE | 2017-03-14 09:28 | PN- Housestaff ---
YAZMIN BORJA,DILIA 03/14/1727: Subjective Follow-up For: Diarrhea Lethargy and weakness Fever Complaints: patient states that he feels weak Subjective: Patient is seen and examined bedside in the ED. He states that he feels weak. Review of Systems Constitutional: Reports: weakness. Cardiovascular: Reports: peripheral edema. Respiratory: Reports: short of breath. Gastrointestinal: Reports: abdominal pain, diarrhea. Skin: Reports: no symptoms. Objective Last 24 Hrs of Vital Signs/I&O Vital Signs Date Time Temp Pulse Resp B/P B/P Pulse O2 O2 Flow FiO2 Mean Ox Delivery Rate 03/15 0801 98.7 73 20 132/68 97 Room Air 03/15 08 Nasal 4.0L Cannula 03/14 2050 Nasal 4.0L Cannula 03/148 98.0 81 18 142/72 100 03/14 1449 99.5 74 20 103/51 98 Nasal 4.0L Cannula Intake & Output 03/15 1600 03/15 0800 03/15 0000 Intake Total 970 100 100 Output Total 300 200 Balance 670 100 -100 Intake, IV 250 Intake, Oral 720 100 100 Number 2 Bowel Movements Output, Urine 300 200 Physical Exam General Appearance: Alert, Oriented X3, Cooperative, No Acute Distress Skin Temp/Moisture Exam: Warm/Dry Sepsis Skin Exam (color): Normal for Ethnicity HEENT: Atraumatic, PERRLA, EOMI Lymphatic: negative axillary and cervical lymph nodes Cardiovascular: Regular Rate, Normal S1, Normal S2, No Murmurs, Gallops, Rubs Lungs: Clear to Auscultation, Normal Air Movement Abdomen: Normal Bowel Sounds, Soft, right quadrant tenderness Neurological: Normal Speech Extremities: Normal Pulses, No Tenderness/Swelling Vascular: Normal Pulses, Pulses Symmetrical Sepsis Peripheral Pulse Location: Radial Sepsis Peripheral Pulse Exam: Normal Sepsis Cap Refill Exam: <2 Sec Current Medications: Current Medications Sig/Renetta Start time Last Medication Dose Route Stop Time Status Admin Acetaminophen 650 MG Q6P PRN 03/14 0045 AC PO Acetaminophen 1,000 MG Q8P PRN 03/14 0045 AC 03/14 IV 0515 Aspirin 81 MG DAILY 03/14 1000 AC 03/15 PO 0924 Atorvastatin Calcium 20 MG DAILY 03/14 1000 AC 03/15 PO 0924 Ceftriaxone Sodium 1,000 MG DAILY 03/14 1000 AC 03/15 IV 0925 Doxycycline Hyclate 100 MG Q12 03/15 1000 AC 03/15 Sodium Chloride 100 ML IV 1235 Gabapentin 300 MG DAILY 03/14 1200 AC 03/15 PO 0925 Metronidazole 500 MG Q8H 03/14 0600 03/15 N/A 1 UNIT IV 1358 Patient Medication 1 ED .STK-MED ONE 03/15 1413 [facility] ED 03/15 1414 Prednisone 5 MG BID 03/14 1000 AC 03/15 PO 0925 Warfarin Sodium 7.5 MG COUMADIN 1700 ONE 03/15 1700 AC PO 03/15 1701 Warfarin Sodium 5 MG COUMADIN 1700 ONE 03/14 1700 DC 03/14 PO 03/14 170 2233 Last 24 Hrs of Lab/Efrain Results Last 24 Hrs of Labs/Mics: Laboratory Tests 03/15/17 0620: Anion Gap 7, Estimated GFR > 60, BUN/Creatinine Ratio 29.0 H, Lactate Dehydrogenase 1138 H, PT 19.5 H, INR 1.87 H, CBC w Diff MAN DIFF ORDERED, RBC 3.30 L, MCV 99.8 H, MCH 33.2 H, RDW 15.0 H, MPV 8.4, Gran % 68.2, Lymphocytes % 25.8, Monocytes % 4.4, Eosinophils % 1.2, Basophils % 0.4, Absolute Granulocytes 1.7, Segmented Neutrophils 64, Band Neutrophils 10 H, Absolute Lymphocytes 0.6 L, Lymphocytes 22, Monocytes 4, Absolute Monocytes 0.1 L, Absolute Eosinophils 0, Absolute Basophils 0, Platelet Estimate DECREASED, Polychromasia 1+, Anisocytosis 1+, Macrocytic Cells 1+, PUBS MCHC 33.2 03/15/17 0600: Babesia microti DNA PCR Pending, Ehrlichia DNA (PCR) Pending 03/14/17 1651: PT 19.7 H, INR 1.89 H Assessment/Plan Assessment: Assessment Patient is 82-year-old male with past medical history significant for hypertension, Sweets disease, polychondritis, rheumatoid arthritis, osteoarthritis, atrial fibrillation, history of Lyme disease and babesiosis, congestive heart failure, history of DVT on Coumadin, history of hfeHF, came with chief complaint of lethargy, weakness for one day and one week worth of RLL abdominal pain and diarrhea. In the ED, patient was found to be hypotensive to 90/52 with heart rates between 100-110, sating 94% on 2L NC. His temperature was 104.6. EKG was normal and initial troponin was . CXR no evidence of acute disease. WBCs were 3.0, Hb 8.9, platelets 108, INR 3.57, K 2.6, Cr 1.0, Mg 1.0, LA 1.1. Plan Hypotension: Lethargy, weakness, hypotension likely due to dehydration 2/2 diarrhea * Patient responded well with fluid resuscitation in ED- received 3.5 L * Continue rehydration and monitor BP and HR * Hold antihypertensives * Patient has history of HfrEF and clinically edema, monitor for fluid overload in light of this. Last echo done in August 2016 showed EF 50%, mild global hypokinesis, pulm htn. Last nuclear stress test done in November 2016 showed reversible ischemia of apex and apical anterior wall, EF normal. * If persistent hypotension, will give stress dose steroids as patient is on chronic prednisone therapy for his polychondritis 5mg. Diarrhea * CT abdomen with contrast for source of infection and diarrhea showed evidence of severe diverticulosis in the descending and sigmoid colon with signs of early diverticulitis. * Add flagyll to antibiotic regimen. * Guaic negative * Check stool for c. diff, culture, O+P, vibrio, yersenia * Last EGD/colonscopy (2013): nonerosive GERD, extensive diverticula sigmoid to proximal transverse, left colon polyp. Fever of Unknown Origin * Patient was septic in ED with tachycardia, fever, leukopenia * Lactic Acid 1.1 now. Trend. * Given history of multiple tick-borne illnesses and pancytopenia, give patient doxycycline. * He has been given ceftax and vancomycin broad spectrum in the ED * CXR and CT chest showed no source of infection * Follow blood cultures and urine cultures * Peripheral smear for babesiosis * UA clear * ID and Hematology consults Elevated Troponins * Second set troponins positive * To rule out ACS * Continue ASA * Normal EKGs point to demand ischemia due to hypotension * Wait for third set troponins Atrial Fibrillation * In light of this and elevated troponins, will admit to telemetry. * Patient is on coumadin * Currently supratherapeutic at 3.57 * Hold Coumadin for now and INR tomorrow Hypokalemia and Hypomagnesemia and Hypocalcemia * Corrected Ca2+ is normal * Most likely due to diarrhea * Replete with kdur and Mg * BEP to reevaluate Worsening Renal Function * In the ED, Cr was 1.0. * Now it is 1.7. * CT was performed before these results. We have given 2L NS after this. Trend renal function. Heart Healthy diet DNR/DNI DVT Prophylaxis: on Coumadin Problem List: 1. Diarrhea 2. Anemia 3. Hypokalemia 4. Hypoglycemia 5. Fever 6. Atrial fibrillation 7. Elevated troponin 8. Diverticulitis 9. Diverticulosis Pain Ratin Pain Location: right abdomen Pain Goal: Pain 4 or less Pain Plan: tylenol Tomorrow's Labs & Rationales: inr, cbc, bep DVT/Prophylaxis: pharmacological JOYCELYN BERNARD MD 03/14/17 1842: Attending MD Review Statement Attending Statement Attending MD Statement: examined this patient, discuss w/resident/PA/FINANCIAL ADVISOR TRAINEE, agreed w/resident/PA/FINANCIAL ADVISOR TRAINEE, reviewed EMR data (avail), discussed with nursing, reviewed images, amended to note Attending Assessment/Plan: The patient was seen and discussed with house staff and family (daughter). Clinically improved with no abdominal pain or diarrhea at present. Lyme negative. Heme/Onc input appreciated. Await ID input .ECHO.
--- NOTE | 2017-03-14 09:35 | NUR ---
CRITICAL TEST RESULTS [id number] EDITH ZHANG 82 M TESTS AND RESULTS: TROPONIN: 0.29 Results received and read back by: RONEY WATERMAN Results received date and time: 03/14/17 0936 The following provider was notified of the results, and read the results back: DR ARCE Notified date and time: 03/14/17 at 0936
--- NOTE | 2017-03-14 10:09 | NUR ---
HOUSE STAFF DR Yrn ARCE PAGED X 3, AWAITING RETURN CALL.
--- NOTE | 2017-03-14 10:30 | NUR ---
DR DILIA ARCE UPDATED.
--- NOTE | 2017-03-14 11:03 | Cons- Hematology ---
General Information and HPI Consulting Request Date of Consult: 03/14/17 Requested By: KEN BORJA,ASUNCION Reason for Consult: pancytopenia Source of Information: patient, family, old records Exam Limitations: no limitations History of Present Illness: Mr. Anne is an 82-year-old male with history of DVT, vitamin B12 deficiency, polychondritis, RA, CHF, and hypertension who presented to the hosptial with 1 day of fatigue, lethargy, and diarrhea. He was doing okay prior to yesterday. He has had fever and chills. He did have fever last week also. He reports some nausea. Diarrhea is loose. He denies any bleeding. He had some abdominal pain. His has had tick bites with last being 2 weeks ago or so. He has no shortness of breath or chest pain. On presentation, he was febrile with temperature of 104.6F. His blood work demonstrated low WBC at 3.0, Hgb at 8.9, Hct 27%, and platelet of 108,000. He feels about the same today. Allergies/Medications Allergies: Coded Allergies: NO KNOWN ALLERGIES (08/07/16) Home Med List: Aspirin (Aspirin*) 81 MG TAB.CHEW 1 TAB PO DAILY HEART Atorvastatin Calcium (Lipitor) 20 MG TABLET 1 TAB PO DAILY CHOLESTEROL ( Reported) Calcium Carbonate/Vitamin D3 (Calcium 600 + Vitamin D Sftgl) 600 MG-500 CAPSULE 1 TAB PO DAILY SUPPLEMENT (Reported) Cyanocobalamin (Vitamin B-12) (Cyanocobalamin Injection) 1,000 MCG/1 ML VIAL 1 ML IM Q30D SUPPLEMENT (Reported) Folic Acid 1 MG TABLET 1 TAB PO DAILY ANEMIA Furosemide 20 MG TABLET 1 TAB PO EOD WATER PILL (Reported) Gabapentin 300 MG CAPSULE 1 CAP PO TID SHINGLES (Reported) Lisinopril 20 MG TABLET 1 TAB PO DAILY HIGH BLOOD PRESSURE Metoprolol Tartrate 50 MG TABLET 100 TAB PO BID HEART RATE Omeprazole 20 MG CAPSULE.DR 1 CAP PO DAILY GERD (Reported) Prednisone 5 MG TABLET 1 TAB PO BID POLYCHONDRITIS (Reported) Warfarin Sodium (Coumadin) 5 MG TABLET 1 TAB PO DAILY BLOOD CLOT Current Medications: Current Medications Sig/Renetta Start time Last Medication Dose Route Stop Time Status Admin Acetaminophen 0 .STK-MED ONE 03/14 519 DC IV Acetaminophen 650 MG Q6P PRN 07/19 0045 AC PO Acetaminophen 1,000 MG Q8P PRN 03/14 0045 AC 03/14 IV 0515 Acetaminophen 1,000 MG ONCE ONE 03/13 2030 DC 03/13 N/A 1 UNIT IV 03/13 2044 2030 Acetaminophen 0 .STK-MED ONE 03/13 2014 DC IV Aspirin 81 MG DAILY 03/14 1000 AC PO Atorvastatin Calcium 20 MG DAILY 03/14 1000 AC PO Ceftazidime 0 .STK-MED ONE 03/13 2224 DC .ROUTE Ceftazidime 1,000 MG ONCE ONE 03/13 2200 DC 03/13 IV 03/13 2201 2239 Ceftriaxone Sodium 1,000 MG DAILY 03/14 1000 AC IV Dextrose 0 .STK-MED ONE 03/13 2225 DC IV Dextrose 25 GM ONCE ONE 03/13 2215 DC 03/13 IV 03/13 221 2239 Doxycycline Hyclate 100 MG ONCE ONE 03/14 0015 DC 03/14 Sodium Chloride 100 ML IV 03/14 0120 0349 Magnesium Sulfate 1 GM ONCE ONE 03/13 2345 DC 03/14 Dextrose/Water 100 ML IV 03/14 0344 0049 Metronidazole 500 MG Q8H 03/14 0600 AC 03/14 N/A 1 UNIT IV 0556 Metronidazole 500 MG ONCE ONE 03/13 2345 CAN N/A 1 UNIT IV 03/14 0044 Potassium Chloride 0 .STK-MED ONE 03/13 2224 DC PO Potassium Chloride 40 MEQ ONCE ONE 03/13 2145 DC 03/14 PO 03/13 2146 0049 Potassium Chloride 10 MEQ ONCE ONE 03/13 2145 DC 03/13 IV 03/13 2146 2239 Prednisone 5 MG BID 03/14 1000 AC PO Sodium Chloride 1,000 ML Q13H 03/14 0515 DC IV 03/14 1814 Sodium Chloride 1,000 ML BOLUS ONE 03/13 2300 DC 03/14 IV 03/13 2359 0049 Sodium Chloride 1,000 ML BOLUS ONE 03/13 2300 DC 03/14 IV 03/13 2359 0335 Sodium Chloride 1,000 ML BOLUS ONE 03/13 2300 DC 03/14 IV 03/13 2359 0350 Sodium Chloride 500 ML BOLUS ONE 03/13 2230 DC 03/13 IV 03/13 2329 2239 Sodium Chloride 1,000 ML ONCE ONE 03/13 2030 DC 03/13 IV 03/14 0309 2030 Vancomycin HCl 0 .STK-MED ONE 03/13 2225 DC .ROUTE Vancomycin HCl 1,000 MG ONCE ONE 03/13 2200 DC 03/13 Sodium Chloride 250 ML IV 03/13 6911 9221 Review of Systems Review of Systems Constitutional: Reports: chills, fever, malaise, weakness. Cardiovascular: Reports: peripheral edema. Denies: chest pain. Respiratory: Reports: short of breath. Denies: cough. GI: Reports: abdominal pain, diarrhea, nausea. Denies: melena, bloody stool, vomiting. Musculoskeletal: Reports: back pain. Skin: Denies: rash. Neurological/Psychological: Denies: anxiety. 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 self Services at Home: Home Health Aide, Nursing Primary Language: Ukrainian ETOH Use: denies use Illicit Drug Use: denies illicit drug use Living Will? unknown Power of Local Company Truck Driver/HCP? yes Functional Ability ADLs Independent: eating. Needs Assist: dressing, toileting, bathing. Ambulation: walker, non-ambulatory IADLs Independent: telephone. Needs Assist: shopping, housework, finances, food prep, transportation, medication admin. Exam & Diagnostic Data Vital Signs and I&O Vital Signs Date Time Temp Pulse Resp B/P B/P Pulse O2 O2 Flow FiO2 Mean Ox Delivery Rate 03/14 0818 101.8 88 23 108/48 95 Nasal 4.0L Cannula 03/14 0743 101.9 85 22 74/36 96 Nasal 3.0L Cannula 03/14 0515 104.7 03/14 0437 104.7 104 23 150/68 100 Nasal 4.0L Cannula 03/14 0403 102.1 98 20 122/59 96 Nasal 4.0L Cannula 03/14 0027 97.6 74 16 113/54 98 Nasal 5.0L Cannula 03/13 2317 98/54 03/13 2239 90/52 03/13 2212 102.3 93 20 99/54 94 Nasal 2.0L Cannula 03/13 2144 92/50 03/13 2030 104.6 03/13 2012 104.6 95 20 169/73 95 Room Air Intake & Output 03/14 1600 03/14 0800 03/14 0000 Intake Total 0 Output Total Balance 0 Intake, Oral 0 Patient 93.44 kg Weight Weight Reported by Patient Measurement Method Physical Exam General Appearance: no apparent distress, awake, comfortable Head: atraumatic Ears, Nose, Throat: normal pharynx, on 2L NC Respiratory: normal breath sounds, chest non-tender, no respiratory distress, quiet respiration Gastrointestinal: normal bowel sounds, no organomegaly, tenderness Extremities: normal inspection, bilateral lower extremity edema Neurologic/Psych: alert, oriented x 3 Skin: mild erythema and hyperpigmentation in BLE Last 48 Hours of Lab Results: Laboratory Tests 03/14 03/14 03/14 0838 0600 0325 Chemistry Sodium (137 - 145 mmol/L) 136 L Cancelled Potassium (3.5 - 5.1 mmol/L) 4.7 Cancelled Chloride (98 - 107 mmol/L) 107 Cancelled Carbon Dioxide (22 - 30 mmol/L) 21 L Cancelled Anion Gap (5 - 16) 8 Cancelled BUN (9 - 20 mg/dL) 37 H Cancelled Creatinine (0.7 - 1.2 mg/dL) 1.8 H Cancelled Estimated GFR (>60 ml/min) 36 L BUN/Creatinine Ratio (7 - 25 %) 20.6 Cancelled Lactic Acid (0.7 - 2.1 mmol/L) 1.6 Troponin I (<0.11 ng/ml) 0.29 *H Coagulation PT Cancelled INR Cancelled Hematology CBC w Diff Cancelled WBC Cancelled RBC Cancelled Hgb Cancelled Hct Cancelled MCV Cancelled MCH Cancelled RDW Cancelled Plt Count Cancelled MPV Cancelled Segmented Neutrophils Cancelled PUBS MCHC Cancelled 03/14 03/13 0325 2117 Chemistry Sodium (137 - 145 mmol/L) 136 L Potassium (3.5 - 5.1 mmol/L) 5.4 H Chloride (98 - 107 mmol/L) 105 Carbon Dioxide (22 - 30 mmol/L) 21 L Anion Gap (5 - 16) 10 BUN (9 - 20 mg/dL) 38 H Creatinine (0.7 - 1.2 mg/dL) 1.7 H Estimated GFR (>60 ml/min) 39 L BUN/Creatinine Ratio (7 - 25 %) 22.4 Troponin I (<0.11 ng/ml) 0.18 *H Hematology CBC w Diff MAN DIFF ORDERED WBC (4.8 - 10.8 /CUMM) 4.0 L RBC (4.70 - 6.10 /CUMM) 3.64 L Hgb (14.0 - 18.0 G/DL) 12.0 L Hct (42 - 52 %) 36.5 L MCV (80.0 - 94.0 FL) 100.1 H MCH (27.0 - 31.0 PG) 32.9 H RDW (11.5 - 14.5 %) 15.5 H Plt Count (130 - 400 /CUMM) 126 L MPV (7.4 - 10.4 FL) 8.4 Gran % (42.2 - 75.2 %) 69.1 Lymphocytes % (20.5 - 51.1 %) 27.2 Monocytes % (1.7 - 9.3 %) 3.0 Eosinophils % (0 - 5 %) 0.3 Basophils % (0.0 - 2.0 %) 0.4 Absolute Granulocytes (1.4 - 6.5 /CUMM) 2.8 Segmented Neutrophils (42.2 - 75.2 %) 56 Band Neutrophils (0.0 - 5.0 %) 4 Absolute Lymphocytes (1.2 - 3.4 /CUMM) 1.1 L Lymphocytes (20.5 - 51.1 %) 34 Monocytes (1.7 - 9.3 %) 6 Absolute Monocytes (0.10 - 0.60 /CUMM) 0.1 L Absolute Eosinophils (0.0 - 0.7 /CUMM) 0 Absolute Basophils (0.0 - 0.2 /CUMM) 0 Platelet Estimate (ADEQUATE) DECREASED Polychromasia 1+ Hypochromic-Microcytic 1+ Anisocytosis 1+ PUBS MCHC (33.0 - 37.0 G/DL) 32.9 L Other Body Source Fld Total RBCs Counted (%) 100 Serology Lyme Disease Antibody Pending Toxicology Urine Opiates Screen (>2000 NG/ML) < 100.00 Methadone Screen (>300 NG/ML) < 40 Barbiturate Screen (>200 NG/ML) < 60 Ur Phencyclidine Scrn (>25 NG/ML) < 6.00 Amphetamines Screen (>1000 NG/ML) < 100 U Benzodiazepines Scrn (>200 NG/ML) < 85 Urine Cocaine Screen (>300 NG/ML) < 50 Urine Cannabis Screen (>50 NG/ML) < 5.00 Urines Urine Color (YEL,AMB,STR) YEL Urine Clarity (CLEAR) CLEAR Urine pH (5.0 - 8.0) 6.0 Ur Specific [place] (1.001 - 1.035) 1.015 Urine Protein (NEG,<30 MG/DL) TRACE H Urine Ketones (NEG) NEG Urine Nitrite (NEG) NEG Urine Bilirubin (NEG) NEG Urine Urobilinogen (0.1 - 1.0 EU/dl) 0.2 Ur Leukocyte Esterase (NEG) NEG Ur Microscopic SEDIMENT EXAMINED Urine RBC (0 - 5 /HPF) 3-5 Urine WBC (0 - 2 /HPF) 5-10 H Ur Epithelial Cells (NONE,FEW) RARE Urine Bacteria (NEG/NONE) FEW H Urine Hemoglobin (NEG) MOD H Urine Glucose (N MG/DL) NEG 03/13 Chemistry Sodium (137 - 145 mmol/L) 135 L Potassium (3.5 - 5.1 mmol/L) 2.6 *L Chloride (98 - 107 mmol/L) 114 H Carbon Dioxide (22 - 30 mmol/L) 15 L Anion Gap (5 - 16) 6 BUN (9 - 20 mg/dL) 24 H Creatinine (0.7 - 1.2 mg/dL) 1.0 Estimated GFR (>60 ml/min) > 60 BUN/Creatinine Ratio (7 - 25 %) 24.0 Glucose (65 - 99 mg/dL) 63 L Lactic Acid (0.7 - 2.1 mmol/L) 1.1 Calcium (8.4 - 10.2 mg/dL) 5.5 *L Phosphorus (2.5 - 4.5 mg/dL) 1.7 L Magnesium (1.6 - 2.3 mg/dL) 1.0 L Total Bilirubin (0.2 - 1.3 mg/dL) 0.2 AST (17 - 59 U/L) 26 ALT (21 - 72 U/L) 30 Alkaline Phosphatase (< 127 U/L) 32 Troponin I (<0.11 ng/ml) 0.09 Total Protein (6.3 - 8.2 g/dL) 4.0 L Albumin (3.5 - 5.0 g/dL) 1.7 L Globulin (1.9 - 4.2 gm/dL) 2.3 Albumin/Globulin Ratio (1.1 - 2.2 %) 0.7 L 25-OH Vitamin D Total (30 - 100 ng/ml) 29.0 L TSH (0.270 - 4.200 uIU/mL) 4.070 Thyroxine (T4) (4.5 - 10.9 ug/dL) 3.2 L Thyroxine Binding Indx (23.5 - 40.5 % UPTAKE) 63.6 H PTH Intact (13.8 - 85 pg/ml) 17.5 Coagulation PT (9.4 - 12.5 SEC) 37.0 H INR (0.90 - 1.17) 3.57 H Hematology CBC w Diff NO MAN DIFF REQ WBC (4.8 - 10.8 /CUMM) 3.0 L RBC (4.70 - 6.10 /CUMM) 2.72 L Hgb (14.0 - 18.0 G/DL) 8.9 L Hct (42 - 52 %) 27.0 L MCV (80.0 - 94.0 FL) 99.3 H MCH (27.0 - 31.0 PG) 32.7 H RDW (11.5 - 14.5 %) 15.0 H Plt Count (130 - 400 /CUMM) 108 L MPV (7.4 - 10.4 FL) 7.4 Gran % (42.2 - 75.2 %) 58.0 Lymphocytes % (20.5 - 51.1 %) 35.8 Monocytes % (1.7 - 9.3 %) 5.2 Eosinophils % (0 - 5 %) 0.6 Basophils % (0.0 - 2.0 %) 0.4 Absolute Granulocytes (1.4 - 6.5 /CUMM) 1.7 Absolute Lymphocytes (1.2 - 3.4 /CUMM) 1.1 L Absolute Monocytes (0.10 - 0.60 /CUMM) 0.2 Absolute Eosinophils (0.0 - 0.7 /CUMM) 0 Absolute Basophils (0.0 - 0.2 /CUMM) 0 PUBS MCHC (33.0 - 37.0 G/DL) 33.0 Toxicology Serum Alcohol (<10 MG/DL) < 10.0 Imaging/Other Studies: CT chest/abdomen/pelvis 03/13/2017: 1. Moderate to severe diverticulosis in the descending and sigmoid colon with subtle pericolonic fat stranding around the diverticula at the junction of the descending sigmoid colon. These findings are concerning for early changes of diverticulitis/very mild diverticular inflammation. Recommend correlation for tenderness or pain in the left midabdomen. 2. Otherwise, no acute findings are identified in the chest, abdomen, and pelvis. 3. Bladder diverticula. 4. Multilevel compression deformities in the lower thoracic and lumbar spine, unchanged from prior. No acute fractures are identified. Assessment/Plan Assessment: Mr. Anne is an 82-year-old male with history of DVT, vitamin B12 deficiency, polychondritis, RA, CHF, and hypertension who presented to the hosptial with 1 day of fatigue, lethargy, and diarrhea. He presented with symptoms concerning for gastroenteritis/diverticulitis. Previous blood work 4 weeks ago was normal. Pancytopenia may be secondary to infectious etiology. He has had exposure to ticks and tick bites. He has previous babesiosis. This is concerning for a tick-borne disease. Peripheral blood smear was reviewed and did not notice any obvious any evidence of babesiosis. He does have some bands. He continues to be febrile. Renal function is a little worse today. This may be pre-renal in nature. Counts have improved today. He is on antibiotics at the moment. His blood count may be monitored for now. Recommendations: 1. Evaluate tick borne disease 2. Stool evaluation 3. Follow up blood cultures 4. Follow up ID evaluation 5. Monitor counts 6. Vitamin B12 1000 mcg IM due today Problem List: 1. Pancytopenia 2. Deep vein thrombosis of left lower extremity Other Findings/Comments: Please call [phone] with any questions or concerns. Consult Acknowledgment - Thank you for your consult request.
--- NOTE | 2017-03-14 11:17 | NUR ---
DR HERNANDEZ IN TO EVAL. DAUGHTER REMAINS AT BEDSIDE.
--- NOTE | 2017-03-14 11:27 | NUR ---
DIETARY CALLED FOR HEART HEALTHY DIET.
--- NOTE | 2017-03-14 11:32 | Cons- Cardiology ---
General Information and HPI Consulting Request Date of Consult: 03/14/17 Requested By: KEN BORJA,ASUNCION Reason for Consult: Elevated troponin in the setting of diarrhea, DESHAUN, altered mental status, hypotension. Source of Information: patient, family, old records Exam Limitations: no limitations History of Present Illness: Edith Zhang is an 81-year-old male who was seen in [facility] in July 2016 for arrhythmias. He h as per as a history of relapsing polychondritis, previous Babesiosis, and possible paroxysmal atrial fibrillation , although this has never been definitely documented. 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 He came to the hospital on 08/07/2016 complaining of weakness, fatigue, and palpitations. He was found to be tachycardic with multiple PACs but no definite atrial fibrillation was seen. The patient also had a history of DVT and had been on Coumadin for 3 months which was recently stopped. In the Emergency Department he had a CTA which was negative for pulmonary embolism. He had been given beta blockers and also some steroids. The patient had a Holter monitor in June 2016 showing sinus rhythm with an average rate of 98, with very frequent ventricular and supraventricular ectopy. There were also some runs of ventricular tachycardia and supraventricular tachycardia. In the hospital we started him on beta blockers which slowed his rate somewhat but he still had a lot of ectopy. There was evidence of congestive heart failure on chest x-ray, which was treated with Lasix. The echocardiogram showed an ejection fraction of 40% to 45% with moderate to severe pulmonary hypertension. Eventually he was discharged home on Lopressor, warfarin, Lasix and atorvastatin from a cardiac standpoint. At the time of his post hospital visit I recommended a stress test, which would be a Persantine stress test, however he ended up back in the hospital from 09/11 to 09/20/2016 with pneumonia. He also had a slightly elevated troponin of 0.19 which decreased. He was therefore watched on the monitor and seen by Dr. Hernandez and Dr. Rose, who were covering me at the time. He had no further cardiac issues during the hospitalization. He did have another echocardiogram on 09/19/16 which showed left ventricular ejection fraction of 50%, some aortic sclerosis, and severely elevated pulmonary artery pressure at 70 mmHg. Subsequently we did do his stress test on 12/18/2016. This was read as a small area of moderately diminished activity involving the apex and adjacent apical anterior wall. It was read as mild ischemia in that area. When I looked at it myself I thought it was pretty minimal, and quantitatively it came out to be almost normal. I last saw her Edith in the office a couple of months ago at which time he was doing fine. He did not have any cardiac symptoms at that time. He is now admitted for severe diarrhea, electrolyte imbalance, hypotension and acute kidney injury. He is also noted to have elevated troponin currently a maximum of 0.29. He denies any chest pain, shortness of breath, palpitations, moshe syncope. He may have had some seizure activity at home, this is not clear, possibly due to hypotension. Currently he is awake, alert and in no distress. Allergies/Medications Allergies: Coded Allergies: NO KNOWN ALLERGIES (08/07/16) Home Med List: Aspirin (Aspirin*) 81 MG TAB.CHEW 1 TAB PO DAILY HEART Atorvastatin Calcium (Lipitor) 20 MG TABLET 1 TAB PO DAILY CHOLESTEROL ( Reported) Calcium Carbonate/Vitamin D3 (Calcium 600 + Vitamin D Sftgl) 600 MG-500 CAPSULE 1 TAB PO DAILY SUPPLEMENT (Reported) Cyanocobalamin (Vitamin B-12) (Cyanocobalamin Injection) 1,000 MCG/1 ML VIAL 1 ML IM Q30D SUPPLEMENT (Reported) Folic Acid 1 MG TABLET 1 TAB PO DAILY ANEMIA Furosemide 20 MG TABLET 1 TAB PO EOD WATER PILL (Reported) Gabapentin 300 MG CAPSULE 1 CAP PO TID SHINGLES (Reported) Lisinopril 20 MG TABLET 1 TAB PO DAILY HIGH BLOOD PRESSURE Metoprolol Tartrate 50 MG TABLET 100 TAB PO BID HEART RATE Omeprazole 20 MG CAPSULE.DR 1 CAP PO DAILY GERD (Reported) Prednisone 5 MG TABLET 1 TAB PO BID POLYCHONDRITIS (Reported) Warfarin Sodium (Coumadin) 5 MG TABLET 1 TAB PO DAILY BLOOD CLOT Review of Systems Review of Systems: No other complaints Past History Travel History Traveled to [place] past 21 day No Medical History Neurological: Shingles left trigeminal EENT: NONE Cardiovascular: AFIB, chronic venous insuff Respiratory: NONE Gastrointestinal: GERD Hepatic: NONE Renal: NONE Musculoskeletal: osteoarthritis, rheumatoid arthritis, relapsing polychondritis SWEETS DISEASE Psychiatric: NONE Endocrine: NONE Blood Disorders: DVT (chronic on left and acute on r), B12 DEFICIENCY Cancer(s): NONE 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 self Services at Home: Home Health Aide, Nursing Primary Language: Montenegrin ETOH Use: denies use Illicit Drug Use: denies illicit drug use Living Will? unknown Power of Cipher Expert/HCP? yes Functional Ability ADLs Independent: eating. Needs Assist: dressing, toileting, bathing. Ambulation: walker, non-ambulatory IADLs Independent: telephone. Needs Assist: shopping, housework, finances, food prep, transportation, medication admin. Exam & Diagnostic Data Vital Signs and I&O Vital Signs Date Time Temp Pulse Resp B/P B/P Pulse O2 O2 Flow FiO2 Mean Ox Delivery Rate 03/14 1115 88 18 102/52 96 Nasal 4.0L Cannula 03/14 0900 88 18 102/54 95 Nasal 4.0L Cannula 03/14 0818 101.8 88 23 108/48 95 Nasal 4.0L Cannula 03/14 0743 101.9 85 22 74/36 96 Nasal 3.0L Cannula 03/14 0515 104.7 03/14 0437 104.7 104 23 150/68 100 Nasal 4.0L Cannula 03/14 0403 102.1 98 20 122/59 96 Nasal 4.0L Cannula 03/14 0027 97.6 74 16 113/54 98 Nasal 5.0L Cannula 03/13 2317 98/54 03/13 2239 90/52 03/13 2212 102.3 93 20 99/54 94 Nasal 2.0L Cannula 03/13 2144 92/50 03/13 2030 104.6 03/13 2012 104.6 95 20 169/73 95 Room Air Intake & Output 03/14 1600 03/14 0803/14 0000 03/13 1600 03/13 0800 03/13 0000 Intake Total 0 Output Total Balance 0 Intake, Oral 0 Patient 206 lb Weight Weight Reported by Patient Measurement Method Physical Exam: He is in no distress, awake, alert, appropriate HEENT exam normal Neck veins not distended Carotids normal Chest is clear Heart regular rhythm no murmurs No peripheral edema Labs/Efrain Results: Laboratory Tests 03/14 03/14 03/14 0838 0600 0325 Chemistry Sodium (137 - 145 mmol/L) 136 L Cancelled Potassium (3.5 - 5.1 mmol/L) 4.7 Cancelled Chloride (98 - 107 mmol/L) 107 Cancelled Carbon Dioxide (22 - 30 mmol/L) 21 L Cancelled Anion Gap (5 - 16) 8 Cancelled BUN (9 - 20 mg/dL) 37 H Cancelled Creatinine (0.7 - 1.2 mg/dL) 1.8 H Cancelled Estimated GFR (>60 ml/min) 36 L BUN/Creatinine Ratio (7 - 25 %) 20.6 Cancelled Lactic Acid (0.7 - 2.1 mmol/L) 1.6 Troponin I (<0.11 ng/ml) 0.29 *H Coagulation PT Cancelled INR Cancelled Hematology CBC w Diff Cancelled WBC Cancelled RBC Cancelled Hgb Cancelled Hct Cancelled MCV Cancelled MCH Cancelled RDW Cancelled Plt Count Cancelled MPV Cancelled Segmented Neutrophils Cancelled PUBS MCHC Cancelled 03/14 03/13 5368 3840 Chemistry Sodium (137 - 145 mmol/L) 136 L Potassium (3.5 - 5.1 mmol/L) 5.4 H Chloride (98 - 107 mmol/L) 105 Carbon Dioxide (22 - 30 mmol/L) 21 L Anion Gap (5 - 16) 10 BUN (9 - 20 mg/dL) 38 H Creatinine (0.7 - 1.2 mg/dL) 1.7 H Estimated GFR (>60 ml/min) 39 L BUN/Creatinine Ratio (7 - 25 %) 22.4 Troponin I (<0.11 ng/ml) 0.18 *H Hematology CBC w Diff MAN DIFF ORDERED WBC (4.8 - 10.8 /CUMM) 4.0 L RBC (4.70 - 6.10 /CUMM) 3.64 L Hgb (14.0 - 18.0 G/DL) 12.0 L Hct (42 - 52 %) 36.5 L MCV (80.0 - 94.0 FL) 100.1 H MCH (27.0 - 31.0 PG) 32.9 H RDW (11.5 - 14.5 %) 15.5 H Plt Count (130 - 400 /CUMM) 126 L MPV (7.4 - 10.4 FL) 8.4 Gran % (42.2 - 75.2 %) 69.1 Lymphocytes % (20.5 - 51.1 %) 27.2 Monocytes % (1.7 - 9.3 %) 3.0 Eosinophils % (0 - 5 %) 0.3 Basophils % (0.0 - 2.0 %) 0.4 Absolute Granulocytes (1.4 - 6.5 /CUMM) 2.8 Segmented Neutrophils (42.2 - 75.2 %) 56 Band Neutrophils (0.0 - 5.0 %) 4 Absolute Lymphocytes (1.2 - 3.4 /CUMM) 1.1 L Lymphocytes (20.5 - 51.1 %) 34 Monocytes (1.7 - 9.3 %) 6 Absolute Monocytes (0.10 - 0.60 /CUMM) 0.1 L Absolute Eosinophils (0.0 - 0.7 /CUMM) 0 Absolute Basophils (0.0 - 0.2 /CUMM) 0 Platelet Estimate (ADEQUATE) DECREASED Polychromasia 1+ Hypochromic-Microcytic 1+ Anisocytosis 1+ PUBS MCHC (33.0 - 37.0 G/DL) 32.9 L Other Body Source Fld Total RBCs Counted (%) 100 Serology Lyme Disease Antibody Pending Toxicology Urine Opiates Screen (>2000 NG/ML) < 100.00 Methadone Screen (>300 NG/ML) < 40 Barbiturate Screen (>200 NG/ML) < 60 Ur Phencyclidine Scrn (>25 NG/ML) < 6.00 Amphetamines Screen (>1000 NG/ML) < 100 U Benzodiazepines Scrn (>200 NG/ML) < 85 Urine Cocaine Screen (>300 NG/ML) < 50 Urine Cannabis Screen (>50 NG/ML) < 5.00 Urines Urine Color (YEL,AMB,STR) YEL Urine Clarity (CLEAR) CLEAR Urine pH (5.0 - 8.0) 6.0 Ur Specific [place] (1.001 - 1.035) 1.015 Urine Protein (NEG,<30 MG/DL) TRACE H Urine Ketones (NEG) NEG Urine Nitrite (NEG) NEG Urine Bilirubin (NEG) NEG Urine Urobilinogen (0.1 - 1.0 EU/dl) 0.2 Ur Leukocyte Esterase (NEG) NEG Ur Microscopic SEDIMENT EXAMINED Urine RBC (0 - 5 /HPF) 3-5 Urine WBC (0 - 2 /HPF) 5-10 H Ur Epithelial Cells (NONE,FEW) RARE Urine Bacteria (NEG/NONE) FEW H Urine Hemoglobin (NEG) MOD H Urine Glucose (N MG/DL) NEG 03/13 Chemistry Sodium (137 - 145 mmol/L) 135 L Potassium (3.5 - 5.1 mmol/L) 2.6 *L Chloride (98 - 107 mmol/L) 114 H Carbon Dioxide (22 - 30 mmol/L) 15 L Anion Gap (5 - 16) 6 BUN (9 - 20 mg/dL) 24 H Creatinine (0.7 - 1.2 mg/dL) 1.0 Estimated GFR (>60 ml/min) > 60 BUN/Creatinine Ratio (7 - 25 %) 24.0 Glucose (65 - 99 mg/dL) 63 L Lactic Acid (0.7 - 2.1 mmol/L) 1.1 Calcium (8.4 - 10.2 mg/dL) 5.5 *L Phosphorus (2.5 - 4.5 mg/dL) 1.7 L Magnesium (1.6 - 2.3 mg/dL) 1.0 L Total Bilirubin (0.2 - 1.3 mg/dL) 0.2 AST (17 - 59 U/L) 26 ALT (21 - 72 U/L) 30 Alkaline Phosphatase (< 127 U/L) 32 Troponin I (<0.11 ng/ml) 0.09 Total Protein (6.3 - 8.2 g/dL) 4.0 L Albumin (3.5 - 5.0 g/dL) 1.7 L Globulin (1.9 - 4.2 gm/dL) 2.3 Albumin/Globulin Ratio (1.1 - 2.2 %) 0.7 L 25-OH Vitamin D Total (30 - 100 ng/ml) 29.0 L TSH (0.270 - 4.200 uIU/mL) 4.070 Thyroxine (T4) (4.5 - 10.9 ug/dL) 3.2 L Thyroxine Binding Indx (23.5 - 40.5 % UPTAKE) 63.6 H PTH Intact (13.8 - 85 pg/ml) 17.5 Coagulation PT (9.4 - 12.5 SEC) 37.0 H INR (0.90 - 1.17) 3.57 H Hematology CBC w Diff NO MAN DIFF REQ WBC (4.8 - 10.8 /CUMM) 3.0 L RBC (4.70 - 6.10 /CUMM) 2.72 L Hgb (14.0 - 18.0 G/DL) 8.9 L Hct (42 - 52 %) 27.0 L MCV (80.0 - 94.0 FL) 99.3 H MCH (27.0 - 31.0 PG) 32.7 H RDW (11.5 - 14.5 %) 15.0 H Plt Count (130 - 400 /CUMM) 108 L MPV (7.4 - 10.4 FL) 7.4 Gran % (42.2 - 75.2 %) 58.0 Lymphocytes % (20.5 - 51.1 %) 35.8 Monocytes % (1.7 - 9.3 %) 5.2 Eosinophils % (0 - 5 %) 0.6 Basophils % (0.0 - 2.0 %) 0.4 Absolute Granulocytes (1.4 - 6.5 /CUMM) 1.7 Absolute Lymphocytes (1.2 - 3.4 /CUMM) 1.1 L Absolute Monocytes (0.10 - 0.60 /CUMM) 0.2 Absolute Eosinophils (0.0 - 0.7 /CUMM) 0 Absolute Basophils (0.0 - 0.2 /CUMM) 0 PUBS MCHC (33.0 - 37.0 G/DL) 33.0 Toxicology Serum Alcohol (<10 MG/DL) < 10.0 Diagnostic Data EKG Results Initial electrocardiogram showed sinus rhythm at a rate of 93 with multiple PVCs and some PACs. There is borderline left axis deviation, possible old inferior WI. Repeat EKG at 2 AM showed sinus rhythm at a rate of 101 with multiple PVCs and is otherwise unchanged from the initial EKG. CXR Results PATIENT: EDITH ZHANG PRESENT AGE: 82 PATIENT ACCOUNT NO: [id number] : 33 LOCATION: [facility] ORDERING PHYSICIAN: LUIS A RYAN MD SERVICE DATE: 03/13/17 EXAM TYPE: RAD - XRY-PORTABLE CHEST XRAY EXAMINATION: CHEST 1 VIEW CLINICAL INFORMATION: Altered mental status. CHF. COMPARISON: 11/02/2016. TECHNIQUE: An AP view of the chest is provided. FINDINGS: The cardiac silhouette is enlarged, but stable. The mediastinal and hilar contours are unremarkable. There are neither pleural effusions nor pneumothoraces. There are no consolidations. The osseous structures are unremarkable. IMPRESSION: No evidence for acute disease. DICTATED BY: JOYCELYN HSIEH MD DATE/TIME DICTATED:03/13/172132 RN DERMATOLOGY:ONUR DATE/TIME TRANSCRIBED:03/13/172132 CONFIDENTIAL, DO NOT COPY WITHOUT APPROPRIATE AUTHORIZATION. <Electronically signed in Other Vendor System> SIGNED BY: JOYCELYN HSIEH MD 03/13/172137 Other Results CT of the chest and abdomen showed diverticulosis Assessment/Plan Assessment/Plan The patient is an 82-year-old man with chronic ectopy and possibly some mild ischemia on a previous stress test. He was been largely asymptomatic from a cardiac standpoint recently. He presents with diarrhea and severe electrolyte abnormalities. He has was most likely hypotensive and there is one low blood pressure documented in the ER. He has mildly elevated troponin to a maximum of 0.29. Most likely this is demand ischemia from his hypotension. He also has frequent PVCs, which is chronic for him. I recommend just monitoring for now. We will trend his troponins. I would obtain a follow-up echocardiogram which he had on a previous admission and showed good left ventricular function and severe pulmonary hypertension. This should definitely be reassessed. There are no plans at this time for invasive or interventional cardiac evaluation. Consult Acknowledgment - Thank you for your consult request.
--- NOTE | 2017-03-14 11:42 | NUR ---
REPORT GIVEN TO JUANJO TORO, PT TO ROOM # [id number], DAUGHTER REMAINS WITH PT.
--- NOTE | 2017-03-14 11:43 | NUR ---
TEMP 99.6 TYMPANIC.
--- NOTE | 2017-03-14 13:00 | NUR ---
RESTING QUIETLY. OPENS EYES OCCASIONALLY.
--- NOTE | 2017-03-14 14:40 | NUR ---
REPEAT EKG TROPONIN DONE.
--- NOTE | 2017-03-14 14:47 | NUR ---
BLOOD DRAWN AND SENT TO LAB 1SST
--- NOTE | 2017-03-14 15:26 | NUR ---
CRITICAL TEST RESULTS [id number] EDITH ZHANG 82 M TESTS AND RESULTS: TROPONIN 0.13 Results received and read back by: TYRONE SALDIVAR Results received date and time: 03/14/17 1526 The following provider was notified of the results, and read the results back: SKYFF Notified date and time: 03/14/17 at 1526
--- NOTE | 2017-03-14 16:52 | NUR ---
BED ASSIGNMENT [id number]
--- NOTE | 2017-03-14 16:57 | NUR ---
PT BLOOD SENT TO THE LAB ,BLUE
--- NOTE | 2017-03-14 17:05 | NUR ---
BLOOD DRAWN AND SENT TO LAB
[2017-03-14 17:15] LABS: PT 19.7 SEC (9.4-12.5)
--- NOTE | 2017-03-14 19:02 | NUR ---
REPORT GIVEN TO NURSE RAMACHANDRAN ON 1N. PT TO BE TRANSPORTED TO [facility]
[2017-03-14 19:38] VITALS: BP 142/72
--- NOTE | 2017-03-14 20:40 | Cons- Infect Disease ---
General Information and HPI Consulting Request Date of Consult: 03/14/17 Requested By: JOYCELYN BERNARD MD Reason for Consult: fever Source of Information: patient, primary team Exam Limitations: clinical condition History of Present Illness: 82-year-old male with past medical history significant for hypertension, polychondritis, rheumatoid arthritis, osteoarthritis, questionable atrial fibrillation, congestive heart failure, history of DVT on Coumadin came with chief complaint of loose stools, lethargy and weakness for 1 day. Patient lives by himself and visited by her daughter almost daily. According to daughter he was having some diarrhea and fever last week but they thought he had some viral infection which she might give him. He c/o multiple loose bowel movements, denies seeing any blood in stool. He had we abdominal pain especially right lower quadrant. He denied any black tarry stools. He didn't travel recently or any recent antibiotic use. He wasn't sure if he passed out. He denied any chest pain, palpitations, headache, dizziness, shortness of breath, any urinary complaints. Of note patient's daughter found ticks on him recently. Patient febrile today 104 F; fever curve trending down. Less diarrhea this evening. Feels very sleepy. Allergies/Medications Allergies: Coded Allergies: NO KNOWN ALLERGIES (08/07/16) Home Med List: Aspirin (Aspirin*) 81 MG TAB.CHEW 1 TAB PO DAILY HEART Atorvastatin Calcium (Lipitor) 20 MG TABLET 1 TAB PO DAILY CHOLESTEROL ( Reported) Calcium Carbonate/Vitamin D3 (Calcium 600 + Vitamin D Sftgl) 600 MG-500 CAPSULE 1 TAB PO DAILY SUPPLEMENT (Reported) Cyanocobalamin (Vitamin B-12) (Cyanocobalamin Injection) 1,000 MCG/1 ML VIAL 1 ML IM Q30D SUPPLEMENT (Reported) Folic Acid 1 MG TABLET 1 TAB PO DAILY ANEMIA Furosemide 20 MG TABLET 1 TAB PO EOD WATER PILL (Reported) Gabapentin 300 MG CAPSULE 1 CAP PO TID SHINGLES (Reported) Lisinopril 20 MG TABLET 1 TAB PO DAILY HIGH BLOOD PRESSURE Metoprolol Tartrate 50 MG TABLET 100 TAB PO BID HEART RATE Omeprazole 20 MG CAPSULE.DR 1 CAP PO DAILY GERD (Reported) Prednisone 5 MG TABLET 1 TAB PO BID POLYCHONDRITIS (Reported) Warfarin Sodium (Coumadin) 5 MG TABLET 1 TAB PO DAILY BLOOD CLOT Current Medications: Current Medications Sig/Renetta Start time Last Medication Dose Route Stop Time Status Admin Acetaminophen 0 .STK-MED ONE 03/14 05 DC IV Acetaminophen 650 MG Q6P PRN 03/14 0045 AC PO Acetaminophen 1,000 MG Q8P PRN 03/14 0045 AC 03/14 IV 0515 Acetaminophen 1,000 MG ONCE ONE 03/13 2030 DC 03/13 N/A 1 UNIT IV 03/13 2044 2030 Aspirin 81 MG DAILY 03/14 1000 AC 03/14 PO 1007 Atorvastatin Calcium 20 MG DAILY 03/14 1000 AC 03/14 PO 1007 Ceftazidime 0 .STK-MED ONE 03/13 2224 DC .ROUTE Ceftazidime 1,000 MG ONCE ONE 03/13 2200 DC 03/13 IV 03/13 2201 2239 Ceftriaxone Sodium 1,000 MG DAILY 03/14 1000 AC 03/14 IV 1007 Cyanocobalamin 1,000 MCG ONCE ONE 03/14 1445 DC 03/14 IM 03/14 1446 1736 Dextrose 0 .STK-MED ONE 03/13 2225 DC IV Dextrose 25 GM ONCE ONE 03/13 2215 DC 03/13 IV 03/13 2216 2239 Doxycycline Hyclate 100 MG ONCE ONE 03/14 0015 DC 03/14 Sodium Chloride 100 ML IV 03/14 0120 0349 Gabapentin 300 MG Q8 03/14 1400 DC PO Gabapentin 0 .STK-MED ONE 03/14 1225 DC PO Gabapentin 300 MG DAILY 03/14 1200 AC 03/14 PO 1223 Magnesium Sulfate 1 GM ONCE ONE 03/13 2345 DC 03/14 Dextrose/Water 100 ML IV 03/14 0344 0049 Metronidazole 500 MG Q8H 03/14 0600 AC 03/14 N/A 1 UNIT IV 1342 Metronidazole 500 MG ONCE ONE 03/13 2345 CAN N/A 1 UNIT IV 03/14 0044 Potassium Chloride 0 .STK-MED ONE 03/13 2224 DC PO Potassium Chloride 40 MEQ ONCE ONE 03/13 2145 DC 03/14 PO 03/13 2146 0049 Potassium Chloride 10 MEQ ONCE ONE 03/13 2145 DC 03/13 IV 03/13 2146 2239 Prednisone 5 MG BID 03/14 1000 AC 03/14 PO 1007 Sodium Chloride 1,000 ML Q13H 03/14 0515 DC IV 03/14 1814 Sodium Chloride 1,000 ML BOLUS ONE 03/13 2300 DC 03/14 IV 03/13 2359 0049 Sodium Chloride 1,000 ML BOLUS ONE 03/13 2300 DC 03/14 IV 03/13 2359 0335 Sodium Chloride 1,000 ML BOLUS ONE 03/13 2300 DC 03/14 IV 03/13 235 0350 Sodium Chloride 500 ML BOLUS ONE 03/13 2230 DC 03/13 IV 03/13 2329 2239 Sodium Chloride 1,000 ML ONCE ONE 03/13 2030 DC 03/13 IV 03/14 0309 2030 Vancomycin HCl 0 .STK-MED ONE 03/13 2225 DC .ROUTE Vancomycin HCl 1,000 MG ONCE ONE 03/13 2200 DC 03/13 Sodium Chloride 250 ML IV 03/13 2259 2319 Warfarin Sodium 5 MG COUMADIN 1700 ONE 03/14 1700 DC PO 03/14 1701 Past History Travel History Traveled to [place] past 21 day No Medical History Neurological: Shingles left trigeminal EENT: NONE Cardiovascular: AFIB, chronic venous insuff Respiratory: NONE Gastrointestinal: GERD Hepatic: NONE Renal: NONE Musculoskeletal: osteoarthritis, rheumatoid arthritis, relapsing polychondritis SWEETS DISEASE Psychiatric: NONE Endocrine: NONE Blood Disorders: 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 self Services at Home: Home Health Aide, Nursing Primary Language: Portuguese ETOH Use: denies use Illicit Drug Use: denies illicit drug use Living Will? unknown Power of Deputy Manager/HCP? yes Functional Ability ADLs Independent: eating. Needs Assist: dressing, toileting, bathing. Ambulation: walker, non-ambulatory IADLs Independent: telephone. Needs Assist: shopping, housework, finances, food prep, transportation, medication admin. Review of Systems Comments 12 points reviewed as noted, otherwise negative. Fever for the past week. Exam & Diagnostic Data Last 24 Hrs of Vital Signs/I&O Vital Signs Date Time Temp Pulse Resp B/P B/P Pulse O2 O2 Flow FiO2 Mean Ox Delivery Rate 03/14 1938 98.0 81 18 142/72 100 03/14 1449 99.5 74 20 103/51 98 Nasal 4.0L Cannula 03/14 1217 99.0 03/14 1115 99.6 88 18 102/52 96 Nasal 4.0L Cannula 03/14 0900 88 18 102/54 95 Nasal 4.0L Cannula 03/14 0818 101.8 88 23 108/48 95 Nasal 4.0L Cannula 03/14 0743 101.9 85 22 74/36 96 Nasal 3.0L Cannula 03/14 0515 104.7 03/14 0437 104.7 104 23 150/68 100 Nasal 4.0L Cannula 03/14 0403 102.1 98 20 122/59 96 Nasal 4.0L Cannula 03/14 0027 97.6 74 16 113/54 98 Nasal 5.0L Cannula 03/13 2317 98/54 03/13 2239 90/52 03/13 2212 102.3 93 20 99/54 94 Nasal 2.0L Cannula 03/13 2144 92/50 03/13 2030 104.6 Intake & Output 03/14 1600 03/14 0800 03/14 0000 Intake Total 0 Output Total Balance 0 Intake, Oral 0 Patient 206 lb Weight Weight Reported by Patient Measurement Method Physical Exam Other Physical Findings: General Appearance: no apparent distress, awake, comfortable Head: atraumatic Ears, Nose, Throat: normal pharynx, on 2L NC Respiratory: normal breath sounds, chest non-tender, no respiratory distress, quiet respiration Gastrointestinal: normal bowel sounds, no organomegaly, tenderness Extremities: normal inspection, bilateral lower extremity edema Neurologic/Psych: alert, oriented x 3 Skin: mild erythema and hyperpigmentation in BLE; changes consistent w/ stasis derm,artitis Last 24 Hours of Lab Results: Laboratory Tests 03/14 03/14 03/14 03/14 03/14 1651 1445 0838 0600 0325 Chemistry Sodium (137 - 145 mmol/L) 136 L Cancelled Potassium (3.5 - 5.1 mmol/L) 4.7 Cancelled Chloride (98 - 107 mmol/L) 107 Cancelled Carbon Dioxide (22 - 30 mmol/L) 21 L Cancelled Anion Gap (5 - 16) 8 Cancelled BUN (9 - 20 mg/dL) 37 H Cancelled Creatinine (0.7 - 1.2 mg/dL) 1.8 H Cancelled Estimated GFR (>60 ml/min) 36 L BUN/Creatinine Ratio (7 - 25 %) 20.6 Cancelled Lactic Acid (0.7 - 2.1 mmol/L) 1.6 Troponin I (<0.11 ng/ml) 0.13 *H 0.29 *H Coagulation PT (9.4 - 12.5 SEC) 19.7 H Cancelled INR (0.90 - 1.17) 1.89 H Cancelled Hematology CBC w Diff Cancelled WBC Cancelled RBC Cancelled Hgb Cancelled Hct Cancelled MCV Cancelled MCH Cancelled RDW Cancelled Plt Count Cancelled MPV Cancelled Segmented Neutrophils Cancelled PUBS MCHC Cancelled 03/14 03/13 8735 2117 Chemistry Sodium (137 - 145 mmol/L) 136 L Potassium (3.5 - 5.1 mmol/L) 5.4 H Chloride (98 - 107 mmol/L) 105 Carbon Dioxide (22 - 30 mmol/L) 21 L Anion Gap (5 - 16) 10 BUN (9 - 20 mg/dL) 38 H Creatinine (0.7 - 1.2 mg/dL) 1.7 H Estimated GFR (>60 ml/min) 39 L BUN/Creatinine Ratio (7 - 25 %) 22.4 Troponin I (<0.11 ng/ml) 0.18 *H Hematology CBC w Diff MAN DIFF ORDERED WBC (4.8 - 10.8 /CUMM) 4.0 L RBC (4.70 - 6.10 /CUMM) 3.64 L Hgb (14.0 - 18.0 G/DL) 12.0 L Hct (42 - 52 %) 36.5 L MCV (80.0 - 94.0 FL) 100.1 H MCH (27.0 - 31.0 PG) 32.9 H RDW (11.5 - 14.5 %) 15.5 H Plt Count (130 - 400 /CUMM) 126 L MPV (7.4 - 10.4 FL) 8.4 Gran % (42.2 - 75.2 %) 69.1 Lymphocytes % (20.5 - 51.1 %) 27.2 Monocytes % (1.7 - 9.3 %) 3.0 Eosinophils % (0 - 5 %) 0.3 Basophils % (0.0 - 2.0 %) 0.4 Absolute Granulocytes (1.4 - 6.5 /CUMM) 2.8 Segmented Neutrophils (42.2 - 75.2 %) 56 Band Neutrophils (0.0 - 5.0 %) 4 Absolute Lymphocytes (1.2 - 3.4 /CUMM) 1.1 L Lymphocytes (20.5 - 51.1 %) 34 Monocytes (1.7 - 9.3 %) 6 Absolute Monocytes (0.10 - 0.60 /CUMM) 0.1 L Absolute Eosinophils (0.0 - 0.7 /CUMM) 0 Absolute Basophils (0.0 - 0.2 /CUMM) 0 Platelet Estimate (ADEQUATE) DECREASED Polychromasia 1+ Hypochromic-Microcytic 1+ Anisocytosis 1+ PUBS MCHC (33.0 - 37.0 G/DL) 32.9 L Other Body Source Fld Total RBCs Counted (%) 100 Serology Lyme Disease Antibody (RATIO) 0.55 Toxicology Urine Opiates Screen (>2000 NG/ML) < 100.00 Methadone Screen (>300 NG/ML) < 40 Barbiturate Screen (>200 NG/ML) < 60 Ur Phencyclidine Scrn (>25 NG/ML) < 6.00 Amphetamines Screen (>1000 NG/ML) < 100 U Benzodiazepines Scrn (>200 NG/ML) < 85 Urine Cocaine Screen (>300 NG/ML) < 50 Urine Cannabis Screen (>50 NG/ML) < 5.00 Urines Urine Color (YEL,AMB,STR) YEL Urine Clarity (CLEAR) CLEAR Urine pH (5.0 - 8.0) 6.0 Ur Specific [place] (1.001 - 1.035) 1.015 Urine Protein (NEG,<30 MG/DL) TRACE H Urine Ketones (NEG) NEG Urine Nitrite (NEG) NEG Urine Bilirubin (NEG) NEG Urine Urobilinogen (0.1 - 1.0 EU/dl) 0.2 Ur Leukocyte Esterase (NEG) NEG Ur Microscopic SEDIMENT EXAMINED Urine RBC (0 - 5 /HPF) 3-5 Urine WBC (0 - 2 /HPF) 5-10 H Ur Epithelial Cells (NONE,FEW) RARE Urine Bacteria (NEG/NONE) FEW H Urine Hemoglobin (NEG) MOD H Urine Glucose (N MG/DL) NEG 03/13 Chemistry Sodium (137 - 145 mmol/L) 135 L Potassium (3.5 - 5.1 mmol/L) 2.6 *L Chloride (98 - 107 mmol/L) 114 H Carbon Dioxide (22 - 30 mmol/L) 15 L Anion Gap (5 - 16) 6 BUN (9 - 20 mg/dL) 24 H Creatinine (0.7 - 1.2 mg/dL) 1.0 Estimated GFR (>60 ml/min) > 60 BUN/Creatinine Ratio (7 - 25 %) 24.0 Glucose (65 - 99 mg/dL) 63 L Lactic Acid (0.7 - 2.1 mmol/L) 1.1 Calcium (8.4 - 10.2 mg/dL) 5.5 *L Phosphorus (2.5 - 4.5 mg/dL) 1.7 L Magnesium (1.6 - 2.3 mg/dL) 1.0 L Total Bilirubin (0.2 - 1.3 mg/dL) 0.2 AST (17 - 59 U/L) 26 ALT (21 - 72 U/L) 30 Alkaline Phosphatase (< 127 U/L) 32 Troponin I (<0.11 ng/ml) 0.09 Total Protein (6.3 - 8.2 g/dL) 4.0 L Albumin (3.5 - 5.0 g/dL) 1.7 L Globulin (1.9 - 4.2 gm/dL) 2.3 Albumin/Globulin Ratio (1.1 - 2.2 %) 0.7 L 25-OH Vitamin D Total (30 - 100 ng/ml) 29.0 L TSH (0.270 - 4.200 uIU/mL) 4.070 Thyroxine (T4) (4.5 - 10.9 ug/dL) 3.2 L Thyroxine Binding Indx (23.5 - 40.5 % UPTAKE) 63.6 H PTH Intact (13.8 - 85 pg/ml) 17.5 Coagulation PT (9.4 - 12.5 SEC) 37.0 H INR (0.90 - 1.17) 3.57 H Hematology CBC w Diff NO MAN DIFF REQ WBC (4.8 - 10.8 /CUMM) 3.0 L RBC (4.70 - 6.10 /CUMM) 2.72 L Hgb (14.0 - 18.0 G/DL) 8.9 L Hct (42 - 52 %) 27.0 L MCV (80.0 - 94.0 FL) 99.3 H MCH (27.0 - 31.0 PG) 32.7 H RDW (11.5 - 14.5 %) 15.0 H Plt Count (130 - 400 /CUMM) 108 L MPV (7.4 - 10.4 FL) 7.4 Gran % (42.2 - 75.2 %) 58.0 Lymphocytes % (20.5 - 51.1 %) 35.8 Monocytes % (1.7 - 9.3 %) 5.2 Eosinophils % (0 - 5 %) 0.6 Basophils % (0.0 - 2.0 %) 0.4 Absolute Granulocytes (1.4 - 6.5 /CUMM) 1.7 Absolute Lymphocytes (1.2 - 3.4 /CUMM) 1.1 L Absolute Monocytes (0.10 - 0.60 /CUMM) 0.2 Absolute Eosinophils (0.0 - 0.7 /CUMM) 0 Absolute Basophils (0.0 - 0.2 /CUMM) 0 PUBS MCHC (33.0 - 37.0 G/DL) 33.0 Toxicology Serum Alcohol (<10 MG/DL) < 10.0 Last 24 Hours of E[place] Results: atient : EDITH ZHANG Acct: [id number] DR: JOYCELYN BERNARD MD Birthdate: [birth year] Age/Sex: 82/M Unit: [id number] Loc: 1NO 179- 01 Status : ADM IN SPEC #: [id number] EDITH: 03/13/17 STATUS: RES RECD: 03/13/[address]: SHELBY BORJA,LUIS A Belcher SOURCE: BLOOD ENTR: 03/13/[address] [facility] [address]: SUKHJINDER CATALAN DO SPDESC: 1ST/VENOUS ORDERED: BLOOD CULTURE Procedure Result > BLOOD CULTURE REPORT Preliminary 03/14/17-1252 No growth after 1 day incubation. Specimen is examined continuously for 5 days before final report unless culture becomes positive. Diagnostic Data Recent Imaging Findings: CT abd 03/13/17: IMPRESSION: 1. Moderate to severe diverticulosis in the descending and sigmoid colon with subtle pericolonic fat stranding around the diverticula at the junction of the descending sigmoid colon. These findings are concerning for early changes of diverticulitis/very mild diverticular inflammation. Recommend correlation for tenderness or pain in the left midabdomen. 2. Otherwise, no acute findings are identified in the chest, abdomen, and pelvis. 3. Bladder diverticula. 4. Multilevel compression deformities in the lower thoracic and lumbar spine, unchanged from prior. No acute fractures are identified. Assessment/Plan Assessment/Plan Impression: 82-year-old male with history of DVT, vitamin B12 deficiency, polychondritis, RA, CHF, and hypertension who presented to the hospital with high fever. Eval gastroenteritis/diverticulitis. F/u stool cx for Salmonella, Shigella, Campylobacter and C. diff toxin assay. Fever/ r/o blood stream infection; BC pnd. of note mild diverticulitis findings will not explain high fever; currently treated w/ iv CTX/metronidazole. Leukopenia/thrombocytropenia likely secondary to infectious etiology. Eval tick- borne disease. Per hematology peripheral blood smear neg for Babesia. DESHAUN likely pre-renal in nature. Suggestion: 1. F/U stool culture; obtain WBC in stool and norovirus RT PCR in stool. 2. Obtain Babesia DNA PCR. F/U Ehrlichia/Lyme serology. Continue doxycycline 100 mg iv bid. 3. Trend CBC/BMP/LDFT's. LDH in am. 4. If worsening anemia empiric treatment for babesiosis w/ azithromycin 500 mg po daily/mepron 750 mg po bid. Consult Acknowledgment - Thank you for your consult request.
[2017-03-15 08:01] VITALS: BP 132/68
[2017-03-15 08:07] LABS: ABSOLUTE BASOPHIL COUNT 0 /CUMM (0.0-0.2); ABSOLUTE EOSINOPHIL COUNT 0 /CUMM (0.0-0.7); ABSOLUTE GRANULOCYTE CT 1.7 /CUMM (1.4-6.5); ABSOLUTE LYMPH COUNT 0.6 /CUMM (1.2-3.4); ABSOLUTE MONOCYTE COUNT 0.1 /CUMM (0.10-0.60); BASOPHIL % 0.4 % (0.0-2.0); EOSINOPHIL % 1.2 % (0-5); GRANULOCYTE % 68.2 % (42.2-75.2); HEMATOCRIT 32.9 % (42-52); MEAN CORPUSCULAR HGB 33.2 PG (27.0-31.0); MEAN CORPUSCULAR HGB CONC 33.2 G/DL (33.0-37.0); MEAN CORPUSCULAR VOLUME 99.8 FL (80.0-94.0); MEAN PLATELET VOLUME 8.4 FL (7.4-10.4); PLATELET COUNT 78 /CUMM (130-400); WHITE BLOOD CELL COUNT 2.5 /CUMM (4.8-10.8)
[2017-03-15 08:42] LABS: PT 19.5 SEC (9.4-12.5)
--- NOTE | 2017-03-15 09:30 | ECHOCARDIOGRAM REPORT ---
EDITH ZHANG Age: 82 : 1935 Gender: M Exam Date: 03/14/2017 16:34 Exam Location: ER Ht (in): 66 Wt (lb): 206 BSA: 2.12 BP: 102 / 52 Ordering Physician: DEE LOWE MD Referring Physician: Aayush Gama MD Chief, SoC Technologist: Gloria Skaggs [facility] Room Number: [id number] Indications: CARDIAC MASS Rhythm: Sinus Technical Quality: Fair FINDINGS Left Ventricle Normal size left ventricle. Moderate concentric left ventricular hypertrophy. Normal left ventricular ejection fraction visually estimated at >65 %. No obvious regional wall motion abnormalities. Abnormal relaxation filling pattern of the left ventricle for age (stage 1 diastolic dysfunction). Right Ventricle Right ventricle not well visualized, grossly normal. Right Atrium Normal right atrial size. Left Atrium Left atrial size at the upper limits of normal. Mitral Valve Mild thickening/calcification of the mitral valve leaflets. Mild mitral annular calcification. Trace mitral regurgitation. Aortic Valve Diffuse thickening of the aortic valve cusps with reduced excursion. Mild aortic stenosis. No aortic regurgitation. Tricuspid Valve Tricuspid valve is normal in structure and function. Trace tricuspid regurgitation. Right ventricular systolic pressure estimated to be elevated at 35-40 mmHg. Pulmonic Valve Structurally normal pulmonic valve. There is no pulmonic regurgitation. Pericardium Normal pericardium without effusion. No pleural effusion. Great Vessels Normal aortic root dimension. The aortic arch and great vessels are not well seen. CONCLUSIONS Moderate concentric left ventricular hypertrophy. Normal left ventricular ejection fraction visually estimated at >65 Abnormal relaxation filling pattern of the left ventricle for age (stage 1 diastolic dysfunction). Left atrial size at the upper limits of normal. Mild thickening/calcification of the mitral valve leaflets. Mild mitral annular calcification. Trace mitral regurgitation. Diffuse thickening of the aortic valve cusps with reduced excursion. Mild aortic stenosis. Right ventricular systolic pressure estimated to be elevated at 35- 40 mmHg. Compared to the study of 09/19 2016, there is now LVH and good left ventricular systolic function. There is now mild aortic stenosis and pulmonary artery pressure is reduced over the previous value. Aayush Gama M.D. (Electronically Signed) Final Date: 15 March 2017 09:29 MEASUREMENTS (Male / Female) Normal Values 2D ECHO LV Diastolic Diameter PLAX 4.4 cm 4.2 - 5.9 / 3.9 - 5.3 cm LV Systolic Diameter PLAX 3.1 cm 2.1 - 4.0 cm LV Fractional Shortening PLAX 29.5 % 25 - 46 % LV Ejection Fraction 2D Teich 56.8 % IVS Diastolic Thickness 1.5 cm LVPW Diastolic Thickness 1.3 cm LV Relative Wall Thickness 0.6 RV Internal Dim ED PLAX 3.1 cm 1.9 - 3.8 cm LVOT Diameter 2.1 cm Aortic Root Diameter 3.1 cm LA Systolic Diameter LX 3.7 cm 3.0 - 4.0 / 2.7 - 3.8 cm LA Volume 40.0 cm 18 - 58 / 22 - 52 cm Ascending Aorta Diameter 3.2 cm DOPPLER AV Peak Velocity 226.0 cm/s AV Peak Gradient 20.4 mmHg AV Mean Velocity 166.0 cm/s AV Mean Gradient 12.0 mmHg AV Velocity Time Integral 41.5 cm LVOT Peak Velocity 95.5 cm/s LVOT Peak Gradient 3.6 mmHg LVOT Mean Velocity 64.2 cm/s LVOT Mean Gradient 2.0 mmHg LVOT Velocity Time Integral 19.4 cm LVOT Stroke Volume 67.2 cm AV Area Cont Eq vti 1.6 cm AV Area Cont Eq pk 1.5 cm MV Peak Velocity 88.0 cm/s MV Peak Gradient 3.1 mmHg MV Mean Velocity 56.6 cm/s MV Mean Gradient 1.0 mmHg Mitral E Point Velocity 69.3 cm/s Mitral A Point Velocity 85.2 cm/s Mitral E to A Ratio 0.8 MV PHT Velocity 80.7 cm/s MV Deceleration [place] 261.0 cm/s MV Pressure Half Time 92.8 ms MV Area PHT 2.4 cm MV Deceleration Time 187.0 ms TR Peak Velocity 287.0 cm/s TR Peak Gradient 32.9 mmHg Right Atrial Pressure 5.0 mmHg Pulmonary Artery Systolic Pressu 37.9 mmHg Right Ventricular Systolic Press 37.9 mmHg PV Peak Velocity 103.0 cm/s PV Peak Gradient 4.2 mmHg PV Mean Velocity 66.0 cm/s PV Mean Gradient 2.0 mmHg PV Velocity Time Integral 15.0 cm LV E' Lateral Velocity 9.8 cm/s Mitral E to LV E' Lateral Ratio 7.1 LV E' Septal Velocity 5.3 cm/s Mitral E to LV E' Septal Ratio 13.1
--- NOTE | 2017-03-15 09:42 | PN- Hematology ---
Subjective Subjective: He feels better. He is afebrile. He has not had a bowel movement. Review of Systems Constitutional: Reports: weakness. Denies: chills, fever. Cardiovascular: Denies: chest pain. Gastrointestinal: Denies: abdominal pain, diarrhea, nausea. Genitourinary: Denies: dysuria. Musculoskeletal: Denies: no symptoms. Neurological/Psychological: Denies: confusion, depressed. Hematologic/Endocrine: Denies: bruising, bleeding. All Other Systems: Reviewed and Negative Objective Vital Signs and I&Os Vital Signs Date Time Temp Pulse Resp B/P B/P Pulse O2 O2 Flow FiO2 Mean Ox Delivery Rate 03/15 0801 98.7 73 20 132/68 97 Room Air 03/15 08 Nasal 4.0L Cannula 03/140 Nasal 4.0L Cannula 03/14 1938 98.0 81 18 142/72 100 03/14 1449 99.5 74 20 103/51 98 Nasal 4.0L Cannula 03/14 1217 99.0 03/14 1115 99.6 88 18 102/52 96 Nasal 4.0L Cannula 03/14 0900 88 18 102/54 95 Nasal 4.0L Cannula Intake & Output 03/15 1600 03/15 0800 03/15 0000 03/14 1600 03/14 0800 03/14 0000 Intake Total 100 100 0 Output Total 200 Balance 100 -100 0 Intake, Oral 100 100 0 Output, Urine 200 Patient 93.44 kg Weight Weight Reported by Patient Measurement Method Physical Exam: General Appearance: no apparent distress, awake, comfortable Head: atraumatic Ears, Nose, Throat: normal pharynx, on 2L NC Respiratory: normal breath sounds, chest non-tender, no respiratory distress, quiet respiration Gastrointestinal: normal bowel sounds, no organomegaly, tenderness Extremities: normal inspection, bilateral upper and lower extremity edema Neurologic/Psych: alert, oriented x 3 Skin: mild erythema and hyperpigmentation in BLE Current Medications: Current Medications Sig/Renetta Start time Last Medication Dose Route Stop Time Status Admin Acetaminophen 650 MG Q6P PRN 03/14 0045 AC PO Acetaminophen 1,000 MG Q8P PRN 03/14 0045 AC 03/14 IV 0515 Aspirin 81 MG DAILY 03/14 1000 AC 03/14 PO 1007 Atorvastatin Calcium 20 MG DAILY 03/14 1000 AC 03/14 PO 1007 Ceftriaxone Sodium 1,000 MG DAILY 03/14 1000 AC 03/14 IV 1007 Cyanocobalamin 1,000 MCG ONCE ONE 03/14 1445 DC 03/14 IM 03/14 1446 1736 Doxycycline Hyclate 100 MG Q12 03/15 1000 AC Sodium Chloride 100 ML IV Gabapentin 300 MG Q8 03/14 1400 DC PO Gabapentin 0 .STK-MED ONE 03/14 1225 DC PO Gabapentin 300 MG DAILY 03/14 1200 AC 03/14 PO 1223 Metronidazole 500 MG Q8H 03/14 0600 AC 03/15 N/A 1 UNIT IV 0558 Prednisone 5 MG BID 03/14 1000 AC 03/14 PO 2232 Warfarin Sodium 5 MG COUMADIN 1700 ONE 03/14 1700 DC 03/14 PO 03/14 1701 2233 Results Last 24 Hours of Lab Results: Laboratory Tests 03/15 03/15 03/14 03/14 0620 0600 1651 1445 Chemistry Sodium (137 - 145 mmol/L) 137 Potassium (3.5 - 5.1 mmol/L) 4.8 Chloride (98 - 107 mmol/L) 110 H Carbon Dioxide (22 - 30 mmol/L) 21 L Anion Gap (5 - 16) 7 BUN (9 - 20 mg/dL) 29 H Creatinine (0.7 - 1.2 mg/dL) 1.0 Estimated GFR (>60 ml/min) > 60 BUN/Creatinine Ratio (7 - 25 %) 29.0 H Lactate Dehydrogenase (313 - 618 U/L) 1138 H Troponin I (<0.11 ng/ml) 0.13 *H Coagulation PT (9.4 - 12.5 SEC) 19.5 H 19.7 H INR (0.90 - 1.17) 1.87 H 1.89 H Hematology CBC w Diff Pending WBC Pending RBC Pending Hgb Pending Hct Pending MCV Pending MCH Pending RDW Pending Plt Count Pending MPV Pending Gran % Pending Lymphocytes % Pending Monocytes % Pending Eosinophils % Pending Basophils % Pending Absolute Granulocytes Pending Absolute Lymphocytes Pending Absolute Monocytes Pending Absolute Eosinophils Pending Absolute Basophils Pending PUBS MCHC Pending Serology Babesia microti DNA PCR Pending Ehrlichia DNA (PCR) Pending Assessment/Plan Assessment/Recommendations: Mr. Anne is an 82-year-old male with history of DVT, vitamin B12 deficiency, polychondritis, RA, CHF, and hypertension who presented to the hosptial with 1 day of fatigue, lethargy, and diarrhea. He presented with symptoms concerning for gastroenteritis/diverticulitis. Previous blood work 4 weeks ago was normal. Pancytopenia may be secondary to infectious etiology. He has had exposure to ticks and tick bites. He has previous babesiosis. This is concerning for a tick-borne disease. Renal function is improved. Blood work is pending. He is afebrile currently. He is doing well on antibiotic. Recommendations: 1. Follow up tick-borne disease evaluation 2. Follow up Stool evaluation 3. Follow up blood cultures 4. Continue antibiotics as per ID 5. Monitor CBC Please call [phone] with any questions or concerns Problem List: 1. Diarrhea 2. Pancytopenia 3. Deep vein thrombosis of left lower extremity
--- NOTE | 2017-03-15 10:22 | PN- Cardiology ---
Subjective Subjective: The patient is feeling better today. He is not having any diarrhea. He is not having any cardiac symptoms. He has not had any arrhythmias. His troponin peaked at 0.29. He did not have any EKG changes. His echocardiogram showed good left ventricular function. His pulmonary artery pressure was not as high as on his previous echo. He has mild aortic stenosis. His electrolytes are back to normal. Objective Vital Signs and I&Os Vital Signs Date Time Temp Pulse Resp B/P B/P Pulse O2 O2 Flow FiO2 Mean Ox Delivery Rate 03/15 0801 98.7 73 20 132/68 97 Room Air 03/15 08 Nasal 4.0L Cannula 03/14 2050 Nasal 4.0L Cannula 03/14 1938 98.0 81 18 142/72 100 03/14 1449 99.5 74 20 103/51 98 Nasal 4.0L Cannula 03/14 1217 99.0 03/14 1115 99.6 88 18 102/52 96 Nasal 4.0L Cannula Intake & Output 03/15 1600 03/15 0800 03/15 0000 03/14 1600 03/14 0800 03/14 0000 Intake Total 100 100 0 Output Total 200 Balance 100 -100 0 Intake, Oral 100 100 0 Output, Urine 200 Patient 206 lb Weight Weight Reported by Patient Measurement Method Physical Exam: He is in no distress HEENT exam is normal Chest is clear Heart reveals grade 2-3/6 systolic ejection murmur at the base Extremities no edema Current Medications: Current Medications Sig/Renetta Start time Last Medication Dose Route Stop Time Status Admin Acetaminophen 650 MG Q6P PRN 03/14 0045 AC PO Acetaminophen 1,000 MG Q8P PRN 03/14 0045 AC 03/14 IV 0515 Aspirin 81 MG DAILY 03/14 1000 AC 03/15 PO 0924 Atorvastatin Calcium 20 MG DAILY 03/14 1000 AC 03/15 PO 0924 Ceftriaxone Sodium 1,000 MG DAILY 03/14 1000 AC 03/15 IV 0925 Cyanocobalamin 1,000 MCG ONCE ONE 03/14 1445 DC 03/14 IM 03/14 1446 1736 Doxycycline Hyclate 100 MG Q12 03/15 1000 AC Sodium Chloride 100 ML IV Gabapentin 300 MG Q8 03/14 1400 DC PO Gabapentin 0 .STK-MED ONE 03/14 1225 DC PO Gabapentin 300 MG DAILY 03/14 1200 AC 03/15 PO 0925 Metronidazole 500 MG Q8H 03/14 0600 AC 03/15 N/A 1 UNIT IV 0558 Prednisone 5 MG BID 03/14 1000 AC 03/15 PO 0925 Warfarin Sodium 5 MG COUMADIN 1700 ONE 03/14 1700 DC 03/14 PO 03/14 1701 2233 Results Last 48 Hrs of Labs/Mics: Laboratory Tests 03/15/17 0620: Anion Gap 7, Estimated GFR > 60, BUN/Creatinine Ratio 29.0 H, Lactate Dehydrogenase 1138 H, PT 19.5 H, INR 1.87 H, CBC w Diff MAN DIFF ORDERED, RBC 3.30 L, MCV 99.8 H, MCH 33.2 H, RDW 15.0 H, MPV 8.4, Gran % 68.2, Lymphocytes % 25.8, Monocytes % 4.4, Eosinophils % 1.2, Basophils % 0.4, Absolute Granulocytes 1.7, Segmented Neutrophils Pending, Absolute Lymphocytes 0.6 L, Absolute Monocytes 0.1 L, Absolute Eosinophils 0, Absolute Basophils 0, PUBS MCHC 33.2 03/15/17 0600: Babesia microti DNA PCR Pending, Ehrlichia DNA (PCR) Pending 03/14/17 1651: PT 19.7 H, INR 1.89 H 03/14/17 1445: Troponin I 0.13 *H 03/14/17 0838: Anion Gap 8, Estimated GFR 36 L, BUN/Creatinine Ratio 20.6, Troponin I 0.29 *H 03/14/17 0800: CBC w Diff Cancelled, WBC Cancelled, RBC Cancelled, Hgb Cancelled, Hct Cancelled , MCV Cancelled, MCH Cancelled, RDW Cancelled, Plt Count Cancelled, MPV Cancelled, PUBS MCHC Cancelled 03/14/17 0600: Sodium Cancelled, Potassium Cancelled, Chloride Cancelled, Carbon Dioxide Cancelled, Anion Gap Cancelled, BUN Cancelled, Creatinine Cancelled, BUN/ Creatinine Ratio Cancelled, PT Cancelled, INR Cancelled, CBC w Diff Cancelled, WBC Cancelled, RBC Cancelled, Hgb Cancelled, Hct Cancelled, MCV Cancelled, MCH Cancelled, RDW Cancelled, Plt Count Cancelled, MPV Cancelled, PUBS MCHC Cancelled 03/14/17 0325: Lactic Acid 1.6, Segmented Neutrophils Cancelled 03/14/17 0325: Anion Gap 10, Estimated GFR 39 L, BUN/Creatinine Ratio 22.4, Troponin I 0.18 *H , CBC w Diff MAN DIFF ORDERED, RBC 3.64 L, MCV 100.1 H, MCH 32.9 H, RDW 15.5 H, MPV 8.4, Gran % 69.1, Lymphocytes % 27.2, Monocytes % 3.0, Eosinophils % 0.3, Basophils % 0.4, Absolute Granulocytes 2.8, Segmented Neutrophils 56, Band Neutrophils 4, Absolute Lymphocytes 1.1 L, Lymphocytes 34, Monocytes 6, Absolute Monocytes 0.1 L, Absolute Eosinophils 0, Absolute Basophils 0, Platelet Estimate DECREASED, Polychromasia 1+, Hypochromic-Microcytic 1+, Anisocytosis 1+, PUBS MCHC 32.9 L, Fld Total RBCs Counted 100, Lyme Disease Antibody 0.55 03/13/172116: Urine Opiates Screen < 100.00, Methadone Screen < 40, Barbiturate Screen < 60, Ur Phencyclidine Scrn < 6.00, Amphetamines Screen < 100, U Benzodiazepines Scrn < 85, Urine Cocaine Screen < 50, Urine Cannabis Screen < 5.00, Urine Color YEL, Urine Clarity CLEAR, Urine pH 6.0, Ur Specific [place] 1.015, Urine Protein TRACE H, Urine Ketones NEG, Urine Nitrite NEG, Urine Bilirubin NEG, Urine Urobilinogen 0.2, Ur Leukocyte Esterase NEG, Ur Microscopic SEDIMENT EXAMINED, Urine RBC 3-5, Urine WBC 5-10 H, Ur Epithelial Cells RARE, Urine Bacteria FEW H, Urine Hemoglobin MOD H, Urine Glucose NEG 03/13/172036: Lactic Acid 1.1 03/13/172036: Anion Gap 6, Estimated GFR > 60, BUN/Creatinine Ratio 24.0, Glucose 63 L, Calcium 5.5 *L, Phosphorus 1.7 L, Magnesium 1.0 L, Total Bilirubin 0.2, AST 26 , ALT 30, Alkaline Phosphatase 32, Troponin I 0.09, Total Protein 4.0 L, Albumin 1.7 L, Globulin 2.3, Albumin/Globulin Ratio 0.7 L, 25-OH Vitamin D Total 29.0 L, TSH 4.070, Thyroxine (T4) 3.2 L, Thyroxine Binding Indx 63.6 H, PTH Intact 17.5, PT 37.0 H, INR 3.57 H, CBC w Diff NO MAN DIFF REQ, RBC 2.72 L, MCV 99.3 H, MCH 32.7 H, RDW 15.0 H, MPV 7.4, Gran % 58.0, Lymphocytes % 35.8, Monocytes % 5.2, Eosinophils % 0.6, Basophils % 0.4, Absolute Granulocytes 1.7, Absolute Lymphocytes 1.1 L, Absolute Monocytes 0.2, Absolute Eosinophils 0 , Absolute Basophils 0, PUBS MCHC 33.0, Serum Alcohol < 10.0 Microbiology 03/14 0317 STOOL: Clostridium difficile Toxin A & B - COMP Recent Imaging Studies: CONCLUSIONS Moderate concentric left ventricular hypertrophy. Normal left ventricular ejection fraction visually estimated at >65 Abnormal relaxation filling pattern of the left ventricle for age (stage 1 diastolic dysfunction). Left atrial size at the upper limits of normal. Mild thickening/calcification of the mitral valve leaflets. Mild mitral annular calcification. Trace mitral regurgitation. Diffuse thickening of the aortic valve cusps with reduced excursion. Mild aortic stenosis. Right ventricular systolic pressure estimated to be elevated at 35- 40 mmHg. Compared to the study of 09/19 2016, there is now LVH and good left ventricular systolic function. There is now mild aortic stenosis and pulmonary artery pressure is reduced over the previous value. Aayush Gama M.D. (Electronically Signed) Final Date: 15 March 2017 Assessment/Plan Assessment/Plan Uriah is doing better. He had a mildly elevated troponin probably secondary to demand ischemia from hypotension. His echocardiographic findings are encouraging. He can be ambulated and possibly discharged tomorrow pending physical therapy evaluation. Continue telemetry? Yes
--- NOTE | 2017-03-15 14:56 | PN- Infect Dx ---
Subjective Subjective: Feeling better. No fever. Two loose BM today according to the patient. Review of Systems Comments: 12 points reviewed as noted, otherwise negative. Objective Last 24 Hrs of Vital Signs/I&O Vital Signs Date Time Temp Pulse Resp B/P B/P Pulse O2 O2 Flow FiO2 Mean Ox Delivery Rate 03/15 0801 98.7 73 20 132/68 97 Room Air 03/15 0800 Nasal 4.0L Cannula 03/14 2050 Nasal 4.0L Cannula 03/14 1938 98.0 81 18 142/72 100 03/14 1449 99.5 74 20 103/51 98 Nasal 4.0L Cannula Intake & Output 03/15 1600 03/15 0800 03/15 0000 Intake Total 970 100 100 Output Total 300 200 Balance 670 100 -100 Intake, IV 250 Intake, Oral 720 100 100 Number 2 Bowel Movements Output, Urine 300 200 Physical Exam Other Physical Findings: General Appearance: no apparent distress, awake, comfortable Head: atraumatic Ears, Nose, Throat: normal pharynx, on 2L NC Respiratory: normal breath sounds, chest non-tender, no respiratory distress, quiet respiration Gastrointestinal: normal bowel sounds, no organomegaly, tenderness Extremities: normal inspection, bilateral lower extremity edema Neurologic/Psych: alert, oriented x 3 Skin: mild erythema and hyperpigmentation in BLE; changes consistent w/ stasis dermatitis Results Last 24 Hours of Lab Results: Laboratory Tests 03/15 03/15 03/14 0620 0600 1651 Chemistry Sodium (137 - 145 mmol/L) 137 Potassium (3.5 - 5.1 mmol/L) 4.8 Chloride (98 - 107 mmol/L) 110 H Carbon Dioxide (22 - 30 mmol/L) 21 L Anion Gap (5 - 16) 7 BUN (9 - 20 mg/dL) 29 H Creatinine (0.7 - 1.2 mg/dL) 1.0 Estimated GFR (>60 ml/min) > 60 BUN/Creatinine Ratio (7 - 25 %) 29.0 H Lactate Dehydrogenase (313 - 618 U/L) 1138 H Coagulation PT (9.4 - 12.5 SEC) 19.5 H 19.7 H INR (0.90 - 1.17) 1.87 H 1.89 H Hematology CBC w Diff MAN DIFF ORDERED WBC (4.8 - 10.8 /CUMM) 2.5 L RBC (4.70 - 6.10 /CUMM) 3.30 L Hgb (14.0 - 18.0 G/DL) 10.9 L Hct (42 - 52 %) 32.9 L MCV (80.0 - 94.0 FL) 99.8 H MCH (27.0 - 31.0 PG) 33.2 H RDW (11.5 - 14.5 %) 15.0 H Plt Count (130 - 400 /CUMM) 78 L MPV (7.4 - 10.4 FL) 8.4 Gran % (42.2 - 75.2 %) 68.2 Lymphocytes % (20.5 - 51.1 %) 25.8 Monocytes % (1.7 - 9.3 %) 4.4 Eosinophils % (0 - 5 %) 1.2 Basophils % (0.0 - 2.0 %) 0.4 Absolute Granulocytes (1.4 - 6.5 /CUMM) 1.7 Segmented Neutrophils (42.2 - 75.2 %) 64 Band Neutrophils (0.0 - 5.0 %) 10 H Absolute Lymphocytes (1.2 - 3.4 /CUMM) 0.6 L Lymphocytes (20.5 - 51.1 %) 22 Monocytes (1.7 - 9.3 %) 4 Absolute Monocytes (0.10 - 0.60 /CUMM) 0.1 L Absolute Eosinophils (0.0 - 0.7 /CUMM) 0 Absolute Basophils (0.0 - 0.2 /CUMM) 0 Platelet Estimate (ADEQUATE) DECREASED Polychromasia 1+ Anisocytosis 1+ Macrocytic Cells 1+ PUBS MCHC (33.0 - 37.0 G/DL) 33.2 Serology Babesia microti DNA PCR Pending Ehrlichia DNA (PCR) Pending 03/14 1445 Chemistry Troponin I (<0.11 ng/ml) 0.13 *H Last 24 Hours of Efrain Results: OURCE: STOOL ENTR: 03/14/[address]: LUIS A RYAN MD SPDESC: SUKHJINDER CATALAN DO ORDERED: STOOL CULTURE, STOOL: R/O YERS, STOOL: R/O VIBR Procedure Result > STOOL CULTURE Preliminary 03/15/17 Mixed urban after 1 day > RULE OUT YERSINIA CULTURE Preliminary 03/15/17 NO GROWTH AFTER 1 DAY > VIBRIO CULTURE Preliminary 03/15/17-0818 NO GROWTH AFTER 1 DAY > SHIGA TOXIN 1 AKA EHEC Final 03/15/17-1233 NEGATIVE; NOT DETECTED. > SHIGA TOXIN 2 AKA EHEC Final 03/15/17-1233 NEGATIVE; NOT DETECTED. C. diff test negative. Recent Imaging Studies: 2D echo 03/15/17; CONCLUSIONS Moderate concentric left ventricular hypertrophy. Normal left ventricular ejection fraction visually estimated at >65 Abnormal relaxation filling pattern of the left ventricle for age (stage 1 diastolic dysfunction). Left atrial size at the upper limits of normal. Mild thickening/calcification of the mitral valve leaflets. Mild mitral annular calcification. Trace mitral regurgitation. Diffuse thickening of the aortic valve cusps with reduced excursion. Mild aortic stenosis. Right ventricular systolic pressure estimated to be elevated at 35- 40 mmHg. Compared to the study of 09/19 2016, there is now LVH and good left ventricular systolic function. There is now mild aortic stenosis and pulmonary artery pressure is reduced over the previous value. Aayush Gama M.D. (Electronically Signed) Final Date: 15 March 2017 09:29 Assessment/Plan Impression: 82-year-old male with history of DVT, vitamin B12 deficiency, polychondritis, RA , CHF, and hypertension who presented to the hospital with high fever; clinically improved, although worsening leukoenia/thrombocytopenia. Eval gastroenteritis/earlydiverticulitis treated w/ iv CTX/metronidazole since admission (Shiga toxin neg as well as C. difficile assay). Worsening leukopenia/thrombocytropenia likely secondary to infectious etiology; serology pending. Eval tick-borne disease. Anemia (multifacytorial) DESHAUN (pre-renal in nature); kidney function improved. Suggestion: 1. F/u Babesia and Ehrlichia DNA PCR. Continue doxycycline 100 mg iv bid D #2/ . 3. Trend CBC/BMP/LDFT's. LDH in am. 4. If further worsening anemia empiric treatment for babesiosis w/ azithromycin 500 mg po daily/mepron 750 mg po bid.
[2017-03-15 15:21] VITALS: BP 128/70
--- NOTE | 2017-03-15 16:53 | PN- Housestaff ---
YAZMIN BORJA,DILIA 03/15/17 1653: Subjective Follow-up For: diarrhea weakness suprtherapeutic inr Complaints: pain scale (0-10) Subjective: pateint was seen and examined. Appears uncomfortable. In mild pain, right lower quadrant. States that he feels very weak. Review of Systems Constitutional: Reports: diaphoresis, weakness. Cardiovascular: Reports: no symptoms. Respiratory: Reports: no symptoms. Gastrointestinal: Reports: abdominal pain, diarrhea. Genitourinary: Reports: no symptoms. Skin: Reports: no symptoms. Hematologic/Endocrine: Reports: bruising. Objective Last 24 Hrs of Vital Signs/I&O Vital Signs Date Time Temp Pulse Resp B/P B/P Pulse O2 O2 Flow FiO2 Mean Ox Delivery Rate 03/19 1609 98.1 70 20 150/60 97 Room Air 03/19 0850 75 130/80 03/19 0532 97.9 75 18 130/80 97 Room Air 03/18 2211 97.7 81 18 128/80 100 Room Air 03/18 2153 81 128/80 Intake & Output 03/19 1600 03/19 0800 03/19 0000 Intake Total 100 730 Output Total 400 650 Balance -300 80 Intake, IV 130 Intake, Oral 100 600 Number 1 Bowel Movements Output, Urine 400 650 Physical Exam General Appearance: Alert, Oriented X3, Cooperative, No Acute Distress Skin: No Rashes, No Breakdown, No Significant Lesion Skin Temp/Moisture Exam: Warm/Dry Sepsis Skin Exam (color): Normal for Ethnicity HEENT: Atraumatic, EOMI, Mucous Membr. moist/pink Neck: Supple Cardiovascular: Regular Rate, Normal S1, Normal S2, Gallops, Rubs Lungs: Clear to Auscultation Abdomen: Normal Bowel Sounds, Soft, No Hepatospenomegaly, No Masses Neurological: Normal Speech Extremities: Normal Pulses Vascular: Normal Pulses Sepsis Peripheral Pulse Location: Radial Sepsis Peripheral Pulse Exam: Normal Current Medications: Current Medications Sig/Renetta Start time Last Medication Dose Route Stop Time Status Admin Acetaminophen 650 MG Q6P PRN 03/14 0045 AC PO Acetaminophen 1,000 MG Q8P PRN 03/14 0045 DC 03/14 IV 0515 Aspirin 81 MG DAILY 03/14 1000 AC 03/19 PO 0849 Atorvastatin Calcium 20 MG DAILY 03/14 1000 AC 03/19 PO 0849 Atovaquone 750 MG BID 03/16 1306 AC 03/19 PO 0848 Azithromycin 500 MG DAILY 03/17 1000 AC 03/19 PO 0850 Cyanocobalamin 5 MCG ONCE ONE 03/19 0945 CAN SC 03/19 0946 Doxycycline Hyclate 100 MG BID 03/19 1041 AC 03/19 PO 1409 Doxycycline Hyclate 100 MG Q12 03/15 1000 DC 03/19 Sodium Chloride 100 ML IV 0848 Gabapentin 300 MG DAILY 03/14 1200 AC 03/19 PO 0849 Lactobacillus 1 CAP DAILY 03/17 1242 AC 03/19 Acidophilus PO 0850 Metoprolol Tartrate 50 MG BID 03/19 2200 AC PO Metoprolol Tartrate 25 MG BID 03/16 1000 DC 03/19 PO 0850 Phytonadione 5 MG ONCE ONE 03/19 1115 DC 03/19 SC 03/19 1116 1409 Prednisone 5 MG BID 03/14 1000 AC 03/19 PO 0849 Last 24 Hrs of Lab/Efrain Results Last 24 Hrs of Labs/Mics: Laboratory Tests 03/19/17 0722: Anion Gap 8, Estimated GFR > 60, BUN/Creatinine Ratio 24.4, Calcium 8.8, PT 63.2 *H, INR 6.13 *H, CBC w Diff NO MAN DIFF REQ, RBC 3.25 L, MCV 99.3 H, MCH 32.9 H, RDW 15.6 H, MPV 8.5, Gran % 38.7 L, Lymphocytes % 53.2 H, Monocytes % 6.0, Eosinophils % 1.5, Basophils % 0.6, Absolute Granulocytes 1.8, Absolute Lymphocytes 2.5, Absolute Monocytes 0.3, Absolute Eosinophils 0.1, Absolute Basophils 0, PUBS MCHC 33.1, A.phagocytophil DNA PCR Pending 03/18/17 1811: C. difficile Tox B Gene Pending Microbiology 03/19 1057 STOOL: Clostridium difficile Toxin A & B - COMP Assessment/Plan Assessment: Assessment Patient is 82-year-old male with past medical history significant for hypertension, Sweets disease, polychondritis, rheumatoid arthritis, osteoarthritis, atrial fibrillation, history of Lyme disease and babesiosis, congestive heart failure, history of DVT on Coumadin, history of hfeHF, came with chief complaint of lethargy, weakness for one day and one week worth of RLL abdominal pain and diarrhea. In the ED, patient was found to be hypotensive to 90/52 with heart rates between 100-110, sating 94% on 2L NC. His temperature was 104.6. EKG was normal and initial troponin was . CXR no evidence of acute disease. WBCs were 3.0, Hb 8.9, platelets 108, INR 3.57, K 2.6, Cr 1.0, Mg 1.0, LA 1.1. Plan Hypotension: Lethargy, weakness, hypotension likely due to dehydration 2/2 diarrhea * Patient responded well with fluid resuscitation in ED- received 3.5 L * Continue rehydration and monitor BP and HR * Hold antihypertensives * Patient has history of HfrEF and clinically edema, monitor for fluid overload in light of this. Last echo done in August 2016 showed EF 50%, mild global hypokinesis, pulm htn. Last nuclear stress test done in November 2016 showed reversible ischemia of apex and apical anterior wall, EF normal. * If persistent hypotension, will give stress dose steroids as patient is on chronic prednisone therapy for his polychondritis 5mg. Diarrhea * CT abdomen with contrast for source of infection and diarrhea showed evidence of severe diverticulosis in the descending and sigmoid colon with signs of early diverticulitis. * Add flagyll to antibiotic regimen. * Guaic negative * Check stool for c. diff, culture, O+P, vibrio, yersenia * Last EGD/colonscopy (2013): nonerosive GERD, extensive diverticula sigmoid to proximal transverse, left colon polyp. Fever of Unknown Origin * Patient was septic in ED with tachycardia, fever, leukopenia * WBC 2.5 * Lactic Acid 1.1 now. Trend. * Given history of multiple tick-borne illnesses and pancytopenia, give patient doxycycline. * He has been given ceftax and vancomycin broad spectrum in the ED * CXR and CT chest showed no source of infection * Follow blood cultures and urine cultures * Peripheral smear for babesiosis POSITIVE, Ehrlichia NEGATIVE * Start azithromycin for babesiosis with atovaquone * UA clear * LDH 1138 * ID and Hematology consults Elevated Troponins * Troponins not increasing * To rule out ACS * Continue ASA * Normal EKGs point to demand ischemia due to hypotension * Wait for third set troponins Atrial Fibrillation * In light of this and elevated troponins, will admit to telemetry. * Patient is on coumadin * Currently supratherapeutic at 1.87 * Coumadin INR tomorrow Hypokalemia and Hypomagnesemia and Hypocalcemia * Corrected Ca2+ is normal * Most likely due to diarrhea * Replete with kdur and Mg * BEP to reevaluate Worsening Renal Function * In the ED, Cr was 1.0. * Now it is 1.7. * CT was performed before these results. We have given 2L NS after this. Trend renal function. Heart Healthy diet DNR/DNI DVT Prophylaxis: on Coumadin Problem List: 1. Tick-borne disease 2. Diverticulosis 3. Diverticulitis 4. Diarrhea 5. Hypokalemia 6. Hypoglycemia 7. Atrial fibrillation 8. Fever Pain Ratin Pain Location: right lower quadrant pain on palpation Pain Goal: Pain 4 or less Pain Plan: . Tomorrow's Labs & Rationales: cbc bep inr JOYCELYN BERNARD MD 03/15/17 7429: Attending Review Statement Attending Statement Attending MD Statement: examined this patient, discuss w/resident/PA/CHAIN SAW MECHANIC, agreed w/resident/PA/CHAIN SAW MECHANIC, reviewed EMR data (avail), discussed with nursing, discussed with case mgmt, amended to note Attending Assessment/Plan: The patient was seen and discussed with house staff. Significantly improved since yesterday. No further diarrhea as per patient, however still with abdominal symptoms. ID input appreciated. Will continue to treat for diverticulitis and with doxycycline for tick borne disease. Follow-up CBC, labs, etc. as per ID and consider treating for Babesiosis pending trends. Continue PT daily.
--- NOTE | 2017-03-15 19:17 | NUR ---
PT HAD A 13 BEAT RUN V-TACH. PT ASYMPTOMATIC SITTING IN CHAIR PLAYING ON IPAD. VSS BP 160/76, HR 82, RR 20. MANAGER DISASTER RECOVERY JACOB HOPE AWARE. WILL CONTINUE TO MONITOR PT.
[2017-03-15 22:00] VITALS: BP 148/82
[2017-03-16 07:36] VITALS: BP 152/78
--- NOTE | 2017-03-16 07:36 | PN- Hematology ---
Subjective Subjective: He is feeling better. Diarrhea has stopped. He has some nausea and stomach pain. He is eating well. He has been afebrile. Review of Systems Constitutional: Denies: chills, fever, weakness. Cardiovascular: Denies: chest pain. Gastrointestinal: Reports: abdominal pain, nausea. Denies: diarrhea. Genitourinary: Denies: dysuria. Musculoskeletal: Denies: back pain. Neurological/Psychological: Denies: confusion, depressed. Hematologic/Endocrine: Reports: bruising. Denies: bleeding. All Other Systems: Reviewed and Negative Objective Vital Signs and I&Os Vital Signs Date Time Temp Pulse Resp B/P B/P Pulse O2 O2 Flow FiO2 Mean Ox Delivery Rate 03/16 0718 98.4 66 20 98 Room Air 03/16 0000 Room Air 03/15 2200 98.0 72 22 148/82 98 Room Air 03/15 1521 97.4 80 18 128/70 97 Room Air 03/15 0801 98.7 73 20 132/68 97 Room Air 03/15 0800 Nasal 4.0L Cannula Intake & Output 03/16 0800 03/16 0000 03/15 1600 03/15 0800 03/15 0000 03/14 1600 Intake Total 220 680 970 100 100 Output Total 550 250 300 200 Balance -330 430 670 100 -100 Intake, IV 100 200 250 Intake, Oral 120 480 720 100 100 Number 0 1 2 Bowel Movements Output, Urine 550 250 300 200 Physical Exam: General Appearance: no apparent distress, awake, comfortable Head: atraumatic Ears, Nose, Throat: normal pharynx, on 2L NC Respiratory: normal breath sounds, chest non-tender, no respiratory distress, quiet respiration Gastrointestinal: normal bowel sounds, no organomegaly, tenderness Extremities: normal inspection, bilateral upper and lower extremity edema Neurologic/Psych: alert, oriented x 3 Skin: mild erythema and hyperpigmentation in BLE; bruising in bilateral upper extremities; 1+edema in extremities. Current Medications: Current Medications Sig/Renetta Start time Last Medication Dose Route Stop Time Status Admin Acetaminophen 650 MG Q6P PRN 03/14 0045 AC PO Acetaminophen 1,000 MG Q8P PRN 03/14 0045 AC 03/14 IV 0515 Aspirin 81 MG DAILY 03/14 1000 AC 03/15 PO 0924 Atorvastatin Calcium 20 MG DAILY 03/14 1000 AC 03/15 PO 0924 Ceftriaxone Sodium 1,000 MG DAILY 03/14 1000 AC 03/15 IV 0925 Doxycycline Hyclate 100 MG Q12 03/15 1000 AC 03/15 Sodium Chloride 100 ML IV 2159 Gabapentin 300 MG DAILY 03/14 1200 AC 03/15 PO 0925 Metronidazole 500 MG Q8H 03/14 0600 AC 03/16 N/A 1 UNIT IV 0508 Patient Medication 1 ED .STK-MED ONE 03/15 1413 DC Teaching ED 03/15 1414 Prednisone 5 MG BID 03/14 1000 AC 03/15 PO 2100 Warfarin Sodium 7.5 MG COUMADIN 1700 ONE 03/15 1700 DC 03/15 PO 03/15 1701 1806 Results Last 24 Hours of Lab Results: Laboratory Tests 03/16 03/15 0618 2330 Chemistry Sodium Pending Potassium Pending Chloride Pending Carbon Dioxide Pending Anion Gap Pending BUN Pending Creatinine Pending BUN/Creatinine Ratio Pending Magnesium (1.6 - 2.3 mg/dL) 1.9 Total Bilirubin Pending Direct Bilirubin Pending AST Pending ALT Pending Alkaline Phosphatase Pending Lactate Dehydrogenase Pending Total Protein Pending Albumin Pending Coagulation PT Pending INR Pending Hematology CBC w Diff Pending WBC Pending RBC Pending Hgb Pending Hct Pending MCV Pending MCH Pending RDW Pending Plt Count Pending MPV Pending PUBS MCHC Pending Assessment/Plan Assessment/Recommendations: Mr. Anne is an 82-year-old male with history of DVT, vitamin B12 deficiency, polychondritis, RA, CHF, and hypertension who presented to the hosptial with 1 day of fatigue, lethargy, and diarrhea. He presented with symptoms concerning for gastroenteritis/diverticulitis. Previous blood work 4 weeks ago was normal. Pancytopenia may be secondary to infectious etiology. He has had exposure to ticks and tick bites. He has previous babesiosis. This is concerning for a tick-borne disease. Evaluation is pending. Renal function has improved. He is now afebrile. Blood cultures have been negative. Diarrhea has improved. Bloow work should start to improve with his improving clinical condition. He will continue on his current antibiotics as per ID. Recommendations: 1. Follow up tick-borne disease evaluation 2. Follow up blood cultures 3. Continue antibiotics as per ID 4. Monitor CBC daily Please call [phone] with any questions or concerns Problem List: 1. Diverticulitis 2. Pancytopenia
[2017-03-16 08:25] LABS: ABSOLUTE BASOPHIL COUNT 0 /CUMM (0.0-0.2); ABSOLUTE EOSINOPHIL COUNT 0 /CUMM (0.0-0.7); ABSOLUTE LYMPH COUNT 0.8 /CUMM (1.2-3.4); ABSOLUTE MONOCYTE COUNT 0.1 /CUMM (0.10-0.60); BASOPHIL % 0.8 % (0.0-2.0); EOSINOPHIL % 1.7 % (0-5); GRANULOCYTE % 48.8 % (42.2-75.2); HEMATOCRIT 30.9 % (42-52); MEAN CORPUSCULAR HGB CONC 33.1 G/DL (33.0-37.0); MEAN CORPUSCULAR VOLUME 99.6 FL (80.0-94.0); MEAN PLATELET VOLUME 8.8 FL (7.4-10.4); PLATELET COUNT 72 /CUMM (130-400); RBC DISTRIBUTION WIDTH 15.2 % (11.5-14.5)
[2017-03-16 08:26] LABS: PT 21.7 SEC (9.4-12.5)
--- NOTE | 2017-03-16 09:37 | NUR ---
LATE ENTRY FROM 07:53 PT HAD A 19 BEAT RUN OF V-TACH, PT ASYMPTOMATIC AND GETTING OUT OF BED TO CHAIR WITH TECH. STRIP GIVEN TO FIRE ASSISTANT DILIA AND STRIP SHOWN TO DR HERNANDEZ. WILL CONTINUE TO MONITOR.
[2017-03-16 09:47] VITALS: BP 166/82
--- NOTE | 2017-03-16 09:49 | PN- Cardiology ---
Subjective Subjective: The patient is feeling better. He is sitting up in a chair. He is afebrile. He is not having diarrhea. His electrolytes are improved. However he has had at least 2 episodes of nonsustained ventricular tachycardia on the monitor. One of them was last evening and one of them this morning. He denies any chest pain , shortness of breath, dizziness. He is not currently on beta blockers. Objective Vital Signs and I&Os Vital Signs Date Time Temp Pulse Resp B/P B/P Pulse O2 O2 Flow FiO2 Mean Ox Delivery Rate 03/16 0947 70 166/82 03/16 0800 Room Air 03/16 0736 152/78 03/16 0718 98.4 66 20 98 Room Air 03/16 0000 Room Air 03/15 2200 98.0 72 22 148/82 98 Room Air 03/15 1521 97.4 80 18 128/70 97 Room Air Intake & Output 03/16 1600 03/16 0800 03/16 0000 03/15 1600 03/15 0800 03/15 0000 Intake Total 220 680 970 100 100 Output Total 550 250 300 200 Balance -330 430 670 100 -100 Intake, IV 100 200 250 Intake, Oral 120 480 720 100 100 Number 0 1 2 Bowel Movements Output, Urine 550 250 300 200 Physical Exam: HEENT exam is normal Chest is clear Heart reveals regular rhythm with grade 2/6 systolic murmur at the base. There is no edema Current Medications: Current Medications Sig/Renetta Start time Last Medication Dose Route Stop Time Status Admin Acetaminophen 650 MG Q6P PRN 03/14 0045 AC PO Acetaminophen 1,000 MG Q8P PRN 03/14 0045 AC 03/14 IV 0515 Aspirin 81 MG DAILY 03/14 1000 AC 03/16 PO 0917 Atorvastatin Calcium 20 MG DAILY 03/14 1000 AC 03/16 PO 0917 Ceftriaxone Sodium 1,000 MG DAILY 03/14 1000 AC 03/16 IV 0917 Doxycycline Hyclate 100 MG Q12 03/15 1000 AC 03/16 Sodium Chloride 100 ML IV 0921 Gabapentin 300 MG DAILY 03/14 1200 AC 03/16 PO 0917 Metronidazole 500 MG Q8H 03/14 0600 AC 03/16 N/A 1 UNIT IV 0540 Patient Medication 1 ED .STK-MED ONE 03/15 1413 ME Teaching ED 03/15 1414 Prednisone 5 MG BID 03/14 1000 AC 03/16 PO 0918 Warfarin Sodium 7.5 MG COUMADIN 1700 ONE 03/15 1700 DC 03/15 PO 03/15 1701 1806 Results Last 48 Hrs of Labs/Mics: Laboratory Tests 03/16/17 0618: Anion Gap 5, Estimated GFR > 60, BUN/Creatinine Ratio 25.6 H, Total Bilirubin 0.3, Direct Bilirubin 0.3, AST 77 H, ALT 59, Alkaline Phosphatase 52, Lactate Dehydrogenase 884 H, Total Protein 5.4 L, Albumin 2.5 L, PT 21.7 H, INR 2.08 H, CBC w Diff Pending, WBC Pending, RBC Pending, Hgb Pending, Hct Pending, MCV Pending, MCH Pending, RDW Pending, Plt Count Pending, MPV Pending, Gran % Pending, Lymphocytes % Pending, Monocytes % Pending, Eosinophils % Pending, Basophils % Pending, Absolute Granulocytes Pending, Absolute Lymphocytes Pending , Absolute Monocytes Pending, Absolute Eosinophils Pending, Absolute Basophils Pending, PUBS MCHC Pending 03/15/17 2330: Magnesium 1.9 03/15/17 0620: Anion Gap 7, Estimated GFR > 60, BUN/Creatinine Ratio 29.0 H, Lactate Dehydrogenase 1138 H, PT 19.5 H, INR 1.87 H, CBC w Diff MAN DIFF ORDERED, RBC 3.30 L, MCV 99.8 H, MCH 33.2 H, RDW 15.0 H, MPV 8.4, Gran % 68.2, Lymphocytes % 25.8, Monocytes % 4.4, Eosinophils % 1.2, Basophils % 0.4, Absolute Granulocytes 1.7, Segmented Neutrophils 64, Band Neutrophils 10 H, Absolute Lymphocytes 0.6 L, Lymphocytes 22, Monocytes 4, Absolute Monocytes 0.1 L, Absolute Eosinophils 0, Absolute Basophils 0, Platelet Estimate DECREASED, Polychromasia 1+, Anisocytosis 1+, Macrocytic Cells 1+, PUBS MCHC 33.2 03/15/17 0600: Babesia microti DNA PCR Pending, Ehrlichia DNA (PCR) Pending 03/14/17 1651: PT 19.7 H, INR 1.89 H 03/14/17 1445: Troponin I 0.13 *H Assessment/Plan Assessment/Plan The patient had a mildly elevated troponin probably secondary to demand ischemia from hypotension. His echocardiographic findings are encouraging. He has had a couple of episodes of nonsustained ventricular tachycardia and some scattered PVCs besides. We will start him on beta blockers. If he continues to have significant arrhythmias then additional antiarrhythmic drugs may be necessary. He is being evaluated for infectious causes of his diarrhea and fever on admission including ehrlichiosis and Babesiosis. Those tests are still pending. His Lyme titer was negative. Continue telemetry? Yes
--- NOTE | 2017-03-16 10:06 | PN- Housestaff ---
YAZMIN BORJA,DILIA 03/16/17 0956: Subjective Follow-up For: diarrhea fever of unknown origin nsvt Complaints: no complaints Subjective: patient was seen an examined in bed. He says that he feels much better than when he came in. He says that his diarrhea is resolving and he feels less weak. Review of Systems Constitutional: Reports: no symptoms. Gastrointestinal: Denies: abdominal pain, bloating, constipation, diarrhea. Musculoskeletal: Denies: joint pain, joint swelling. Objective Last 24 Hrs of Vital Signs/I&O Vital Signs Date Time Temp Pulse Resp B/P B/P Pulse O2 O2 Flow FiO2 Mean Ox Delivery Rate 03/19 0850 75 130/80 03/19 0532 97.9 75 18 130/80 97 Room Air 03/18 2211 97.7 81 18 128/80 100 Room Air 03/18 2153 81 128/80 Intake & Output 03/19 1600 03/19 0800 03/19 0000 Intake Total 100 730 Output Total 400 650 Balance -300 80 Intake, IV 130 Intake, Oral 100 600 Number 1 Bowel Movements Output, Urine 400 650 Physical Exam General Appearance: Alert, Oriented X3, Cooperative, No Acute Distress Skin: No Rashes, No Breakdown, No Significant Lesion Skin Temp/Moisture Exam: Warm/Dry Sepsis Skin Exam (color): Normal for Ethnicity HEENT: Atraumatic, EOMI, Mucous Membr. moist/pink Neck: Supple Cardiovascular: Regular Rate, Normal S1, Normal S2, Gallops, Rubs Lungs: Clear to Auscultation, Normal Air Movement Abdomen: Normal Bowel Sounds, Soft, No Tenderness, No Hepatospenomegaly, No Masses Neurological: Normal Speech Extremities: No Cyanosis, Normal Pulses, No Tenderness/Swelling Vascular: Normal Pulses Current Medications: Current Medications Sig/Renetta Start time Last Medication Dose Route Stop Time Status Admin Acetaminophen 650 MG Q6P PRN 03/14 0045 AC PO Acetaminophen 1,000 MG Q8P PRN 03/14 0045 DC 03/14 IV 0515 Aspirin 81 MG DAILY 03/14 1000 AC 03/19 PO 0849 Atorvastatin Calcium 20 MG DAILY 03/14 1000 AC 03/19 PO 0849 Atovaquone 750 MG BID 03/16 1306 AC 03/19 PO 0848 Azithromycin 500 MG DAILY 03/17 1000 AC 03/19 PO 0850 Cyanocobalamin 5 MCG ONCE ONE 03/19 0945 CAN SC 03/19 0946 Doxycycline Hyclate 100 MG BID 03/19 1041 AC 03/19 PO 1409 Doxycycline Hyclate 100 MG Q12 03/15 1000 DC 03/19 Sodium Chloride 100 ML IV 0848 Gabapentin 300 MG DAILY 03/14 1200 AC 03/19 PO 0849 Lactobacillus 1 CAP DAILY 03/17 1242 AC 03/19 Acidophilus PO 0850 Metoprolol Tartrate 50 MG BID 03/19 2200 AC PO Metoprolol Tartrate 25 MG BID 03/16 1000 DC 03/19 PO 0850 Phytonadione 5 MG ONCE ONE 03/19 1115 DC 03/19 SC 03/19 1116 1409 Prednisone 5 MG BID 03/14 1000 AC 03/19 PO 0849 Last 24 Hrs of Lab/Efrain Results Last 24 Hrs of Labs/Mics: Laboratory Tests 03/19/17 0722: Anion Gap 8, Estimated GFR > 60, BUN/Creatinine Ratio 24.4, Calcium 8.8, PT 63.2 *H, INR 6.13 *H, CBC w Diff NO MAN DIFF REQ, RBC 3.25 L, MCV 99.3 H, MCH 32.9 H, RDW 15.6 H, MPV 8.5, Gran % 38.7 L, Lymphocytes % 53.2 H, Monocytes % 6.0, Eosinophils % 1.5, Basophils % 0.6, Absolute Granulocytes 1.8, Absolute Lymphocytes 2.5, Absolute Monocytes 0.3, Absolute Eosinophils 0.1, Absolute Basophils 0, PUBS MCHC 33.1, A.phagocytophil DNA PCR Pending 03/18/17 1811: C. difficile Tox B Gene Pending Microbiology 03/19 1057 STOOL: Clostridium difficile Toxin A & B - COMP Assessment/Plan Assessment: Assessment Patient is 82-year-old male with past medical history significant for hypertension, Sweets disease, polychondritis, rheumatoid arthritis, osteoarthritis, atrial fibrillation, history of Lyme disease and babesiosis, congestive heart failure, history of DVT on Coumadin, history of hfeHF, came with chief complaint of lethargy, weakness for one day and one week worth of RLL abdominal pain and diarrhea. In the ED, patient was found to be hypotensive to 90/52 with heart rates between 100-110, sating 94% on 2L NC. His temperature was 104.6. EKG was normal and initial troponin was . CXR no evidence of acute disease. WBCs were 3.0, Hb 8.9, platelets 108, INR 3.57, K 2.6, Cr 1.0, Mg 1.0, LA 1.1. Plan Hypotension: Lethargy, weakness, hypotension likely due to dehydration 2/2 diarrhea * Patient responded well with fluid resuscitation in ED- received 3.5 L * Continue rehydration and monitor BP and HR * Hold antihypertensives * Patient has history of HfrEF and clinically edema, monitor for fluid overload in light of this. Last echo done in August 2016 showed EF 50%, mild global hypokinesis, pulm htn. Last nuclear stress test done in November 2016 showed reversible ischemia of apex and apical anterior wall, EF normal. * If persistent hypotension, will give stress dose steroids as patient is on chronic prednisone therapy for his polychondritis 5mg. Diarrhea * CT abdomen with contrast for source of infection and diarrhea showed evidence of severe diverticulosis in the descending and sigmoid colon with signs of early diverticulitis. * Add flagyll to antibiotic regimen. * Guaic negative * Check stool for c. diff, culture, O+P, vibrio, yersenia * Last EGD/colonscopy (2013): nonerosive GERD, extensive diverticula sigmoid to proximal transverse, left colon polyp. Fever of Unknown Origin * Patient was septic in ED with tachycardia, fever, leukopenia * Lactic Acid 1.1 now. Trend. * Given history of multiple tick-borne illnesses and pancytopenia, give patient doxycycline. * He has been given ceftax and vancomycin broad spectrum in the ED * CXR and CT chest showed no source of infection * Follow blood cultures and urine cultures * Peripheral smear for babesiosis * UA clear * ID and Hematology consults * WBCs and platelets are decreasing, start azithromycin for empiric coverage of babesiosis Elevated Troponins * Second set troponins positive * To rule out ACS * Continue ASA * Normal EKGs point to demand ischemia due to hypotension * Wait for third set troponins Atrial Fibrillation * In light of this and elevated troponins, will admit to telemetry. * Patient is on coumadin * Currently supratherapeutic at 3.57 * Hold Coumadin for now and INR tomorrow * vitals normal * runs of vtach * metropolol 25 mg bid only for NSVT * for sustained vtach can do amiodarone. Monitor. Hypokalemia and Hypomagnesemia and Hypocalcemia * Corrected Ca2+ is normal * Most likely due to diarrhea * Replete with kdur and Mg * BEP to reevaluate Worsening Renal Function * In the ED, Cr was 1.0. * Now it is 1.7. * CT was performed before these results. We have given 2L NS after this. Trend renal function. Heart Healthy diet DNR/DNI DVT Prophylaxis: on Coumadin Problem List: 1. Tick-borne disease 2. Diverticulosis 3. Diverticulitis 4. Diarrhea 5. Hypoglycemia 6. Hypokalemia 7. Atrial fibrillation Pain Ratin Pain Location: none Pain Goal: Remain pain free Pain Plan: . Tomorrow's Labs & Rationales: cbc babesia bep erhlichia stool o and p, culture SCAR PAPPAS 03/16/17 1138: Attending MD Review Statement Attending Statement Attending MD Statement: examined this patient, discuss w/resident/PA/TRANSF[employer], agreed w/resident/PA/[employer] WORKER, discussed with family, reviewed EMR data (avail), discussed with nursing, discussed with case mgmt, reviewed images, amended to note Attending Assessment/Plan: The patient was seen and discussed with house staff. Significantly improved since yesterday. No further diarrhea as per patient, however still with abdominal symptoms. ID input appreciated. Will continue to treat for diverticulitis and with doxycycline for tick borne disease. Follow-up CBC, labs, etc. as per ID and consider treating for Babesiosis pending trends. Patient had run of NSVT 15-20 beats, cadiology recommend to start b amadou, monitor hemodyamics and tele. Continue PT daily. anticipate d/c in next 24-48 hrs pending ID and cardiology clearance.
[2017-03-16 11:32] VITALS: BP 146/82
--- NOTE | 2017-03-16 14:31 | PN- Infect Dx ---
Subjective Subjective: Patient with fair appetite; only one loose BM today and 3 loose BM's previous day. No fever, overall feels better. Review of Systems Comments: 12 points reviewed as noted, otherwise negative. Objective Last 24 Hrs of Vital Signs/I&O Vital Signs Date Time Temp Pulse Resp B/P B/P Pulse O2 O2 Flow FiO2 Mean Ox Delivery Rate 03/16 1132 88 146/82 03/16 1129 88 146/82 03/16 0800 Room Air 03/16 0736 152/78 03/16 0718 98.4 66 20 98 Room Air 03/16 0000 Room Air 03/15 2200 98.0 72 22 148/82 98 Room Air 03/15 1521 97.4 80 18 128/70 97 Room Air Intake & Output 03/16 1600 03/16 0800 03/16 0000 Intake Total 220 680 Output Total 550 250 Balance -330 430 Intake, IV 100 200 Intake, Oral 120 480 Number 0 1 Bowel Movements Output, Urine 550 250 Physical Exam Other Physical Findings: General Appearance: no apparent distress, awake, comfortable HEENT: atraumatic, sclera anicteric, no thrush Neck; no FARZAD Heart S1 S2 present, + 2/6 MURPHY Respiratory: normal breath sounds, no wheezing Gastrointestinal: protuberant, bowel sounds hyperactive, no tenderness Extremities: pedal edema Neurologic/Psych: alert, oriented x 3, CN 2-12 grossly normal Skin: mild erythema and hyperpigmentation in BLE; changes consistent w/ stasis dermatitis Results Last 24 Hours of Lab Results: Laboratory Tests 03/16 03/15 0618 2330 Chemistry Sodium (137 - 145 mmol/L) 138 Potassium (3.5 - 5.1 mmol/L) 4.9 Chloride (98 - 107 mmol/L) 110 H Carbon Dioxide (22 - 30 mmol/L) 23 Anion Gap (5 - 16) 5 BUN (9 - 20 mg/dL) 23 H Creatinine (0.7 - 1.2 mg/dL) 0.9 Estimated GFR (>60 ml/min) > 60 BUN/Creatinine Ratio (7 - 25 %) 25.6 H Magnesium (1.6 - 2.3 mg/dL) 1.9 Total Bilirubin (0.2 - 1.3 mg/dL) 0.3 Direct Bilirubin (< 0.4 mg/dL) 0.3 AST (17 - 59 U/L) 77 H ALT (21 - 72 U/L) 59 Alkaline Phosphatase (< 127 U/L) 52 Lactate Dehydrogenase (313 - 618 U/L) 884 H Total Protein (6.3 - 8.2 g/dL) 5.4 L Albumin (3.5 - 5.0 g/dL) 2.5 L Coagulation PT (9.4 - 12.5 SEC) 21.7 H INR (0.90 - 1.17) 2.08 H Hematology CBC w Diff MAN DIFF ORDERED WBC (4.8 - 10.8 /CUMM) 2.0 L RBC (4.70 - 6.10 /CUMM) 3.10 L Hgb (14.0 - 18.0 G/DL) 10.2 L Hct (42 - 52 %) 30.9 L MCV (80.0 - 94.0 FL) 99.6 H MCH (27.0 - 31.0 PG) 33.0 H RDW (11.5 - 14.5 %) 15.2 H Plt Count (130 - 400 /CUMM) 72 L MPV (7.4 - 10.4 FL) 8.8 Gran % (42.2 - 75.2 %) 48.8 Lymphocytes % (20.5 - 51.1 %) 42.7 Monocytes % (1.7 - 9.3 %) 6.0 Eosinophils % (0 - 5 %) 1.7 Basophils % (0.0 - 2.0 %) 0.8 Absolute Granulocytes (1.4 - 6.5 /CUMM) 1.0 L Segmented Neutrophils (42.2 - 75.2 %) 40 L Band Neutrophils (0.0 - 5.0 %) 12 H Absolute Lymphocytes (1.2 - 3.4 /CUMM) 0.8 L Lymphocytes (20.5 - 51.1 %) 44 Absolute Monocytes (0.10 - 0.60 /CUMM) 0.1 L Eosinophils (0 - 5.0 %) 3 Absolute Eosinophils (0.0 - 0.7 /CUMM) 0 Absolute Basophils (0.0 - 0.2 /CUMM) 0 Metamyelocytes (0.0 - 1.0 %) 1 Platelet Estimate (ADEQUATE) DECREASED Normocytic RBCs VERIFIED Normochromic RBCs VERIFIED PUBS MCHC (33.0 - 37.0 G/DL) 33.1 Last 24 Hours of Efrain Results: SPEC #: [id number] EDITH: 03/14/17 STATUS: RES RECD: 03/14/[address] [facility] [address]: NIGEL BORJA,ELZA SOURCE: STOOL ENTR: 03/14/[address]: SHELBY BORJA,LUIS A [facility]: ALAYNA DOSUKHJINDER ORDERED: STOOL CULTURE, STOOL: R/O YERS, STOOL: R/O VIBR Procedure Result > STOOL CULTURE Preliminary 03/16/17 Mixed urban after 2 days > RULE OUT YERSINIA CULTURE Preliminary 03/16/17 Mixed urban after 2 days > VIBRIO CULTURE Preliminary 03/16/17 Scant urban after 2 days > SHIGA TOXIN 1 AKA EHEC Final 03/15/17 NEGATIVE; NOT DETECTED. > SHIGA TOXIN 2 AKA EHEC Final 03/15/17 NEGATIVE; NOT DETECTED. Recent Imaging Studies: FINDINGS Left Ventricle Normal size left ventricle. Moderate concentric left ventricular hypertrophy. Normal left ventricular ejection fraction visually estimated at >65 %. No obvious regional wall motion abnormalities. Abnormal relaxation filling pattern of the left ventricle for age (stage 1 diastolic dysfunction). Right Ventricle Right ventricle not well visualized, grossly normal. Right Atrium Normal right atrial size. Left Atrium Left atrial size at the upper limits of normal. Mitral Valve Mild thickening/calcification of the mitral valve leaflets. Mild mitral annular calcification. Trace mitral regurgitation. Aortic Valve Diffuse thickening of the aortic valve cusps with reduced excursion. Mild aortic stenosis. No aortic regurgitation. Tricuspid Valve Tricuspid valve is normal in structure and function. Trace tricuspid regurgitation. Right ventricular systolic pressure estimated to be elevated at 35-40 mmHg. Pulmonic Valve Structurally normal pulmonic valve. There is no pulmonic regurgitation. Pericardium Normal pericardium without effusion. No pleural effusion. Great Vessels Normal aortic root dimension. The aortic arch and great vessels are not well seen. CONCLUSIONS Moderate concentric left ventricular hypertrophy. Normal left ventricular ejection fraction visually estimated at >65 Abnormal relaxation filling pattern of the left ventricle for age (stage 1 diastolic dysfunction). Left atrial size at the upper limits of normal. Mild thickening/calcification of the mitral valve leaflets. Mild mitral annular calcification. Trace mitral regurgitation. Diffuse thickening of the aortic valve cusps with reduced excursion. Mild aortic stenosis. Right ventricular systolic pressure estimated to be elevated at 35- 40 mmHg. Compared to the study of 09/19 2016, there is now LVH and good left ventricular systolic function. There is now mild aortic stenosis and pulmonary artery pressure is reduced over the previous value. Aayush Gama M.D. (Electronically Signed) Final Date: 15 March 2017 09:29 MEASUREMENTS (Male / Female) Normal Values 2D ECHO LV Diastolic Diameter PLAX 4.4 cm 4.2 - 5.9 / 3.9 - 5.3 cm LV Systolic Diameter PLAX 3.1 cm 2.1 - 4.0 cm LV Fractional Shortening PLAX 29.5 % 25 - 46 % LV Ejection Fraction 2D Teich 56.8 % IVS Diastolic Thickness 1.5 cm LVPW Diastolic Thickness 1.3 cm LV Relative Wall Thickness 0.6 RV Internal Dim ED PLAX 3.1 cm 1.9 - 3.8 cm LVOT Diameter 2.1 cm Aortic Root Diameter 3.1 cm LA Systolic Diameter LX 3.7 cm 3.0 - 4.0 / 2.7 - 3.8 cm LA Volume 40.0 cm 18 - 58 / 22 - 52 cm Ascending Aorta Diameter 3.2 cm DOPPLER AV Peak Velocity 226.0 cm/s AV Peak Gradient 20.4 mmHg AV Mean Velocity 166.0 cm/s AV Mean Gradient 12.0 mmHg AV Velocity Time Integral 41.5 cm LVOT Peak Velocity 95.5 cm/s LVOT Peak Gradient 3.6 mmHg LVOT Mean Velocity 64.2 cm/s LVOT Mean Gradient 2.0 mmHg LVOT Velocity Time Integral 19.4 cm LVOT Stroke Volume 67.2 cm AV Area Cont Eq vti 1.6 cm AV Area Cont Eq pk 1.5 cm MV Peak Velocity 88.0 cm/s MV Peak Gradient 3.1 mmHg MV Mean Velocity 56.6 cm/s MV Mean Gradient 1.0 mmHg Mitral E Point Velocity 69.3 cm/s Assessment/Plan Impression: 82-year-old male with history of DVT, vitamin B12 deficiency, polychondritis, RA , CHF, and hypertension who presented to the hospital with high fever; clinically improved, although worsening leukopenia/thrombocytopenia/anemia. Eval gastroenteritis/earlydiverticulitis treated w/ iv CTX/metronidazole D #3( Shiga toxin neg as well as C. difficile assay). Worsening leukopenia/thrombocytropenia likely secondary to infectious etiology; serology for tick-borne disease obtained; Lyme screening test (AAKASH) negative. Anemia (multifactorial) ; hem onc following; elevated LDH DESHAUN (pre-renal in nature); kidney function improved. Suggestion: 1. F/u Babesia and Ehrlichia DNA PCR. Continue doxycycline 100 mg iv or po bid D #3/. 2. Consider d/c CTX. 3. Trend BMP/BMP. 4. Worsening anemia, would consider starting empiric treatment for babesiosis w/ azithromycin 500 mg po daily/mepron 750 mg po bid.
[2017-03-16 14:48] VITALS: BP 138/80
[2017-03-16 22:49] VITALS: BP 130/68
[2017-03-17 07:11] VITALS: BP 144/62
[2017-03-17 08:02] LABS: ABSOLUTE BASOPHIL COUNT 0 /CUMM (0.0-0.2); ABSOLUTE EOSINOPHIL COUNT 0 /CUMM (0.0-0.7); ABSOLUTE GRANULOCYTE CT 1.4 /CUMM (1.4-6.5); ABSOLUTE LYMPH COUNT 1.5 /CUMM (1.2-3.4); ABSOLUTE MONOCYTE COUNT 0.2 /CUMM (0.10-0.60); BASOPHIL % 0.3 % (0.0-2.0); EOSINOPHIL % 1.2 % (0-5); GRANULOCYTE % 44.9 % (42.2-75.2); HEMATOCRIT 34.2 % (42-52); MEAN CORPUSCULAR HGB 32.7 PG (27.0-31.0); MEAN CORPUSCULAR HGB CONC 33.2 G/DL (33.0-37.0); MEAN CORPUSCULAR VOLUME 98.7 FL (80.0-94.0); MEAN PLATELET VOLUME 8.7 FL (7.4-10.4); PLATELET COUNT 86 /CUMM (130-400); RBC DISTRIBUTION WIDTH 15.8 % (11.5-14.5); RED BLOOD CELL CT 3.46 /CUMM (4.70-6.10)
[2017-03-17 08:23] LABS: PT 36.3 SEC (9.4-12.5)
[2017-03-17 08:33] LABS: WHITE BLOOD CELL COUNT 3.2 /CUMM (4.8-10.8)
--- NOTE | 2017-03-17 08:50 | PN- Housestaff ---
CE LYNN 03/17/17 0850: Subjective Follow-up For: Diarrhea Lethargy and weakness Fever Subjective: Patient has no complaints. Overnight Trigeminy, PVCs. Review of Systems Constitutional: Reports: see HPI. Objective Last 24 Hrs of Vital Signs/I&O Vital Signs Date Time Temp Pulse Resp B/P B/P Pulse O2 O2 Flow FiO2 Mean Ox Delivery Rate 03/17 0907 58 144/62 03/17 0800 Room Air 03/17 0711 97.9 58 20 144/62 99 Room Air 03/16 2249 98.0 72 20 130/68 98 Room Air 03/16 2153 94 130/68 03/16 1448 98.1 72 18 138/80 98 Room Air Intake & Output 03/17 1600 03/17 0800 03/17 0000 Intake Total 370 850 Output Total Balance 370 850 Intake, IV 130 210 Intake, Oral 240 640 Number 0 Bowel Movements Patient 206 lb Weight Physical Exam General Appearance: Alert, Oriented X3, Cooperative, No Acute Distress HEENT: Atraumatic, PERRLA Neck: Supple, No JVD, No thryomegaly Cardiovascular: Normal S1, Normal S2, Irregular rate Lungs: Clear to Auscultation, Normal Air Movement Abdomen: Normal Bowel Sounds, Soft, No Tenderness Extremities: No Cyanosis, No Tenderness/Swelling Current Medications: Current Medications Sig/Renetta Start time Last Medication Dose Route Stop Time Status Admin Acetaminophen 650 MG Q6P PRN 03/14 0045 AC PO Acetaminophen 1,000 MG Q8P PRN 03/14 0045 AC 03/14 IV 0515 Aspirin 81 MG DAILY 03/14 1000 AC 03/17 PO 0907 Atorvastatin Calcium 20 MG DAILY 03/14 1000 AC 03/17 PO 0907 Atovaquone 750 MG BID 03/16 1306 AC 03/17 PO 1158 Azithromycin 500 MG DAILY 03/17 1000 AC 03/17 PO 0905 Ceftriaxone Sodium 1,000 MG DAILY 03/14 1000 DC 03/16 IV 0917 Doxycycline Hyclate 100 MG Q12 03/15 1000 AC 03/17 Sodium Chloride 100 ML IV 1158 Gabapentin 300 MG DAILY 03/14 1200 AC 03/17 PO 0905 Lactobacillus 1 CAP DAILY 03/17 1242 AC Acidophilus PO Metoprolol Tartrate 25 MG BID 03/16 1000 AC 03/17 PO 0907 Metronidazole 500 MG Q8H 03/14 0600 AC 03/17 N/A 1 UNIT IV 0655 Prednisone 5 MG BID 03/14 1000 AC 03/17 PO 0905 Warfarin Sodium 7.5 MG COUMADIN 1700 ONE 03/16 1700 CAN PO 03/16 1701 Warfarin Sodium 8 MG COUMADIN 1700 ONE 03/16 1700 DC 03/16 PO 03/16 1701 1730 Last 24 Hrs of Lab/Efrain Results Last 24 Hrs of Labs/Mics: Laboratory Tests 03/17/17 0725: Anion Gap 9, Estimated GFR > 60, BUN/Creatinine Ratio 25.6 H, Lactate Dehydrogenase 786 H, PT 36.3 H, INR 3.50 H, CBC w Diff NO MAN DIFF REQ, RBC 3.46 L, MCV 98.7 H, MCH 32.7 H, RDW 15.8 H, MPV 8.7, Gran % 44.9, Lymphocytes % 47.3, Monocytes % 6.3, Eosinophils % 1.2, Basophils % 0.3, Absolute Granulocytes 1.4, Absolute Lymphocytes 1.5, Absolute Monocytes 0.2, Absolute Eosinophils 0, Absolute Basophils 0, PUBS MCHC 33.2 Assessment/Plan Assessment: Assessment Patient is 82-year-old male with past medical history significant for hypertension, Sweets disease, polychondritis, rheumatoid arthritis, osteoarthritis, atrial fibrillation, history of Lyme disease and babesiosis, congestive heart failure, history of DVT on Coumadin, history of hfeHF, came with chief complaint of lethargy, weakness for one day and one week worth of RLL abdominal pain and diarrhea. In the ED, patient was found to be hypotensive to 90/52 with heart rates between 100-110, sating 94% on 2L NC. His temperature was 104.6. EKG was normal and initial troponin was . CXR no evidence of acute disease. WBCs were 3.0, Hb 8.9, platelets 108, INR 3.57, K 2.6, Cr 1.0, Mg 1.0, LA 1.1. Plan Hypotension: Lethargy, weakness, hypotension likely due to dehydration 2/2 diarrhea * Patient responded well with fluid resuscitation in ED- received 3.5 L * Continue rehydration and monitor BP and HR * Hold antihypertensives * Patient has history of HfrEF and clinically edema, monitor for fluid overload in light of this. Last echo done in August 2016 showed EF 50%, mild global hypokinesis, pulm htn. Last nuclear stress test done in November 2016 showed reversible ischemia of apex and apical anterior wall, EF normal. * If persistent hypotension, will give stress dose steroids as patient is on chronic prednisone therapy for his polychondritis 5mg. Diarrhea * CT abdomen with contrast for source of infection and diarrhea showed evidence of severe diverticulosis in the descending and sigmoid colon with signs of early diverticulitis. * Add flagyll to antibiotic regimen. * Guaic negative * Check stool for c. diff, culture, O+P, vibrio, yersenia * Last EGD/colonscopy (2013): nonerosive GERD, extensive diverticula sigmoid to proximal transverse, left colon polyp. * D/c CTX/Flagyl 03/19 in am as per Dr. Larios Fever of Unknown Origin * Patient was septic in ED with tachycardia, fever, leukopenia * Lactic Acid 1.1 now. Trend. * Given history of multiple tick-borne illnesses and pancytopenia, give patient doxycycline. * He has been given ceftax and vancomycin broad spectrum in the ED * CXR and CT chest showed no source of infection * Follow blood cultures and urine cultures * Peripheral smear for babesiosis * UA clear * ID and Hematology consults * WBCs and platelets are decreasing, start azithromycin for empiric coverage of babesiosis Elevated Troponins * Second set troponins positive * To rule out ACS * Continue ASA * Normal EKGs point to demand ischemia due to hypotension * Wait for third set troponins Atrial Fibrillation * In light of this and elevated troponins, will admit to telemetry. * Patient is on coumadin * Currently supratherapeutic at 3.5 * Hold Coumadin for now and INR tomorrow vitals normal runs of vtach metropolol 25 mg bid only for NSVT for sustained vtach can do amiodarone Hypokalemia and Hypomagnesemia and Hypocalcemia * Corrected Ca2+ is normal * Most likely due to diarrhea * Replete with kdur and Mg * BEP to reevaluate Worsening Renal Function * In the ED, Cr was 1.0, now nl. * Now it is 1.7. * CT was performed before these results. We have given 2L NS after this. Trend renal function. Heart Healthy diet DNR/DNI DVT Prophylaxis: on Coumadin Problem List: 1. Anemia 2. Atrial fibrillation 3. Fever 4. Hypokalemia 5. Hypoglycemia 6. Diarrhea Pain Ratin Pain Location: N/A Pain Goal: Remain pain free Pain Plan: N/A Tomorrow's Labs & Rationales: PT/INR to monitor Coumadin CBC for anemia BEP for hypokalemia BETTY BORJADARBYGENESIS 03/17/17 1508: Attending MD Review Statement Attending Statement Attending MD Statement: examined this patient, discuss w/resident/PA/MACHINIST LINOTYPE, agreed w/resident/PA/MACHINIST LINOTYPE, reviewed EMR data (avail) Attending Assessment/Plan: 82M PMH DVT, vitamin B12 deficiency, polychondritis, RA, CHF, and hypertension admitted for weakness, diarrhea, found to have thrombocytopenia, leukopenia, elevated LDH, elevated LFTs, course complicated by runs of NSVT now on b-amadou , being treated empirically for babesia/ehrlichia or other tick-borne illness. Patient has no complaints today. He feels well, has not had a BM this morning, good appetite, stable vitals, labs reviewed. Ectopy with PVCs overnight, no NSVT. Plan - Continue on telemetry - Follow cardiology recommendations - Continue Atovaquone, Azithromycin, Doxycycline - Discontinue Flagyl - Follow up serologies for tick-borne diseases - Continue b-amadou for NSVT - Continue home medications - DVT PPx
--- NOTE | 2017-03-17 13:12 | PN- Infect Dx ---
Subjective Subjective: No fever or chills; feeling better. Fair appetite. Review of Systems Comments: 12 points reviewed as noted, otherwise negative. Objective Last 24 Hrs of Vital Signs/I&O Vital Signs Date Time Temp Pulse Resp B/P B/P Pulse O2 O2 Flow FiO2 Mean Ox Delivery Rate 03/17 0907 58 144/62 03/17 0800 Room Air 03/17 0711 97.9 58 20 144/62 99 Room Air 03/16 2249 98.0 72 20 130/68 98 Room Air 03/16 2153 94 130/68 03/16 1448 98.1 72 18 138/80 98 Room Air Intake & Output 03/17 1600 03/17 0800 03/17 0000 Intake Total 370 850 Output Total Balance 370 850 Intake, IV 130 210 Intake, Oral 240 640 Number 0 Bowel Movements Patient 206 lb Weight Physical Exam Other Physical Findings: General Appearance: no apparent distress, awake, comfortable HEENT: atraumatic, sclera anicteric, no thrush Neck; no FARZAD Heart S1 S2 present, + 2/6 MURPHY Respiratory: normal breath sounds, no wheezing Gastrointestinal: protuberant, bowel sounds hyperactive, no tenderness Extremities: pedal edema Neurologic/Psych: alert, oriented x 3, CN 2-12 grossly normal Skin: mild erythema and hyperpigmentation in BLE; changes consistent w/ stasis dermatitis Results Last 24 Hours of Lab Results: Laboratory Tests 03/17 07 Chemistry Sodium (137 - 145 mmol/L) 139 Potassium (3.5 - 5.1 mmol/L) 4.4 Chloride (98 - 107 mmol/L) 108 H Carbon Dioxide (22 - 30 mmol/L) 22 Anion Gap (5 - 16) 9 BUN (9 - 20 mg/dL) 23 H Creatinine (0.7 - 1.2 mg/dL) 0.9 Estimated GFR (>60 ml/min) > 60 BUN/Creatinine Ratio (7 - 25 %) 25.6 H Lactate Dehydrogenase (313 - 618 U/L) 786 H Coagulation PT (9.4 - 12.5 SEC) 36.3 H INR (0.90 - 1.17) 3.50 H Hematology CBC w Diff NO MAN DIFF REQ WBC (4.8 - 10.8 /CUMM) 3.2 L RBC (4.70 - 6.10 /CUMM) 3.46 L Hgb (14.0 - 18.0 G/DL) 11.3 L Hct (42 - 52 %) 34.2 L MCV (80.0 - 94.0 FL) 98.7 H MCH (27.0 - 31.0 PG) 32.7 H RDW (11.5 - 14.5 %) 15.8 H Plt Count (130 - 400 /CUMM) 86 L MPV (7.4 - 10.4 FL) 8.7 Gran % (42.2 - 75.2 %) 44.9 Lymphocytes % (20.5 - 51.1 %) 47.3 Monocytes % (1.7 - 9.3 %) 6.3 Eosinophils % (0 - 5 %) 1.2 Basophils % (0.0 - 2.0 %) 0.3 Absolute Granulocytes (1.4 - 6.5 /CUMM) 1.4 Absolute Lymphocytes (1.2 - 3.4 /CUMM) 1.5 Absolute Monocytes (0.10 - 0.60 /CUMM) 0.2 Absolute Eosinophils (0.0 - 0.7 /CUMM) 0 Absolute Basophils (0.0 - 0.2 /CUMM) 0 PUBS MCHC (33.0 - 37.0 G/DL) 33.2 Last 24 Hours of Efrain Results: Reviewed. Recent Imaging Studies: Reviewed. Assessment/Plan Impression: 82-year-old male with history of DVT, vitamin B12 deficiency, polychondritis, RA , CHF, and hypertension who presented to the hospital with high fever; clinically improved, although worsening leukopenia/thrombocytopenia/anemia. Eval gastroenteritis/early diverticulitis treated w/ iv CTX/metronidazole D #4/5 (Shiga toxin neg as well as C. difficile assay). Leukopenia/thrombocytropenia likely secondary to infectious etiology; serology for tick-borne disease obtained; Lyme screening test (AAKASH) negative. Anemia (multifactorial); hematocrit trending up ; hem onc following; elevated LDH DESHAUN (pre-renal in nature); kidney function improved. Suggestion: 1. F/u Babesia and Ehrlichia DNA PCR. Continue doxycycline 100 mg iv or po bid D #4/. 2. D/c CTX/Flagyl 03/19 in am. 3. Trend BMP/BMP. 4. Started previous day empiric treatment for babesiosis w/ azithromycin 500 mg po daily/mepron 750 mg po bid pending above and of note Ht trending up.
--- NOTE | 2017-03-17 14:29 | PN- Cardiology ---
Subjective Subjective: No complaints. Denies any further diarrhea. Frequent ventricular ectopy with bigeminy, trigeminy, couplets observed. No further runs of NSVT. Objective Vital Signs and I&Os Vital Signs Date Time Temp Pulse Resp B/P B/P Pulse O2 O2 Flow FiO2 Mean Ox Delivery Rate 03/17 0907 58 144/62 03/17 0800 Room Air 03/17 0711 97.9 58 20 144/62 99 Room Air 03/16 2249 98.0 72 20 130/68 98 Room Air 03/16 2153 94 130/68 03/16 1448 98.1 72 18 138/80 98 Room Air Intake & Output 03/17 1600 03/17 0800 03/17 0000 03/16 1600 03/16 0800 03/16 0000 Intake Total 370 850 970 220 680 Output Total 350 550 250 Balance 370 850 620 -330 430 Intake, IV 130 210 130 100 200 Intake, Oral 240 640 840 120 480 Number 0 0 1 Bowel Movements Output, Urine 350 550 250 Patient 206 lb Weight Physical Exam: Well-developed, overweight elderly male in no acute distress. Vital signs: See above. Neck: No JVD, no bruits. Lungs: Clear to auscultation bilaterally. Heart: S1, S2 with grade 2/6 systolic murmur. Abdomen: Soft, nontender, positive bowel sounds. Extremities: No edema. Current Medications: Current Medications Sig/Renetta Start time Last Medication Dose Route Stop Time Status Admin Acetaminophen 650 MG Q6P PRN 03/14 0045 AC PO Acetaminophen 1,000 MG Q8P PRN 03/14 0045 AC 03/14 IV 0515 Aspirin 81 MG DAILY 03/14 1000 AC 03/17 PO 0907 Atorvastatin Calcium 20 MG DAILY 03/14 1000 AC 03/17 PO 0907 Atovaquone 750 MG BID 03/16 1306 AC 03/17 PO 1158 Azithromycin 500 MG DAILY 03/17 1000 AC 03/17 PO 0905 Ceftriaxone Sodium 1,000 MG DAILY 03/14 1000 DC 03/16 IV 0917 Doxycycline Hyclate 100 MG Q12 03/15 1000 AC 03/17 Sodium Chloride 100 ML IV 1158 Gabapentin 300 MG DAILY 03/14 1200 AC 03/17 PO 0905 Lactobacillus 1 CAP DAILY 03/17 1242 AC Acidophilus PO Metoprolol Tartrate 25 MG BID 03/16 1000 AC 03/17 PO 0907 Metronidazole 500 MG Q8H 03/14 0600 AC 03/17 N/A 1 UNIT IV 0655 Prednisone 5 MG BID 03/14 1000 AC 03/17 PO 0905 Warfarin Sodium 7.5 MG COUMADIN 1700 ONE 03/16 1700 CAN PO 03/16 1701 Warfarin Sodium 8 MG COUMADIN 1700 ONE 03/16 1700 DC 03/16 PO 03/16 1701 1730 Results Last 48 Hrs of Labs/Mics: Laboratory Tests 03/17/17 0725: Anion Gap 9, Estimated GFR > 60, BUN/Creatinine Ratio 25.6 H, Lactate Dehydrogenase 786 H, PT 36.3 H, INR 3.50 H, CBC w Diff NO MAN DIFF REQ, RBC 3.46 L, MCV 98.7 H, MCH 32.7 H, RDW 15.8 H, MPV 8.7, Gran % 44.9, Lymphocytes % 47.3, Monocytes % 6.3, Eosinophils % 1.2, Basophils % 0.3, Absolute Granulocytes 1.4, Absolute Lymphocytes 1.5, Absolute Monocytes 0.2, Absolute Eosinophils 0, Absolute Basophils 0, PUBS MCHC 33.2 03/16/17 0618: Anion Gap 5, Estimated GFR > 60, BUN/Creatinine Ratio 25.6 H, Total Bilirubin 0.3, Direct Bilirubin 0.3, AST 77 H, ALT 59, Alkaline Phosphatase 52, Lactate Dehydrogenase 884 H, Total Protein 5.4 L, Albumin 2.5 L, PT 21.7 H, INR 2.08 H, CBC w Diff MAN DIFF ORDERED, RBC 3.10 L, MCV 99.6 H, MCH 33.0 H, RDW 15.2 H, MPV 8.8, Gran % 48.8, Lymphocytes % 42.7, Monocytes % 6.0, Eosinophils % 1.7 , Basophils % 0.8, Absolute Granulocytes 1.0 L, Segmented Neutrophils 40 L, Band Neutrophils 12 H, Absolute Lymphocytes 0.8 L, Lymphocytes 44, Absolute Monocytes 0.1 L, Eosinophils 3, Absolute Eosinophils 0, Absolute Basophils 0, Metamyelocytes 1, Platelet Estimate DECREASED, Normocytic RBCs VERIFIED, Normochromic RBCs VERIFIED, PUBS MCHC 33.1 03/15/17 2330: Magnesium 1.9 Assessment/Plan Assessment/Plan [id number] w/ hx of obesity, DVT, vitamin B12 deficiency, polychondritis, RA, HTN, HFpEF who presented to the hospital with diarrhea, high fever, hypotension, etc. w/ at least 2 runs of NSVT for which beta amadou therapy was initiated. Overall improved. Today's potassium was acceptable. Follow-up magnesium and maintain at or above 2.0 mEq per liter. Renal function continues to improve. Follow-up ECG. DVT prophylaxis being addressed with anticoagulation w/ supratherapeutic INR today. Continue telemetry? Yes
[2017-03-17 14:58] VITALS: BP 122/70
[2017-03-17 22:36] VITALS: BP 108/70
[2017-03-18 06:39] VITALS: BP 138/68
[2017-03-18 08:26] LABS: ABSOLUTE BASOPHIL COUNT 0 /CUMM (0.0-0.2); ABSOLUTE EOSINOPHIL COUNT 0 /CUMM (0.0-0.7); ABSOLUTE GRANULOCYTE CT 1.8 /CUMM (1.4-6.5); ABSOLUTE LYMPH COUNT 1.7 /CUMM (1.2-3.4); ABSOLUTE MONOCYTE COUNT 0.2 /CUMM (0.10-0.60); BASOPHIL % 0.5 % (0.0-2.0); EOSINOPHIL % 1.3 % (0-5); GRANULOCYTE % 47.3 % (42.2-75.2); MEAN CORPUSCULAR HGB 32.7 PG (27.0-31.0); MEAN CORPUSCULAR VOLUME 99.2 FL (80.0-94.0); MEAN PLATELET VOLUME 8.6 FL (7.4-10.4); PLATELET COUNT 85 /CUMM (130-400); RBC DISTRIBUTION WIDTH 15.6 % (11.5-14.5); RED BLOOD CELL CT 3.12 /CUMM (4.70-6.10)
[2017-03-18 08:45] LABS: PT 61.5 SEC (9.4-12.5)
[2017-03-18 10:02] LABS: WHITE BLOOD CELL COUNT 3.9 /CUMM (4.8-10.8)
--- NOTE | 2017-03-18 10:10 | PN- Housestaff ---
JAYY BORJA,JACOB 03/18/17 1010: Subjective Follow-up For: Diarrhea Lethargy and weakness Fever Complaints: no complaints Tele-Events Since Last Visit: NSR 83-95 Subjective: I have personally seen the patient at bedside he was sitting comfortably in bed in no acute distress and he reports having no complaints Review of Systems Constitutional: Denies: no symptoms. Cardiovascular: Denies: no symptoms. Respiratory: Denies: no symptoms. Gastrointestinal: Denies: no symptoms. Neurological/Psychological: Reports: numbness, paresthesia. Objective Last 24 Hrs of Vital Signs/I&O Vital Signs Date Time Temp Pulse Resp B/P B/P Pulse O2 O2 Flow FiO2 Mean Ox Delivery Rate 03/18 0753 66 138/68 03/18 0639 97.8 66 18 138/68 98 Room Air 03/18 0000 Room Air 03/17 2236 98.0 71 20 108/70 99 Room Air 03/17 2213 70 108/70 03/17 1458 97.6 65 20 122/70 98 Room Air Intake & Output 03/18 1600 03/18 0800 03/18 0000 Intake Total 370 730 Output Total 830 Balance -460 730 Intake, IV 130 130 Intake, Oral 240 600 Output, Urine 830 Physical Exam General Appearance: Alert, Oriented X3, Cooperative, No Acute Distress Skin: No Rashes, No Breakdown, No Significant Lesion Skin Temp/Moisture Exam: Warm/Dry HEENT: Atraumatic, PERRLA, EOMI, Mucous Membr. moist/pink Neck: Supple, No JVD, No thryomegaly Cardiovascular: Regular Rate, Normal S1, Normal S2, No Murmurs Lungs: Clear to Auscultation, Normal Air Movement Abdomen: Normal Bowel Sounds, Soft Assessment/Plan Assessment: Assessment Patient is 82-year-old male with past medical history significant for hypertension, Sweets disease, polychondritis, rheumatoid arthritis, osteoarthritis, atrial fibrillation, history of Lyme disease and babesiosis, congestive heart failure, history of DVT on Coumadin, history of hfeHF, came with chief complaint of lethargy, weakness for one day and one week worth of RLL abdominal pain and diarrhea. In the ED, patient was found to be hypotensive to 90/52 with heart rates between 100-110, sating 94% on 2L NC. His temperature was 104.6. EKG was normal and initial troponin was . CXR no evidence of acute disease. WBCs were 3.0, Hb 8.9, platelets 108, INR 3.57, K 2.6, Cr 1.0, Mg 1.0, LA 1.1. Plan Hypotension: Lethargy, weakness, hypotension likely due to dehydration 2/2 diarrhea * Patient responded well with fluid resuscitation in ED- received 3.5 L * Continue rehydration and monitor BP and HR * Hold antihypertensives * Patient has history of HfrEF and clinically edema, monitor for fluid overload in light of this. Last echo done in August 2016 showed EF 50%, mild global hypokinesis, pulm htn. Last nuclear stress test done in November 2016 showed reversible ischemia of apex and apical anterior wall, EF normal. * If persistent hypotension, will give stress dose steroids as patient is on chronic prednisone therapy for his polychondritis 5mg. Diarrhea * CT abdomen with contrast for source of infection and diarrhea showed evidence of severe diverticulosis in the descending and sigmoid colon with signs of early diverticulitis. * Continue flagyll (DAY 2) to antibiotic regimen. * Guaic negative * Check stool for c. diff, culture, O+P, vibrio, yersenia * Last EGD/colonscopy (2013): nonerosive GERD, extensive diverticula sigmoid to proximal transverse, left colon polyp. * WILL D/c CTX/Flagyl 03/19 in am as per Dr. Larios Fever of Unknown Origin * Patient was septic in ED with tachycardia, fever, leukopenia * Lactic Acid now is normal . * Given history of multiple tick-borne illnesses and pancytopenia, give patient doxycycline. * He has been given ceftax and vancomycin broad spectrum in the ED * CXR and CT chest showed no source of infection * stool culture were negative * C. difficile stool was negative * Peripheral smear for babesiosis * UA clear * ID and Hematology ON BOARD * WBCs and platelets are decreasing, start azithromycin for empiric coverage of babesiosis Elevated Troponins * troponins is trending down * Normal EKG and a trending down troponin ruled out ACS * Continue ASA * Normal EKGs point to demand ischemia due to hypotension Atrial Fibrillation * In light of this and elevated troponins, will admit to telemetry. * Patient is on coumadin * Currently supratherapeutic at 5.96 * Hold Coumadin for now and INR tomorrow * vitals normal * runs of vtach * metropolol 25 mg bid only for NSVT * for sustained vtach can do amiodarone Hypokalemia and Hypomagnesemia and Hypocalcemia * Improved potassium today 4.5 * Corrected Ca2+ is normal * Most likely due to diarrhea * Continue to Replete with kdur and Mg * BEP to reevaluate Worsening Renal Function * Improved. * Now it is 0.8 * We'll continue to trend renal functions Heart Healthy diet DNR/DNI DVT Prophylaxis: on Coumadin Problem List: 1. Anemia 2. Hypokalemia 3. Hypoglycemia 4. Diarrhea 5. Atrial fibrillation 6. Fever Pain Ratin Pain Location: N/A Pain Goal: Remain pain free Pain Plan: Tylenol Tomorrow's Labs & Rationales: CC INR BEP DVT/Prophylaxis: pharmacological SKYLAR HERNÁNDEZ MD 03/18/17 1340: Attending MD Review Statement Attending Statement Attending MD Statement: examined this patient, discuss w/resident/PA/POLE CLASSIFIER, agreed w/resident/PA/POLE CLASSIFIER, reviewed EMR data (avail) Attending Assessment/Plan: 82M PMH DVT, vitamin B12 deficiency, polychondritis, RA, CHF, and hypertension admitted for weakness, diarrhea, found to have thrombocytopenia, leukopenia, elevated LDH, elevated LFTs, course complicated by runs of NSVT now on b-amadou , being treated empirically for babesia/ehrlichia or other tick-borne illness. Patient has no complaints today. He feels well, has not had a BM this morning, good appetite, stable vitals, labs reviewed. Ectopy with PVCs overnight, no NSVT. Plan - Continue on telemetry - Follow cardiology recommendations - Continue Atovaquone, Azithromycin, Doxycycline - Discontinue Flagyl - Follow up serologies for tick-borne diseases - Continue b-amadou for NSVT - Continue home medications - DVT PPx
--- NOTE | 2017-03-18 11:45 | PN- Infect Dx ---
Subjective Subjective: No fever or chills. No n/v. Diarrhea subsided; one episode of loose BM this am. Review of Systems Comments: 12 points reviewed as noted, otherwise negative. Objective Last 24 Hrs of Vital Signs/I&O Vital Signs Date Time Temp Pulse Resp B/P B/P Pulse O2 O2 Flow FiO2 Mean Ox Delivery Rate 03/18 0753 66 138/68 03/18 0639 97.8 66 18 138/68 98 Room Air 03/18 0000 Room Air 03/17 2236 98.0 71 20 108/70 99 Room Air 03/17 2213 70 108/70 03/17 1458 97.6 65 20 122/70 98 Room Air Intake & Output 03/18 1600 03/18 0800 03/18 0000 Intake Total 370 730 Output Total 830 Balance -460 730 Intake, IV 130 130 Intake, Oral 240 600 Output, Urine 830 Physical Exam Other Physical Findings: General Appearance: no apparent distress, awake, comfortable HEENT: atraumatic, sclera anicteric, no thrush Neck; no FARZAD Heart S1 S2 present, + 2/6 MURPHY Respiratory: normal breath sounds, no wheezing Gastrointestinal: protuberant, bowel sounds hyperactive, no tenderness Extremities: pedal edema Neurologic/Psych: alert, oriented x 3, CN 2-12 grossly normal Skin: mild erythema and hyperpigmentation in BLE; changes consistent w/ stasis dermatitis Results Last 24 Hours of Lab Results: Laboratory Tests 03/18 0600 Chemistry Sodium (137 - 145 mmol/L) 140 Potassium (3.5 - 5.1 mmol/L) 4.5 Chloride (98 - 107 mmol/L) 110 H Carbon Dioxide (22 - 30 mmol/L) 22 Anion Gap (5 - 16) 8 BUN (9 - 20 mg/dL) 24 H Creatinine (0.7 - 1.2 mg/dL) 0.8 Estimated GFR (>60 ml/min) > 60 BUN/Creatinine Ratio (7 - 25 %) 30.0 H Coagulation PT (9.4 - 12.5 SEC) 61.5 *H INR (0.90 - 1.17) 5.96 *H Hematology CBC w Diff NO MAN DIFF REQ WBC (4.8 - 10.8 /CUMM) 3.9 L RBC (4.70 - 6.10 /CUMM) 3.12 L Hgb (14.0 - 18.0 G/DL) 10.2 L Hct (42 - 52 %) 31.0 L MCV (80.0 - 94.0 FL) 99.2 H MCH (27.0 - 31.0 PG) 32.7 H RDW (11.5 - 14.5 %) 15.6 H Plt Count (130 - 400 /CUMM) 85 L MPV (7.4 - 10.4 FL) 8.6 Gran % (42.2 - 75.2 %) 47.3 Lymphocytes % (20.5 - 51.1 %) 44.5 Monocytes % (1.7 - 9.3 %) 6.4 Eosinophils % (0 - 5 %) 1.3 Basophils % (0.0 - 2.0 %) 0.5 Absolute Granulocytes (1.4 - 6.5 /CUMM) 1.8 Absolute Lymphocytes (1.2 - 3.4 /CUMM) 1.7 Absolute Monocytes (0.10 - 0.60 /CUMM) 0.2 Absolute Eosinophils (0.0 - 0.7 /CUMM) 0 Absolute Basophils (0.0 - 0.2 /CUMM) 0 PUBS MCHC (33.0 - 37.0 G/DL) 33.0 Last 24 Hours of Efrain Results: Reviewed. Recent Imaging Studies: Reviewed. Assessment/Plan Impression: 82-year-old male with history of DVT, vitamin B12 deficiency, polychondritis, RA , CHF, and hypertension who presented to the hospital with high fever; clinically improved, although worsening leukopenia/thrombocytopenia/anemia. Eval gastroenteritis/early diverticulitis treated w/ iv CTX/metronidazole D #5/5 (Shiga toxin neg as well as C. difficile assay). Leukopenia/thrombocytropenia likely secondary to infectious etiology; serology for tick-borne disease obtained; Lyme screening test (AAKASH) negative. Babesia DNA PCR positive. E. chaffensis PCR negative. Anemia (multifactorial)/elevated LDH DESHAUN (pre-renal in nature); kidney function improved. Suggestion: 1. Obtain Anaplasma serology in am; continue doxycycline 100 mg iv or po bid D # 5/14. Continue D #3 azithromycin 500 mg po daily/mepron 750 mg po bid. F/U Babesia DNA PCR as OP after completing treatment to r/o protracted course or relapsing disease. 2. D/c CTX/Flagyl. 3. Trend BMP/BMP.
[2017-03-18 14:33] VITALS: BP 136/70
--- NOTE | 2017-03-18 15:08 | PN- Cardiology ---
Subjective Subjective: No complaints. Denies any chest discomfort, palpitations, shortness of breath, etc. On telemetry: Frequent ventricular ectopy with couplets, bigeminy, trigeminy, etc. Objective Vital Signs and I&Os Vital Signs Date Time Temp Pulse Resp B/P B/P Pulse O2 O2 Flow FiO2 Mean Ox Delivery Rate 03/18 1433 99.3 74 20 136/70 97 03/18 0800 98 Room Air 03/18 0753 66 138/68 03/18 0639 97.8 66 18 138/68 98 Room Air 03/18 0000 Room Air 03/17 2236 98.0 71 20 108/70 99 Room Air 03/17 2213 70 108/70 Intake & Output 03/18 1600 03/18 0800 03/18 0000 03/17 1600 03/17 0800 03/17 0000 Intake Total 370 730 700 370 850 Output Total 830 Balance -460 730 700 370 850 Intake, IV 130 130 300 130 210 Intake, Oral 240 600 400 240 640 Number 0 Bowel Movements Output, Urine 830 Patient 206 lb Weight Physical Exam: Well-developed, overweight elderly male in no acute distress. Vital signs: See above. Neck: No JVD, no bruits. Lungs: Clear to auscultation bilaterally. Heart: S1, S2 with grade 2/6 systolic murmur. Abdomen: Soft, nontender, positive bowel sounds. Extremities: No edema. Current Medications: Current Medications Sig/Renetta Start time Last Medication Dose Route Stop Time Status Admin Acetaminophen 650 MG Q6P PRN 03/14 0045 AC PO Acetaminophen 1,000 MG Q8P PRN 03/14 0045 AC 03/14 IV 0515 Aspirin 81 MG DAILY 03/14 1000 AC 03/18 PO 0754 Atorvastatin Calcium 20 MG DAILY 03/14 1000 AC 03/18 PO 0753 Atovaquone 750 MG BID 03/16 1306 AC 03/18 PO 0751 Azithromycin 500 MG DAILY 03/17 1000 AC 03/18 PO 0752 Ceftriaxone Sodium 1,000 MG DAILY 03/18 1000 DC 03/18 IV 03/19 0700 0749 Doxycycline Hyclate 100 MG Q12 03/15 1000 AC 03/18 Sodium Chloride 100 ML IV 0749 Gabapentin 300 MG DAILY 03/14 1200 AC 03/18 PO 0750 Lactobacillus 1 CAP DAILY 03/17 1242 AC 03/18 Acidophilus PO 0751 Metoprolol Tartrate 25 MG BID 03/16 1000 AC 03/18 PO 0753 Metronidazole 500 MG Q8H 03/17 2300 DC 03/18 N/A 1 UNIT IV 03/19 225 06 Metronidazole 500 MG Q8H 03/14 0600 DC 03/17 N/A 1 UNIT IV 1503 Prednisone 5 MG BID 03/14 1000 AC 03/18 PO 0752 Results Last 48 Hrs of Labs/Mics: Laboratory Tests 03/18/17 0600: Anion Gap 8, Estimated GFR > 60, BUN/Creatinine Ratio 30.0 H, PT 61.5 *H, INR 5.96 *H, CBC w Diff NO MAN DIFF REQ, RBC 3.12 L, MCV 99.2 H, MCH 32.7 H, RDW 15.6 H, MPV 8.6, Gran % 47.3, Lymphocytes % 44.5, Monocytes % 6.4, Eosinophils % 1.3, Basophils % 0.5, Absolute Granulocytes 1.8, Absolute Lymphocytes 1.7, Absolute Monocytes 0.2, Absolute Eosinophils 0, Absolute Basophils 0, PUBS MCHC 33.0 03/17/17 0725: Anion Gap 9, Estimated GFR > 60, BUN/Creatinine Ratio 25.6 H, Lactate Dehydrogenase 786 H, PT 36.3 H, INR 3.50 H, CBC w Diff NO MAN DIFF REQ, RBC 3.46 L, MCV 98.7 H, MCH 32.7 H, RDW 15.8 H, MPV 8.7, Gran % 44.9, Lymphocytes % 47.3, Monocytes % 6.3, Eosinophils % 1.2, Basophils % 0.3, Absolute Granulocytes 1.4, Absolute Lymphocytes 1.5, Absolute Monocytes 0.2, Absolute Eosinophils 0, Absolute Basophils 0, PUBS MCHC 33.2 Assessment/Plan Assessment/Plan [id number] w/ hx of obesity, DVT, vitamin B12 deficiency, polychondritis, RA, HTN, HFpEF who presented w/ diarrhea, high fever, hypotension, etc. w/ at least 2 runs of NSVT for which beta amadou therapy was initiated. Overall improved. Today's potassium was acceptable. Follow-up magnesium and maintain at or above 2.0 mEq per liter. Follow-up calcium, albumin, & phosphorus. Creatinine continues to improve, but BUN up slightly today. DVT prophylaxis being addressed with anticoagulation w/ supratherapeutic INR @ 5.96 today. Follow-up LFTs. Continue telemetry? Yes
[2017-03-18 22:11] VITALS: BP 128/80
[2017-03-19 05:32] VITALS: BP 130/80
[2017-03-19 08:29] LABS: ABSOLUTE BASOPHIL COUNT 0 /CUMM (0.0-0.2); ABSOLUTE EOSINOPHIL COUNT 0.1 /CUMM (0.0-0.7); ABSOLUTE GRANULOCYTE CT 1.8 /CUMM (1.4-6.5); ABSOLUTE LYMPH COUNT 2.5 /CUMM (1.2-3.4); ABSOLUTE MONOCYTE COUNT 0.3 /CUMM (0.10-0.60); BASOPHIL % 0.6 % (0.0-2.0); EOSINOPHIL % 1.5 % (0-5); GRANULOCYTE % 38.7 % (42.2-75.2); HEMATOCRIT 32.3 % (42-52); MEAN CORPUSCULAR HGB 32.9 PG (27.0-31.0); MEAN CORPUSCULAR HGB CONC 33.1 G/DL (33.0-37.0); MEAN CORPUSCULAR VOLUME 99.3 FL (80.0-94.0); MEAN PLATELET VOLUME 8.5 FL (7.4-10.4); PLATELET COUNT 99 /CUMM (130-400); RBC DISTRIBUTION WIDTH 15.6 % (11.5-14.5); RED BLOOD CELL CT 3.25 /CUMM (4.70-6.10); WHITE BLOOD CELL COUNT 4.7 /CUMM (4.8-10.8)
--- NOTE | 2017-03-19 08:51 | PN- Student ---
Subjective Subjective: Mr. Anne states he is feeling well today. He continues to have loose stools (about 3 times per day). He denies any other complaints at this time. Objective Objective: Vitals T: 97.9 , HR 75, BP 130/80, RR 18, O2 Sat 97% on room air Physical Exam General: Patient is sitting on bedside, dressed in hospital gown, in no acute distress CV: Irregular rhythm, Systolic murmur noted 2/6 Lungs: Clear to auscultation bilaterally posteriorly Abdomen: Left upper quadrant tenderness on palpation Extremities: 1+ pitting edema. No cyanosis or clubbing Overnight Tele Monitor NSR 67-92 with some PCV's Pertinent Labs BUN 22H, Creatinine 0.9 WBC 4.7 L, RBC 3.25L, Hgb 10.7L, Hct 30.3L, Plt 99L PT 61.5, INR 5.96 Results Results: Laboratory Tests 03/19/17 0722: Anion Gap 8, Estimated GFR > 60, BUN/Creatinine Ratio 24.4, PT Pending, INR Pending, CBC w Diff NO MAN DIFF REQ, RBC 3.25 L, MCV 99.3 H, MCH 32.9 H, RDW 15.6 H, MPV 8.5, Gran % 38.7 L, Lymphocytes % 53.2 H, Monocytes % 6.0, Eosinophils % 1.5, Basophils % 0.6, Absolute Granulocytes 1.8, Absolute Lymphocytes 2.5, Absolute Monocytes 0.3, Absolute Eosinophils 0.1, Absolute Basophils 0, PUBS MCHC 33.1, A.phagocytophil DNA PCR Pending 03/18/17 0600: Anion Gap 8, Estimated GFR > 60, BUN/Creatinine Ratio 30.0 H, PT 61.5 *H, INR 5.96 *H, CBC w Diff NO MAN DIFF REQ, RBC 3.12 L, MCV 99.2 H, MCH 32.7 H, RDW 15.6 H, MPV 8.6, Gran % 47.3, Lymphocytes % 44.5, Monocytes % 6.4, Eosinophils % 1.3, Basophils % 0.5, Absolute Granulocytes 1.8, Absolute Lymphocytes 1.7, Absolute Monocytes 0.2, Absolute Eosinophils 0, Absolute Basophils 0, PUBS MCHC 33.0 03/17/17 0725: Anion Gap 9, Estimated GFR > 60, BUN/Creatinine Ratio 25.6 H, Lactate Dehydrogenase 786 H, PT 36.3 H, INR 3.50 H, CBC w Diff NO MAN DIFF REQ, RBC 3.46 L, MCV 98.7 H, MCH 32.7 H, RDW 15.8 H, MPV 8.7, Gran % 44.9, Lymphocytes % 47.3, Monocytes % 6.3, Eosinophils % 1.2, Basophils % 0.3, Absolute Granulocytes 1.4, Absolute Lymphocytes 1.5, Absolute Monocytes 0.2, Absolute Eosinophils 0, Absolute Basophils 0, PUBS MCHC 33.2 Microbiology 03/18 181 STOOL: Clostridium difficile Toxin A & B - COLB Assessment/Plan Assessment: Mr. Anne is an 82-year-old male with past medical history significant for polychondritis, osteoarthritis, rheumatoid arthritis, hypertension, Stage 1 diastolic heart failure, afib, history of Lyme disease and babesiosis, and history of DVT on Coumadin, who presented to [place] ED on 03/13 with chief complaint of weakness, lethargy, and diarrhea for one day. He was foud to be hypotensive at 90/52 with elevated heart rate at 100-110. Tmax was 104.6 F. On admission patient reported removing 3 ticks 2 weeks prior. Today patient is feeling well. He still complains of a few loose stools per day and LUQ pain on palpation but is afebrile, no elevated white count and no other associated symptoms. Problem List 1. Diarrhea 2. Hypotension, lethargy, weakness 3. Fever of unknown origin 4. Elevated Troponins 5. Atrial Fibrillation 6. Hypokalemia, Hypomagnesium, Hypocalcemia 7. Pancytopenia 8. History of Polychondritis Plan: 1. Diarrhea * ID and hematology on board. * CT of abdomen on 03/13 showed mod/severe diverticulosis in descending sigmoid colon and subtle pericolic fat stranding around diverticulitis which may suggest mild diverticulitis. * Started on Ceftriaxone and Metronidazole which was discontinued 03/18 per ID * Stool culture for C.Diff, Yersenia, Vibrio, Salmonella, Campylobacter, and Shiga toxin 1 and 2 all negative. * Blood cultures negative. * C.Diff toxin repeated and again negative. Follow up with if negative follow up C. Diff PCR 2. Hypotension, lethargy, weakness - Resolved * BP today 130/80 3. Fever of unknown origin - Resolved * T 97.9F * Possibly related to tick borne illness 4. Elevated Troponins - Resolved * Last troponin on 03/14 0.13 * Normal EKG's ruled out ACS * Most likely due to demand ischemia 5. Atrial Fibrillation * Patient on Coumadin 8mg * Supratherapeutic INR today at 5.96 -Hold Coumadin today - One dose Vitamin K 5mg SQ given - INR in AM - Fecal occult blood ordered * Patient had 2 runs of Non-sustained Vtach on 03/15 and 03/07 - Started on Metoprolol 25BID. No further events * Cardiology suggests increasing Metoprolol to 50mg BID to further supress patients ectopy. 6. Hypokalemia (Resolved), Hypomagnesium (resolved), Hypocalcemia * Magnesium 1.9 on 03/15 * Potassium has been within normal range since 03/14. Last value on 03/19 4.2 * Calcium 8.8 on 03/19 7. Pancytopenia/ History of Lyme Disease and Babesiosis * ID and Hematology on board * Most likely related to tick born illness * Lyme Cindy positive, Antibody negative * Babesia PCR positive * Erlichia PRC negative * Anaplasma PCR pending * On Doxycycline 100mg since 03/15 for Lyme. Anaplasma coverage. Day 6 - As per ID continue Doxycycline to complete 10d * Started Mepron and Azithromycin 25BID on 03/07 for Babesia coverage. Day 3 - As per ID continue Axithromycin and Mepron to complete 10 days * Counts have been improving but are still low. Today WBC 4.7, RBC 3.25, Plt 99 8. History of Polychondritis * Continue home prednisone 5mg daily Possible discharge tomorrow. Patient has been changed to oral antibiotics. Need to get INR within therapeutic range. Heart Healthy Diet Code Statue: DNR/DNI DVT Prophylaxis: on Coumadin * UA clear * ID and Hematology ON BOARD * WBCs and platelets are decreasing, start azithromycin for empiric coverage of babesiosis Elevated Troponins * troponins is trending down * Normal EKG and a trending down troponin ruled out ACS * Continue ASA * Normal EKGs point to demand ischemia due to hypotension Atrial Fibrillation * In light of this and elevated troponins, will admit to telemetry. * Patient is on coumadin * Currently supratherapeutic at 5.96 * Hold Coumadin for now and INR tomorrow * vitals normal * runs of vtach * metropolol 25 mg bid only for NSVT * for sustained vtach can do amiodarone Hypokalemia and Hypomagnesemia and Hypocalcemia * Improved potassium today 4.5 * Corrected Ca2+ is normal * Most likely due to diarrhea * Continue to Replete with kdur and Mg * BEP to reevaluate Worsening Renal Function * Improved. * Now it is 0.8 * We'll continue to trend renal functions Heart Healthy diet DNR/DNI DVT Prophylaxis: on Coumadin
[2017-03-19 09:02] LABS: PT 63.2 SEC (9.4-12.5)
--- NOTE | 2017-03-19 09:08 | PN- Hematology ---
Subjective Subjective: He has no new symptoms. He denies any new pain. He still has some diarrhea. He states he had 4 episodes yesterday. Review of Systems: Constitutional: Denies: chills, fever, weakness. Cardiovascular: Denies: chest pain. Gastrointestinal: Reports: diarrhea. Musculoskeletal: Denies: back pain. Neurological/Psychological: Denies: confusion, depressed. Hematologic/Endocrine: Denies: bleeding. All Other Systems: Reviewed and Negative Objective Vital Signs and I&Os Vital Signs Date Time Temp Pulse Resp B/P B/P Pulse O2 O2 Flow FiO2 Mean Ox Delivery Rate 03/19 0850 75 130/80 03/19 0532 97.9 75 18 130/80 97 Room Air 03/18 2211 97.7 81 18 128/80 100 Room Air 03/18 2153 81 128/80 03/18 1433 99.3 74 20 136/70 97 Intake & Output 03/19 1600 03/19 0800 03/19 0000 03/18 1600 03/18 0800 03/18 0000 Intake Total 100 730 600 370 730 Output Total 400 650 500 830 Balance -300 80 100 -460 730 Intake, IV 130 130 130 Intake, Oral 100 600 600 240 600 Number 1 Bowel Movements Output, Urine 400 650 500 830 Physical Exam: General Appearance: no apparent distress, awake, comfortable Head: atraumatic Ears, Nose, Throat: normal pharynx, on 2L NC Respiratory: normal breath sounds, chest non-tender, no respiratory distress, quiet respiration Gastrointestinal: normal bowel sounds, no organomegaly, tenderness Extremities: normal inspection, bilateral upper and lower extremity edema Neurologic/Psych: alert, oriented x 3 Skin: mild erythema and hyperpigmentation in BLE; bruising in bilateral upper extremities; 1+edema in extremities. Current Medications: Current Medications Sig/Renetta Start time Last Medication Dose Route Stop Time Status Admin Acetaminophen 650 MG Q6P PRN 03/14 0045 AC PO Acetaminophen 1,000 MG Q8P PRN 03/14 0045 AC 03/14 IV 0515 Aspirin 81 MG DAILY 03/14 1000 AC 03/19 PO 0849 Atorvastatin Calcium 20 MG DAILY 03/14 1000 AC 03/19 PO 0849 Atovaquone 750 MG BID 03/16 1306 AC 03/19 PO 0848 Azithromycin 500 MG DAILY 03/17 1000 AC 03/19 PO 0850 Ceftriaxone Sodium 1,000 MG DAILY 03/18 1000 DC 03/18 IV 03/19 0700 0749 Doxycycline Hyclate 100 MG Q12 03/15 1000 AC 03/19 Sodium Chloride 100 ML IV 0848 Gabapentin 300 MG DAILY 03/14 1200 AC 03/19 PO 0849 Lactobacillus 1 CAP DAILY 03/17 1242 AC 03/19 Acidophilus PO 0850 Metoprolol Tartrate 25 MG BID 03/16 1000 AC 03/19 PO 0850 Metronidazole 500 MG Q8H 03/17 2300 DC 03/18 N/A 1 UNIT IV 03/199 0626 Prednisone 5 MG BID 03/14 1000 AC 03/19 PO 0849 Results Last 24 Hours of Lab Results: Laboratory Tests 03/19 722 Chemistry Sodium (137 - 145 mmol/L) 140 Potassium (3.5 - 5.1 mmol/L) 4.2 Chloride (98 - 107 mmol/L) 109 H Carbon Dioxide (22 - 30 mmol/L) 23 Anion Gap (5 - 16) 8 BUN (9 - 20 mg/dL) 22 H Creatinine (0.7 - 1.2 mg/dL) 0.9 Estimated GFR (>60 ml/min) > 60 BUN/Creatinine Ratio (7 - 25 %) 24.4 Coagulation PT (9.4 - 12.5 SEC) 63.2 *H INR (0.90 - 1.17) 6.13 *H Hematology CBC w Diff NO MAN DIFF REQ WBC (4.8 - 10.8 /CUMM) 4.7 L RBC (4.70 - 6.10 /CUMM) 3.25 L Hgb (14.0 - 18.0 G/DL) 10.7 L Hct (42 - 52 %) 32.3 L MCV (80.0 - 94.0 FL) 99.3 H MCH (27.0 - 31.0 PG) 32.9 H RDW (11.5 - 14.5 %) 15.6 H Plt Count (130 - 400 /CUMM) 99 L MPV (7.4 - 10.4 FL) 8.5 Gran % (42.2 - 75.2 %) 38.7 L Lymphocytes % (20.5 - 51.1 %) 53.2 H Monocytes % (1.7 - 9.3 %) 6.0 Eosinophils % (0 - 5 %) 1.5 Basophils % (0.0 - 2.0 %) 0.6 Absolute Granulocytes (1.4 - 6.5 /CUMM) 1.8 Absolute Lymphocytes (1.2 - 3.4 /CUMM) 2.5 Absolute Monocytes (0.10 - 0.60 /CUMM) 0.3 Absolute Eosinophils (0.0 - 0.7 /CUMM) 0.1 Absolute Basophils (0.0 - 0.2 /CUMM) 0 PUBS MCHC (33.0 - 37.0 G/DL) 33.1 Serology A.phagocytophil DNA PCR Pending Assessment/Plan Assessment/Recommendations: Mr. Anne is an 82-year-old male with history of DVT, vitamin B12 deficiency, polychondritis, RA, CHF, and hypertension who presented to the hosptial with 1 day of fatigue, lethargy, and diarrhea. He presented with symptoms concerning for gastroenteritis/diverticulitis. Previous blood work 4 weeks ago was normal. Pancytopenia may be secondary to infectious etiology. He has had exposure to ticks and tick bites. He has previous babesiosis. This is concerning for a tick-borne disease. Babesia PCR is positive. Anaplasma is pending. He is improving on antibiotics. Counts are normalizing. Blood cultures have been negative to date. Recommendations: 1. Follow up complete tick-borne disease evaluation 2. Continue antibiotics as per ID 3. Monitor CBC daily Please call [phone] with any questions or concerns Problem List: 1. Pancytopenia 2. Tick-borne disease
--- NOTE | 2017-03-19 11:21 | PN- Infect Dx ---
Subjective Subjective: Afebrile on steroids. He feels improved though he still notes some diarrhea. Objective Last 24 Hrs of Vital Signs/I&O Vital Signs Date Time Temp Pulse Resp B/P B/P Pulse O2 O2 Flow FiO2 Mean Ox Delivery Rate 03/19 0850 75 130/80 03/19 0532 97.9 75 18 130/80 97 Room Air 03/18 2211 97.7 81 18 128/80 100 Room Air 03/18 2153 81 128/80 03/18 1433 99.3 74 20 136/70 97 Intake & Output 03/19 1600 03/19 0800 03/19 0000 Intake Total 100 730 Output Total 400 650 Balance -300 80 Intake, IV 130 Intake, Oral 100 600 Number 1 Bowel Movements Output, Urine 400 650 Physical Exam Other Physical Findings: He appears comfortable in no acute distress Lungs are clear Heart regular rhythm with no murmur Abdomen is soft, nontender, with positive bowel sounds Extremities no cyanosis, clubbing or edema Results Last 24 Hours of Lab Results: Laboratory Tests 03/19 0722 Chemistry Sodium (137 - 145 mmol/L) 140 Potassium (3.5 - 5.1 mmol/L) 4.2 Chloride (98 - 107 mmol/L) 109 H Carbon Dioxide (22 - 30 mmol/L) 23 Anion Gap (5 - 16) 8 BUN (9 - 20 mg/dL) 22 H Creatinine (0.7 - 1.2 mg/dL) 0.9 Estimated GFR (>60 ml/min) > 60 BUN/Creatinine Ratio (7 - 25 %) 24.4 Coagulation PT (9.4 - 12.5 SEC) 63.2 *H INR (0.90 - 1.17) 6.13 *H Hematology CBC w Diff NO MAN DIFF REQ WBC (4.8 - 10.8 /CUMM) 4.7 L RBC (4.70 - 6.10 /CUMM) 3.25 L Hgb (14.0 - 18.0 G/DL) 10.7 L Hct (42 - 52 %) 32.3 L MCV (80.0 - 94.0 FL) 99.3 H MCH (27.0 - 31.0 PG) 32.9 H RDW (11.5 - 14.5 %) 15.6 H Plt Count (130 - 400 /CUMM) 99 L MPV (7.4 - 10.4 FL) 8.5 Gran % (42.2 - 75.2 %) 38.7 L Lymphocytes % (20.5 - 51.1 %) 53.2 H Monocytes % (1.7 - 9.3 %) 6.0 Eosinophils % (0 - 5 %) 1.5 Basophils % (0.0 - 2.0 %) 0.6 Absolute Granulocytes (1.4 - 6.5 /CUMM) 1.8 Absolute Lymphocytes (1.2 - 3.4 /CUMM) 2.5 Absolute Monocytes (0.10 - 0.60 /CUMM) 0.3 Absolute Eosinophils (0.0 - 0.7 /CUMM) 0.1 Absolute Basophils (0.0 - 0.2 /CUMM) 0 PUBS MCHC (33.0 - 37.0 G/DL) 33.1 Serology A.phagocytophil DNA PCR Pending Last 24 Hours of Efrain Results: No recent cultures Assessment/Plan Impression: 82-year-old male with a history of DVT, vitamin B12 deficiency, polychondritis, RA, CHF, and hypertension who presented to the hospital with high fever and pancytopenia and was found to have a positive PCR for Babesia. He has defervesced and CBC is normalizing on Azithromycin and Atovaquone Day 3 for Babesiosis and Doxycycline Day 6 for possible coinfection with Lyme or Anaplasma. Suggestion: 1. Follow-up Anaplasma PCR 2. Continue Azithromycin and Atovaquone for 10 days 3. Continue Doxycyline for 10 days
--- NOTE | 2017-03-19 12:50 | PN- Cardiology ---
Subjective Subjective: The patient is feeling better. He is having less diarrhea. He remains in sinus rhythm on the monitor with some PVCs and PACs. He has not had any further runs of nonsustained ventricular tachycardia. He is currently on Lopressor 25 mg twice daily. Objective Vital Signs and I&Os Vital Signs Date Time Temp Pulse Resp B/P B/P Pulse O2 O2 Flow FiO2 Mean Ox Delivery Rate 03/19 0850 75 130/80 03/19 0532 97.9 75 18 130/80 97 Room Air 03/18 2211 97.7 81 18 128/80 100 Room Air 03/18 2153 81 128/80 03/18 1433 99.3 74 20 136/70 97 Intake & Output 03/19 1600 03/19 0800 03/19 0000 03/18 1600 03/18 0800 03/18 0000 Intake Total 100 730 600 370 730 Output Total 400 650 500 830 Balance -300 80 100 -460 730 Intake, IV 130 130 130 Intake, Oral 100 600 600 240 600 Number 1 Bowel Movements Output, Urine 400 650 500 830 Physical Exam: He is in no distress. He is afebrile. HEENT exam is normal Chest is clear Heart reveals regular rhythm with systolic ejection murmur at the base Extremities trace edema Current Medications: Current Medications Sig/Renetta Start time Last Medication Dose Route Stop Time Status Admin Acetaminophen 650 MG Q6P PRN 03/14 0045 AC PO Acetaminophen 1,000 MG Q8P PRN 03/14 0045 AC 03/14 IV 0515 Aspirin 81 MG DAILY 03/14 1000 AC 03/19 PO 0849 Atorvastatin Calcium 20 MG DAILY 03/14 1000 AC 03/19 PO 0849 Atovaquone 750 MG BID 03/16 1306 AC 03/19 PO 0848 Azithromycin 500 MG DAILY 03/17 1000 AC 03/19 PO 0850 Ceftriaxone Sodium 1,000 MG DAILY 03/18 1000 DC 03/18 IV 03/19 0700 0749 Cyanocobalamin 5 MCG ONCE ONE 03/19 0945 CAN SC 03/19 0946 Doxycycline Hyclate 100 MG BID 03/19 1041 AC PO Doxycycline Hyclate 100 MG Q12 03/15 1000 DC 03/19 Sodium Chloride 100 ML IV 0848 Gabapentin 300 MG DAILY 03/14 1200 AC 03/19 PO 0849 Lactobacillus 1 CAP DAILY 03/17 1242 AC 03/19 Acidophilus PO 0850 Metoprolol Tartrate 25 MG BID 03/16 1000 AC 03/19 PO 0850 Metronidazole 500 MG Q8H 03/17 2300 DC 03/18 N/A 1 UNIT IV 03/19 1875 0641 Phytonadione 5 MG ONCE ONE 03/19 1115 DC SC 03/19 1116 Prednisone 5 MG BID 03/14 1000 AC 03/19 PO 0849 Results Last 48 Hrs of Labs/Mics: Laboratory Tests 03/19/17 0722: Anion Gap 8, Estimated GFR > 60, BUN/Creatinine Ratio 24.4, Calcium 8.8, PT 63.2 *H, INR 6.13 *H, CBC w Diff NO MAN DIFF REQ, RBC 3.25 L, MCV 99.3 H, MCH 32.9 H, RDW 15.6 H, MPV 8.5, Gran % 38.7 L, Lymphocytes % 53.2 H, Monocytes % 6.0, Eosinophils % 1.5, Basophils % 0.6, Absolute Granulocytes 1.8, Absolute Lymphocytes 2.5, Absolute Monocytes 0.3, Absolute Eosinophils 0.1, Absolute Basophils 0, PUBS MCHC 33.1, A.phagocytophil DNA PCR Pending 03/18/17 0600: Anion Gap 8, Estimated GFR > 60, BUN/Creatinine Ratio 30.0 H, PT 61.5 *H, INR 5.96 *H, CBC w Diff NO MAN DIFF REQ, RBC 3.12 L, MCV 99.2 H, MCH 32.7 H, RDW 15.6 H, MPV 8.6, Gran % 47.3, Lymphocytes % 44.5, Monocytes % 6.4, Eosinophils % 1.3, Basophils % 0.5, Absolute Granulocytes 1.8, Absolute Lymphocytes 1.7, Absolute Monocytes 0.2, Absolute Eosinophils 0, Absolute Basophils 0, PUBS MCHC 33.0 Microbiology 03/19 1057 STOOL: Clostridium difficile Toxin A & B - COMP Assessment/Plan Assessment/Plan The patient had a mildly elevated troponin probably secondary to demand ischemia from hypotension. His echocardiographic findings are encouraging. He has had a couple of episodes of nonsustained ventricular tachycardia and some scattered PVCs besides. These have not recurred on Lopressor although he still has some PVCs. I recommend increasing his Lopressor to 50 mg twice daily to help further suppress his ectopy. Continue telemetry? Yes
--- NOTE | 2017-03-19 14:14 | PN- Housestaff ---
YAZMIN BORJA,DILIA 03/19/17 1333: Subjective Follow-up For: Diverticulosis Babesiosis Supratherapeutic INR Complaints: no complaints Tele-Events Since Last Visit: NSR 67-92 with PVCs Subjective: Patient was seen and examined bedside. Has no complaints other than continuation of his loose stools. Review of Systems Constitutional: Reports: no symptoms. Gastrointestinal: Reports: diarrhea. Objective Last 24 Hrs of Vital Signs/I&O Vital Signs Date Time Temp Pulse Resp B/P B/P Pulse O2 O2 Flow FiO2 Mean Ox Delivery Rate 03/19 0850 75 130/80 03/19 0532 97.9 75 18 130/80 97 Room Air 03/18 2211 97.7 81 18 128/80 100 Room Air 03/18 2153 81 128/80 03/18 1433 99.3 74 20 136/70 97 Intake & Output 03/19 1600 03/19 0800 03/19 0000 Intake Total 100 730 Output Total 400 650 Balance -300 80 Intake, IV 130 Intake, Oral 100 600 Number 1 Bowel Movements Output, Urine 400 650 Physical Exam General Appearance: Alert, Oriented X3, Cooperative, No Acute Distress Skin: No Breakdown, No Significant Lesion, chronic venous stasis changes lower limbs bilaterally Skin Temp/Moisture Exam: Warm/Dry Sepsis Skin Exam (color): Normal for Ethnicity HEENT: PERRLA, EOMI, Mucous Membr. moist/pink Neck: Supple Cardiovascular: Regular Rate, Normal S1, Normal S2, Gallops, Rubs Lungs: Clear to Auscultation, Normal Air Movement Abdomen: Normal Bowel Sounds, Soft, No Hepatospenomegaly, No Masses, patient notes pain on left upper quadrant palpation but on reexamination, is not reproducible. Neurological: Normal Speech Extremities: Normal Pulses, No Tenderness/Swelling, +2 pitting edema lower extremities bilaterally Vascular: Normal Pulses, Pulses Symmetrical Sepsis Peripheral Pulse Location: Radial Sepsis Peripheral Pulse Exam: Normal Current Medications: Current Medications Sig/Renetta Start time Last Medication Dose Route Stop Time Status Admin Acetaminophen 650 MG Q6P PRN 03/14 0045 AC PO Acetaminophen 1,000 MG Q8P PRN 03/14 0045 AC 03/14 IV 0515 Aspirin 81 MG DAILY 03/14 1000 AC 03/19 PO 0849 Atorvastatin Calcium 20 MG DAILY 03/14 1000 AC 03/19 PO 0849 Atovaquone 750 MG BID 03/16 1306 AC 03/19 PO 0848 Azithromycin 500 MG DAILY 03/17 1000 AC 03/19 PO 0850 Ceftriaxone Sodium 1,000 MG DAILY 03/18 1000 DC 03/18 IV 03/19 0700 0749 Cyanocobalamin 5 MCG ONCE ONE 03/19 0945 CAN SC 03/19 0946 Doxycycline Hyclate 100 MG BID 03/19 1041 AC PO Doxycycline Hyclate 100 MG Q12 03/15 1000 DC 03/19 Sodium Chloride 100 ML IV 0848 Gabapentin 300 MG DAILY 03/14 1200 AC 03/19 PO 0849 Lactobacillus 1 CAP DAILY 03/17 1242 AC 03/19 Acidophilus PO 0850 Metoprolol Tartrate 50 MG BID 03/19 2200 AC PO Metoprolol Tartrate 25 MG BID 03/16 1000 DC 03/19 PO 0850 Metronidazole 500 MG Q8H 03/17 2300 DC 03/18 N/A 1 UNIT IV 03/19 2259 0626 Phytonadione 5 MG ONCE ONE 03/19 1115 DC SC 03/19 1116 Prednisone 5 MG BID 03/14 1000 AC 03/19 PO 0849 Last 24 Hrs of Lab/Efrain Results Last 24 Hrs of Labs/Mics: Laboratory Tests 03/19/17 0722: Anion Gap 8, Estimated GFR > 60, BUN/Creatinine Ratio 24.4, Calcium 8.8, PT 63.2 *H, INR 6.13 *H, CBC w Diff NO MAN DIFF REQ, RBC 3.25 L, MCV 99.3 H, MCH 32.9 H, RDW 15.6 H, MPV 8.5, Gran % 38.7 L, Lymphocytes % 53.2 H, Monocytes % 6.0, Eosinophils % 1.5, Basophils % 0.6, Absolute Granulocytes 1.8, Absolute Lymphocytes 2.5, Absolute Monocytes 0.3, Absolute Eosinophils 0.1, Absolute Basophils 0, PUBS MCHC 33.1, A.phagocytophil DNA PCR Pending 03/18/17 1811: C. difficile Tox B Gene Pending Microbiology 03/19 1057 STOOL: Clostridium difficile Toxin A & B - COMP Assessment/Plan Assessment: Assessment Patient is 82-year-old male with past medical history significant for hypertension, Sweets disease, polychondritis, rheumatoid arthritis, osteoarthritis, atrial fibrillation, history of Lyme disease and babesiosis, congestive heart failure, history of DVT on Coumadin, history of hfeHF, came with chief complaint of lethargy, weakness for one day and one week worth of RLL abdominal pain and diarrhea. In the ED, patient was found to be hypotensive to 90/52 with heart rates between 100-110, sating 94% on 2L NC. His temperature was 104.6. EKG was normal and initial troponin was . CXR no evidence of acute disease. WBCs were 3.0, Hb 8.9, platelets 108, INR 3.57, K 2.6, Cr 1.0, Mg 1.0, LA 1.1. Plan Hypotension: Lethargy, weakness, hypotension likely due to dehydration 2/2 diarrhea * Patient responded well with fluid resuscitation in ED- received 3.5 L * Continue rehydration and monitor BP and HR * Is back on metoprolol 50mg bid * Patient has history of HfrEF and edema, monitor for fluid overload in light of this. Lasix is currently being held. Clinically he has 2+ pitting edema but no breathing symptoms or crackles. Last echo done in August 2016 showed EF 50%, mild global hypokinesis, pulm htn. Last nuclear stress test done in November 2016 showed reversible ischemia of apex and apical anterior wall, EF normal. * If persistent hypotension, can give stress dose steroids as patient is on chronic prednisone therapy for his polychondritis 5mg. Diarrhea * CT abdomen with contrast for source of infection and diarrhea showed evidence of severe diverticulosis in the descending and sigmoid colon with signs of early diverticulitis. \ * C.diff toxin returned negative March 18. Patient continues to have diarrhea. We have sent c.diff PCR. * Stop Flagyll * Stool culture, O+P, Yersenia, Vibrio negative * Last EGD/colonscopy (2013): nonerosive GERD, extensive diverticula sigmoid to proximal transverse, left colon polyp. Fever of Unknown Origin * Patient was septic in ED with tachycardia, fever, leukopenia * WBC is trending up, 2.0 on 03/16, 3.9 on 03/18, now 4.7. * Given history of multiple tick-borne illnesses and pancytopenia, give patient doxycycline to cover. He has since been found negative for current Lyme infection but positive for babesiosis so has been started on azithromycin 500 mg , day 4, and atovaquone 750 mg bid[address] As per Dr. Forte, test for anaplasma ( doxycycline will cover this as well). Erhlichia has been found to be negative. * Convert doxycycline to 100mg bid PO for anticipated discharge tomorrow. * He has been given ceftax and vancomycin broad spectrum in the ED, these have been stopped. * CXR and CT chest showed no source of infection * Stool culture were negative * C. difficile stool was negative, will do PCR now as diarrhea has continued. * UA clear * ID and Hematology ON BOARD Elevated Troponins: RESOLVED * Troponins trended down * Normal EKG and a trending down troponin ruled out ACS * Continue ASA * Normal EKGs point to demand ischemia due to hypotension NSVT/Atrial Fibrillation * In light of this and elevated troponins, will admit to telemetry. * Patient is on coumadin * Currently supratherapeutic at 6.13, previously 5.96. * Hold Coumadin for now and INR tomorrow * Dose Vitamin K * Vitals normal * Two runs of vtach on 03/16 * Started metropolol 25 mg bid for this NSVT * For sustained vtach can do amiodarone * Watch K+, Mg2+, Ca2+ and albumin, and phos Hypokalemia and Hypomagnesemia and Hypocalcemia * Improved potassium today 4.5 * Corrected Ca2+ is normal * Most likely due to diarrhea * Continue to Replete with kdur and Mg * BEP to reevaluate Worsening Renal Function * Improved. * Now it is 0.8 * We'll continue to trend renal functions Heart Healthy diet DNR/DNI DVT Prophylaxis: on Coumadin Problem List: 1. Tick-borne disease 2. Diverticulosis 3. Diverticulitis 4. Diarrhea 5. Hypokalemia 6. Hypoglycemia Pain Ratin Pain Location: none Pain Goal: Pain 4 or less Pain Plan: tylenol 650 mg for pain Tomorrow's Labs & Rationales: WBC INR DVT/Prophylaxis: pharmacological Consulting Request: Consulting Specialty: Gastroenterology JOYCELYN BERNARD MD 03/19/17 5540: Attending Review Statement Attending Statement Attending Statement: examined this patient, discuss w/resident/PA/[employer]PECT[employer], agreed w/resident/PA/[employer] INSPECTOR, reviewed EMR data (avail), discussed with case mgmt, amended to note Attending Assessment/Plan: The patient was seen and discussed with house staff. Appreciate ID and Oncology follow-up. INR remains elevated. C-difficile negative (will obtain PCR).
[2017-03-19 16:09] VITALS: BP 150/60
[2017-03-19 22:00] VITALS: BP 130/60
[2017-03-20 07:28] VITALS: BP 140/70
[2017-03-20 08:26] LABS: PT 39.2 SEC (9.4-12.5)
[2017-03-20 08:38] LABS: ABSOLUTE BASOPHIL COUNT 0 /CUMM (0.0-0.2); ABSOLUTE EOSINOPHIL COUNT 0.1 /CUMM (0.0-0.7); ABSOLUTE GRANULOCYTE CT 2.1 /CUMM (1.4-6.5); ABSOLUTE MONOCYTE COUNT 0.3 /CUMM (0.10-0.60); BASOPHIL % 0.5 % (0.0-2.0); EOSINOPHIL % 1.9 % (0-5); HEMATOCRIT 34.2 % (42-52); MEAN CORPUSCULAR HGB 33.2 PG (27.0-31.0); MEAN CORPUSCULAR HGB CONC 33.5 G/DL (33.0-37.0); MEAN CORPUSCULAR VOLUME 99.2 FL (80.0-94.0); MEAN PLATELET VOLUME 8.3 FL (7.4-10.4); PLATELET COUNT 131 /CUMM (130-400); RBC DISTRIBUTION WIDTH 15.6 % (11.5-14.5); RED BLOOD CELL CT 3.45 /CUMM (4.70-6.10); WHITE BLOOD CELL COUNT 5.6 /CUMM (4.8-10.8)
[2017-03-20 09:11] LABS: C.DIFFICILE TOXIN B QL PCR NOT DETECTED (NOT DETECTED)
[2017-03-20 09:35] VITALS: BP 140/70
--- NOTE | 2017-03-20 10:33 | PN- Cardiology ---
Subjective Subjective: The patient is feeling well. He is still having some ectopy on the monitor, mostly PACs, but no clinically significant arrhythmias at this point. He is now on Lopressor 50 mg twice a day. Objective Vital Signs and I&Os Vital Signs Date Time Temp Pulse Resp B/P B/P Pulse O2 O2 Flow FiO2 Mean Ox Delivery Rate 03/20 0935 70 140/70 03/20 0728 98.7 70 18 140/70 97 Room Air 03/19 2200 98.6 73 18 130/60 98 Room Air 03/19 2150 130/60 03/19 1609 98.1 70 20 150/60 97 Room Air Intake & Output 03/20 1600 03/20 0800 03/20 0000 03/19 1600 03/19 0800 03/19 0000 Intake Total 460 580 100 730 Output Total 600 400 650 Balance -600 460 580 -300 80 Intake, IV 100 130 Intake, Oral 460 480 100 600 Number 1 3 1 Bowel Movements Output, Urine 600 400 650 Physical Exam: HEENT exam is normal Chest is clear Heart reveals irregularly irregular rhythm with a grade 2 to 3/6 systolic ejection murmur at the base Extremities trace edema Current Medications: Current Medications Sig/Renetta Start time Last Medication Dose Route Stop Time Status Admin Acetaminophen 650 MG Q6P PRN 03/14 0045 AC PO Acetaminophen 1,000 MG Q8P PRN 03/14 0045 DC 03/14 IV 0515 Aspirin 81 MG DAILY 03/14 1000 AC 03/20 PO 0935 Atorvastatin Calcium 20 MG DAILY 03/14 1000 AC 03/20 PO 0935 Atovaquone 750 MG BID 03/16 1306 AC 03/20 PO 0934 Azithromycin 500 MG DAILY 03/17 1000 AC 03/20 PO 0935 Cyanocobalamin 5 MCG ONCE ONE 03/19 0945 CAN IN 03/19 0946 Doxycycline Hyclate 100 MG BID 03/19 1041 AC 03/20 PO 0935 Gabapentin 300 MG DAILY 03/14 1200 AC 03/20 PO 0935 Lactobacillus 1 CAP DAILY 03/17 1242 AC 03/20 Acidophilus PO 0935 Metoprolol Tartrate 50 MG BID 03/19 2200 AC 03/20 PO 0935 Metoprolol Tartrate 25 MG BID 03/16 1000 DC 03/19 PO 0850 Phytonadione 5 MG ONCE ONE 03/19 1115 DC 03/19 SC 03/19 1116 1409 Prednisone 5 MG BID 03/14 1000 AC 03/20 PO 0935 Results Last 48 Hrs of Labs/Mics: Laboratory Tests 03/20/17 0800: PT 39.2 H, INR 3.78 H, CBC w Diff NO MAN DIFF REQ, RBC 3.45 L, MCV 99.2 H, MCH 33.2 H, RDW 15.6 H, MPV 8.3, Gran % 38.0 L, Lymphocytes % 53.7 H, Monocytes % 5.9, Eosinophils % 1.9, Basophils % 0.5, Absolute Granulocytes 2.1, Absolute Lymphocytes 3.0, Absolute Monocytes 0.3, Absolute Eosinophils 0.1, Absolute Basophils 0, PUBS MCHC 33.5 03/19/17 0722: Anion Gap 8, Estimated GFR > 60, BUN/Creatinine Ratio 24.4, Calcium 8.8, PT 63.2 *H, INR 6.13 *H, CBC w Diff NO MAN DIFF REQ, RBC 3.25 L, MCV 99.3 H, MCH 32.9 H, RDW 15.6 H, MPV 8.5, Gran % 38.7 L, Lymphocytes % 53.2 H, Monocytes % 6.0, Eosinophils % 1.5, Basophils % 0.6, Absolute Granulocytes 1.8, Absolute Lymphocytes 2.5, Absolute Monocytes 0.3, Absolute Eosinophils 0.1, Absolute Basophils 0, PUBS MCHC 33.1, A.phagocytophil DNA PCR Pending 03/18/17 1811: C. difficile Tox B Gene NOT DETECTED Microbiology 03/19 1057 STOOL: Clostridium difficile Toxin A & B - COMP Assessment/Plan Assessment/Plan The patient had a mildly elevated troponin probably secondary to demand ischemia from hypotension. His echocardiographic findings are encouraging. He has had a couple of episodes of nonsustained ventricular tachycardia and some scattered PVCs besides. These have not recurred on Lopressor although he still has some PVCs and PACs. He is now on Lopressor 50 mg twice daily and tolerating this well and I would recommend that he be discharged on this regimen. Continue telemetry? No
--- NOTE | 2017-03-20 10:49 | Patient Discharge Instructions ---
Discharge Instructions General Discharge Information You were seen/treated for: Diarrhea Tick-borne illness You had these procedures: Echocardiogram Watch for these problems: Diarrhea Fever Infection Bleeding Special Instructions: Please take the entire prescribed dose of your antibiotics. Please check INR tomorrow and follow-up with your primary care doctor. Diet Continue normal diet: Yes Recommended Diet: Heart Healthy Activity Full Activity/No Limits: Yes Activity Self Limited: Yes Acute Coronary Syndrome Inclusion Criteria At DC or during hospital stay patient has or had the following: ACS DIAGNOSIS No Discharge Core Measures Meds if any: Prescribed or Continued at Discharge Meds if any: NOT Prescribed or Continued at Discharge Congestive Heart Failure Inclusion Criteria At DC or during hospital stay patient has or had the following: CHF DIAGNOSIS No Discharge Core Measures Meds if any: Prescribed or Continued at Discharge Meds if any: NOT Prescribed or Continued at Discharge Cerebrovascular accident Inclusion Criteria At DC or during hospital stay patient has or had the following: CVA/TIA Diagnosis No Discharge Core Measures Meds if any: Prescribed or Continued at Discharge Meds if any: NOT Prescribed or Continued at Discharge Venous thromboembolism Inclusion Criteria VTE Diagnosis No VTE Type NONE VTE Confirmed by (Test) NONE Discharge Core Measures - Per Current guidelines, there needs to be overlap - treatment for the first 5 days of Warfarin therapy. - If discharged on Warfarin prior to 5 days of - overlap therapy, the patient will need to be - assessed for post discharge needs including - *Post discharge parental anticoagulation - *Warfarin and/or parental anticoagulation education - *Follow up date to check INR post discharge At least 5 days overlap therapy as Inpatient No Meds if any: Prescribed or Continued at Discharge Note: Overlap Therapy is Warfarin and Anticoagulant Meds if any: NOT Prescribed or Continued at Discharge
--- NOTE | 2017-03-20 11:11 | PN- Hematology ---
Subjective Subjective: He is doing well. He still has diarrhea. He has no new symptoms. Review of Systems: Constitutional: Denies: chills, fever, weakness. Cardiovascular: Denies: chest pain. Gastrointestinal: Reports: diarrhea. Musculoskeletal: Denies: back pain. Neurological/Psychological: Denies: confusion, depressed. Hematologic/Endocrine: Denies: bleeding. All Other Systems: Reviewed and Negative Objective Vital Signs and I&Os Vital Signs Date Time Temp Pulse Resp B/P B/P Pulse O2 O2 Flow FiO2 Mean Ox Delivery Rate 03/20 0935 70 140/70 03/20 0728 98.7 70 18 140/70 97 Room Air 03/19 2200 98.6 73 18 130/60 98 Room Air 03/19 2150 130/60 03/19 1609 98.1 70 20 150/60 97 Room Air Intake & Output 03/20 1600 03/20 0800 03/20 0000 03/19 1600 03/19 0800 03/19 0000 Intake Total 460 580 100 730 Output Total 600 400 650 Balance -600 460 580 -300 80 Intake, IV 100 130 Intake, Oral 460 480 100 600 Number 1 3 1 Bowel Movements Output, Urine 600 400 650 Physical Exam: General Appearance: no apparent distress, awake, comfortable Head: atraumatic Ears, Nose, Throat: normal pharynx, on 2L NC Respiratory: normal breath sounds, chest non-tender, no respiratory distress, quiet respiration Gastrointestinal: normal bowel sounds, no organomegaly, tenderness Extremities: normal inspection, bilateral upper and lower extremity edema Neurologic/Psych: alert, oriented x 3 Skin: mild erythema and hyperpigmentation in BLE; bruising in bilateral upper extremities; 1+edema in extremities. Current Medications: Current Medications Sig/Renetta Start time Last Medication Dose Route Stop Time Status Admin Acetaminophen 650 MG Q6P PRN 03/14 0045 AC PO Acetaminophen 1,000 MG Q8P PRN 03/14 0045 DC 03/14 IV 0515 Aspirin 81 MG DAILY 03/14 1000 AC 03/20 PO 0935 Atorvastatin Calcium 20 MG DAILY 03/14 1000 AC 03/20 PO 0935 Atovaquone 750 MG BID 03/16 1306 AC 03/20 PO 0934 Azithromycin 500 MG DAILY 03/17 1000 AC 03/20 PO 0935 Doxycycline Hyclate 100 MG BID 03/19 1041 AC 03/20 PO 0935 Gabapentin 300 MG DAILY 03/14 1200 AC 03/20 PO 0935 Lactobacillus 1 CAP DAILY 03/17 1242 AC 03/20 Acidophilus PO 0935 Metoprolol Tartrate 50 MG BID 03/19 2200 AC 03/20 PO 0935 Metoprolol Tartrate 25 MG BID 03/16 1000 DC 03/19 PO 0850 Phytonadione 5 MG ONCE ONE 03/19 1115 DC 03/19 SC 03/19 1116 1409 Prednisone 5 MG BID 03/14 1000 AC 03/20 PO 0935 Results Last 24 Hours of Lab Results: Laboratory Tests 03/20 0800 Coagulation PT (9.4 - 12.5 SEC) 39.2 H INR (0.90 - 1.17) 3.78 H Hematology CBC w Diff NO MAN DIFF REQ WBC (4.8 - 10.8 /CUMM) 5.6 RBC (4.70 - 6.10 /CUMM) 3.45 L Hgb (14.0 - 18.0 G/DL) 11.4 L Hct (42 - 52 %) 34.2 L MCV (80.0 - 94.0 FL) 99.2 H MCH (27.0 - 31.0 PG) 33.2 H RDW (11.5 - 14.5 %) 15.6 H Plt Count (130 - 400 /CUMM) 131 MPV (7.4 - 10.4 FL) 8.3 Gran % (42.2 - 75.2 %) 38.0 L Lymphocytes % (20.5 - 51.1 %) 53.7 H Monocytes % (1.7 - 9.3 %) 5.9 Eosinophils % (0 - 5 %) 1.9 Basophils % (0.0 - 2.0 %) 0.5 Absolute Granulocytes (1.4 - 6.5 /CUMM) 2.1 Absolute Lymphocytes (1.2 - 3.4 /CUMM) 3.0 Absolute Monocytes (0.10 - 0.60 /CUMM) 0.3 Absolute Eosinophils (0.0 - 0.7 /CUMM) 0.1 Absolute Basophils (0.0 - 0.2 /CUMM) 0 PUBS MCHC (33.0 - 37.0 G/DL) 33.5 Assessment/Plan Assessment/Recommendations: Mr. Anne is an 82-year-old male with history of DVT, vitamin B12 deficiency, polychondritis, RA, CHF, and hypertension who presented to the hosptial with 1 day of fatigue, lethargy, and diarrhea. He presented with symptoms concerning for gastroenteritis/diverticulitis. Previous blood work 4 weeks ago was normal. Pancytopenia may be secondary to infectious etiology. He has had exposure to ticks and tick bites. He has previous babesiosis. This is concerning for a tick-borne disease. Babesia PCR is positive. Anaplasma is pending. He continues to improve with antibiotics. Recommendations: 1. Follow up complete tick-borne disease evaluation 2. Continue antibiotics as per ID 3. Follow up as outpatient for B12 injection in 4 weeks Please call [phone] with any new questions or concerns Problem List: 1. Tick-borne disease 2. Pancytopenia
[2017-03-20] MEDS ORDERED: AZITHROMYCIN500 M3 PO (11:36)
[2017-03-20] MEDS ORDERED: LOPRESSOR100 M1 PO (11:36)
[2017-03-20] MEDS ORDERED: DOXYCYCLINE HY100 M2 PO (11:36)
[2017-03-20] MEDS ORDERED: MEPRON750 MG/51 PO (11:36)
--- NOTE | 2017-03-20 11:37 | PN- Housestaff ---
YAZMIN BORJA,DILIA 03/20/17 1137: Subjective Follow-up For: Diarrhea Tick-borne illness Complaints: no complaints Tele-Events Since Last Visit: normal sinus rhythm 69-83 PVCs with trigeminy Subjective: Patient is seen and examined bedside. He states that he feels fine and has no complaints. He states that he has not had a bowel movement since yesterday. Yesterday he complained of loose stools. Review of Systems Constitutional: Reports: no symptoms. Objective Last 24 Hrs of Vital Signs/I&O Vital Signs Date Time Temp Pulse Resp B/P B/P Pulse O2 O2 Flow FiO2 Mean Ox Delivery Rate 03/20 0935 70 140/70 03/20 0728 98.7 70 18 140/70 97 Room Air 03/19 2200 98.6 73 18 130/60 98 Room Air 03/19 2150 130/60 03/19 1609 98.1 70 20 150/60 97 Room Air Intake & Output 03/20 1600 03/20 0800 03/20 0000 Intake Total 460 Output Total 600 Balance -600 460 Intake, Oral 460 Number 1 Bowel Movements Output, Urine 600 Physical Exam General Appearance: Alert, Oriented X3, Cooperative, No Acute Distress Skin: No Rashes, No Breakdown, No Significant Lesion Skin Temp/Moisture Exam: Warm/Dry Sepsis Skin Exam (color): Normal for Ethnicity HEENT: EOMI, Mucous Membr. moist/pink Cardiovascular: Regular Rate, Normal S1, Normal S2, Gallops, Rubs Lungs: Normal Air Movement Abdomen: Normal Bowel Sounds, Soft, No Tenderness, No Masses Neurological: Normal Speech Extremities: No Clubbing, Normal Pulses, No Tenderness/Swelling Vascular: Normal Pulses Sepsis Peripheral Pulse Location: Radial Sepsis Peripheral Pulse Exam: Normal Current Medications: Current Medications Sig/Renetta Start time Last Medication Dose Route Stop Time Status Admin Acetaminophen 650 MG Q6P PRN 03/14 0045 AC PO Acetaminophen 1,000 MG Q8P PRN 03/14 0045 DC 03/14 IV 0515 Aspirin 81 MG DAILY 03/14 1000 AC 03/20 PO 0935 Atorvastatin Calcium 20 MG DAILY 03/14 1000 AC 03/20 PO 0935 Atovaquone 750 MG BID 03/16 1306 DC 03/20 PO 0934 Azithromycin 500 MG DAILY 03/17 1000 AC 03/20 PO 0935 Doxycycline Hyclate 100 MG BID 03/19 1041 AC 03/20 PO 0935 Gabapentin 300 MG DAILY 03/14 1200 AC 03/20 PO 0935 Lactobacillus 1 CAP DAILY 03/17 1242 AC 03/20 Acidophilus PO 0935 Metoprolol Tartrate 50 MG BID 03/19 2200 AC 03/20 PO 0935 Prednisone 5 MG BID 03/14 1000 AC 03/20 PO 0935 Last 24 Hrs of Lab/Efrain Results Last 24 Hrs of Labs/Mics: Laboratory Tests 03/20/17 0800: PT 39.2 H, INR 3.78 H, CBC w Diff NO MAN DIFF REQ, RBC 3.45 L, MCV 99.2 H, MCH 33.2 H, RDW 15.6 H, MPV 8.3, Gran % 38.0 L, Lymphocytes % 53.7 H, Monocytes % 5.9, Eosinophils % 1.9, Basophils % 0.5, Absolute Granulocytes 2.1, Absolute Lymphocytes 3.0, Absolute Monocytes 0.3, Absolute Eosinophils 0.1, Absolute Basophils 0, PUBS MCHC 33.5 Assessment/Plan Assessment: Assessment Patient is 82-year-old male with past medical history significant for hypertension, Sweets disease, polychondritis, rheumatoid arthritis, osteoarthritis, atrial fibrillation, history of Lyme disease and babesiosis, congestive heart failure, history of DVT on Coumadin, history of hfeHF, came with chief complaint of lethargy, weakness for one day and one week worth of RLL abdominal pain and diarrhea. In the ED, patient was found to be hypotensive to 90/52 with heart rates between 100-110, sating 94% on 2L NC. His temperature was 104.6. EKG was normal and initial troponin was . CXR no evidence of acute disease. WBCs were 3.0, Hb 8.9, platelets 108, INR 3.57, K 2.6, Cr 1.0, Mg 1.0, LA 1.1. Plan Hypotension: Lethargy, weakness, hypotension likely due to dehydration 2/2 diarrhea * Patient responded well with fluid resuscitation in ED- received 3.5 L * Continue rehydration and monitor BP and HR * Hold antihypertensives * Patient has history of HfrEF and clinically edema, monitor for fluid overload in light of this. Last echo done in August 2016 showed EF 50%, mild global hypokinesis, pulm htn. Last nuclear stress test done in November 2016 showed reversible ischemia of apex and apical anterior wall, EF normal. * If persistent hypotension, will give stress dose steroids as patient is on chronic prednisone therapy for his polychondritis 5mg. * Discharge patient with instruction to restart outpatient Lasix 20mg. Diarrhea * CT abdomen with contrast for source of infection and diarrhea showed evidence of severe diverticulosis in the descending and sigmoid colon with signs of early diverticulitis. * Guaic negative * Last EGD/colonscopy (2013): nonerosive GERD, extensive diverticula sigmoid to proximal transverse, left colon polyp. * Negative for Shigella, vibrio, Yersinia, Salmonella, Campylobacter. * Diarrhea is resolving * C.diff PCR pending * Flagyll DC'd Fever of Unknown Origin * Patient was septic in ED with tachycardia, fever, leukopenia * WBC 5.6 * Given history of multiple tick-borne illnesses and pancytopenia, continue doxycycline * He was given ceftax and vancomycin broad spectrum in the ED * CXR and CT chest showed no source of infection * Blood and urine cultures negative * Peripheral smear for babesiosis POSITIVE, Ehrlichia NEGATIVE, Anaplasma PENDING * Continue azithromycin for babesiosis with atovaquone * Continue doxycycline for empiric coverage of Anaplasma * Discharge patient on remaining 3 days of doxycycline and remaining 3 days of atovaquone and azithromycin. * UA clear * ID and Hematology consults Elevated Troponins * Troponins not increasing * Continue ASA * Normal EKGs point to demand ischemia due to hypotension Atrial Fibrillation * In light of this and elevated troponins, will admit to telemetry. * Patient is on Coumadin * Currently slightly supratherapeutic at 3.78 * Hold Coumadin and instruct patient to follow-up INR tomorrow. Hypokalemia and Hypomagnesemia and Hypocalcemia: Resolved * Corrected Ca2+ is normal * Most likely due to diarrhea Worsening Renal Function: Resolved * In the ED, Cr was 1.0 --> 1.7 * Now it is 0.9 * CT was performed before these results. We have given 2L NS after this. Trend renal function. Heart Healthy diet DNR/DNI DVT Prophylaxis: on Coumadin Problem List: 1. Diverticulosis 2. Diverticulitis 3. Tick-borne disease 4. Diarrhea Pain Ratin Pain Location: none Pain Goal: Remain pain free Pain Plan: Stable for discharge Tomorrow's Labs & Rationales: Stable for discharge Consulting Request: Consulting Specialty: Gastroenterology JOYCELYN BERNARD MD 03/20/17 2157: Attending MD Review Statement Attending Statement Attending MD Statement: examined this patient, discuss w/resident/PA/ACCOUNT MANAGER [employer], agreed w/resident/PA/ACCOUNT MANAGER [employer], reviewed EMR data (avail), discussed with nursing, discussed with case mgmt, amended to note Attending Assessment/Plan: The patient was seen and discussed with house staff. Significant improvement on antibiotics. Appreciate ID and other follow-up. OK to discharge today on po antibiotics to complete treatment.
[2017-03-20] MEDS ORDERED: COUMADIN5 M2 PO (11:59)
[2017-03-20] MEDS ORDERED: METOPROLOL TART50 M1 PO (16:31)
--- NOTE | 2017-03-20 23:22 | Discharge Summary ---
Hospital Course Course Consulting Request: Consulting Specialty: Gastroenterology Allergies: Coded Allergies: NO KNOWN ALLERGIES (08/07/16) Discharge Instructions Medications at Discharge Discharge Medications: Stop taking the following medications: Metoprolol Tartrate (Metoprolol Tartrate) 50 MG TABLET ORAL TWICE DAILY Qty = 60 Continue taking these medications: Omeprazole (Omeprazole) 20 MG CAPSULE.DR 1 Capsule ORAL DAILY Comments: NOT GIVEN IN HOSPITAL Cyanocobalamin (Vitamin B-12) (Cyanocobalamin Injection) 1,000 MCG/1 ML VIAL 1 Milliliters INTRAMUSC ONCE A MONTH Comments: NOT GIVEN IN HOSPITAL Gabapentin (Gabapentin) 300 MG CAPSULE 1 Capsule ORAL THREE TIMES DAILY Qty = 60 Comments: Last Taken: 03/20/17 Time: 9:30 AM Calcium Carbonate/Vitamin D3 (Calcium 600 + Vitamin D Sftgl) 600 MG-500 CAPSULE 1 Tablet ORAL DAILY Comments: NOT GIVEN IN HOSPITAL Aspirin (Aspirin*) 81 MG TAB.CHEW 1 Tablet ORAL DAILY Days = 30 Comments: Last Taken: 03/20/17 Time: 9:30 AM Furosemide (Furosemide) 20 MG TABLET 1 Tablet ORAL Every other day Comments: NOT GIVEN IN HOSPIAL Lisinopril (Lisinopril) 20 MG TABLET 1 Tablet ORAL DAILY Qty = 30 Comments: NOT GIVEN IN HOSPITAL Folic Acid (Folic Acid) 1 MG TABLET 1 Tablet ORAL DAILY Qty = 30 Comments: NOT GIVEN IN HOSPITAL Atorvastatin Calcium (Lipitor) 20 MG TABLET 1 Tablet ORAL DAILY Comments: Last Taken: 03/20/17 Time: 9:30 AM Prednisone (Prednisone) 5 MG TABLET 1 Tablet ORAL TWICE DAILY Comments: Last Taken: 03/20/17 Time: 9:30 AM Warfarin Sodium (Coumadin) 5 MG TABLET 1 Tablet ORAL DAILY Days = 30 Instructions: Stopped for supratherapeutic INR. Get INR checked and report to Dr. Sherman. Dose coumadin per INR. Comments: NOT GIVEN IN HOSPITAL This prescription has been renewed Start taking the following new medications: Doxycycline Hyclate (Doxycycline Hyclate) 100 MG CAPSULE 1 Capsule ORAL TWICE DAILY Qty = 6 No Refills Comments: Last Taken: 03/20/17 Time: 9:30 AM Azithromycin (Azithromycin) 500 MG TABLET 1 Tablet ORAL DAILY Qty = 6 No Refills Comments: Last Taken: 03/20/17 Time: 9:30 AM Atovaquone (Mepron) 750 MG/5 ML ORAL.SUSP 1 Unit ORAL TWICE DAILY Qty = 12 No Refills Comments: Last Taken: 03/20/17 Time: 9:30 AM Metoprolol Tartrate (Metoprolol Tartrate) 50 MG TABLET 1 Tablet ORAL TWICE DAILY Qty = 60 No Refills
== END 2017-03-20 16:40 | disposition home health service (06) | DRG 868 ==
LOC: ERH 19:40 → ERHI 22:54 → 1NO 22:54 → CANRESERV 03-14 01:38 → ENRESERV 03-14 01:38 → EDBEDREQ 03-14 07:20 → ERHI 03-14 08:36 → ENRESERV 03-14 16:18 → ENTRNSPT 03-14 18:41 → EDTRNSPTSTS 03-14 18:59 → 1NO 03-14 19:16 → CMPTRNSPT 03-14 19:31 → 1NO 03-14 23:08 → ENPENDDIS 03-20 11:17 → 1NO 03-20 16:40
PROVIDERS: Emergency Medicine; Internal Medicine; Student in an Organized Health Care Education/Training Program; ADMIT Student in an Organized Health Care Education/Training Program
DX: B60.0 Babesiosis (principal); N17.9 Acute kidney failure, unspecified; I47.2 Ventricular tachycardia; D61.818 Other pancytopenia; I95.9 Hypotension, unspecified; I11.0 Hypertensive heart disease with heart failure; E87.2 Acidosis; I24.8 Other forms of acute ischemic heart disease; I27.2 Other secondary pulmonary hypertension; I50.22 Chronic systolic (congestive) heart failure; K57.32 Diverticulitis of large intestine without perforation or abscess without bleeding; E86.0 Dehydration; M06.9 Rheumatoid arthritis, unspecified; E83.51 Hypocalcemia; E83.42 Hypomagnesemia; D64.9 Anemia, unspecified; L98.2 Febrile neutrophilic dermatosis [Sweet]; M94.8X9 Other specified disorders of cartilage, unspecified sites; I87.2 Venous insufficiency (chronic) (peripheral); K21.9 Gastro-esophageal reflux disease without esophagitis; E87.6 Hypokalemia; E16.2 Hypoglycemia, unspecified; Z66 Do not resuscitate; Z79.01 Long term (current) use of anticoagulants; Z86.718 Personal history of other venous thrombosis and embolism
CPT/HCPCS: 1NP; 1NSP; 86618; 87493; 87798; ERO; 36415; 80307; 81001; 82436; 87040; 87045; 87070; 87086; 93005; 93010; 93306; 96374; 96375; 97110-GO; 97116-GO; 97161-GP; G0480; J0131; J0456; J0696; J0713; J3370; J3420; J3490; J7040; J7512

== ENCOUNTER 2017-10-07 12:18 | Inpatient (IN) | payer OTHER, MEDICARE ==
[~2017-10-07] VITALS: Ht 165.1 cm; Wt 122.5 kg
[~2017-10-07 12:18] MED LIST changes: +AZITHROMYCIN500 M3 PO; +COUMADIN7.5 M1 PO; +LIPITOR20 M2 PO; +LOPRESSOR100 M1 PO
--- NOTE | 2017-10-07 12:23 | ED CRITICAL CARE ---
History of Present Illness General Chief Complaint: Dyspnea (COPD, CHF, Other) Stated Complaint: BIBADIFF BREATHING Source: patient, family, old records, EMS Exam Limitations: clinical condition Vital Signs & Intake/Output Vital Signs & Intake/Output Vital Signs Date Time Temp Pulse Resp B/P B/P Pulse O2 O2 Flow FiO2 Mean Ox Delivery Rate 10/09 1600 98 Nasal 3.0L Cannula 10/09 1600 98.2 100 20 128/68 98 Nasal 3.0L Cannula 10/09 1200 Nasal 3.0L Cannula 10/09 1200 97.2 114 28 128/72 96 Nasal 3.0L Cannula 10/09 0917 96 Nasal 3.0L Cannula 10/09 0917 110 96 10/09 0800 BIPAP 30% 10/09 0800 97.6 102 20 160/70 98 BIPAP 30% 10/09 0610 89 96 10/09 0406 84 99 10/09 0400 98 BIPAP 30% 10/09 0107 93 97 10/09 0000 96 BIPAP 30% 10/09 0000 98.0 87 28 110/60 96 BIPAP 30% 10/08 2223 100 96 10/087 95 BIPAP 30% 10/08 204 142 96 10/08 2019 94 Nasal 2.0L Cannula ED Intake and Output 10/09 0000 10/08 1200 Intake Total 1574 780 Output Total 2600 750 Balance -1026 30 Intake, Blood 322 Product Intake, IV 14 458 Intake, Oral 1560 Number 1 0 Bowel Movements Output, Urine 2600 750 Allergies Coded Allergies: NO KNOWN ALLERGIES (08/07/16) Reconcile Medications Albuterol Sulfate (Proair Hfa) 90 MCG HFA.AER.AD 2 PUF INH AD PRN RESP. ( Reported) Aspirin (Aspirin*) 81 MG TAB.CHEW 1 TAB PO DAILY HEART Atorvastatin Calcium (Lipitor) 20 MG TABLET 1 TAB PO DAILY CHOLESTEROL ( Reported) Cyanocobalamin (Vitamin B-12) (Cyanocobalamin Injection) 1,000 MCG/1 ML VIAL 1 ML IM Q30D SUPPLEMENT (Reported) Folic Acid 1 MG TABLET 1 TAB PO DAILY ANEMIA Furosemide (Lasix) 40 MG TABLET 1 TAB PO DAILY DIURETIC (Reported) Gabapentin 300 MG CAPSULE 1 CAP PO DAILY PAIN (Reported) Lisinopril 20 MG TABLET 1 TAB PO DAILY HIGH BLOOD PRESSURE Metoprolol Tartrate 50 MG TABLET 1 TAB PO BID BLOOD PRESSURE Omeprazole 20 MG CAPSULE. 1 CAP PO DAILY GERD (Reported) Prednisone 10 MG TABLET 1 TAB PO DAILY relapsing polychondritis Please take 15 mg( 1.5mg) daily on 08/13,08/14 10 mg once daily after 08/15 onwards Warfarin Sodium (Coumadin) 5 MG TABLET 1 TAB PO DAILY BLOOD THINNER (Reported ) Triage Nurses Notes Reviewed? 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 fib on Coumadin, congestive heart failure who arrives via EMS from home for chief complaint of respiratory distress. According to EMS he was found short of breath hypoxic at 84%. It is unclear how long he's been sick. He denies any chest pain. Patient reports that he has been taking his medications. He was started on CPAP on route to the hospital. No IV access was obtained. Per his daughter who presented a little later he has been having cough and cold symptoms for the past week. She's been giving him albuterol and cough medications with some relief. This morning when she woke up she noticed that he was having difficulty breathing and called a visiting nurse. The visiting nurse tried to talk to him on the phone and instructed the daughter to call 911. No fever or chills at home. No vomiting but he has been having some diarrhea including this morning he was incontinent of stool. Past History Travel History Traveled to [place] past 21 day No Medical History Any Pertinent Medical History? 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 No Review of Systems Review of Systems Constitutional: Denies: chills, malaise. Eyes: Reports: no symptoms. Ears, Nose, Throat, Mouth: Reports: no symptoms. Respiratory: Reports: cough, short of breath, wheezing. Denies: sputum production. Cardiovascular: Denies: chest pain, palpitations. Gastrointestinal/Abdominal: Denies: abdominal pain, diarrhea, vomiting. Genitourinary: Denies: discharge, dysuria. Musculoskeletal: Denies: back pain. Skin: Reports: no symptoms. Neurological/Psychological: Reports: confusion. All Other Systems: Reviewed and Negative Physical Exam Physical Exam General Appearance: well developed/nourished, awake, anxious, lethargic, moderate distress, severe distress Head: atraumatic, normal appearance Eyes: Bilateral: normal appearance, PERRL. Ears, Nose, Throat, Mouth: hearing grossly normal, moist mucous membrane Neck: normal inspection, supple Respiratory: decreased breath sounds, accessory muscle use, wheezing, respiratory distress Cardiovascular: tachycardia Peripheral Pulses: 2+ radial (R), 2+ radial (L) Gastrointestinal: non-tender Extremities: NO EDEMA Neurologic/Psych: LETHARGIC, EASILY AROUSABLE Skin: intact, normal color, warm/dry Core Measures ACS in differential dx? Yes CVA/TIA Diagnosis No Sepsis Present: No Sepsis Focused Exam Completed? Yes ED Sepsis Exam Date of Focused Sepsis Exam: 10/07/17 Time of Focused Sepsis Exam: 1220 Sepsis Cardiac Exam: Tachycardia Sepsis Resp Exam: WHEEZING/RALES Sepsis Cap Refill Exam: <2 Sec Sepsis Peripheral Pulse Exam: Normal Sepsis Peripheral Pulse Location: Radial Sepsis Skin Color Exam: Pale Skin Temp/Moisture Exam: Warm/Dry Progress Differential Diagnoses I considered the following diagnoses in my evaluation of the patient: [CHF, PE, PNEUMONIA, RESPIRATORY DISTRESS, SEPSIS, INFLUENZA] Plan of Care: Orders Procedure Date/time Status PROTHROMBIN TIME 10/10 0500 Active ICU LAB BUNDLE 10/10 0500 Active CBC WITHOUT DIFFERENTIAL 10/10 0500 Active Transfer patient to 10/09 1439 Active LOWER RESPIRATORY CULTURE 10/09 1224 Active Weight 10/09 0841 Active Boo, Insertion/Removal/Asses 10/09 0821 Active OXYGEN SETUP (GEN) 10/09 UNK Complete Nursing Misc 10/09 UNK Active Isolation 10/09 UNK Active AEROSOL [facility] 10/08 UNK Complete OXYGEN 10/08 UNK Complete OXYGEN DAILY CHARGE 10/08 UNK Complete CONTIN. POS. AIRWAY PRESS. [facility] 10/08 UNK Complete EKG 10/07 1240 Active Current Medications Sig/Renetta Start time Last Medication Dose Stop Time Status Admin Prednisone 5 MG 10/09 AC Warfarin Sodium 2.5 MG COUMADIN 10/09 1700 AC 10/09 (Coumadin) 10/09 2359 1611 Prednisone 10 MG DAILY 10/09 1000 AC 10/09 0925 Albuterol Sulfate 3 ML BID 10/07 220 AC 10/09 (Proventil) 0846 Oseltamivir Phosphate 30 MG BID 10/07 2199 AC 10/09 (Tamiflu) 10/11 2159 0925 Atorvastatin Calcium 20 MG DAILY@1700 10/07 1700 AC 10/09 (Lipitor) 1611 Albuterol Sulfate 2 PUF Q4P PRN 10/07 1530 AC (Ventolin) Aspirin 81 MG DAILY 10/07 1519 AC 10/09 (Aspirin) 0925 Laboratory Tests 10/09/17 0400: Anion Gap 9, Estimated GFR > 60, Glucose 116 H, Calcium 8.8, Phosphorus 3.2, Magnesium 1.9, Total Bilirubin < 0.1 L, AST 28, ALT 28, Albumin 2.8 L, PT 32.9 H, INR 3.17 H, CBC w Diff NO MAN DIFF REQ, RBC 2.92 L, MCV 98.1 H, MCH 32.7 H, MCHC 33.3, RDW 16.9 H, MPV 8.0, Gran % 76.5 H, Lymphocytes % 18.8 L, Monocytes % 4.7, Eosinophils % 0, Basophils % 0, Absolute Granulocytes 3.6, Absolute Lymphocytes 0.9 L, Absolute Monocytes 0.2, Absolute Eosinophils 0, Absolute Basophils 0 Microbiology 10/09 1225 LOWER RESP: Respiratory Culture - RES 10/09 1225 LOWER RESP: Gram Stain - RES 1:26 PM IMPROVED WORK OF BREATHING. CXR ? VASCULAR CONGESTION HOWEVER PATIENT HYPOTENSIVE ON ARRIVAL. LABS PENDING. Diagnostic Imaging: Viewed by Me: Radiology Read. Discussed w/RAD: Radiology Read. Initial ED EKG: NSR, PVC Rhythm Strip: normal sinus rhythm, sinus tachycardia Comments: PATIENT: EDITH ZHANG PRESENT AGE: 82 PATIENT ACCOUNT NO: [id number] : 33 LOCATION: [facility] ORDERING PHYSICIAN: Cathleen Park MD SERVICE DATE: 10/07/17-1220 EXAM TYPE: RAD - XRY-PORTABLE CHEST XRAY XR PORTABLE CHEST CLINICAL INFORMATION: Respiratory distress. COMPARISON: Chest x-ray 08/15/2017. TECHNIQUE: Portable frontal view of the chest was obtained. FINDINGS: Central vascular congestion without overt edema. No focal consolidation, pleural effusion, or pneumothorax. Cardiac silhouette is enlarged and unchanged. There are no acute osseous findings. IMPRESSION: Central vascular congestion without overt edema. The cardiac silhouette is enlarged and unchanged. DICTATED BY: Rodney Goodwin MD DATE/TIME DICTATED:10/07/171314 AIR HOIST OPERATOR:ONUR DATE/TIME TRANSCRIBED:10/07/171314 CONFIDENTIAL, DO NOT COPY WITHOUT APPROPRIATE AUTHORIZATION. <Electronically signed in Other Vendor System> SIGNED BY: Rodney Goodwin MD 10/07/17 1321 Departure Departure Time of Disposition: 1404 Disposition: STILL A PATIENT Condition: Stable Clinical Impression Primary Impression: Respiratory distress Secondary Impressions: Elevated troponin, Hypotension, Influenza A Referrals: Pablo Jade DO (PCP/Family) Departure Forms: Customer Survey General Discharge Information Admission Note Spoke With: Lamont Gordon MD Documentation of Exam: Documentation of any treatments & extenuating circumstances including Concerns Regarding Discharge (functional status, medication knowledge or non-compliance, living conditions, etc.) that warrant an admission rather than observation: [ BIPAP, TRC/NEBS, IV STEROIDS, IV ABX, MONITOR I/O, SERIAL EKG/TROPONIN, TAMIFLU, PULMONARY CONSULTATION, CARDIOLOGY CONSULTATION] Critical Care Note Critical Care Note Critical Care Time: 30-74 min
[2017-10-07 12:55] LABS: ABSOLUTE BASOPHIL COUNT 0 /CUMM (0.0-0.2); ABSOLUTE EOSINOPHIL COUNT 0.2 /CUMM (0.0-0.7); ABSOLUTE GRANULOCYTE CT 5.8 /CUMM (1.4-6.5); ABSOLUTE LYMPH COUNT 2.3 /CUMM (1.2-3.4); ABSOLUTE MONOCYTE COUNT 0.1 /CUMM (0.10-0.60); BASOPHIL % 0.3 % (0.0-2.0); EOSINOPHIL % 1.8 % (0-5); GRANULOCYTE % 69.8 % (42.2-75.2); HEMATOCRIT 34.4 % (42-52); MEAN CORPUSCULAR HGB 31.5 PG (27.0-31.0); MEAN CORPUSCULAR HGB CONC 31.9 G/DL (33.0-37.0); MEAN CORPUSCULAR VOLUME 98.6 FL (80.0-94.0); MEAN PLATELET VOLUME 8.3 FL (7.4-10.4); PLATELET COUNT 191 /CUMM (130-400); RBC DISTRIBUTION WIDTH 16.8 % (11.5-14.5); RED BLOOD CELL CT 3.49 /CUMM (4.70-6.10); WHITE BLOOD CELL COUNT 8.3 /CUMM (4.8-10.8)
[2017-10-07 13:03] LABS: PT 27.9 SEC (9.4-12.5); PTT 22 SEC (25-37)
--- NOTE | 2017-10-07 13:21 | RADIOLOGY REPORT ---
XR PORTABLE CHEST CLINICAL INFORMATION: Respiratory distress. COMPARISON: Chest x-ray 08/15/2017. TECHNIQUE: Portable frontal view of the chest was obtained. FINDINGS: Central vascular congestion without overt edema. No focal consolidation, pleural effusion, or pneumothorax. Cardiac silhouette is enlarged and unchanged. There are no acute osseous findings. IMPRESSION: Central vascular congestion without overt edema. The cardiac silhouette is enlarged and unchanged.
[2017-10-07] MEDS ORDERED: LASIX40 M1 PO (14:00)
[2017-10-07] MEDS ORDERED: PROAIR HFA8.5 GM INH (14:02)
--- NOTE | 2017-10-07 14:23 | History & Physical ---
Mabel BORJA,Andrei 10/07/17 1411: General Information and HPI MD Statement: I have seen and personally examined EDITH ZHANG and documented this H&P. The patient is a 82 year old M who presented with a patient stated chief complaint of [ SOB]. Source of Information: patient, family, old records Exam Limitations: no limitations History of Present Illness: Patient is an 82-year-old male BIBA from the home, secondary to generalized weakness since one week and shortness of breath since one day. Most of the history is taken from the daughter as the patient was tachypneic. According to her patient was feeling generalized weakness since last Sunday. He started having cough since last 3-4 days. Yesterday he was tachypneic and had one episode of severe diarrhea. She was given cough suppressant, nebulization to him. She is encouraged her father, to see a doctor but he refused. She talked to home care nurse who advised him to come to [facility] ED today in the morning. According to the patient she had episodes of chills, loss of appetite and generalized weakness. He denies any chest pain, trauma, swelling in the limbs. According to the daughter patient was totally compliant with follow-up and was following the CHF clinic and regularly taking diuretics.He was continuously on Coumadin. 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 Personal history -he lives alone and able to do all his daily activity without any assistance, walks with a walker, denies smoking, alcohol use, illicit drug abuse. Denies any recent fall. Denies any bleeding episodes. Allergies/Medications Allergies: Coded Allergies: NO KNOWN ALLERGIES (08/07/16) Home Med list Albuterol Sulfate (Proair Hfa) 90 MCG HFA.AER.AD 2 PUF INH AD PRN RESP. ( Reported) Aspirin (Aspirin*) 81 MG TAB.CHEW 1 TAB PO DAILY HEART Atorvastatin Calcium (Lipitor) 20 MG TABLET 1 TAB PO DAILY CHOLESTEROL ( Reported) Cyanocobalamin (Vitamin B-12) (Cyanocobalamin Injection) 1,000 MCG/1 ML VIAL 1 ML IM Q30D SUPPLEMENT (Reported) Folic Acid 1 MG TABLET 1 TAB PO DAILY ANEMIA Furosemide (Lasix) 40 MG TABLET 1 TAB PO DAILY DIURETIC (Reported) Gabapentin 300 MG CAPSULE 1 CAP PO DAILY PAIN (Reported) Lisinopril 20 MG TABLET 1 TAB PO DAILY HIGH BLOOD PRESSURE Metoprolol Tartrate 50 MG TABLET 1 TAB PO BID BLOOD PRESSURE Omeprazole 20 MG CAPSULE.DR 1 CAP PO DAILY GERD (Reported) Prednisone 10 MG TABLET 1 TAB PO DAILY relapsing polychondritis Please take 15 mg( 1.5mg) daily on 08/13,08/14 10 mg once daily after 08/15 onwards Warfarin Sodium (Coumadin) 5 MG TABLET 1 TAB PO DAILY BLOOD THINNER (Reported ) Past History Travel History Traveled to [place] past 21 day No Medical History Neurological: Shingles left trigeminal EENT: NONE Cardiovascular: AFIB (paroxysmal), chronic venous insuff Respiratory: NONE Gastrointestinal: GERD Hepatic: NONE Renal: NONE Musculoskeletal: osteoarthritis, rheumatoid arthritis, relapsing polychondritis SWEETS DISEASE pseudogout Psychiatric: NONE Endocrine: NONE Blood Disorders: DVT (chronic on left and acute on r), B12 DEFICIENCY 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 self Services at Home: Home Health Aide, Nursing Primary Language: [place] ETOH Use: denies use Illicit Drug Use: denies illicit drug use Living Will? unknown Power of Associate Engineer/HCP? yes Functional Ability ADLs Independent: eating. Needs Assist: dressing, toileting, bathing. Ambulation: walker, non-ambulatory IADLs Independent: telephone. Needs Assist: shopping, housework, finances, food prep, transportation, medication admin. Review of Systems Review of Systems Constitutional: Reports: no symptoms, chills, fever, weakness. Cardiovascular: Reports: orthopena, palpitations. Denies: chest pain, edema. Respiratory: Reports: cough, short of breath, sputum production, wheezing. GI: Reports: diarrhea, nausea. Exam & Diagnostic Data Last 24 Hrs of Vital Signs/I&O Vital Signs Date Time Temp Pulse Resp B/P B/P Pulse O2 O2 Flow FiO2 Mean Ox Delivery Rate 10/07 1519 75 95 10/07 1451 98.4 93 22 88/50 94 Nasal 2.0L Cannula 10/07 1440 82 98 10/07 1428 85 20 88/54 98 CPAP 10/07 1314 100 BIPAP 30% 10/07 1256 98.9 90 23 80/54 100 BIPAP 30% 10/07 1245 99 BIPAP 30% 10/07 1235 78/58 10/07 1230 96 99 Intake & Output 10/07 1600 10/07 0800 10/07 0000 Intake Total 1250 Output Total 100 Balance 1150 Intake, IV 1250 Intake, Oral 0 Output, Urine 100 Patient 94.347 kg Weight Weight Reported by Patient Measurement Method Physical Exam General Appearance Alert, Oriented X3, Mild Distress Skin pale, Neck No JVD Cardiovascular Regular Rate, Normal S1, Normal S2, No Murmurs Lungs generalized wheezing, crackles at bases Abdomen Soft, No Tenderness, distended Extremities mild peripheral edema, weak pulses, chronic skin changes Vascular poor/weak pulses Last 24 Hrs of Labs/Efrain: Laboratory Tests 10/07/17 1243: Lactic Acid 1.5 10/07/17 1243: Anion Gap 10, Estimated GFR 53 L, BUN/Creatinine Ratio 32.3 H, Glucose 209 H, Calcium 9.2, Total Bilirubin 0.4, AST 28, ALT 25, Alkaline Phosphatase 77, Troponin I 0.15 *H, Ugb-M-Cczxwpgniqb Pept 2910 H, Total Protein 7.2, Albumin 3.5, Globulin 3.7, Albumin/Globulin Ratio 0.9 L, PT 27.9 H, INR 2.68 H, APTT 22 L, CBC w Diff NO MAN DIFF REQ, RBC 3.49 L, MCV 98.6 H, MCH 31.5 H, MCHC 31.9 L, RDW 16.8 H, MPV 8.3, Gran % 69.8, Lymphocytes % 27.2, Monocytes % 0.9 L, Eosinophils % 1.8, Basophils % 0.3, Absolute Granulocytes 5.8, Absolute Lymphocytes 2.3, Absolute Monocytes 0.1, Absolute Eosinophils 0.2, Absolute Basophils 0 10/07/17 1225: pH 7.34 L, pCO2 44, pO2 111 H, HCO3 23, ABG O2 Sat (Measured) 97.0, Carboxyhemoglobin 0.4 L, O2 Concentration % 15L, O2 Delivery Method CPAP 10, Phlebotomy Draw Site RIGHT RADIAL Microbiology 10/07 1514 LOWER RESP: Respiratory Culture - COLB 10/07 1514 LOWER RESP: Gram Stain - COLB 10/07 1422 URINE ROUT: Urine Culture - RECD 10/07 1330 BLOOD: Blood Culture - RECD 10/07 1310 NASOPHARYN: Influenza Virus A & B Rapid Smear - COMP INFLUENZA TYPE A 10/07 1243 BLOOD: Blood Culture - RECD Assessment/Plan Assessment: Patient is a 82-year-old male presented with chief complaints of shortness of breath. ED course-at the time of EMS arrival SPO2 was 89-90% on CPAP mode shortness of breath. On examination patient was lethargic. Vital signs at the time of admission temperature 98.9, pulse 96, respiratory 23, blood pressure 78/58, SPO2 99% on BiPAP 30%. Blood workup showed hemoglobin 11.0, hematocrit 34.4, platelet count 191, serum sodium 136, potassium 4.1, chloride 97, troponin 0.15, BUN 42, creatinine 1.3, GFR 53, glucose 209,ProBNP - 2910, He was given IV fluids 500 cc bolus, injection hydrocortisone 100 mg IV state and ceftriaxone and azithromycin. Flu test come back positive so started on tablet Tamiflu 75 mg twice daily. Assessment and plan - Acute shortness of breath secondary to postviral bronchitis -influenza A positive leading to Sepsis - Tachypnoea/RR >22; Hypotension BP <100 - Patient presented with generalized weakness since 1 week and acute shortness of breath since one day. He had sick contact with his daughter. He was very compliant with his medication and following the CHF clinic and according to him during his last visit he was told that he is completely all right. He denies any increased salt intake or fluid intake. Increasing body weight are bilateral lower leg swelling. On examination there was generalized wheezing basilar crackles on lung exam no JVD. His pro BNP was 2910 lesser than before. Troponin I was slightly positive. Chest x-ray did not showed any evidence of pulmonary edema that developed increased markings on right lower lobe. He was not on any home oxygen but required 2 L of oxygen to maintain his saturation more than 90%. * Keep head end of the bed elevated. * Oxygenated patient to keep SPO2 more than 90% * Advised to start on tablet Tamiflu 30 mg twice daily(creatinine clearance less than 60 - 49) * Advised to have droplet precautions. * We start him on ceftriaxone and azithromycin for possibility of community- acquired pneumonia * We will follow-up with blood cultures, urine cultures, LRTC. * We will admit the patient to ICU, to observe for low blood pressure and deterioration in respiratory status. * Follow-up cardiology recommendation Hypotension -possibly secondary to sepsis and dehydration ; need stress dose of steroids He was given 1 L of saline in ED, blood pressure of 88/50. * We will continue normal saline 50-75 cc/h and watch for the breathing * Restart patient on stress dose of steroid. Injection hydrocortisone 100 mg already given in the ED and will continue as 50 mg IV 8 hourly. * Strict intake output charting Type II OH/demand ischemia - He denies any chest pain, palpitation. He is compliant with his medication. His first troponin was positive was 0.15. * We will do serial troponins and EKGs * Follow cardiology recommendation DESHAUN - He had an episode of diarrhea. Denies any anorexia or loss of appetite. BUN/ creatinine was -42/1.3. * We will give IV fluid at slow rate 50-75 cc/h * Strict intake output charting * Watch for diarrhea, if needed we will send stool sample for C. difficile Hyperglycemia He has a history of steroid intake for relapsing polychondritis. * We will regularly monitor blood sugar level every 4 hourly. * If needed than insulin according to sliding scale. Atrial fibrillation with controlled ventricular rate - He is on metoprolol and Coumadin. Will hold metoprolol at this time. Currently PT/INR is 37.9/2.68. * We will start on low-dose Coumadin 3 mg every day. * We will check PT/INR tomorrow and dose accordingly Chronic medical issues -hyperlipidemia, relapsing polychondritis - We will continue aspirin, atorvastatin, and change his stress steroid to prednisone from tomorrow Diet -heart healthy diet CODE STATUS-DNR/DNI DVT prophylaxis - Coumadin As Ranked By This Provider Problem List: 1. Influenza A 2. Hypotension 3. Respiratory distress 4. DESHAUN (acute kidney injury) Core Measures/Misc (05/13) Acute Coronary Syndrome ACS Diagnosis: No Congestive Heart Failure Congestive Heart Failure Diagnosis No Cerebrovascular Accident CVA/TIA Diagnosis: No VTE (View Protocol) VTE Risk Factors Age>40 No Mechanical VTE Prophylaxis d/t N/A MechProphylax Ordered No VTE Pharm Prophylaxis d/t NA PharmProphylax ordered Sepsis (View protocol) Sepsis Present: Yes Lamont Gordon MD 10/07/17 8808: Attending MD Review Statement Attending Statement Attending MD Statement: examined this patient, discuss w/resident/PA/[employer], agreed w/resident/PA/[employer], discussed with family, reviewed EMR data (avail), discussed with nursing, reviewed images, amended to note Attending Assessment/Plan: The patient is an 82 yo male with h/o pulmonary HTN, Sweet Disease, relapsing polychondritis, HTN, pseudogout, GERD, afib (on coumadin), diastolic dysfunction , and pulmonary HTN who presented in the ED at [place] today with tachypnea and hypotension. He had been experiencing gradual increased weakness over 1 week prior to admission and also had a bout of diarrhea. Cough was increasing. He had no fever, however did describe a chill. He was given diuretic today. Physical Exam: Chest: diminished breath sounds, occ rhonchi Cor: reg rate, sl irreg (PAC's/PVC'a), nl S1, S2 Abd: BS+, soft Ext: diminished pulses, no sig edema Labs/Tests- as above Impression/Plan: #Acute on Chronic Hypoxic Respiratory Failure/Bronchitis/Influenza A - as above positive rapid test in ED. 1 week of symptoms, worse today. Patient is significantly ill. Plan: Will admit to ICU for close monitoring. DNR/DNI per family. At present no desire for central line per family (will discuss if needed again). Tamiflu. #Hypotension- patient has volume depletion due to diuretic, poor po intake, and diarrhea. BNP was elevated, however no significant CHF. Plan: Aggressive IV fluids at present and monitor BP closely. #Elevated Troponin I Level- ? demand ischemia?/type II OH No chest pain noted. Plan: Serial troponin I levels. Cardiology consult Dr. Fabian. #Atrial Fibrillation with controlled VR- in NSR at time of my visit with PAC's/ PVC;s. Plan: Hold metoprolol due to hypotension and follow HR. #Relapsing Polychondritis- on steroids. Plan: Agree with stress steroids (started in ED).
[2017-10-07 18:00] VITALS: BP 82/46
[2017-10-07 21:13] LABS: ABSOLUTE BASOPHIL COUNT 0 /CUMM (0.0-0.2); ABSOLUTE EOSINOPHIL COUNT 0 /CUMM (0.0-0.7); ABSOLUTE GRANULOCYTE CT 8.4 /CUMM (1.4-6.5); ABSOLUTE LYMPH COUNT 0.4 /CUMM (1.2-3.4); ABSOLUTE MONOCYTE COUNT 0.1 /CUMM (0.10-0.60); BASOPHIL % 0 % (0.0-2.0); EOSINOPHIL % 0 % (0-5); GRANULOCYTE % 94.8 % (42.2-75.2); MEAN CORPUSCULAR HGB 31.9 PG (27.0-31.0); MEAN CORPUSCULAR HGB CONC 32.4 G/DL (33.0-37.0); MEAN CORPUSCULAR VOLUME 98.4 FL (80.0-94.0); MEAN PLATELET VOLUME 7.9 FL (7.4-10.4); PLATELET COUNT 155 /CUMM (130-400); RBC DISTRIBUTION WIDTH 16.9 % (11.5-14.5); WHITE BLOOD CELL COUNT 8.9 /CUMM (4.8-10.8)
[2017-10-07 21:14] LABS: HEMATOCRIT 29.5 % (42-52)
--- NOTE | 2017-10-07 22:42 | Event Note ---
Event Note Event Note: S: Despite multiple fluid boluses the patient has remained hypotensive since admission. B: Patient currently in the critical care unit, for closer care. He has currently been admitted for acute on chronic hypoxic respiratory failure due to influenza A/R: Shortly after sign out from the day team patient remains hypotensive. During initial conversations family skeptical about placing a line, however subsequently reconsidered and would like a central line to be placed should need for pressors arise. 8.25 PM. Attending at bedside. last BP 80/doppler. 8.40 PM. Attending at bedside. Spoke to Surgeon irrigation technician, requesting need for a central line. Concern was elevated INR in the setting of warfarin administration. INR is 2.69. Consent from daughter obtained. 8.50 PM: BP 114/65. Surgical PA at bedside. 8.59 PM: Type and Screen ordered. 10.04: BP: 99/49. 10.19 PM: BP remians low: 87/43. Have increased steroids to 100 Q 8. 10.33 PM. Patient remians hypotensive. Will make arrangements to proceed with central line. FFP ordered. Spoke to Surgical PA, she will relay information to Dr Post. 11.36. BP: 117/57.FFP, Manolo. Seen patient at bedside. AOx3. Has no compaints. Daughters in room. Crackles noted in Left Lung. 12.00PM . Spoke to Dr Post. Rec that we hold off on the line for now. Will contitnue to monitor. BP: 108/52. UOP in the last one hour 150mL/hr. 2.59 AM: BP 100 systolic Appears that the patient likely responded to the increase in dose of steroids. 6.35 AM: BP: 136/60 2.59 AM: BP 100 systolic
--- NOTE | 2017-10-07 22:48 | Admission Certification ---
Admission Certification Certification Statement - As attending physician, I certify that at the time of - admission, based on clinical presentation, severity of - symptoms, need for further diagnostic testing and - therapeutic interventions, and risk of adverse outcomes - without in-hospital treatment, in my clinical assessment, - this patient requires an acute hospital stay for a minimum - of two nights or longer. I have also considered psychsocial - factors such as support system, advanced age, financial - issues, cognitive issues, and failed out-patient treatments, - past re-admission history, safety of patient, and lack of - compliance as applicable. Specific rationale supporting this admission is: The patient presents in the ED with dyspnea and acute on chronic hypoxic respiratory failure secondary to bronchitis and influenza A. He is hypotensive and tachympneic. Troponin I levels are elevated and needs admission to ICU for close obervation, aggressive IV fluids, hemodynamic monitoring, serial troponins , stress IV steroids, Tamiflu, cardiology/pulmonary evals.
[2017-10-07 23:00] VITALS: BP 110/50
[2017-10-08 05:46] LABS: ABSOLUTE BASOPHIL COUNT 0 /CUMM (0.0-0.2); ABSOLUTE EOSINOPHIL COUNT 0 /CUMM (0.0-0.7); ABSOLUTE LYMPH COUNT 0.6 /CUMM (1.2-3.4); ABSOLUTE MONOCYTE COUNT 0.1 /CUMM (0.10-0.60); BASOPHIL % 0.1 % (0.0-2.0); EOSINOPHIL % 0 % (0-5); HEMATOCRIT 27.5 % (42-52); MEAN CORPUSCULAR HGB 32.4 PG (27.0-31.0); MEAN CORPUSCULAR VOLUME 98.3 FL (80.0-94.0); MEAN PLATELET VOLUME 7.5 FL (7.4-10.4); PLATELET COUNT 153 /CUMM (130-400); RBC DISTRIBUTION WIDTH 16.7 % (11.5-14.5); RED BLOOD CELL CT 2.79 /CUMM (4.70-6.10); WHITE BLOOD CELL COUNT 6.8 /CUMM (4.8-10.8)
[2017-10-08 05:58] LABS: GRANULOCYTE % 88.4 % (42.2-75.2)
--- NOTE | 2017-10-08 07:26 | Cons- CRCU ---
General Information and HPI Allergies/Medications Allergies: Coded Allergies: NO KNOWN ALLERGIES (08/07/16) Home Med List: Albuterol Sulfate (Proair Hfa) 90 MCG HFA.AER.AD 2 PUF INH AD PRN RESP. ( Reported) Aspirin (Aspirin*) 81 MG TAB.CHEW 1 TAB PO DAILY HEART Atorvastatin Calcium (Lipitor) 20 MG TABLET 1 TAB PO DAILY CHOLESTEROL ( Reported) Cyanocobalamin (Vitamin B-12) (Cyanocobalamin Injection) 1,000 MCG/1 ML VIAL 1 ML IM Q30D SUPPLEMENT (Reported) Folic Acid 1 MG TABLET 1 TAB PO DAILY ANEMIA Furosemide (Lasix) 40 MG TABLET 1 TAB PO DAILY DIURETIC (Reported) Gabapentin 300 MG CAPSULE 1 CAP PO DAILY PAIN (Reported) Lisinopril 20 MG TABLET 1 TAB PO DAILY HIGH BLOOD PRESSURE Metoprolol Tartrate 50 MG TABLET 1 TAB PO BID BLOOD PRESSURE Omeprazole 20 MG CAPSULE.DR 1 CAP PO DAILY GERD (Reported) Prednisone 10 MG TABLET 1 TAB PO DAILY relapsing polychondritis Please take 15 mg( 1.5mg) daily on 08/13,08/14 10 mg once daily after 08/15 onwards Warfarin Sodium (Coumadin) 5 MG TABLET 1 TAB PO DAILY BLOOD THINNER (Reported ) Past History Travel History Traveled to [place] past 21 day No Medical History Blood Transfusion Hx: Yes Neurological: Shingles left trigeminal EENT: NONE Cardiovascular: AFIB (paroxysmal), chronic venous insuff Respiratory: NONE Gastrointestinal: GERD Hepatic: NONE Renal: NONE Musculoskeletal: osteoarthritis, rheumatoid arthritis, relapsing polychondritis SWEETS DISEASE pseudogout Psychiatric: NONE Endocrine: NONE Blood Disorders: DVT (chronic on left and acute on r), B12 DEFICIENCY 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 Home Who Do You Live With? self Services at Home: Home Health Aide, Nursing Primary Language: [place] Smoking Status: Never Smoked ETOH Use: denies use Illicit Drug Use: denies illicit drug use Living Will? unknown Power of Night Shift/HCP? yes Functional Ability ADLs Independent: eating. Needs Assist: dressing, toileting, bathing. Ambulation: walker, non-ambulatory IADLs Independent: telephone. Needs Assist: shopping, housework, finances, food prep, transportation, medication admin. Assessment/Plan Consult Acknowledgment - Thank you for your consult request.
[2017-10-08 08:00] VITALS: BP 136/60
[2017-10-08 09:27] LABS: PT 28.2 SEC (9.4-12.5)
--- NOTE | 2017-10-08 09:36 | Cons- Cardiology ---
General Information and HPI Consulting Request Date of Consult: 10/08/17 Requested By: Lamont Gordon MD Reason for Consult: Positive troponin in a patient who presents with influenza and hypotension. Source of Information: patient, old records Exam Limitations: no limitations History of Present Illness: Mr. Edith Zhang is an 82-year-old male who was seen in [facility] in July 2016 for arrhythmias. He has a history of relapsing polychondritis, previous Babesiosis, and possible paroxysmal atrial fibrillation, although this has never been definitely documented. 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 He came to the hospital on 07/2016 complaining of weakness, fatigue, and palpitations. He was found to be tachycardic with multiple PACs but no definite atrial fibrillation was seen. The patient also had a history of DVT and had been on Coumadin for 3 months which was recently stopped. In the Emergency Department. He had a CTA which was negative for pulmonary embolism. He had been given beta blockers and also some steroids. The patient had a Holter monitor in June 2016 showing sinus rhythm with an average rate of 98, with very frequent ventricular and supraventricular ectopy. There were also some runs of ventricular tachycardia and supraventricular tachycardia. In the hospital we started him on beta blockers which slowed his rate somewhat but he still had a lot of ectopy. There was evidence of congestive heart failure on chest x-ray, which was treated with Lasix. The echocardiogram showed an ejection fraction of 40% to 45% with moderate to severe pulmonary hypertension. Eventually he was discharged home on Lopressor, warfarin, Lasix and atorvastatin from a cardiac standpoint. At the time of his post hospital visit I recommended a stress test, which would be a Persantine stress test, however he ended up back in the hospital from 09/11 to 09/20/2016 with pneumonia. He also had a slightly elevated troponin of 0.19 which decreased. He was therefore watched on the monitor and seen by Dr. Hernandez and Dr. Rose, who were covering me at the time. He had no further cardiac issues during the hospitalization. He did have another echocardiogram on 09/19/16 which showed left ventricular ejection fraction of 50%, some aortic sclerosis, and severely elevated pulmonary artery pressure at 70 mmHg. Subsequently we did do his stress test on 12/18/2016. This was read as a small area of moderately diminished activity involving the apex and adjacent apical anterior wall. It was read as mild ischemia in that area. When I looked at it myself I thought it was pretty minimal, and quantitatively it came out to be almost normal. While Edith was as admitted to [facility] on 03/13/17 with severe diarrhea and major electrolyte abnormalities. His C difficile titer was negative. He might have had babesiosis by DNA detected by PCR. He had elevated troponin to a peak level of 0.29, and we repeated an echo which showed good left ventricular systolic function with no wall motion abnormalities. He also has mild aortic stenosis which was known and very mildly elevated pulmonary artery pressure, which was reduced over his previous values. We thought that he had demand ischemia from being hypotensive on admission. He also had a couple of episodes of nonsustained ventricular tachycardia in the hospital which spontaneously resolved, and we sent him out on Lopressor 50 mg twice daily. Since his visit in June, Mayo was admitted twice to [facility]. The first time was 08/08/2017 through 08/13/2017. He came in with diarrhea, acute kidney injury and some mild GI bleeding. He also had a mildly elevated troponin, a peak of 0.18, secondary to type 2 myocardial infarction, or demand ischemia type OH. Subsequently he recovered from that, but he was readmitted from 2016 through 08/17/2017 with congestive heart failure, mostly right sided with increasing edema. He responded to IV Lasix and was discharged on Lasix 40 mg twice a day. Currently he is only taking this once a day because he thought he was getting dehydrated. He remains also on metoprolol, lisinopril, warfarin managed by the clinic, aspirin, and atorvastatin. I saw Mayo in the office just a week and a half ago at which time he had gained a little weight and I recommended an occasional extra Lasix depending on his weight and edema. Otherwise he was stable and his EKGs just showed similar findings, which is multiple PACs but no acute changes. Mayo was just admitted yesterday with shortness of breath and generalized weakness. He was noted to be hypotensive and and given a significant amount of IV fluids. His blood pressure subsequently came up and was normal last evening and this morning. Allergies/Medications Allergies: Coded Allergies: NO KNOWN ALLERGIES (08/07/16) Home Med List: Albuterol Sulfate (Proair Hfa) 90 MCG HFA.AER.AD 2 PUF INH AD PRN RESP. ( Reported) Aspirin (Aspirin*) 81 MG TAB.CHEW 1 TAB PO DAILY HEART Atorvastatin Calcium (Lipitor) 20 MG TABLET 1 TAB PO DAILY CHOLESTEROL ( Reported) Cyanocobalamin (Vitamin B-12) (Cyanocobalamin Injection) 1,000 MCG/1 ML VIAL 1 ML IM Q30D SUPPLEMENT (Reported) Folic Acid 1 MG TABLET 1 TAB PO DAILY ANEMIA Furosemide (Lasix) 40 MG TABLET 1 TAB PO DAILY DIURETIC (Reported) Gabapentin 300 MG CAPSULE 1 CAP PO DAILY PAIN (Reported) Lisinopril 20 MG TABLET 1 TAB PO DAILY HIGH BLOOD PRESSURE Metoprolol Tartrate 50 MG TABLET 1 TAB PO BID BLOOD PRESSURE Omeprazole 20 MG CAPSULE. 1 CAP PO DAILY GERD (Reported) Prednisone 10 MG TABLET 1 TAB PO DAILY relapsing polychondritis Please take 15 mg( 1.5mg) daily on 08/13,08/14 10 mg once daily after 08/15 onwards Warfarin Sodium (Coumadin) 5 MG TABLET 1 TAB PO DAILY BLOOD THINNER (Reported ) Current Medications: Current Medications Sig/Renetta Start time Last Medication Dose Route Stop Time Status Admin Albuterol Sulfate 3 ML BID 10/07 2200 AC 10/08 INH 0804 Albuterol Sulfate 2 PUF Q4P PRN 10/07 1530 AC INH Albuterol Sulfate 3 ML ONCE ONE 10/07 1530 DC 10/07 INH 10/07 1531 1532 Albuterol Sulfate 3 ML ONCE ONE 10/07 1230 DC 10/07 INH 10/07 1231 1245 Aspirin 0 .STK-MED ONE 10/07 1651 DC PO Aspirin 81 MG DAILY 10/07 1519 AC 10/08 PO 0927 Atorvastatin Calcium 20 MG DAILY@1700 10/07 1700 AC 10/07 PO 1641 Azithromycin 500 MG ONCE ONE 10/07 1345 DC 10/07 Dextrose/Water 250 ML IV 10/07 1444 1410 Ceftriaxone Sodium 1,000 MG DAILY@1400 10/08 1400 CAN IV Ceftriaxone Sodium 0 .STK-MED ONE 10/07 1406 DC .ROUTE Ceftriaxone Sodium 1,000 MG ONCE ONE 10/07 1345 DC 10/07 IV 10/07 1346 1410 Hydrocortisone 100 MG Q8 10/08 0600 AC 10/08 Sodium Succinate IV 0602 Hydrocortisone 50 MG ONCE ONE 10/07 2230 DC 10/07 Sodium Succinate IV 10/07 2231 2248 Hydrocortisone 50 MG Q8 10/07 1512 DC 10/07 Sodium Succinate IV 2133 Hydrocortisone 100 MG ONE ONE 10/07 1345 DC 10/07 Sodium Succinate IV 10/07 1346 1450 Ipratropium [place] 2.5 ML ONCE ONE 10/07 1530 DC / INH 10/07 1531 1532 Ipratropium [place] 2.5 ML ONCE ONE 10/07 1230 DC 10/07 INH 10/07 1231 1245 Methylprednisolone 0 .STK-MED ONE 10/07 1233 DC .ROUTE Methylprednisolone 125 MG ONCE ONE 10/07 1230 DC 10/07 IV 10/07 1231 1240 Norepinephrine 4 MG ONCE ONE 10/07 2330 DC Sodium Chloride 250 ML IV 10/07 2331 Norepinephrine 4 MG ONCE ONE 10/07 2300 DC Sodium Chloride 250 ML IV 10/07 2301 Oseltamivir Phosphate 30 MG BID 10/07 2200 AC 10/08 PO 10/11 2159 0927 Oseltamivir Phosphate 30 MG ONCE ONE 10/07 1400 DC 10/07 PO 10/07 1401 1450 Sodium Chloride 1,000 ML BOLUS ONE 10/07 1915 DC IV 10/07 2014 Sodium Chloride 1,000 ML Q10H 10/07 1430 DC 10/07 IV 1641 Sodium Chloride 500 ML BOLUS ONE 10/07 1430 DC 10/07 IV 10/07 1529 1520 Sodium Chloride 500 ML BOLUS ONE 10/07 1345 DC 10/07 IV 10/07 1444 1400 Sodium Chloride 500 ML BOLUS ONE 10/07 1245 DC 10/07 IV 10/07 1344 1240 Warfarin Sodium 3 MG COUMADIN 1700 ONE 10/07 1700 DC 10/07 PO 10/07 1701 1641 Review of Systems Review of Systems: He has no other complaints in the review of systems. 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 Home Who Do You Live With? self Services at Home: Home Health Aide, Nursing Primary Language: Turkmen Smoking Status: Never Smoked ETOH Use: denies use Illicit Drug Use: denies illicit drug use Living Will? 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 yes Functional Ability ADLs Independent: eating. Needs Assist: dressing, toileting, bathing. Ambulation: walker, non-ambulatory IADLs Independent: telephone. Needs Assist: shopping, housework, finances, food prep, transportation, medication admin. Exam & Diagnostic Data Vital Signs and I&O Vital Signs Date Time Temp Pulse Resp B/P B/P Pulse O2 O2 Flow FiO2 Mean Ox Delivery Rate 10/08 0810 98 Nasal 2.0L Cannula 10/08 0809 89 99 10/08 08 99 BIPAP 30% 10/08 08 98.1 87 24 136/60 99 BIPAP 30% 10/08 0624 102 98 10/08 0400 97 BIPAP 30% 10/08 0340 94 97 10/08 0046 91 96 10/08 0000 96 BIPAP 30% 10/07 2300 97.4 76 21 110/50 96 BIPAP 30% 10/07 2201 BIPAP 30% 10/07 2159 86 97 10/07 2000 98 BIPAP 30% 10/07 1800 97.7 83 21 82/46 97 BIPAP 30% 10/07 1800 97 BIPAP 30% 10/07 1637 97.4 81 20 90/48 97 10/07 1610 73 99 10/07 1519 75 95 10/07 1451 98.4 93 22 88/50 94 Nasal 2.0L Cannula 10/07 1440 82 98 10/07 1428 85 20 88/54 98 CPAP 10/07 1314 100 BIPAP 30% 10/07 1256 98.9 90 23 80/54 100 BIPAP 30% 10/07 1245 99 BIPAP 30% 10/07 1235 78/58 10/07 1230 96 99 Intake & Output 10/08 1600 10/08 0800 10/08 0000 10/07 1600 10/07 0800 10/07 0000 Intake Total 780 1023 1250 Output Total 750 725 100 Balance 30 298 1150 Intake, Blood 322 Product Intake, IV 458 1023 1250 Intake, Oral 0 Number 0 0 Bowel Movements Output, Urine 750 725 100 Patient 263 lb 208 lb Weight Weight Bed scale Reported by Patient Measurement Method Physical Exam: Obese elderly man in mild respiratory distress HEENT exam normal Chest a few basilar rales and moderate expiratory wheezing Heart irregular rhythm moderate tachycardia Abdomen benign Extremities trace edema Diagnostic Data EKG Results Sinus rhythm at a rate of 88 with multiple PACs and no acute EKG changes. CXR Results PATIENT: EDITH ZHANG PRESENT AGE: 82 PATIENT ACCOUNT NO: [id number] : 33 LOCATION: [facility] ORDERING PHYSICIAN: Cathleen Park MD SERVICE DATE: 10/07/17 EXAM TYPE: RAD - XRY-PORTABLE CHEST XRAY XR PORTABLE CHEST CLINICAL INFORMATION: Respiratory distress. COMPARISON: Chest x-ray 08/15/2017. TECHNIQUE: Portable frontal view of the chest was obtained. FINDINGS: Central vascular congestion without overt edema. No focal consolidation, pleural effusion, or pneumothorax. Cardiac silhouette is enlarged and unchanged. There are no acute osseous findings. IMPRESSION: Central vascular congestion without overt edema. The cardiac silhouette is enlarged and unchanged. 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 <Electronically signed in Other Vendor System> SIGNED BY: Rodney Goodwin MD 10/07/17 1321 Assessment/Plan Assessment/Plan This patient presented with hypotension and positive influenza. He has slightly elevated troponin consistent with type II myocardial infarction secondary to the hypotension. At the current time he appears to be in some degree of CHF with shortness of breath, tachycardia, wheezing and rales. I recommend IV Lasix at this time and a follow-up chest x-ray. The second troponin was lower so we don't have to trend it any more, but I would obtain follow-up EKG. He has a history of atrial fibrillation but still appears to be in sinus rhythm with frequent PACs on the monitor at this time. Copies To: Pablo Jade DO Consult Acknowledgment - Thank you for your consult request.
--- NOTE | 2017-10-08 10:16 | RADIOLOGY REPORT ---
EXAMINATION: CR PORTABLE CHEST CLINICAL INFORMATION: Crackles on examination. Assess for pulmonary edema. COMPARISON: Several prior chest x-rays, most recent of which is dated 10/07/2017. TECHNIQUE: Portable AP semierect view of the chest was obtained. FINDINGS: Multiple EKG leads overlie the chest. The cardiomediastinal silhouette is enlarged, unchanged. Central vascular congestion is again seen without overt pulmonary edema. No focal consolidation, pleural effusion or pneumothorax is seen. Bony structures are unremarkable. IMPRESSION: Central vascular congestion and enlarged cardiomediastinal silhouette without overt pulmonary edema. Findings are unchanged from prior exam.
--- NOTE | 2017-10-08 10:37 | PN- Resident CRCU ---
Subjective HPI/CRCU Issues: Premature Atrial Contractions/PVCs type II myocardial infarction CHF Acute hypoxic respiratory failure likely secondary to Influenza A Transient hypotension on admission likely secondary to relative cortisol deficiency 24 Hour Events: No acute events overnight. Patient has been on the BiPAP overnight. He has done reasonably well. He is currently on NC 2L. In the past 24 hours: Input: 1803ml , Output 1475ml Objective Vital Signs & I&O Last 8 Hrs of Vitals and I&O: . Exam General Appearance: alert, awake, mild distress Head: atraumatic, normal appearance Respiratory: chest non-tender, crackles, wheezing Cardiovascular: irregularly irregular Gastrointestinal: soft, non-tender Extremities: no edema Cranial Nerves: normal hearing, normal speech Skin: intact Skin Temp/Moisture Exam: Warm/Dry Sepsis Skin Exam (color): Normal for Ethnicity Current Medications: Current Medications Sig/Renetta Start time Last Medication Dose Route Stop Time Status Admin Albuterol Sulfate 3 ML BID 10/07 2200 AC 10/08 INH 0804 Albuterol Sulfate 2 PUF Q4P PRN 10/07 1530 AC INH Albuterol Sulfate 3 ML ONCE ONE 10/07 1530 DC 10/07 INH 10/07 1531 1532 Aspirin 0 .STK-MED ONE 10/07 1651 DC PO Aspirin 81 MG DAILY 10/07 1519 AC 10/08 PO 0927 Atorvastatin Calcium 20 MG DAILY@1700 10/07 1700 AC 10/07 PO 1641 Azithromycin 500 MG ONCE ONE 10/07 1345 DC 10/07 Dextrose/Water 250 ML IV 10/07 1444 1410 Ceftriaxone Sodium 1,000 MG DAILY@1400 10/08 1400 CAN IV Furosemide 40 MG ONCE ONE 10/08 1000 DC 10/08 IV 10/08 1001 0955 Hydrocortisone 50 MG Q8 10/08 1400 AC Sodium Succinate IV 10/08 2300 Hydrocortisone 100 MG Q8 10/08 0600 DC 10/08 Sodium Succinate IV 0602 Hydrocortisone 50 MG ONCE ONE 10/07 2230 DC 10/07 Sodium Succinate IV 10/07 2231 2248 Hydrocortisone 50 MG Q8 10/07 1512 DC 10/07 Sodium Succinate IV 2133 Ipratropium [place] 2.5 ML ONCE ONE 10/07 1530 DC 10/07 INH 10/07 1531 1532 Norepinephrine 4 MG ONCE ONE 10/07 2330 DC Sodium Chloride 250 ML IV 10/07 2331 Norepinephrine 4 MG ONCE ONE 10/07 2300 DC Sodium Chloride 250 ML IV 10/07 2301 Oseltamivir Phosphate 30 MG BID 10/07 220 AC 10/08 PO 10/11 2158 09 Prednisone 5 MG 2200 10/09 220 AC PO Prednisone 10 MG DAILY 10/09 1000 AC PO Sodium Chloride 1,000 ML BOLUS ONE 10/07 1915 DC IV 10/07 2013 Sodium Chloride 1,000 ML Q10H 10/07 1430 DC 10/07 IV 1641 Sodium Chloride 500 ML BOLUS ONE 10/07 1430 DC 10/07 IV 10/07 1529 1520 Sodium Chloride 500 ML BOLUS ONE 10/07 1345 DC 10/07 IV 10/07 1444 1400 Warfarin Sodium 3 MG COUMADIN 1700 ONE 10/07 1700 DC 10/07 PO 10/07 1701 1641 Impression/Plan Impression/Problem List Impression: 82 year old male BIBA from the home, secondary to generalized weakness for the past week and shortness of breath for a day prior admission to ED. Assessment and Plan: Acute Hypoxemic Respiratory Failure likely secondary to Influenza Pnemonia: Patient came in with complains of dyspnea. On admission he was found to be positive for Influenza A. His symptoms are likely due to influenza pnemonia. * Continue oxygen supplementation to maintain target sats >92%. Currently on 2L. * If his respiratory status deteriorates, he will need to go back on the BiPAP either during the day or at night. * Continue Tamiflu * Will follow up sputum culture. * Reduce hydrocortisone to 50mg q8. Will start him on Prednisone from tomorrow, 10mg during day and 5mg at night. He has a relative cortisol deficiency likely secondary due to chronic steroid use causing HPA suppresion. * He likely has some component of mild CHF. His CXR from earlier today showed central vascular congestion. * One time dose of IV Lasix 40mg was given. Will reassess tomorrow if this is still needed. Repeat CXR from today shows no central vascular congestion. Type II NV: * Mild elevation in troponin found on admission. * Troponins have peaked. Patient has been asymptomatic * Will observe for now. Paroxysmal Atrial Fibrilliation: * Rhythm irregular with multiple PAC/MATs * Will dose Warfarin each day based on INR. Currently on a lower dose, 3mg than home dose which is 5mg. * Metoprolol (home medication) on hold for now. Can likely be restarted tomorrow as blood pressure allows. Hyperglycemia: * Likely in the setting of steroid use. * Blood glucose has been in acceptable range (140-180 for ICU) * Can be started on Insulin SS if needed * Continue Accucheks History of Hyperlipidemia: * Continue statin, aspirin Hypotension: - resolved * He was hypotensive on admission which has resolved. DESHAUN: - resolved * Elevated Cr on admission - resolved Diet: Heart Healthy DVT Prophylaxis: On Coumadin Code Status: DNR/DNI Problem List: 1. Influenza A Pain Ratin Tomorrow's Labs & Rationales: CBC, ICU bundle Plan DVT/Prophylaxis: pharmacological
--- NOTE | 2017-10-08 10:47 | Cons- CRCU ---
General Information and HPI Consulting Request Date of Consult: 10/08/17 Requested By: med team History of Present Illness: Patient is an 82-year-old male BIBA from the home, secondary to generalized weakness since one week and shortness of breath since one day. Most of the history is taken from the daughter as the patient was tachypneic. According to her patient was feeling generalized weakness since last Sunday. He started having cough since last 3-4 days. Yesterday he was tachypneic and had one episode of severe diarrhea. She was given cough suppressant, nebulization to him. She is encouraged her father, to see a doctor but he refused. She talked to home care nurse who advised him to come to [facility] ED today in the morning. According to the patient she had episodes of chills, loss of appetite and generalized weakness. He denies any chest pain, trauma, swelling in the limbs. According to the daughter patient was totally compliant with follow-up and was following the CHF clinic and regularly taking diuretics.He was continuously on Coumadin. 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 Personal history -he lives alone and able to do all his daily activity without any assistance, walks with a walker, denies smoking, alcohol use, illicit drug abuse. Denies any recent fall. Denies any bleeding episodes. Allergies/Medications Allergies: Coded Allergies: NO KNOWN ALLERGIES (08/07/16) Home Med List: Albuterol Sulfate (Proair Hfa) 90 MCG HFA.AER.AD 2 PUF INH AD PRN RESP. ( Reported) Aspirin (Aspirin*) 81 MG TAB.CHEW 1 TAB PO DAILY HEART Atorvastatin Calcium (Lipitor) 20 MG TABLET 1 TAB PO DAILY CHOLESTEROL ( Reported) Cyanocobalamin (Vitamin B-12) (Cyanocobalamin Injection) 1,000 MCG/1 ML VIAL 1 ML IM Q30D SUPPLEMENT (Reported) Folic Acid 1 MG TABLET 1 TAB PO DAILY ANEMIA Furosemide (Lasix) 40 MG TABLET 1 TAB PO DAILY DIURETIC (Reported) Gabapentin 300 MG CAPSULE 1 CAP PO DAILY PAIN (Reported) Lisinopril 20 MG TABLET 1 TAB PO DAILY HIGH BLOOD PRESSURE Metoprolol Tartrate 50 MG TABLET 1 TAB PO BID BLOOD PRESSURE Omeprazole 20 MG CAPSULE. 1 CAP PO DAILY GERD (Reported) Prednisone 10 MG TABLET 1 TAB PO DAILY relapsing polychondritis Please take 15 mg( 1.5mg) daily on 08/13,08/14 10 mg once daily after 08/15 onwards Warfarin Sodium (Coumadin) 5 MG TABLET 1 TAB PO DAILY BLOOD THINNER (Reported ) Review of Systems Comments Constitutional: Reports: no symptoms, chills, fever, weakness. Cardiovascular: Reports: orthopena, palpitations. Denies: chest pain, edema. Respiratory: Reports: cough, short of breath, sputum production, wheezing. GI: Reports: diarrhea, nausea. Past History Travel History Traveled to [place] past 21 day No Medical History Blood Transfusion Hx: Yes Neurological: Shingles left trigeminal EENT: NONE Cardiovascular: AFIB (paroxysmal), chronic venous insuff Respiratory: NONE Gastrointestinal: GERD Hepatic: NONE Renal: NONE Musculoskeletal: osteoarthritis, rheumatoid arthritis, relapsing polychondritis SWEETS DISEASE pseudogout Psychiatric: NONE Endocrine: NONE Blood Disorders: DVT (chronic on left and acute on r), B12 DEFICIENCY Cancer(s): BASAL CELL CARCINOMA [facility] [facility] COORDIN[facility]/Reproductive: NONE Other Medical Hx: Sweet syndrome Babesiosis Surgical History Surgical History: HERNIA REPAIR Family History Relations & Conditions If Any: BROTHER FH: diabetes mellitus SISTER FH: diabetes mellitus MOTHER FH: diabetes mellitus Psychosocial History Where Do You Live? Home Who Do You Live With? self Services at Home: Home Health Aide, Nursing Primary Language: Chinese Smoking Status: Never Smoked ETOH Use: denies use Illicit Drug Use: denies illicit drug use Living Will? unknown Power of Process Controls Technician/HCP? yes Functional Ability ADLs Independent: eating. Needs Assist: dressing, toileting, bathing. Ambulation: walker, non-ambulatory IADLs Independent: telephone. Needs Assist: shopping, housework, finances, food prep, transportation, medication admin. Exam & Diagnostic Data Last 24 Hrs of Vital Signs/I&O Vital Signs Date Time Temp Pulse Resp B/P B/P Pulse O2 O2 Flow FiO2 Mean Ox Delivery Rate 10/08 0810 98 Nasal 2.0L Cannula 10/08 0809 89 99 10/08 0800 99 BIPAP 30% 10/08 0800 98.1 87 24 136/60 99 BIPAP 30% 10/08 0624 102 98 10/08 0400 97 BIPAP 30% 10/08 0340 94 97 10/08 0046 91 96 02 0000 96 BIPAP 30% 10/07 2300 97.4 76 21 110/50 96 BIPAP 30% 10/07 2201 BIPAP 30% 10/07 2159 86 97 10/07 2000 98 BIPAP 30% 10/07 1800 97.7 83 21 82/46 97 BIPAP 30% 10/07 1800 97 BIPAP 30% 10/07 1637 97.4 81 20 90/48 97 10/07 1610 73 99 10/07 1519 75 95 10/07 1451 98.4 93 22 88/50 94 Nasal 2.0L Cannula 10/07 1440 82 98 10/07 1428 85 20 88/54 98 CPAP 10/07 1314 100 BIPAP 30% 10/07 1256 98.9 90 23 80/54 100 BIPAP 30% 10/07 1245 99 BIPAP 30% 10/07 1235 78/58 10/07 1230 96 99 Intake & Output 10/08 1600 10/08 0800 02 0000 Intake Total 780 1023 Output Total 750 725 Balance 30 298 Intake, Blood 322 Product Intake, IV 458 1023 Number 0 0 Bowel Movements Output, Urine 750 725 Patient 263 lb Weight Weight Bed scale Measurement Method Last 48 Hrs of Labs/Efrain: Laboratory Tests 10/08/17 0800: PT 28.2 H, INR 2.71 H 10/08/17 0525: Anion Gap 10, Estimated GFR > 60, Glucose 119 H, Calcium 8.4, Phosphorus 4.1, Magnesium 1.9, Total Bilirubin < 0.1 L, AST 26, ALT 31, Albumin 2.7 L, Cortisol AM Sample 54.7 H, CBC w Diff NO MAN DIFF REQ, RBC 2.79 L, MCV 98.3 H , MCH 32.4 H, MCHC 33.0, RDW 16.7 H, MPV 7.5, Gran % 88.4 H, Lymphocytes % 9.4 L, Monocytes % 2.1, Eosinophils % 0, Basophils % 0.1, Absolute Granulocytes 6.0, Absolute Lymphocytes 0.6 L, Absolute Monocytes 0.1, Absolute Eosinophils 0 , Absolute Basophils 0 10/07/172030: Urinalysis LIGHT H, Urine Color YEL, Urine Clarity CLEAR, Urine pH 6.0, Ur Specific [place] 1.015, Urine Protein NEG, Urine Ketones NEG, Urine Nitrite NEG, Urine Bilirubin NEG, Urine Urobilinogen 0.2, Ur Leukocyte Esterase NEG, Ur Microscopic SEDIMENT EXAMINED, Urine RBC 3-5, Urine WBC 3-5 H, Ur Epithelial Cells RARE, Urine Bacteria RARE H, Hyaline Casts RARE H, Urine Mucus FEW, Urine Hemoglobin MOD H, Urine Glucose NEG 10/07/17 2018: Troponin I 0.14 *H 10/07/17 2018: Anion Gap 11, Estimated GFR 53 L, Glucose 140 H, Calcium 7.6 L, Phosphorus 3.7, Magnesium 1.6, Total Bilirubin < 0.1 L, AST 23, ALT 26, Albumin 2.5 L, CBC w Diff MAN DIFF ORDERED, RBC 3.00 L, MCV 98.4 H, MCH 31.9 H, MCHC 32.4 L , RDW 16.9 H, MPV 7.9, Gran % 94.8 H, Lymphocytes % 4.0 L, Monocytes % 1.2 L , Eosinophils % 0, Basophils % 0, Absolute Granulocytes 8.4 H, Segmented Neutrophils 78 H, Band Neutrophils 10 H, Absolute Lymphocytes 0.4 L, Lymphocytes 10 L, Monocytes 2, Absolute Monocytes 0.1, Absolute Eosinophils 0, Absolute Basophils 0, Platelet Estimate ADEQUATE, Anisocytosis 1+ 10/07/17 1555: Troponin I 0.20 *H 10/07/17 1243: Lactic Acid 1.5 10/07/17 1243: Anion Gap 10, Estimated GFR 53 L, BUN/Creatinine Ratio 32.3 H, Glucose 209 H, Calcium 9.2, Total Bilirubin 0.4, AST 28, ALT 25, Alkaline Phosphatase 77, Troponin I 0.15 *H, Xih-V-Nydrvciquns Pept 2910 H, Total Protein 7.2, Albumin 3.5, Globulin 3.7, Albumin/Globulin Ratio 0.9 L, PT 27.9 H, INR 2.68 H, APTT 22 L, CBC w Diff NO MAN DIFF REQ, RBC 3.49 L, MCV 98.6 H, MCH 31.5 H, MCHC 31.9 L, RDW 16.8 H, MPV 8.3, Gran % 69.8, Lymphocytes % 27.2, Monocytes % 0.9 L, Eosinophils % 1.8, Basophils % 0.3, Absolute Granulocytes 5.8, Absolute Lymphocytes 2.3, Absolute Monocytes 0.1, Absolute Eosinophils 0.2, Absolute Basophils 0 10/07/17 1228: Virus Culture Pending 10/07/17 1225: pH 7.34 L, pCO2 44, pO2 111 H, HCO3 23, ABG O2 Sat (Measured) 97.0, Carboxyhemoglobin 0.4 L, O2 Concentration % 15L, O2 Delivery Method CPAP 10, Phlebotomy Draw Site RIGHT RADIAL Microbiology 10/07 2125 URINE ROUT: Legionella Antigen - COMP 10/07 2125 URINE ROUT: Streptococcus pneumoniae Antigen (M - COMP 10/07 1310 NASOPHARYN: Influenza Virus A & B Rapid Smear - COMP INFLUENZA TYPE A Assessment/Plan Impression/Plan: General Appearance Alert, Oriented X3, Mild Distress Skin pale, Neck No JVD Cardiovascular Regular Rate, Normal S1, Normal S2, No Murmurs Lungs generalized wheezing, crackles at bases Abdomen Soft, No Tenderness, distended Extremities mild peripheral edema, weak pulses, chronic skin changes Vascular poor/weak pulses IMPRESSION This is an 82-year-old gentleman on long-term steroids hence immunosuppressed with the relapsing polychondritis, previous multiple hospitalization, previous flareup with Sweet syndrome, previous zoster and babesiosis in the past, no significant smoking history, diastolic heart disease, chronic lower extremity DVT on long-standing anticoagulation on warfarin, previous uveitis, now has the following issues * Acute hypoxemic respiratory failure related to influenza pneumonia no slowly improving. This is also compounded by type II myocardial ischemia due to ongoing mild hypotension upon admission which seems to have improved. He also does have history of paroxysmal atrial fibrillation now appears to be in sinus with multiple PACs compounding the issue. 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 no active vte * Relapsing polychondritis on steroids and hence immunosupp * Has chronic low back pain and degenerative back issues * Previous NSVT with low magnesium now stable * Previous history of ischemic colitis now stable RECOMMENDATION Reduce his hydrocortisone to 50 mg every 8 today Discontinue hydrocortisone after today and start him on 10 mg prednisone in the morning and 5 at night from tomorrow Continue his other medications Keep his INR around 2.5 Continue intravenous Lasix as ordered may require another dose this evening, check his electrolytes and replace his potassium if needed Watch his hemoglobin and hematocrit Check his stool for heme Check sputum culture if he has any Use noninvasive ventilation if he gets more hypoxemic and has worsening respiratory insufficiency if not can be tried off BiPAP during the day and he feels short of breath can be used tonight at the same settings as last time Patient appears to be critically ill low follow closely total time spent 40 minutes Consult Acknowledgment - Thank you for your consult request.
--- NOTE | 2017-10-08 13:42 | RADIOLOGY REPORT ---
EXAMINATION: CR PORTABLE CHEST CLINICAL INFORMATION: Fluid overload. Shortness of breath. Crackles on exam. Presumptive diagnosis of congestive heart failure. COMPARISON: Several prior chest x-rays, most recent of which is dated 10/08/2017. TECHNIQUE: Portable AP semierect view of the chest was obtained. FINDINGS: Multiple EKG leads overlie the chest. The cardiomediastinal silhouette is enlarged, unchanged. Ectasia and tortuosity of the aorta is also again noted. Lungs bilaterally are symmetrically expanded. No significant pulmonary edema or central vascular congestion is seen. No significant pleural fluid is noted. No pneumothorax is seen. Mild spurring is noted in the lower thoracic spine. IMPRESSION: Cardiomegaly. No overt pulmonary edema.
[2017-10-08 16:00] VITALS: BP 120/72
[2017-10-09] VITALS: BP 110/60
[2017-10-09 05:13] LABS: ABSOLUTE BASOPHIL COUNT 0 /CUMM (0.0-0.2); ABSOLUTE EOSINOPHIL COUNT 0 /CUMM (0.0-0.7); ABSOLUTE GRANULOCYTE CT 3.6 /CUMM (1.4-6.5); ABSOLUTE LYMPH COUNT 0.9 /CUMM (1.2-3.4); ABSOLUTE MONOCYTE COUNT 0.2 /CUMM (0.10-0.60); BASOPHIL % 0 % (0.0-2.0); EOSINOPHIL % 0 % (0-5); GRANULOCYTE % 76.5 % (42.2-75.2); HEMATOCRIT 28.6 % (42-52); MEAN CORPUSCULAR HGB 32.7 PG (27.0-31.0); MEAN CORPUSCULAR HGB CONC 33.3 G/DL (33.0-37.0); MEAN CORPUSCULAR VOLUME 98.1 FL (80.0-94.0); PLATELET COUNT 157 /CUMM (130-400); RBC DISTRIBUTION WIDTH 16.9 % (11.5-14.5); RED BLOOD CELL CT 2.92 /CUMM (4.70-6.10); WHITE BLOOD CELL COUNT 4.7 /CUMM (4.8-10.8)
--- NOTE | 2017-10-09 07:36 | PN- Resident CRCU ---
Subjective HPI/CRCU Issues: Acute hypoxic respiratory failure likely secondary to Influenza A CHF Transient hypotension on admission likely secondary to relative cortisol deficiency type II myocardial infarction Premature Atrial Contractions/PVCs 24 Hour Events: No acute events overnight. He has been on the BiPAP overnight. Tmax 98 Heart rate ranging from 118-87 Sinus tachycardia with PACs NO atrial fibrillation. Respiratory rate up to 30 Blood pressure: 112-136/70-60 Currently on nasal cannula 3L satting 95% Input 1674 output 3310 Objective Vital Signs & I&O Last 8 Hrs of Vitals and I&O: Intake & Output 10/09 1600 Intake Total Output Total Balance Patient 270 lb Weight Weight Bed scale Measurement Method Exam General Appearance: alert, awake, anxious, on BIPAP Head: normal appearance Neck: normal inspection Respiratory: chest non-tender, no respiratory distress, crackles Cardiovascular: S1, S2 Gastrointestinal: normal bowel sounds, soft Extremities: no edema Cranial Nerves: normal hearing, normal speech Skin: intact Sepsis Skin Exam (color): Normal for Ethnicity Current Medications: Current Medications Sig/Renetta Start time Last Medication Dose Route Stop Time Status Admin Albuterol Sulfate 3 ML BID 10/07 2199 AC 10/09 INH 0846 Albuterol Sulfate 2 PUF Q4P PRN 10/07 1530 AC INH Aspirin 81 MG DAILY 10/07 1519 AC 10/09 PO 0925 Atorvastatin Calcium 20 MG DAILY@1700 10/07 1700 AC 10/08 PO 1657 Furosemide 40 MG ONCE ONE 10/09 0900 DC 10/09 IV 10/09 0901 0925 Furosemide 40 MG ONCE ONE 10/08 1945 DC 10/08 IV 10/08 1946 2044 Furosemide 40 MG ONCE ONE 10/08 1000 DC 10/08 IV 10/08 1001 0955 Hydrocortisone 50 MG Q8 10/08 1400 DC 10/08 Sodium Succinate IV 10/08 2300 2043 Hydrocortisone 100 MG Q8 10/08 0600 DC 10/08 Sodium Succinate IV 0602 Oseltamivir Phosphate 30 MG BID 10/07 2200 AC 10/09 PO 10/11 2159 0925 Prednisone 5 MG 2200 10/09 2200 AC PO Prednisone 10 MG DAILY 10/09 1000 AC 10/09 PO 0925 Warfarin Sodium 3 MG COUMADIN 1700 ONE 10/08 1700 DC 10/08 PO 10/08 1701 1658 Impression/Plan Impression/Problem List Impression: 82 year old male BIBA from the home, secondary to generalized weakness for the past week and shortness of breath for a day prior admission to ED. Assessment and Plan: #Acute Hypoxemic Respiratory Failure likely secondary to Influenza Pnemonia: Patient came in with complains of dyspnea. On admission he was found to be positive for Influenza A. His symptoms are likely due to influenza pnemonia. -Continue oxygen supplementation to maintain target sats >92%. Currently on 2L. -Continue Tamiflu -Will follow up sputum culture. No growth so far -We will try to wean patient off BiPAP and keep him on nasal cannula as tolerated. -Prednisone from 10mg during day and 5mg at night. He has a relative cortisol deficiency likely secondary due to chronic steroid use causing HPA suppresion. #Mild CHF suggestive of diastolic dysfunction -IV Lasix 40 mg once today #History of paroxysmal A. fib Today patient appears to be Sinus rhythm with multiple PACs -Will dose Warfarin each day based on INR. Currently on a lower dose, 3mg than home dose which is 5mg. INR today is 3.17 mg , will dose Coumadin at 2.5 today and monitor INR.Goal INR 2.5 -Metoprolol (home medication) on hold for now. Can likely be restarted as BP allows. #Type II LA: Patient was found to have mild elevation in troponins likely secondary to demand supply mismatch. Troponins have trended down patient remains asymptomatic #VRE positive on rectal swab -Contact isolation #Hyperglycemia: Likely attributed to steriods. Blood glucose has been in acceptable range -Most recent 116, 155, 116 -Continue Accucheks, can be started on Insulin SS if needed #History of Hyperlipidemia: Continue statin, aspirin #History of recurrent DVT Dose Coumadin as per INR goal INR 2.5 #History of relapsing polychondritis on chronic steroids -Prednisone from 10mg during day and 5mg at night. He has a relative cortisol deficiency likely secondary due to chronic steroid use causing HPA suppresion. #Hypotension: - resolved Transient hypotension upon admission most likely related to relative cortisol deficiency which seems to have improved with hydrocortisone #DESHAUN: - resolved Elevated Cr on admission - resolved Heart Healthy/DVT Prophylaxis via Coumadin/DNR/DNI Problem List: 1. Influenza A Pain Ratin Tomorrow's Labs & Rationales: cbc icu bundle INR Plan DVT/Prophylaxis: mechanical, pharmacological
[2017-10-09 08:00] VITALS: BP 160/70
[2017-10-09 08:25] LABS: PT 32.9 SEC (9.4-12.5)
--- NOTE | 2017-10-09 08:33 | PN- CRCU ---
Subjective HPI/Critical Care Issues: Continues to be on BiPAP this morning. Afebrile Vital signs reviewed Has had adequate diuresis since yesterday Continues to have further cough. SIGNIFICANT DATA Chest x-ray from yesterday reviewed which showed cardiomegaly Blood work reviewed creatinine is improved to 0.9 BU and 37 white count 4.7 hemoglobin 9.5 platelets are adequate INR 2.7 ABG reviewed from yesterday Objective Current Medications: Current Medications Sig/Renetta Start time Last Medication Dose Route Stop Time Status Admin Albuterol Sulfate 3 ML BID 10/07 2200 AC 10/08 INH 2018 Albuterol Sulfate 2 PUF Q4P PRN 10/07 1530 AC INH Aspirin 81 MG DAILY 10/07 1519 AC 10/08 PO 0927 Atorvastatin Calcium 20 MG DAILY@1700 10/07 1700 AC 10/08 PO 1657 Ceftriaxone Sodium 1,000 MG DAILY@1400 10/08 1400 CAN IV Furosemide 40 MG ONCE ONE 10/08 1945 DC 10/08 IV 10/08 1946 2044 Furosemide 40 MG ONCE ONE 10/08 1000 DC 10/08 IV 10/08 1001 0955 Hydrocortisone 50 MG Q8 10/08 1400 DC 10/08 Sodium Succinate IV 10/08 2300 2043 Hydrocortisone 100 MG Q8 10/08 0600 DC 10/08 Sodium Succinate IV 0602 Oseltamivir Phosphate 30 MG BID 10/07 2200 AC 10/08 PO 10/11 2159 2043 Prednisone 5 MG 2200 10/09 2200 AC PO Prednisone 10 MG DAILY 10/09 1000 AC PO Sodium Chloride 1,000 ML Q10H 10/07 1430 DC 10/07 IV 1641 Warfarin Sodium 3 MG COUMADIN 1700 ONE 10/08 1700 DC 10/08 PO 10/08 1701 1658 Vital Signs & I&O Last 24 Hrs of Vitals and I&O: Vital Signs Date Time Temp Pulse Resp B/P B/P Pulse O2 O2 Flow FiO2 Mean Ox Delivery Rate 10/09 0800 BIPAP 30% 10/09 0800 97.6 102 20 160/70 98 BIPAP 30% 10/09 0610 89 96 10/09 0406 84 99 10/09 0400 98 BIPAP 30% 10/09 0107 93 97 10/09 0000 96 BIPAP 30% 10/09 0000 98.0 87 28 110/60 96 BIPAP 30% 10/08 2223 100 96 10/08 2056 95 BIPAP 30% 10/08 2046 142 96 10/08 2019 94 Nasal 2.0L Cannula 10/08 1750 140 95 10/08 1600 97 Nasal 2.0L Cannula 10/08 1600 97.7 106 26 120/72 97 Nasal 2.0L Cannula 10/08 1200 99 Nasal 2.0L Cannula Intake & Output 10/09 1600 10/09 0800 10/09 0000 Intake Total 100 120 Output Total 710 900 Balance -610 -780 Intake, Oral 100 120 Output, Urine 710 900 Impression/Plan Impression/Plan Impression/Plan: General Appearance Alert, Oriented X3, Mild Distress Skin pale, Neck No JVD Cardiovascular Regular Rate, Normal S1, Normal S2, No Murmurs Lungs generalized wheezing, crackles at bases Abdomen Soft, No Tenderness, distended Extremities mild peripheral edema, weak pulses, chronic skin changes Vascular poor/weak pulses IMPRESSION This is an 82-year-old gentleman on long-term steroids hence immunosuppressed with the relapsing polychondritis, previous multiple hospitalization, previous flareup with Sweet syndrome, previous zoster and babesiosis in the past, no significant smoking history, diastolic heart disease, chronic lower extremity DVT on long-standing anticoagulation on warfarin, previous uveitis, now has the following issues * Slowly resolving Acute hypoxemic respiratory failure related to influenza pneumonia no slowly improving. This is also compounded by type II myocardial ischemia due to initial hypotension upon admission which seems to have improved. He also does have history of paroxysmal atrial fibrillation now appears to be in sinus with multiple PACs compounding the issue. 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 no active vte * Relapsing polychondritis on steroids and hence immunosupp * Has chronic low back pain and degenerative back issues * Previous NSVT with low magnesium now stable * Previous history of ischemic colitis now stable RECOMMENDATION Can come off BiPAP this morning and keep him on nasal cannula tolerated Intravenous Lasix 1 dose Continue his other medications Keep his INR around 2.5\ Prednisone 10 mg in the morning and 5 mg at night Keep his potassium more than 4 Watch his hemoglobin and hematocrit Check his stool for heme Check sputum culture if he has any Patient appears to be critically ill low follow closely total time spent 40 minutes
--- NOTE | 2017-10-09 10:48 | PN- Cardiology ---
Subjective Subjective: The patient is still complaining of shortness of breath and wheezing. He denies any chest pain. He did respond to IV Lasix. His chest x-ray looked a little better with less congestion. However he is still wheezing significantly. He remains in sinus rhythm with frequent PACs on the monitor. There is no evidence of atrial fibrillation. He is however anticoagulated. Objective Vital Signs and I&Os Vital Signs Date Time Temp Pulse Resp B/P B/P Pulse O2 O2 Flow FiO2 Mean Ox Delivery Rate 10/09 916 96 Nasal 3.0L Cannula 10/09 0917 110 96 10/09 0800 BIPAP 30% 10/09 08 97.6 102 20 160/70 98 BIPAP 30% 10/09 0610 89 96 10/09 0406 84 99 10/09 0400 98 BIPAP 30% 10/09 0107 93 97 10/09 0000 96 BIPAP 30% 10/09 0000 98.0 87 28 110/60 96 BIPAP 30% 10/08 2223 100 96 10/08 2056 95 BIPAP 30% 10/08 2046 142 96 10/08 2019 94 Nasal 2.0L Cannula 10/08 1750 140 95 10/08 1600 97 Nasal 2.0L Cannula 10/08 1600 97.7 106 26 120/72 97 Nasal 2.0L Cannula 10/08 1200 99 Nasal 2.0L Cannula Intake & Output 10/09 1600 10/09 0800 10/09 0000 10/08 1600 10/08 0800 10/08 0000 Intake Total 696 091 6302 780 1023 Output Total 991 508 4746 750 725 Balance -610 -780 -246 30 298 Intake, Blood 322 Product Intake, IV 14 458 1023 Intake, Oral 570 267 1469 Number 1 0 0 Bowel Movements Output, Urine 812 366 0202 750 725 Patient 270 lb 263 lb Weight Weight Bed scale Bed scale Measurement Method Physical Exam: He is in mild respiratory distress Chest reveals moderate wheezing Heart irregular rhythm with soft systolic murmur at the base Current Medications: Current Medications Sig/Renetta Start time Last Medication Dose Route Stop Time Status Admin Albuterol Sulfate 3 ML BID 10/07 2199 AC 10/09 INH 0846 Albuterol Sulfate 2 PUF Q4P PRN 10/07 1530 AC INH Aspirin 81 MG DAILY 10/07 1519 AC 10/09 PO 0925 Atorvastatin Calcium 20 MG DAILY@1700 10/07 1700 AC 10/08 PO 1657 Furosemide 40 MG ONCE ONE 10/09 0900 DC 10/09 IV 10/09 0901 0925 Furosemide 40 MG ONCE ONE 10/08 194 DC 10/08 IV 10/08 Hydrocortisone 50 MG Q8 10/08 1400 DC 10/08 Sodium Succinate IV 10/08 2300 204 Hydrocortisone 100 MG Q8 10/08 0600 DC 10/08 Sodium Succinate IV 0602 Oseltamivir Phosphate 30 MG BID 10/07 220 AC 10/09 PO 10/11 215 09 Prednisone 5 MG 10/09 AC PO Prednisone 10 MG DAILY 10/09 1000 AC 10/09 PO 0925 Warfarin Sodium 2.5 MG COUMADIN 17010/09 1700 AC PO 10/09 2359 Warfarin Sodium 3 MG COUMADIN 1700 ONE 10/08 1700 DC 10/08 PO 10/08 1701 1658 Results Last 48 Hrs of Labs/Mics: Laboratory Tests 10/09/17 0400: Anion Gap 9, Estimated GFR > 60, Glucose 116 H, Calcium 8.8, Phosphorus 3.2, Magnesium 1.9, Total Bilirubin < 0.1 L, AST 28, ALT 28, Albumin 2.8 L, PT 32.9 H, INR 3.17 H, CBC w Diff NO MAN DIFF REQ, RBC 2.92 L, MCV 98.1 H, MCH 32.7 H, MCHC 33.3, RDW 16.9 H, MPV 8.0, Gran % 76.5 H, Lymphocytes % 18.8 L, Monocytes % 4.7, Eosinophils % 0, Basophils % 0, Absolute Granulocytes 3.6, Absolute Lymphocytes 0.9 L, Absolute Monocytes 0.2, Absolute Eosinophils 0, Absolute Basophils 0 10/08/17 1730: Anion Gap 10, Estimated GFR > 60, BUN/Creatinine Ratio 40.0 H 10/08/17 0800: PT 28.2 H, INR 2.71 H 10/08/17 0525: Anion Gap 10, Estimated GFR > 60, Glucose 119 H, Calcium 8.4, Phosphorus 4.1, Magnesium 1.9, Total Bilirubin < 0.1 L, AST 26, ALT 31, Albumin 2.7 L, Cortisol AM Sample 54.7 H, CBC w Diff NO MAN DIFF REQ, RBC 2.79 L, MCV 98.3 H , MCH 32.4 H, MCHC 33.0, RDW 16.7 H, MPV 7.5, Gran % 88.4 H, Lymphocytes % 9.4 L, Monocytes % 2.1, Eosinophils % 0, Basophils % 0.1, Absolute Granulocytes 6.0, Absolute Lymphocytes 0.6 L, Absolute Monocytes 0.1, Absolute Eosinophils 0 , Absolute Basophils 0 10/07/172030: Urinalysis LIGHT H, Urine Color YEL, Urine Clarity CLEAR, Urine pH 6.0, Ur Specific Gillespie 1.015, Urine Protein NEG, Urine Ketones NEG, Urine Nitrite NEG, Urine Bilirubin NEG, Urine Urobilinogen 0.2, Ur Leukocyte Esterase NEG, Ur Microscopic SEDIMENT EXAMINED, Urine RBC 3-5, Urine WBC 3-5 H, Ur Epithelial Cells RARE, Urine Bacteria RARE H, Hyaline Casts RARE H, Urine Mucus FEW, Urine Hemoglobin MOD H, Urine Glucose NEG 10/07/172017: Troponin I 0.14 *H 10/07/17 2018: Anion Gap 11, Estimated GFR 53 L, Glucose 140 H, Calcium 7.6 L, Phosphorus 3.7, Magnesium 1.6, Total Bilirubin < 0.1 L, AST 23, ALT 26, Albumin 2.5 L, CBC w Diff MAN DIFF ORDERED, RBC 3.00 L, MCV 98.4 H, MCH 31.9 H, MCHC 32.4 L , RDW 16.9 H, MPV 7.9, Gran % 94.8 H, Lymphocytes % 4.0 L, Monocytes % 1.2 L , Eosinophils % 0, Basophils % 0, Absolute Granulocytes 8.4 H, Segmented Neutrophils 78 H, Band Neutrophils 10 H, Absolute Lymphocytes 0.4 L, Lymphocytes 10 L, Monocytes 2, Absolute Monocytes 0.1, Absolute Eosinophils 0, Absolute Basophils 0, Platelet Estimate ADEQUATE, Anisocytosis 1+ 10/07/17 1555: Troponin I 0.20 *H 10/07/17 1243: Lactic Acid 1.5 10/07/17 1243: Anion Gap 10, Estimated GFR 53 L, BUN/Creatinine Ratio 32.3 H, Glucose 209 H, Calcium 9.2, Total Bilirubin 0.4, AST 28, ALT 25, Alkaline Phosphatase 77, Troponin I 0.15 *H, [id number] Pept 2910 H, Total Protein 7.2, Albumin 3.5, Globulin 3.7, Albumin/Globulin Ratio 0.9 L, PT 27.9 H, INR 2.68 H, APTT 22 L, CBC w Diff NO MAN DIFF REQ, RBC 3.49 L, MCV 98.6 H, MCH 31.5 H, MCHC 31.9 L, RDW 16.8 H, MPV 8.3, Gran % 69.8, Lymphocytes % 27.2, Monocytes % 0.9 L, Eosinophils % 1.8, Basophils % 0.3, Absolute Granulocytes 5.8, Absolute Lymphocytes 2.3, Absolute Monocytes 0.1, Absolute Eosinophils 0.2, Absolute Basophils 0 10/07/17 1228: Virus Culture Pending 10/07/17 1225: pH 7.34 L, pCO2 44, pO2 111 H, HCO3 23, ABG O2 Sat (Measured) 97.0, Carboxyhemoglobin 0.4 L, O2 Concentration % 15L, O2 Delivery Method CPAP 10, Phlebotomy Draw Site RIGHT RADIAL Microbiology 10/07 2125 URINE ROUT: Legionella Antigen - COMP 10/07 2125 URINE ROUT: Streptococcus pneumoniae Antigen (M - COMP 10/07 1800 GI: Surveillance Culture - COMP VANC RESIST ENTEROCOCCUS 10/07 1422 URINE ROUT: Urine Culture - COMP 10/07 1310 NASOPHARYN: Influenza Virus A & B Rapid Smear - COMP INFLUENZA TYPE A Recent Imaging Studies: PATIENT: EDITH ZHANG PRESENT AGE: 82 PATIENT ACCOUNT NO: [id number] : 31 LOCATION: [facility] ORDERING PHYSICIAN: Steph Sullivan MD SERVICE DATE: 10/08/17- EXAM TYPE: RAD - XRY-PORTABLE CHEST XRAY EXAMINATION: CR PORTABLE CHEST CLINICAL INFORMATION: Fluid overload. Shortness of breath. Crackles on exam. Presumptive diagnosis of congestive heart failure. COMPARISON: Several prior chest x-rays, most recent of which is dated 10/08/2017. TECHNIQUE: Portable AP semierect view of the chest was obtained. FINDINGS: Multiple EKG leads overlie the chest. The cardiomediastinal silhouette is enlarged, unchanged. Ectasia and tortuosity of the aorta is also again noted. Lungs bilaterally are symmetrically expanded. No significant pulmonary edema or central vascular congestion is seen. No significant pleural fluid is noted. No pneumothorax is seen. Mild spurring is noted in the lower thoracic spine. IMPRESSION: Cardiomegaly. No overt pulmonary edema. DICTATED BY: Dior Méndez MD DATE/TIME DICTATED:10/08/171336 BEEF SPECIALIST:ONUR DATE/TIME TRANSCRIBED:10/08/171336 CONFIDENTIAL, DO NOT COPY WITHOUT APPROPRIATE AUTHORIZATION. <Electronically signed in Other Vendor System> SIGNED BY: Dior Méndez MD [id number] Assessment/Plan Assessment/Plan The patient's pulmonary congestion has improved somewhat but he still has a lot of bronchospasm. His rhythm is at his baseline, that is frequent PACs but no evidence of atrial fibrillation. He had a recent echo showing normal LV function and I don't think he needs a follow-up at this time. I recommend continuing diuresis and respiratory treatments. When he is stable enough for transfer he can go to telemetry. Continue telemetry? Yes
[2017-10-09 12:00] VITALS: BP 128/72
--- NOTE | 2017-10-09 15:55 | Cons- Rheumatology ---
General Information and HPI Consulting Request Date of Consult: 10/09/17 Requested By: Perla BORJA,Bob Amaya Reason for Consult: Evaluate his autoimmune disease Source of Information: patient, family, old records Exam Limitations: no limitations History of Present Illness: Mr. Templeton is a 2-year-old gentleman who I've seen rheumatological he for the past 4+ years who carries a diagnosis of relapsing polychondritis. Diagnosis was made several years ago by a colleague Dr. 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 He is unfortunately steroid dependent with a baseline prednisone dosage of 10 mg daily. He was admitted to the hospital with a sudden onset of flulike symptoms including fever and diarrhea. Other medical problems include atrial fibrillation, history of DVT, osteoporosis , MDS, and chondrocalcinosis Allergies/Medications Allergies: Coded Allergies: NO KNOWN ALLERGIES (08/07/16) Home Med List: Albuterol Sulfate (Proair Hfa) 90 MCG HFA.AER.AD 2 PUF INH AD PRN RESP. ( Reported) Aspirin (Aspirin*) 81 MG TAB.CHEW 1 TAB PO DAILY HEART Atorvastatin Calcium (Lipitor) 20 MG TABLET 1 TAB PO DAILY CHOLESTEROL ( Reported) Cyanocobalamin (Vitamin B-12) (Cyanocobalamin Injection) 1,000 MCG/1 ML VIAL 1 ML IM Q30D SUPPLEMENT (Reported) Folic Acid 1 MG TABLET 1 TAB PO DAILY ANEMIA Furosemide (Lasix) 40 MG TABLET 1 TAB PO DAILY DIURETIC (Reported) Gabapentin 300 MG CAPSULE 1 CAP PO DAILY PAIN (Reported) Lisinopril 20 MG TABLET 1 TAB PO DAILY HIGH BLOOD PRESSURE Metoprolol Tartrate 50 MG TABLET 1 TAB PO BID BLOOD PRESSURE Omeprazole 20 MG CAPSULE.DR 1 CAP PO DAILY GERD (Reported) Prednisone 10 MG TABLET 1 TAB PO DAILY relapsing polychondritis Please take 15 mg( 1.5mg) daily on 08/13,08/14 10 mg once daily after 08/15 onwards Warfarin Sodium (Coumadin) 5 MG TABLET 1 TAB PO DAILY BLOOD THINNER (Reported ) Current Medications: Current Medications Sig/Renetta Start time Last Medication Dose Route Stop Time Status Admin Albuterol Sulfate 3 ML BID 10/07 2200 AC 10/09 INH 0846 Albuterol Sulfate 2 PUF Q4P PRN 10/07 1530 AC INH Aspirin 81 MG DAILY 10/07 1519 AC 10/09 PO 0925 Atorvastatin Calcium 20 MG DAILY@1700 10/07 1700 AC 10/08 PO 1657 Furosemide 40 MG ONCE ONE 10/09 0900 DC 10/09 IV 10/09 0901 0925 Furosemide 40 MG ONCE ONE 10/08 1945 DC 10/08 IV 10/08 194 2044 Hydrocortisone 50 MG Q8 10/08 1400 DC 10/08 Sodium Succinate IV 10/08 230 204 Oseltamivir Phosphate 30 MG BID 10/07 2200 AC 10/09 PO 10/11 215 0925 Prednisone 5 MG 2200 10/09 2200 AC PO Prednisone 10 MG DAILY 10/09 1000 AC 10/09 PO 0925 Warfarin Sodium 2.5 MG COUMADIN 1700 10/09 1700 AC PO 10/09 2359 Warfarin Sodium 3 MG COUMADIN 1700 ONE 10/08 1700 DC 10/08 PO 10/08 1701 1658 Review of Systems Review of Systems: He denies rashes or swollen tender joints at home. He has not had any episodes of pseudogout relating to his chondrocalcinosis. I last saw him on September 03 my office at which time he was doing well although he had arthritic complaints of his left knee. 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 Home Who Do You Live With? self Services at Home: Home Health Aide, Nursing Primary Language: Armenian Smoking Status: Never Smoked ETOH Use: denies use Illicit Drug Use: denies illicit drug use Living Will? unknown Power of Car [place] Master/HCP? yes Functional Ability ADLs Independent: eating. Needs Assist: dressing, toileting, bathing. Ambulation: walker, non-ambulatory IADLs Independent: telephone. Needs Assist: shopping, housework, finances, food prep, transportation, medication admin. Exam & Diagnostic Data Vital Signs and I&O Vital Signs Date Time Temp Pulse Resp B/P B/P Pulse O2 O2 Flow FiO2 Mean Ox Delivery Rate 10/09 1200 Nasal 3.0L Cannula 10/09 1200 97.2 114 28 128/72 96 Nasal 3.0L Cannula 10/09 0917 96 Nasal 3.0L Cannula 10/09 0917 110 96 10/09 0800 BIPAP 30% 10/09 08 97.6 102 20 160/70 98 BIPAP 30% 10/09 0610 89 96 10/09 0406 84 99 10/09 0400 98 BIPAP 30% 10/09 0107 93 97 10/09 0000 96 BIPAP 30% 10/09 0000 98.0 87 28 110/60 96 BIPAP 30% 10/08 2223 100 96 10/08 2056 95 BIPAP 30% 10/08 2046 142 96 10/08 2019 94 Nasal 2.0L Cannula 10/08 1750 140 95 10/08 1600 97 Nasal 2.0L Cannula 10/08 1600 97.7 106 26 120/72 97 Nasal 2.0L Cannula Intake & Output 10/09 1600 10/09 0800 10/09 0000 Intake Total 764 100 120 Output Total 1200 710 900 Balance -436 -610 -780 Intake, IV 44 Intake, Oral 720 100 120 Number 1 Bowel Movements Output, Urine 1200 710 900 Patient 270 lb Weight Weight Bed scale Measurement Method Physical Exam: On examination he is an elderly gentleman in no distress but with audible wheezing and cough. He is alert but somewhat confused. Extremities reveal some scattered ecchymoses but no swollen joints. There are no rashes that would make me suspicious of a vasculitis. Assessment/Plan Assessment: Apparently this respiratory failure seems to be result of a infection perhaps superimposed on some congestive heart failure. I see no evidence to suggest a primary vasculitis and I don't believe it's related to his relapsing polychondritis area he is on tapering course of steroids now down to 10 mg daily which is his baseline. Recommendations: I agree with evaluation an treatment as planned by Dr. Duncan Consult Acknowledgment - Thank you for your consult request.
[2017-10-09 16:00] VITALS: BP 128/68
[2017-10-10] VITALS: BP 96/54
--- NOTE | 2017-10-10 07:31 | PN- Resident CRCU ---
Subjective HPI/CRCU Issues: Acute hypoxic respiratory failure likely secondary to Influenza A CHF Transient hypotension on admission likely secondary to relative cortisol deficiency type II myocardial infarction Premature Atrial Contractions/PVCs 24 Hour Events: The patient seen and examined. Resting comfortably in the bed. Reports some cough. Reports improvement in shortness of breath. Denies fevers chills home palpitations chest pain or any urinary symptoms.No overnight acute events Tmax 97.3 Heart rate 74 Sinus rhythm and frequent PACs RR 22 BP 122/70 Currently on 3 L nasal cannula satting 99, he was on BiPAP overnight. WBC count 4.6, H/H stable 9.5, platelet count stable at 161 Sodium 141, potassium 3.9, magnesium 1.9 Chest x-ray pending Objective Vital Signs & I&O Last 8 Hrs of Vitals and I&O: Vital Signs Date Time Temp Pulse Resp B/P B/P Pulse O2 O2 Flow FiO2 Mean Ox Delivery Rate 10/10 0621 60 99 10/10 0413 79 98 10/10 0202 103 98 10/10 0000 97.3 96 12 96/54 97 BIPAP 30% 10/10 0000 97 BIPAP 30% 10/09 2219 90 98 10/09 1600 98 Nasal 3.0L Cannula 10/09 1600 98.2 100 20 128/68 98 Nasal 3.0L Cannula 10/09 1200 Nasal 3.0L Cannula 10/09 1200 97.2 114 28 128/72 96 Nasal 3.0L Cannula 10/09 0917 96 Nasal 3.0L Cannula 10/09 0917 110 96 Intake & Output 10/10 1600 10/10 0800 10/10 0000 Intake Total 50 240 Output Total 300 550 Balance -250 -310 Intake, IV 0 Intake, Oral 50 240 Number 1 Bowel Movements Output, Urine 300 550 Exam General Appearance: no apparent distress, alert, awake, comfortable Head: atraumatic, normal appearance Neck: normal inspection, supple Respiratory: inspiratory and expiratory wheezes Cardiovascular: S1, S2 Gastrointestinal: normal bowel sounds, soft Extremities: no edema Cranial Nerves: normal speech Current Medications: Current Medications Sig/Renetta Start time Last Medication Dose Route Stop Time Status Admin Albuterol Sulfate 3 ML BID 10/07 2199 AC 10/09 INH 2039 Albuterol Sulfate 2 PUF Q4P PRN 10/07 1530 AC INH Aspirin 81 MG DAILY 10/07 1519 AC 10/10 PO 0832 Atorvastatin Calcium 20 MG DAILY@1700 10/07 1700 AC 10/09 PO 1611 Furosemide 40 MG ONCE ONE 10/09 0900 DC 10/09 IV 10/09 0901 0925 Oseltamivir Phosphate 30 MG BID 10/070 AC 10/10 PO 10/11 2159 0832 Prednisone 5 MG 2200 10/09 2200 AC 10/09 PO 2156 Prednisone 10 MG DAILY 10/09 1000 AC 10/10 PO 0832 Warfarin Sodium 2.5 MG COUMADIN 17010/09 1700 DC 10/09 PO 10/09 2359 1611 Impression/Plan Impression/Problem List Impression: 82 year old male BIBA from the home, secondary to generalized weakness for the past week and shortness of breath for a day prior admission to ED. Assessment and Plan: #Acute Hypoxemic Respiratory Failure likely secondary to Influenza Pnemonia: Patient came in with complains of dyspnea and was positive for Influenza A. His symptoms are likely due to influenza pnemonia. -Continue oxygen supplementation to maintain target sats >92%. Currently on 3L. -Continue Tamiflu to complete 5 day course -Will follow up sputum culture. No growth so far -Symbicort BID as Breo Ellipta not available in pharmacy -We will try to wean patient off BiPAP and keep him on nasal cannula as tolerated. -D/C nebs #Mild CHF suggestive of diastolic dysfunction -IV Lasix 40 mg once today #History of paroxysmal A. fib: Today patient appears to be Sinus rhythm, has been having PAC's -Will dose Warfarin each day based on INR. Currently on a lower dose, 3mg than home dose which is 5mg. INR today is 2.5 , will dose Coumadin at 3mg today and monitor INR.Goal INR 2.5 -Metoprolol (home medication) on hold for now. Can likely be restarted if BP allows. 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 Troponins have trended down patient remains asymptomatic #Hyperglycemia: Likely attributed to steriods. Blood glucose has been in acceptable range -Most recent 135, 128. 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 He has a relative cortisol deficiency likely secondary due to chronic steroid use causing HPA suppresion. #Hypotension: - resolved Transient hypotension upon admission most likely related to relative cortisol deficiency which seems to have improved with hydrocortisone #DESHAUN: - resolved Elevated Cr on admission - resolved Heart Healthy/DVT Prophylaxis via Coumadin/DNR/DNI Problem List: 1. Influenza A 2. Hypotension Pain Ratin Tomorrow's Labs & Rationales: cbc Plan DVT/Prophylaxis: mechanical, pharmacological
[2017-10-10 08:00] VITALS: BP 122/70
[2017-10-10 08:05] LABS: ABSOLUTE BASOPHIL COUNT 0 /CUMM (0.0-0.2); ABSOLUTE EOSINOPHIL COUNT 0 /CUMM (0.0-0.7); ABSOLUTE GRANULOCYTE CT 2.5 /CUMM (1.4-6.5); ABSOLUTE LYMPH COUNT 1.7 /CUMM (1.2-3.4); ABSOLUTE MONOCYTE COUNT 0.3 /CUMM (0.10-0.60); BASOPHIL % 0.4 % (0.0-2.0); EOSINOPHIL % 0.7 % (0-5); HEMATOCRIT 28.8 % (42-52); MEAN CORPUSCULAR HGB 32.5 PG (27.0-31.0); MEAN CORPUSCULAR HGB CONC 32.9 G/DL (33.0-37.0); MEAN CORPUSCULAR VOLUME 98.8 FL (80.0-94.0); MEAN PLATELET VOLUME 7.8 FL (7.4-10.4); PLATELET COUNT 161 /CUMM (130-400); RBC DISTRIBUTION WIDTH 16.6 % (11.5-14.5); RED BLOOD CELL CT 2.92 /CUMM (4.70-6.10); WHITE BLOOD CELL COUNT 4.6 /CUMM (4.8-10.8)
[2017-10-10 08:19] LABS: PT 26.6 SEC (9.4-12.5)
--- NOTE | 2017-10-10 10:03 | PN- CRCU ---
Subjective HPI/Critical Care Issues: Continues to do well Was on BiPAP last night Afebrile Vital signs were reviewed Atrial fibrillation slightly tachycardic Oxygen saturation 98% on 3 L Adequate urine output noted Blood work reviewed as noted Hemoglobin stable at 9.5 platelets are adequate BUN/creatinine stable cultures were unremarkable last chest x-ray reviewed Objective Current Medications: Current Medications Sig/Renetta Start time Last Medication Dose Route Stop Time Status Admin Albuterol Sulfate 3 ML BID 10/07 2199 AC 10/09 INH 2040 Albuterol Sulfate 2 PUF Q4P PRN 10/07 1530 AC INH Aspirin 81 MG DAILY 10/07 1519 AC 10/10 PO 0832 Atorvastatin Calcium 20 MG DAILY@1700 10/07 1700 AC 10/09 PO 1611 Oseltamivir Phosphate 30 MG BID 10/07 2199 AC 10/10 PO 10/11 2159 0832 Prednisone 5 MG 10/09 2200 AC 10/09 PO 2156 Prednisone 10 MG DAILY 10/09 1000 AC 10/10 PO 0832 Warfarin Sodium 3 MG COUMADIN 1700 ONE 10/10 1700 AC PO 10/10 1701 Warfarin Sodium 2.5 MG COUMADIN 1700 10/09 1700 DC 10/09 PO 10/09 2359 1611 Vital Signs & I&O Last 24 Hrs of Vitals and I&O: Vital Signs Date Time Temp Pulse Resp B/P B/P Pulse O2 O2 Flow FiO2 Mean Ox Delivery Rate 10/10 0800 Nasal 3.0L Cannula 10/10 0800 96.9 74 22 122/70 10/10 0621 60 99 10/10 0413 79 98 10/10 0202 103 98 10/10 0000 97.3 96 12 96/54 97 BIPAP 30% 10/10 0000 97 BIPAP 30% 10/09 2219 90 98 10/09 1600 98 Nasal 3.0L Cannula 10/09 1600 98.2 100 20 128/68 98 Nasal 3.0L Cannula 10/09 1200 Nasal 3.0L Cannula 10/09 1200 97.2 114 28 128/72 96 Nasal 3.0L Cannula Intake & Output 10/10 1600 10/10 0800 10/10 0000 Intake Total 50 240 Output Total 300 550 Balance -250 -310 Intake, IV 0 Intake, Oral 50 240 Number 1 Bowel Movements Output, Urine 300 550 Impression/Plan Impression/Plan Impression/Plan: General Appearance Alert, Oriented X3, Mild Distress Skin pale, Neck No JVD Cardiovascular Regular Rate, Normal S1, Normal S2, No Murmurs Lungs generalized wheezing, crackles at bases Abdomen Soft, No Tenderness, distended Extremities mild peripheral edema, weak pulses, chronic skin changes Vascular poor/weak pulses IMPRESSION This is an 82-year-old gentleman on long-term steroids hence immunosuppressed with the relapsing polychondritis, previous multiple hospitalization, previous flareup with Sweet syndrome, 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 This is also compounded by type II myocardial ischemia due to initial hypotension upon admission which seems to have improved. He also does have history of paroxysmal atrial fibrillation now appears to be in flipping back and forth from atrial fib to sinus with frequent MATC * Mild congestive heart failure suggestive of diastolic dysfunction, now appears resolved * Multiple DVTs in the past on anticoagulation, previous history of atrial fibrillation as well patient is on warfarin * No significant evidence of bacterial pneumonia * Transient hypotension upon admission most likely related to relative cortisol deficiency which seems to have improved with hydrocortisone * Paroxysmal atrial fibrillation with previous acute on chronic heart failure with preserved ejection fraction * 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 no active vte * Relapsing polychondritis on steroids and hence immunosupp * Has chronic low back pain and degenerative back issues * Previous NSVT with low magnesium now stable * Previous history of ischemic colitis now stable RECOMMENDATION Discontinue BiPAP Intravenous Lasix 1 dose Start low-dose beta amadou for rate control with metoprolol 25 mg twice a day Continue his other medications Reduce prednisone to 10 mg daily Keep his INR around 2.5 Keep his potassium more than 4 Watch his hemoglobin and hematocrit Check his stool for heme Finished a course of Tamiflu Discontinue his albuterol inhaler Starts Prevo 1 puff daily DC nebulizer treatment
--- NOTE | 2017-10-10 11:16 | PN- Cardiology ---
Subjective Subjective: The patient is still short of breath. He still has significant wheezing. He has no chest pain. His rhythm remains the same with sinus rhythm and frequent PACs and occasional PVCs. His BUN has decreased to 28. Objective Vital Signs and I&Os Vital Signs Date Time Temp Pulse Resp B/P B/P Pulse O2 O2 Flow FiO2 Mean Ox Delivery Rate 10/10 1046 100 Nasal 2.0L Cannula 10/10 0800 Nasal 3.0L Cannula 10/10 0800 96.9 74 22 122/70 10/10 0621 60 99 10/10 0413 79 98 10/10 0202 103 98 10/10 0000 97.3 96 12 96/54 97 BIPAP 30% 10/10 0000 97 BIPAP 30% 10/09 2219 90 98 10/09 1600 98 Nasal 3.0L Cannula 10/09 1600 98.2 100 20 128/68 98 Nasal 3.0L Cannula 10/09 1200 Nasal 3.0L Cannula 10/09 1200 97.2 114 28 128/72 96 Nasal 3.0L Cannula Intake & Output 10/10 1600 10/10 0800 10/10 0000 10/09 1600 10/09 0800 10/09 0000 Intake Total 50 240 764 100 120 Output Total 038 941 6381 710 900 Balance -250 -310 -436 -610 -780 Intake, IV 0 44 Intake, Oral 50 240 720 100 120 Number 1 1 Bowel Movements Output, Urine 440 929 4929 710 900 Patient 270 lb Weight Weight Bed scale Measurement Method Physical Exam: He is in mild respiratory distress Chest reveals mild to moderate wheezing Heart irregular rhythm, no murmurs Extremities no edema Current Medications: Current Medications Sig/Renetta Start time Last Medication Dose Route Stop Time Status Admin Albuterol Sulfate 3 ML Q4 HRS NEEDED PRN 10/10 1700 AC INH Albuterol Sulfate 3 ML BID 10/07 2200 DC 10/10 INH 1042 Albuterol Sulfate 2 PUF Q4P PRN 10/07 1530 DC INH Aspirin 81 MG DAILY 10/07 1519 AC 10/10 PO 0832 Atorvastatin Calcium 20 MG DAILY@1700 10/07 1700 AC 10/10 PO 1752 Budesonide/ 2 PUF BID 10/10 1235 DC 10/10 Formoterol Fumarate INH 2151 Furosemide 40 MG ONCE ONE 10/10 1115 DC 10/10 IV 10/10 1116 1144 Metoprolol Tartrate 25 MG BID 10/10 1102 AC 10/10 PO 2154 Oseltamivir Phosphate 30 MG BID 10/07 2200 AC 10/10 PO 10/11 2159 2152 Potassium Chloride 40 MEQ ONCE ONE 10/10 1300 DC 10/10 PO 10/10 1301 1322 Prednisone 5 MG 2200 10/09 2200 DC 10/09 PO 2156 Prednisone 10 MG DAILY 10/09 1000 AC 10/10 PO 0832 Tiotropium [place] 1 PUF DAILY 10/11 1000 UNVr INH Warfarin Sodium 3 MG COUMADIN 1700 ONE 10/11 1700 UNVr PO 10/11 1701 Warfarin Sodium 3 MG COUMADIN 1700 ONE 10/10 1700 DC 10/10 PO 10/10 1701 1752 Assessment/Plan Assessment/Plan The patient's pulmonary congestion has improved somewhat but he still has bronchospasm. His rhythm is at his baseline, that is frequent PACs but no evidence of atrial fibrillation. He had a recent echo showing normal LV function and I don't think he needs a follow-up at this time. I recommend continuing diuresis and respiratory treatments. When he is stable enough for transfer he can go to telemetry. Continue telemetry? Yes
--- NOTE | 2017-10-10 11:35 | RADIOLOGY REPORT ---
EXAMINATION: CR PORTABLE CHEST CLINICAL INFORMATION: CHF. Resolution of pulmonary edema. COMPARISON: Several prior chest x-rays, most recent of which is dated 10/08/2017. TECHNIQUE: Portable AP semierect view of the chest was obtained. FINDINGS: EKG leads overlie the chest. The cardiomediastinal silhouette is enlarged with ectasia and tortuosity of the aorta again seen, unchanged. Lungs bilaterally are symmetrically expanded. There is some reticular opacity seen in the medial right lung base, likely due to subsegmental atelectasis. No focal consolidation, effusion or pneumothorax is seen. No pulmonary edema is noted. Bony structures are unremarkable. IMPRESSION: Mild right basilar subsegmental atelectasis. No evidence of pulmonary edema.
[2017-10-10 11:45] VITALS: BP 130/52
[2017-10-10 17:00] VITALS: BP 130/70
[2017-10-10 20:00] VITALS: BP 136/68
[2017-10-11 00:40] VITALS: BP 132/84
[2017-10-11 05:01] LABS: ABSOLUTE BASOPHIL COUNT 0 /CUMM (0.0-0.2); ABSOLUTE EOSINOPHIL COUNT 0.1 /CUMM (0.0-0.7); ABSOLUTE GRANULOCYTE CT 3.7 /CUMM (1.4-6.5); ABSOLUTE LYMPH COUNT 2.6 /CUMM (1.2-3.4); ABSOLUTE MONOCYTE COUNT 0.3 /CUMM (0.10-0.60); BASOPHIL % 0.4 % (0.0-2.0); EOSINOPHIL % 2.1 % (0-5); GRANULOCYTE % 54.5 % (42.2-75.2); MEAN CORPUSCULAR HGB 32.5 PG (27.0-31.0); MEAN CORPUSCULAR HGB CONC 32.8 G/DL (33.0-37.0); MEAN CORPUSCULAR VOLUME 98.9 FL (80.0-94.0); MEAN PLATELET VOLUME 7.8 FL (7.4-10.4); PLATELET COUNT 179 /CUMM (130-400); RBC DISTRIBUTION WIDTH 17.1 % (11.5-14.5); RED BLOOD CELL CT 3.14 /CUMM (4.70-6.10); WHITE BLOOD CELL COUNT 6.8 /CUMM (4.8-10.8)
--- NOTE | 2017-10-11 07:02 | PN- Resident CRCU ---
Subjective HPI/CRCU Issues: Acute hypoxic respiratory failure likely secondary to Influenza A CHF Transient hypotension on admission likely secondary to relative cortisol deficiency type II myocardial infarction Premature Atrial Contractions/PVCs 24 Hour Events: Patient seen and examined. Sleeping comfortably. Easily arousable. He reports improvement in shortness of breath. No overnight acute events. Tmax 98.6 heart rate ranging in 90's to 110's Irregular rhythm with PAc's Respiratory rate 20's Blood pressure ranging in 140s to 130s/80s to 60 Oxygen saturation greater than 95% on 3 L nasal cannula Patient remained off BiPAP overnight WBC count 6.8 H/H 06/26 , platelets 179 stable BEP WNL INR 2.6 Last 3 fingersticks 130, 176, 184,89 CXR on 10/10 showed Mild right basilar subsegmental atelectasis. No evidence of pulmonary edema. Started on Symbicort BID as Breo Ellipta not available in pharmacy [email or web address]. Currently patient is Tele Hold in ICU Objective Vital Signs & I&O Last 8 Hrs of Vitals and I&O: Vital Signs Date Time Temp Pulse Resp B/P B/P Pulse O2 O2 Flow FiO2 Mean Ox Delivery Rate 10/11 0800 97 Nasal 3.0L Cannula 10/11 0800 99.5 106 22 130/70 97 Nasal 3.0L Cannula 10/11 0040 98.6 96 20 132/84 98 Nasal 3.0L Cannula 10/11 0000 Nasal 3.0L Cannula 10/10 2154 110 24 142/70 10/10 2041 95 Nasal 2.0L Cannula 10/10 2010 Nasal 3.0L Cannula 10/10 1999 96.7 90 20 136/68 100 Nasal 3.0L Cannula 10/10 1700 97 Nasal 3.0L Cannula 10/10 1700 97.7 108 20 130/70 96 Nasal 3.0L Cannula 10/10 1145 108 22 130/52 98 Nasal 3.0L Cannula 10/10 1046 100 Nasal 2.0L Cannula Intake & Output 10/11 1600 10/11 0800 10/11 0000 Intake Total 120 800 Output Total 625 701 Balance -505 99 Intake, Oral 120 800 Number 1 Bowel Movements Output, Stool 1 Output, Urine 625 700 Exam General Appearance: no apparent distress, alert, awake Head: atraumatic Neck: normal inspection Respiratory: bibasiler crackels Cardiovascular: irregularly irregular Gastrointestinal: normal bowel sounds, soft, non-tender Extremities: trace edema Cranial Nerves: normal speech Current Medications: Current Medications Sig/Renetta Start time Last Medication Dose Route Stop Time Status Admin Albuterol Sulfate 3 ML Q4 HRS NEEDED PRN 10/10 1700 AC INH Albuterol Sulfate 3 ML BID 10/07 2200 DC 10/10 INH 1042 Albuterol Sulfate 2 PUF Q4P PRN 10/07 1530 DC INH Aspirin 81 MG DAILY 10/07 1519 AC 10/11 PO 0927 Atorvastatin Calcium 20 MG DAILY@1700 10/07 1700 AC 10/10 PO 1752 Budesonide/ 2 PUF BID 10/10 1235 DC 10/10 Formoterol Fumarate INH 2151 Furosemide 40 MG ONCE ONE 10/11 0930 DC 10/11 IV 10/11 0931 0927 Furosemide 40 MG ONCE ONE 10/10 1115 DC 10/10 IV 10/10 1116 1144 Metoprolol Tartrate 25 MG BID 10/10 1102 AC 10/11 PO 0927 Oseltamivir Phosphate 30 MG BID 10/07 2200 AC 10/11 PO 10/11 2159 0927 Potassium Chloride 40 MEQ ONCE ONE 10/10 1300 DC 10/10 PO 10/10 1301 1322 Prednisone 5 MG 2200 10/09 2200 DC 10/09 PO 2156 Prednisone 10 MG DAILY 10/09 1000 AC 10/11 PO 0927 Tiotropium [place] 1 PUF DAILY 10/11 1000 AC INH Warfarin Sodium 3 MG COUMADIN 1700 ONE 10/11 1700 AC PO 10/11 1701 Warfarin Sodium 3 MG COUMADIN 1700 ONE 10/10 1700 DC 10/10 PO 10/10 1701 1752 Impression/Plan Impression/Problem List Impression: 82 year old male BIBA from the home, secondary to generalized weakness for the past week and shortness of breath for a day prior admission to ED. Assessment and Plan: #Acute Hypoxemic Respiratory Failure likely secondary to Influenza Pnemonia: Patient came in with complains of dyspnea and was positive for Influenza A. His symptoms are likely due to influenza pnemonia. -Continue oxygen supplementation to maintain target sats >92%. Currently on 3L. -Wean off oxygen -Continue Tamiflu to complete 5 day course last day today -No growth sputum culture -Start spiriva one puff daily while in the hospital (do not dc home on it if stable) #Mild CHF suggestive of diastolic dysfunction -IV Lasix 40 mg once today #History of paroxysmal A. fib: Today patient appears to be Sinus rhythm, has been having PAC's -Will dose Warfarin each day based on INR. Currently on a lower dose, 3mg than home dose which is 5mg. 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 Troponins have trended down patient remains asymptomatic #Hyperglycemia: Likely attributed to steriods. Blood glucose has been in acceptable range -Most recent 130, 176, 184, 89. 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 He has a relative cortisol deficiency likely secondary due to chronic steroid use causing HPA suppresion. #Hypotension: - resolved Transient hypotension upon admission most likely related to relative cortisol deficiency which seems to have improved with hydrocortisone #DESHAUN: - resolved Elevated Cr on admission - resolved Heart Healthy/DVT Prophylaxis via Coumadin/DNR/DNI Problem List: 1. Relapsing polychondritis Pain Ratin Tomorrow's Labs & Rationales: cbc bep Plan DVT/Prophylaxis: mechanical, pharmacological
[2017-10-11 08:00] VITALS: BP 130/70
--- NOTE | 2017-10-11 08:44 | PN- CRCU ---
Subjective HPI/Critical Care Issues: Patient seen and examined. Sleeping comfortably. Easily arousable. He reports improvement in shortness of breath. No overnight acute events. Tmax 98.6 heart rate ranging in 90's to 110's Irregular rhythm with PAc's Respiratory rate 20's Blood pressure ranging in 140s to 130s/80s to 60 Oxygen saturation greater than 95% on 3 L nasal cannula Patient remained off BiPAP overnight WBC count 6.8 H/H 06/26 , platelets 179 stable BEP WNL INR 2.6 Last 3 fingersticks 130, 176, 14 CXR on 10/10 showed Mild right basilar subsegmental atelectasis. No evidence of pulmonary edema. Currently patient is Tele Hold in ICU Objective Current Medications: Current Medications Sig/Renetta Start time Last Medication Dose Route Stop Time Status Admin Albuterol Sulfate 3 ML Q4 HRS NEEDED PRN 10/10 1700 AC INH Albuterol Sulfate 3 ML BID 10/07 2200 DC 10/10 INH 1042 Albuterol Sulfate 2 PUF Q4P PRN 10/07 1530 DC INH Aspirin 81 MG DAILY 10/07 1519 AC 10/10 PO 0832 Atorvastatin Calcium 20 MG DAILY@1700 10/07 1700 AC 10/10 PO 1752 Budesonide/ 2 PUF BID 10/10 1235 AC 10/10 Formoterol Fumarate INH 2151 Furosemide 40 MG ONCE ONE 10/10 1115 DC 10/10 IV 10/10 1116 1144 Metoprolol Tartrate 25 MG BID 10/10 1102 AC 10/10 PO 2154 Oseltamivir Phosphate 30 MG BID 10/07 2200 AC 10/10 PO 10/11 2159 2152 Potassium Chloride 40 MEQ ONCE ONE 10/10 1300 DC 10/10 PO 10/10 1301 1322 Prednisone 5 MG 2200 10/09 2200 DC 10/09 PO 2156 Prednisone 10 MG DAILY 10/09 1000 AC 10/10 PO 0832 Warfarin Sodium 3 MG COUMADIN 1700 ONE 10/10 1700 DC 10/10 PO 10/10 1701 1752 Vital Signs & I&O Last 24 Hrs of Vitals and I&O: Vital Signs Date Time Temp Pulse Resp B/P B/P Pulse O2 O2 Flow FiO2 Mean Ox Delivery Rate 10/11 0800 97 Nasal 3.0L Cannula 10/11 0800 99.5 106 22 130/70 97 Nasal 3.0L Cannula 10/11 0040 98.6 96 20 132/84 98 Nasal 3.0L Cannula 10/11 0000 Nasal 3.0L Cannula 10/10 2154 110 24 142/70 10/10 2041 95 Nasal 2.0L Cannula 10/10 2010 Nasal 3.0L Cannula 10/10 1999 96.7 90 20 136/68 100 Nasal 3.0L Cannula 10/10 1700 97 Nasal 3.0L Cannula 10/10 1700 97.7 108 20 130/70 96 Nasal 3.0L Cannula 10/10 1145 108 22 130/52 98 Nasal 3.0L Cannula 10/10 1046 100 Nasal 2.0L Cannula Intake & Output 10/11 1600 10/11 0800 10/11 0000 Intake Total 120 800 Output Total 625 701 Balance -505 99 Intake, Oral 120 800 Number 1 Bowel Movements Output, Stool 1 Output, Urine 625 700 Impression/Plan Impression/Plan Impression/Plan: General Appearance Alert, Oriented X3, Mild Distress Skin pale, Neck No JVD Cardiovascular Regular Rate, Normal S1, Normal S2, No Murmurs Lungs generalized wheezing, crackles at bases Abdomen Soft, No Tenderness, distended Extremities mild peripheral edema, weak pulses, chronic skin changes Vascular poor/weak pulses IMPRESSION This is an 82-year-old gentleman on long-term steroids hence immunosuppressed with the relapsing polychondritis, previous multiple hospitalization, previous flareup with Sweet syndrome, 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 This is also compounded by type II myocardial ischemia due to initial hypotension upon admission which seems to have improved. He also does have history of paroxysmal atrial fibrillation now appears to be in flipping back and forth from atrial fib to sinus with frequent MATs * Mild congestive heart failure suggestive of diastolic dysfunction, now appears resolved * Multiple DVTs in the past on anticoagulation, P atrial fibrillation as well patient is on warfarin * No significant evidence of bacterial pneumonia * Transient hypotension upon admission most likely related to relative cortisol deficiency which seems to have improved with hydrocortisone, now back on prednisone baseline * Paroxysmal atrial fibrillation with previous acute on chronic heart failure with preserved ejection fraction * 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 no active vte * Relapsing polychondritis on steroids and hence immunosupp * Has chronic low back pain and degenerative back issues * Previous NSVT with low magnesium now stable * Previous history of ischemic colitis now stable RECOMMENDATION Wean off oxygen Intravenous Lasix 1 dose, Metoprolol 25 mg twice a day Continue his other medications Prednisone 10 mg Keep his INR around 2.5 Keep his potassium more than 4 Watch his hemoglobin and hematocrit Tamiflu for total of five days Dc symbicort Start spiriva one puff daily while in the hospital (do not dc home on it if stable) Ok to the regular floor if ok with cardio
--- NOTE | 2017-10-11 09:28 | PN- Cardiology ---
Subjective Subjective: The patient is now on telemetry hold. His chest x-ray was improved yesterday. His rhythm appears the same on the monitor. I don't see any definite periods of atrial fibrillation, just a lot of supraventricular ectopy. Objective Vital Signs and I&Os Vital Signs Date Time Temp Pulse Resp B/P B/P Pulse O2 O2 Flow FiO2 Mean Ox Delivery Rate 10/11 0800 97 Nasal 3.0L Cannula 10/11 0800 99.5 106 22 130/70 97 Nasal 3.0L Cannula 10/11 0040 98.6 96 20 132/84 98 Nasal 3.0L Cannula 10/11 0000 Nasal 3.0L Cannula 10/10 2154 110 24 142/70 10/10 2041 95 Nasal 2.0L Cannula 10/10 2010 Nasal 3.0L Cannula 10/10 1999 96.7 90 20 136/68 100 Nasal 3.0L Cannula 10/10 1700 97 Nasal 3.0L Cannula 10/10 1700 97.7 108 20 130/70 96 Nasal 3.0L Cannula 10/10 1145 108 22 130/52 98 Nasal 3.0L Cannula 10/10 1046 100 Nasal 2.0L Cannula Intake & Output 10/11 1600 10/11 0800 10/11 0000 10/10 1600 10/10 0800 10/10 0000 Intake Total 120 800 930 50 240 Output Total 625 701 900 300 550 Balance -505 99 30 -250 -310 Intake, IV 50 0 Intake, Oral 120 800 880 50 240 Number 1 1 Bowel Movements Output, Stool 1 Output, Urine 625 700 900 300 550 Physical Exam: HEENT exam unremarkable Chest mild expiratory wheezing and some rhonchi Heart irregular rhythm systolic murmur at the base No edema Current Medications: Current Medications Sig/Renetta Start time Last Medication Dose Route Stop Time Status Admin Albuterol Sulfate 3 ML Q4 HRS NEEDED PRN 10/10 1700 AC INH Albuterol Sulfate 3 ML BID 10/07 2200 DC 10/10 INH 1042 Albuterol Sulfate 2 PUF Q4P PRN 10/07 1530 DC INH Aspirin 81 MG DAILY 10/07 1519 AC 10/10 PO 0832 Atorvastatin Calcium 20 MG DAILY@1700 10/07 1700 AC 10/10 PO 1752 Budesonide/ 2 PUF BID 10/10 1235 DC 10/10 Formoterol Fumarate INH 2151 Furosemide 40 MG ONCE ONE 10/10 1115 DC 10/10 IV 10/10 1116 1144 Metoprolol Tartrate 25 MG BID 10/10 1102 AC 10/10 PO 215 Oseltamivir Phosphate 30 MG BID 10/07 2199 AC 10/10 PO 10/11 Potassium Chloride 40 MEQ ONCE ONE 10/10 1300 DC 10/10 PO 10/10 1301 1322 Prednisone 5 MG 0 10/090 DC 10/09 PO 215 Prednisone 10 MG DAILY 10/09 1000 AC 10/10 PO 0832 Tiotropium [place] 1 PUF DAILY 10/11 1000 AC INH Warfarin Sodium 3 MG COUMADIN 1700 ONE 10/11 1700 AC PO 10/11 1701 Warfarin Sodium 3 MG COUMADIN 1700 ONE 10/10 1700 DC 10/10 PO 10/10 1701 1752 Results Last 48 Hrs of Labs/Mics: Laboratory Tests 10/11/17 0420: Anion Gap 5, Estimated GFR > 60, BUN/Creatinine Ratio 35.0 H, PT 27.0 H, INR 2.60 H, CBC w Diff NO MAN DIFF REQ, RBC 3.14 L, MCV 98.9 H, MCH 32.5 H, MCHC 32.8 L, RDW 17.1 H, MPV 7.8, Gran % 54.5, Lymphocytes % 38.6, Monocytes % 4.4, Eosinophils % 2.1, Basophils % 0.4, Absolute Granulocytes 3.7, Absolute Lymphocytes 2.6, Absolute Monocytes 0.3, Absolute Eosinophils 0.1, Absolute Basophils 0 10/10/17 0720: Anion Gap 7, Estimated GFR > 60, Glucose 97, Calcium 8.7, Phosphorus 2.5, Magnesium 1.9, Total Bilirubin 0.2, AST 26, ALT 34, Albumin 2.6 L, PT 26.6 H, INR 2.56 H, CBC w Diff NO MAN DIFF REQ, RBC 2.92 L, MCV 98.8 H, MCH 32.5 H, MCHC 32.9 L, RDW 16.6 H, MPV 7.8, Gran % 55.0, Lymphocytes % 37.7, Monocytes % 6.2, Eosinophils % 0.7, Basophils % 0.4, Absolute Granulocytes 2.5, Absolute Lymphocytes 1.7, Absolute Monocytes 0.3, Absolute Eosinophils 0, Absolute Basophils 0 Recent Imaging Studies: PATIENT: EDITH ZHANG PRESENT AGE: 82 PATIENT ACCOUNT NO: [id number] : 33 LOCATION: [facility] ORDERING PHYSICIAN: Marianne García MD SERVICE DATE: 10/10/17- EXAM TYPE: RAD - XRY-PORTABLE CHEST XRAY EXAMINATION: CR PORTABLE CHEST CLINICAL INFORMATION: CHF. Resolution of pulmonary edema. COMPARISON: Several prior chest x-rays, most recent of which is dated 10/08/2017. TECHNIQUE: Portable AP semierect view of the chest was obtained. FINDINGS: EKG leads overlie the chest. The cardiomediastinal silhouette is enlarged with ectasia and tortuosity of the aorta again seen, unchanged. Lungs bilaterally are symmetrically expanded. There is some reticular opacity seen in the medial right lung base, likely due to subsegmental atelectasis. No focal consolidation, effusion or pneumothorax is seen. No pulmonary edema is noted. Bony structures are unremarkable. IMPRESSION: Mild right basilar subsegmental atelectasis. No evidence of pulmonary edema. DICTATED BY: Dior Méndez MD DATE/TIME DICTATED:10/10/171050 AD OPERATIONS COORDINATOR:ONUR DATE/TIME TRANSCRIBED:10/10/171050 CONFIDENTIAL, DO NOT COPY WITHOUT APPROPRIATE AUTHORIZATION. <Electronically signed in Other Vendor System> SIGNED BY: Dior Méndez MD [id number] Assessment/Plan Assessment/Plan The patient seems somewhat improved from a respiratory standpoint. His rhythm is similar. I recommend the same treatment. He should be ambulated and when comfortable discharged home. Continue telemetry? Yes
--- NOTE | 2017-10-11 09:35 | Transfer of Care Summary ---
Hospital Course Course Hospital Course: Reason for ICU admission The patient was admitted on 10/07 to telemetry, later transferred to ICU for Acute hypoxemic respiratory failure related to influenza pneumonia leading to Sepsis - Tachypnoea/RR >22; Hypotension BP <100, despite multiple fluid boluses. HPI: The patient is a 82-year-old gentleman with history of atrial fibrillation RVR, lower extremity DVT on long-standing anticoagulation on warfarin, relapsing polychondritis on long-term steroids, previous flareup of sweets syndrome, zoster, babesiosis , hypertension, hyperlipidemia, stage I diastolic heart failure, Moderate pulmonary hypertension and chronic uveitis. CC: On 10/07 with tachypnea cough, shortness of breath and generalized weakness. At the time of EMS arrival SPO2 was 89-90% on CPAP. In ED patient was started on BiPAP and was flu positive PROBLEMS ADDRESSED: Hypotension: RESOLVED. Shortly after transfer to ICU patient's blood pressure was found to be 80/doppler. The episode of hypotension was transient and most likely related to relative cortisol deficiency secondary to long-term steroid use for relapsing polychondritis. Improved with hydrocortisone 100mg IV given in ED intially and later 50mg IV Q8. Steroids were tapered to 10 mg by mouth prednisone in the morning and 5 mg in the evening. Currently, he is back on 10 mg by mouth prednisone, which is his daily home dose for relapsing polychondritis. Acute Hypoxemic Respiratory Failure: Likely Influenza Pnemonia. Initially patient was maintained on BiPAP and later BiPAP just overnight and now had has been weaned off Bipap and is currently on 3L of nasal cannula maintaining oxygen saturation above 92%. Will complete 5 day course of Tamiflu on 10/11/2016 at 10PM. Currently on spiriva. Type II UT: mild elevation in troponins likely secondary to demand supply mismatch. 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 Gama. Rhythm has been ranging from normal sinus to a regular with PACs and supraventricular ectopy. Metoprolol was initially held because of hypotension and has been restarted at dose of 25 mg BID (in EMR home dose is 50 BID). Coumadin is being dosed as per INR DESHAUN: resolved Mechanical ventilation: No NIPPV: BiPAP weaned off Antibiotic plan: Initially was started on ceftriaxone and azithromycin x 1 dose for possibility of CAP later discontinued Catheters/lines: Boo catheter was placed and has been removed on 10/10 Things to be followed up: -Follow INR and dose Coumadin for goal INR 2.5 (atrial fibrillation and history of bilateral DVT) -Tamiflu course complete on 10/11 -We have started patient on Spiriva but DO NOT discharge patient on it if he is stable from pulm perspective (see Dr. Hidalgo note). -Follow-up finger sticks patient runs hyperglycemic secondary to steroid use. Can initiate insulin sliding scale if needed -Continue prednisone 10 mg for relapsing polychondritis. He has a relative cortisol deficiency likely secondary due to chronic steroid use causing HPA suppresion Heart Healthy/DVT Prophylaxis via Coumadin/DNR/DNI Assessment/Plan: see above
[2017-10-11 15:18] VITALS: BP 122/60
--- NOTE | 2017-10-11 16:18 | Patient Discharge Instructions ---
Discharge Instructions General Discharge Information You were seen/treated for: Hypoxic respiratory failure due to influenza You had these procedures: bipap Watch for these problems: SOB CP Hypotension Special Instructions: 1. Follow up with your PCP in one week 2. Follow up wtih your command and control officer in two weeks Activity Activity Self Limited: Yes Acute Coronary Syndrome Inclusion Criteria At DC or during hospital stay patient has or had the following: ACS DIAGNOSIS No Discharge Core Measures Meds if any: Prescribed or Continued at Discharge Meds if any: NOT Prescribed or Continued at Discharge Congestive Heart Failure Inclusion Criteria At DC or during hospital stay patient has or had the following: CHF DIAGNOSIS No Discharge Core Measures Meds if any: Prescribed or Continued at Discharge Meds if any: NOT Prescribed or Continued at Discharge Cerebrovascular accident Inclusion Criteria At DC or during hospital stay patient has or had the following: CVA/TIA Diagnosis No Discharge Core Measures Meds if any: Prescribed or Continued at Discharge Meds if any: NOT Prescribed or Continued at Discharge Venous thromboembolism Inclusion Criteria VTE Diagnosis No VTE Type NONE VTE Confirmed by (Test) NONE Discharge Core Measures - Per Current guidelines, there needs to be overlap - treatment for the first 5 days of Warfarin therapy. - If discharged on Warfarin prior to 5 days of - overlap therapy, the patient will need to be - assessed for post discharge needs including - *Post discharge parental anticoagulation - *Warfarin and/or parental anticoagulation education - *Follow up date to check INR post discharge At least 5 days overlap therapy as Inpatient Yes Meds if any: Prescribed or Continued at Discharge Note: Overlap Therapy is Warfarin and Anticoagulant Meds if any: NOT Prescribed or Continued at Discharge
[2017-10-12 07:49] VITALS: BP 128/90
--- NOTE | 2017-10-12 08:49 | PN- Housestaff ---
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 Patient felt improved on respiratory status overall with coughing subsidizing. Offered no other complaint. Review of Systems Constitutional: Reports: see HPI. Objective Last 24 Hrs of Vital Signs/I&O Vital Signs Date Time Temp Pulse Resp B/P B/P Pulse O2 O2 Flow FiO2 Mean Ox Delivery Rate 10/12 0749 98.1 68 22 128/90 98 Nasal Cannula 10/12 0000 98 Nasal 2.0L Cannula 10/11 2128 64 136/72 10/11 2026 21 94 Nasal 2.0L Cannula 10/11 2026 82 21 89 Room Air 10/11 1518 98.9 74 18 122/60 92 Room Air 10/11 1041 95 Nasal 2.0L Cannula Intake & Output 10/12 1600 10/12 0800 10/12 0000 Intake Total 250 200 Output Total 800 400 Balance -550 -200 Intake, Oral 250 200 Number 0 Bowel Movements Output, Urine 800 400 Physical Exam General Appearance: Alert, Oriented X3, Cooperative, No Acute Distress Cardiovascular: Regular Rate Lungs: Normal Air Movement, No auscultable wheeze/rhonchi Abdomen: Normal Bowel Sounds, Soft, No Tenderness Neurological: Normal Speech, Strength at 5/5 X4 Ext Extremities: No Edema, Normal Pulses Current Medications: Current Medications Sig/Renetta Start time Last Medication Dose Route Stop Time Status Admin Albuterol Sulfate 3 ML Q4 HRS NEEDED PRN 10/10 1700 AC INH Aspirin 81 MG DAILY 10/07 1519 AC 10/11 PO 0927 Atorvastatin Calcium 20 MG DAILY@1700 10/07 1700 AC 10/11 PO 1848 Furosemide 40 MG ONCE ONE 10/11 0930 DC 10/11 IV 10/11 0931 0927 Guaifenesin/ 10 ML Q6P PRN 10/11 1145 AC 10/11 Dextromethorphan PO 1211 Metoprolol Tartrate 25 MG BID 10/10 1102 AC 10/11 PO 2128 Oseltamivir Phosphate 30 MG BID 10/07 2200 DC 10/11 PO 10/11 215 09 Prednisone 10 MG DAILY 10/09 1000 AC 10/11 PO 0927 Tiotropium [place] 1 PUF DAILY 10/11 1000 AC 10/11 INH 1114 Warfarin Sodium 3 MG COUMADIN 1700 ONE 10/11 1700 DC 10/11 PO 10/11 1701 1848 Assessment/Plan Assessment: Mr. 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 Presented to ER with tachypnea cough, shortness of breath and generalized weakness. At the time of EMS arrival SPO2 was 89-90% on CPAP. In ED patient was started on BiPAP and was flu positive Patient was admitted to ICU and then transferred to [facility] upon stablization of clinical conditions: #Transient Hypotension: RESOLVED. - The episode of hypotension was transient and most likely related to relative cortisol deficiency secondary to long-term steroid use for relapsing polychondritis. - Received hydrocortisone 100mg IV given in ED intially and later 50mg IV Q8, later tapered to 10 mg by mouth prednisone in the morning and 5 mg in the evening. - Patient was now back on 10 mg by mouth prednisone, which is his daily home dose for relapsing polychondritis. #Acute Hypoxemic Respiratory Failure, resolving: Likely Influenza Pnemonia. - Patient had weaned off Bipap from ICU - Breathing comfortably 2LNC satting 98% - Continue Tamiflu 30mg BID PO x total 5 day, currently day 4. Type II IN: mild elevation in troponins likely secondary to demand supply mismatch. 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 Gama. Rhythm has been ranging from normal sinus to a regular with PACs and supraventricular ectopy. - Metoprolol was initially held because of hypotension and has been restarted at dose of 25 mg BID (in EMR home dose is 50 BID). - Coumadin is being dosed as per INR DESHAUN: resolved to Cr 0.8 on latest lab. Will continue monitor DVT PPX Warfarin + ALPS Heart Healthy Diet DNR/DNI Problem List: 1. Influenza A 2. Atrial fibrillation Pain Ratin Pain Location: NA Pain Goal: Remain pain free Pain Plan: see AP Tomorrow's Labs & Rationales: CBC/INR Lorraine Burton 10/12/17 1225: Attending MD Review Statement Attending Statement Attending MD Statement: examined this patient, discuss w/resident/PA/CONTINUOUS MINER, agreed w/resident/PA/CONTINUOUS MINER, discussed with family, reviewed EMR data (avail), discussed with nursing, discussed with case mgmt, reviewed images, amended to note Attending Assessment/Plan: 82-year-old gentleman on long-term steroids hence immunosuppressed with the relapsing polychondritis, previous multiple hospitalization, previous flareup with Sweet syndrome, previous zoster and babesiosis in the past, no significant smoking history, diastolic heart disease, chronic lower extremity DVT on long- standing anticoagulation on warfarin, previous uveitis admitted to ICU for influenza related pneumonia and type 2 IN and CHF with preserved EF which has improved and transferred to gen/med. Wean off oxygen. Lasix as per cards, P atrial fibrillation as well patient is on warfarin. Metoprolol. Multiple DVTs in the past on anticoagulation, warfarin INR 2-3. Relapsing polychondritis on steroids and hence immunosupp. continue Has chronic low back pain and degenerative back issues. Bronchodilators use as per pulm. PT consult for dc planning.
--- NOTE | 2017-10-12 13:28 | PN- Pulmonary ---
Subjective HPI/Critical Care Issues: No overnight event. Patient felt improved on respiratory status overall with coughing subsidizing. Offered no other complaint. Review of Systems Constitutional: Reports: see HPI Objective Current Medications: Current Medications Sig/Renetta Start time Last Medication Dose Route Stop Time Status Admin Albuterol Sulfate 3 ML Q4 HRS NEEDED PRN 10/10 1700 AC INH Aspirin 81 MG DAILY 10/07 1519 AC 10/12 PO 1051 Atorvastatin Calcium 20 MG DAILY@1700 10/07 1700 AC 10/11 PO 1848 Guaifenesin/ 10 ML Q6P PRN 10/11 1145 AC 10/12 Dextromethorphan PO 1051 Metoprolol Tartrate 25 MG BID 10/10 1102 AC 10/12 PO 1051 Oseltamivir Phosphate 30 MG BID 10/07 2200 DC 10/11 PO 10/11 215 0927 Prednisone 10 MG DAILY 10/09 1000 AC 10/12 PO 1051 Tiotropium [place] 1 PUF DAILY 10/11 1000 AC 10/12 INH 1221 Warfarin Sodium 3 MG COUMADIN 1700 ONE 10/11 1700 DC 10/11 PO 10/11 1701 1848 Vital Signs & I&O Last 24 Hrs of Vitals and I&O: Vital Signs Date Time Temp Pulse Resp B/P B/P Pulse O2 O2 Flow FiO2 Mean Ox Delivery Rate 10/12 1158 97 Nasal 2.0L Cannula 10/12 1051 98.1 68 22 128/90 10/12 0749 98.1 68 22 128/90 98 Nasal Cannula 10/12 0000 98 Nasal 2.0L Cannula 10/11 2127 64 136/72 10/11 2026 21 94 Nasal 2.0L Cannula 10/11 2026 82 21 89 Room Air 10/11 1518 98.9 74 18 122/60 92 Room Air Intake & Output 10/12 1600 10/12 0800 10/12 0000 Intake Total 250 200 Output Total 800 400 Balance -550 -200 Intake, Oral 250 200 Number 0 Bowel Movements Output, Urine 800 400 Patient 270 lb Weight Impression/Plan Impression/Plan Impression/Plan: General Appearance Alert, Oriented X3, Mild Distress Skin pale, Neck No JVD Cardiovascular Regular Rate, Normal S1, Normal S2, No Murmurs Lungs generalized wheezing, crackles at bases Abdomen Soft, No Tenderness, distended Extremities mild peripheral edema, weak pulses, chronic skin changes Vascular poor/weak pulses IMPRESSION This is an 82-year-old gentleman on long-term steroids hence immunosuppressed with the relapsing polychondritis, previous multiple hospitalization, previous flareup with Sweet syndrome, 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 This is also compounded by type II myocardial ischemia due to initial hypotension upon admission which seems to have improved. 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 * Multiple DVTs in the past on anticoagulation, P atrial fibrillation as well patient is on warfarin * No significant evidence of bacterial pneumonia * Transient hypotension upon admission most likely related to relative cortisol deficiency which seems to have improved with hydrocortisone, now back on prednisone baseline * Paroxysmal atrial fibrillation with previous acute on chronic heart failure with preserved ejection fraction * 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
--- NOTE | 2017-10-12 13:55 | Discharge Summary ---
See Addendum Visit Information Visit Dates Admission Date: 10/07/17 Discharge Date: 10/13/2017 Hospital Course Course Attending Physician: Perla BORJA,Bob Amaya Primary Care Physician: Pablo Jade DO Hospital Course: Mr. 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 Presented to ER with tachypnea cough, shortness of breath and generalized weakness. At the time of EMS arrival SPO2 was 89-90% on CPAP. In ED patient was started on BiPAP and was flu positive Patient was admitted to ICU and then transferred to [facility] upon stablization of clinical conditions: PROBLEMS ADDRESSED: Hypotension: RESOLVED. Shortly after transfer to ICU patient's blood pressure was found to be 80/ doppler. The episode of hypotension was transient and most likely related to relative cortisol deficiency secondary to long-term steroid use for relapsing polychondritis. Patient BP Improved with hydrocortisone 100mg IV given in ED intially and later 50mg IV Q8. Steroids were tapered to 10 mg by mouth prednisone in the morning and 5 mg in the evening. Prior discharge, patient was back on 10 mg by mouth prednisone, which is his daily home dose for relapsing polychondritis. Acute Hypoxemic Respiratory Failure: Likely Influenza Pnemonia. Initially patient was maintained on BiPAP and later BiPAP just overnight and now had has been weaned off Bipap and is currently on 3L of nasal cannula maintaining oxygen saturation above 92%. Patient completed a totla of 5 days of Tamiflu in hospital. Type II AR: mild elevation in troponins likely secondary to demand supply mismatch. Troponins have peaked at 0.20 and later trended down to 0.14 on latest lab prior discharge. Patient remained asymptomatic. VRE positive on rectal swab on Contact isolation Stage I diastolic dysfunction CHF: Patient received one dose of Lasix in ICU. History of paroxysmal atrial fibrillation: Patient is being followed by Dr. Gama. Rhythm has been ranging from normal sinus to a regular with PACs and supraventricular ectopy. Metoprolol was initially held because of hypotension and has been restarted at dose of 25 mg BID (in EMR home dose is 50 BID). Coumadin is being dosed as per INR. DESHAUN: Resolved to Cr 0.8 on latest lab prior discharge. Heart Healthy Diet/DVT Prophylaxis via Coumadin/DNR/DNI Allergies: Coded Allergies: NO KNOWN ALLERGIES (08/07/16) Pertinent Lab Results: SERVICE DATE: 10/07/17-1220 EXAM TYPE: RAD - XRY-PORTABLE CHEST XRAY IMPRESSION: Central vascular congestion without overt edema. The cardiac silhouette is enlarged and unchanged. SERVICE DATE: 10/08/17- EXAM TYPE: RAD - XRY-PORTABLE CHEST XRAY IMPRESSION: Central vascular congestion and enlarged cardiomediastinal silhouette without overt pulmonary edema. Findings are unchanged from prior exam. SERVICE DATE: 10/08/17- EXAM TYPE: RAD - XRY-PORTABLE CHEST XRAY IMPRESSION: Cardiomegaly. No overt pulmonary edema. SERVICE DATE: 10/10/17- EXAM TYPE: RAD - XRY-PORTABLE CHEST XRAY IMPRESSION: Mild right basilar subsegmental atelectasis. No evidence of pulmonary edema. Disposition Summary Disposition Principal Diagnosis: Influenza Pneumonia w/ Resp failure Type II AR +ve VRE Diastolic CHF stage 1 Hx of Proxysmal A-fib on Coumadin hx of Bilateral DVT Additional Diagnosis: As Above Discharge Disposition: home health services Discharge Instructions General Discharge Information Code Status: Do Not Resucitate/Intubat Patient's Diet: Regular diet Patient's Activity: As tolerated Follow-Up Instructions/Appts: 1. Follow up with your PCP in one week 2. Follow up wtih your park activities coordinator in two weeks Medications at Discharge Discharge Medications: Stop taking the following medications: Metoprolol Tartrate (Metoprolol Tartrate) 50 MG TABLET ORAL TWICE DAILY Qty = 60 Continue taking these medications: Omeprazole (Omeprazole) 20 MG CAPSULE. 1 Capsule ORAL DAILY Comments: NOT TAKEN IN HOSPITAL Cyanocobalamin (Vitamin B-12) (Cyanocobalamin Injection) 1,000 MCG/1 ML VIAL 1 Milliliters INTRAMUSC ONCE A MONTH Comments: NOT GIVEN IN HOSPITAL Gabapentin (Gabapentin) 300 MG CAPSULE 1 Capsule ORAL DAILY Qty = 60 Comments: NOT TAKEN IN HOSPITAL Aspirin (Aspirin*) 81 MG TAB.CHEW 1 Tablet ORAL DAILY Days = 30 Comments: Last Taken: 10/14/17 Time: 9AM Lisinopril (Lisinopril) 20 MG TABLET 1 Tablet ORAL DAILY Qty = 30 Comments: NOT TAKEN IN HOSPITAL Folic Acid (Folic Acid) 1 MG TABLET 1 Tablet ORAL DAILY Qty = 30 Comments: NOT TAKEN IN HOSPITAL Atorvastatin Calcium (Lipitor) 20 MG TABLET 1 Tablet ORAL DAILY Comments: Last Taken: 10/13/17 Time: 6 PM Warfarin Sodium (Coumadin) 5 MG TABLET 1 Tablet ORAL DAILY Comments: LAST TAKEN: 10/13/17 @ 12 PM Prednisone (Prednisone) 10 MG TABLET 1 Tablet ORAL DAILY Qty = 30 Instructions: Please take 15 mg( 1.5mg) daily on 08/13,08/14 10 mg once daily after 08/15 onwards Comments: Last Taken: 10/14/16 Time: 9AM Furosemide (Lasix) 40 MG TABLET 1 Tablet ORAL DAILY Comments: LAST TAKEN: 10/14/17 @ 9 AM Albuterol Sulfate (Proair Hfa) 90 MCG HFA.AER.AD 2 Puff Inhale through mouth As Directed as needed for RESP. Qty = 9 Comments: NOT TAKEN IN HOSPITAL Start taking the following new medications: Metoprolol Tartrate (Metoprolol Tartrate) 25 MG TABLET 25 Milligram ORAL TWICE DAILY Qty = 30 No Refills Instructions: . Copies To: Pablo Jade DO
[2017-10-12 14:03] LABS: ABSOLUTE BASOPHIL COUNT 0 /CUMM (0.0-0.2); ABSOLUTE EOSINOPHIL COUNT 0.2 /CUMM (0.0-0.7); ABSOLUTE LYMPH COUNT 1.6 /CUMM (1.2-3.4); ABSOLUTE MONOCYTE COUNT 0.1 /CUMM (0.10-0.60); BASOPHIL % 0.2 % (0.0-2.0); EOSINOPHIL % 2.6 % (0-5); GRANULOCYTE % 76.4 % (42.2-75.2); HEMATOCRIT 32.6 % (42-52); MEAN CORPUSCULAR HGB 32.2 PG (27.0-31.0); MEAN CORPUSCULAR HGB CONC 33.1 G/DL (33.0-37.0); MEAN CORPUSCULAR VOLUME 97.3 FL (80.0-94.0); MEAN PLATELET VOLUME 7.6 FL (7.4-10.4); PLATELET COUNT 202 /CUMM (130-400); RBC DISTRIBUTION WIDTH 16.4 % (11.5-14.5); RED BLOOD CELL CT 3.35 /CUMM (4.70-6.10); WHITE BLOOD CELL COUNT 7.9 /CUMM (4.8-10.8)
[2017-10-12 14:11] VITALS: BP 120/67
[2017-10-12] MEDS ORDERED: METOPROLOL TART25 M1 PO (16:13)
[2017-10-12 22:05] VITALS: BP 110/80
[2017-10-13 06:52] VITALS: BP 118/74
[2017-10-13 08:35] LABS: ABSOLUTE BASOPHIL COUNT 0 /CUMM (0.0-0.2); ABSOLUTE EOSINOPHIL COUNT 0.2 /CUMM (0.0-0.7); ABSOLUTE GRANULOCYTE CT 2.7 /CUMM (1.4-6.5); ABSOLUTE LYMPH COUNT 2.5 /CUMM (1.2-3.4); ABSOLUTE MONOCYTE COUNT 0.2 /CUMM (0.10-0.60); BASOPHIL % 0.2 % (0.0-2.0); GRANULOCYTE % 48.4 % (42.2-75.2); MEAN CORPUSCULAR HGB 32.6 PG (27.0-31.0); MEAN CORPUSCULAR VOLUME 98.7 FL (80.0-94.0); MEAN PLATELET VOLUME 7.6 FL (7.4-10.4); PLATELET COUNT 178 /CUMM (130-400); RBC DISTRIBUTION WIDTH 16.1 % (11.5-14.5); RED BLOOD CELL CT 3.04 /CUMM (4.70-6.10); WHITE BLOOD CELL COUNT 5.7 /CUMM (4.8-10.8)
--- NOTE | 2017-10-13 09:17 | PN- Housestaff ---
Jim Jack MD,Ami 10/13/17 0916: Subjective Follow-up For: Influenza Pneumonia w/ Resp failure Type II VT +ve VRE Diastolic CHF stage 1 Hx of Proxysmal A-fib on Coumadin hx of Bilateral DVT Subjective: Patient visited today, sitting at the bedside in no acute distress. Was on 2L NC o2, planned to taper O2 supplemet. Daughter called and had concerns regarding discharge today, administered lasix po and planned to discharge tomorrow. Review of Systems Constitutional: Reports: see HPI. Objective Last 24 Hrs of Vital Signs/I&O Vital Signs Date Time Temp Pulse Resp B/P B/P Pulse O2 O2 Flow FiO2 Mean Ox Delivery Rate 10/13 1003 94 Nasal 2.0L Cannula 10/13 0821 97.9 70 20 118/74 10/13 0652 97.9 70 20 98 Nasal 3.0L Cannula 10/13 0000 95 Nasal 2.0L Cannula 10/12 2205 97.9 85 20 110/80 98 10/12 2030 85 110/80 10/12 1600 Nasal 2.0L Cannula 10/12 1411 98.2 68 20 120/67 93 Intake & Output 10/13 1600 10/13 0800 10/13 0000 Intake Total 240 700 Output Total 200 1400 Balance 40 -700 Intake, Oral 240 700 Output, Urine 200 1400 Physical Exam General Appearance: Alert, Oriented X3, Cooperative, No Acute Distress Sepsis Skin Exam (color): Normal for Ethnicity HEENT: Atraumatic, EOMI, Mucous Membr. moist/pink Cardiovascular: Normal S1, Normal S2 Lungs: Bilateral crackles and ronchi Abdomen: Soft, No Tenderness Current Medications: Current Medications Sig/Renetta Start time Last Medication Dose Route Stop Time Status Admin Albuterol Sulfate 3 ML Q4 HRS NEEDED PRN 10/10 1700 DC INH Aspirin 81 MG DAILY 10/07 1519 AC 10/13 PO 0821 Atorvastatin Calcium 20 MG DAILY@1700 10/07 1700 AC 10/12 PO 1544 Furosemide 40 MG DAILY 10/13 1042 AC 10/13 PO 1130 Guaifenesin/ 10 ML Q6P PRN 10/11 1145 AC 10/13 Dextromethorphan PO 1004 Metoprolol Tartrate 25 MG BID 10/10 1102 AC 10/13 PO 0821 Prednisone 10 MG DAILY 10/09 1000 AC 10/13 PO 0821 Tiotropium [place] 1 PUF DAILY 10/11 1000 AC 10/13 INH 0822 Warfarin Sodium 3 MG COUMADIN 1700 ONE 10/13 1030 DC 10/13 PO 10/13 1031 1130 Warfarin Sodium 3 MG COUMADIN 1700 ONE 10/12 1730 DC 10/12 PO 10/12 1731 1839 Last 24 Hrs of Lab/Efrain Results Last 24 Hrs of Labs/Mics: Laboratory Tests 10/13/17 0733: PT 20.0 H, INR 1.92 H, CBC w Diff NO MAN DIFF REQ, RBC 3.04 L, MCV 98.7 H, MCH 32.6 H, MCHC 33.0, RDW 16.1 H, MPV 7.6, Gran % 48.4, Lymphocytes % 43.6, Monocytes % 3.8, Eosinophils % 4.0, Basophils % 0.2, Absolute Granulocytes 2.7, Absolute Lymphocytes 2.5, Absolute Monocytes 0.2, Absolute Eosinophils 0.2, Absolute Basophils 0 Assessment/Plan Assessment: Mr. 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 Presented to ER with tachypnea cough, shortness of breath and generalized weakness. At the time of EMS arrival SPO2 was 89-90% on CPAP. In ED patient was started on BiPAP and was flu positive Patient was admitted to ICU and then transferred to [facility] upon stablization of clinical conditions: #Transient Hypotension: RESOLVED. - The episode of hypotension was transient and most likely related to relative cortisol deficiency secondary to long-term steroid use for relapsing polychondritis. - Received hydrocortisone 100mg IV given in ED intially and later 50mg IV Q8, later tapered to 10 mg by mouth prednisone in the morning and 5 mg in the evening. - Patient was now back on 10 mg by mouth prednisone, which is his daily home dose for relapsing polychondritis. #Acute Hypoxemic Respiratory Failure, resolving: Likely Influenza Pnemonia. - Patient had weaned off Bipap from ICU - Breathing comfortably 2LNC satting 98% - Continue Tamiflu 30mg BID PO x total 5 day - Follow culture results - Lasix 1 dose given - taper off oxygen Type II VT: mild elevation in troponins likely secondary to demand supply mismatch. 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 Gama. Rhythm has been ranging from normal sinus to a regular with PACs and supraventricular ectopy. - Metoprolol was initially held because of hypotension and has been restarted at dose of 25 mg BID (in EMR home dose is 50 BID). - Coumadin is being dosed as per INR - dose was given in preparation for discharge but patient stayed DESHAUN: resolved to Cr 0.8 on latest lab. Will continue monitor DVT PPX Warfarin + ALPS Heart Healthy Diet DNR/DNI Problem List: 1. Influenza A Pain Ratin Pain Location: None Pain Goal: Pain 4 or less Pain Plan: Continue current plan Tomorrow's Labs & Rationales: CBC BEP Lorraine Burton 10/13/17 1112: Attending MD Review Statement Attending Statement Attending MD Statement: examined this patient, discuss w/resident/PA/LANCE CREWMEMBER, agreed w/resident/PA/LANCE CREWMEMBER, discussed with family, reviewed EMR data (avail), discussed with nursing, discussed with case mgmt, reviewed images, amended to note Attending Assessment/Plan: 82-year-old gentleman on long-term steroids hence immunosuppressed with the relapsing polychondritis, previous multiple hospitalization, previous flareup with Sweet syndrome, previous zoster and babesiosis in the past, no significant smoking history, diastolic heart disease, chronic lower extremity DVT on long- standing anticoagulation on warfarin, previous uveitis admitted to ICU for influenza related pneumonia and type 2 VT and CHF with preserved EF which has improved and transferred to gen/med. Wean off oxygen. Lasix as per cards, resumed lasix 40 mg daily. P atrial fibrillation as well patient is on warfarin. Metoprolol. Multiple DVTs in the past on anticoagulation, warfarin INR 2-3. Relapsing polychondritis on steroids and hence immunosupp. continue Has chronic low back pain and degenerative back issues. Bronchodilators use as per pulm. PT consult for dc planning. HHS anticipate dc as clinical condition improves, titrate oxygen.
[2017-10-13 14:57] VITALS: BP 120/80
--- NOTE | 2017-10-13 19:13 | PN- Pulmonary ---
Subjective HPI/Critical Care Issues: Doing well stable Objective Current Medications: Current Medications Sig/Renetta Start time Last Medication Dose Route Stop Time Status Admin Albuterol Sulfate 3 ML Q4 HRS NEEDED PRN 10/10 1700 DC INH Aspirin 81 MG DAILY 10/07 1519 AC 10/13 PO 0821 Atorvastatin Calcium 20 MG DAILY@1700 10/07 1700 AC 10/13 PO 1801 Furosemide 40 MG DAILY 10/13 1042 AC 10/13 PO 1130 Guaifenesin/ 10 ML Q6P PRN 10/11 1145 AC 10/13 Dextromethorphan PO 1004 Metoprolol Tartrate 25 MG BID 10/10 1102 AC 10/13 PO 0821 Prednisone 10 MG DAILY 10/09 1000 AC 10/13 PO 0821 Tiotropium [place] 1 PUF DAILY 10/11 1000 AC 10/13 INH 0822 Warfarin Sodium 3 MG COUMADIN 1700 ONE 10/13 1030 DC 10/13 PO 10/13 1031 1130 Vital Signs & I&O Last 24 Hrs of Vitals and I&O: Vital Signs Date Time Temp Pulse Resp B/P B/P Pulse O2 O2 Flow FiO2 Mean Ox Delivery Rate 10/13 1457 98.7 82 20 120/80 96 10/13 1003 94 Nasal 2.0L Cannula 10/13 0821 97.9 70 20 118/74 10/13 0800 98 Nasal 2.0L Cannula 10/13 0652 97.9 70 20 118/74 98 Nasal 3.0L Cannula 10/13 0000 95 Nasal 2.0L Cannula 10/12 2205 97.9 85 20 110/80 98 10/12 2030 85 110/80 Intake & Output 10/13 1600 10/13 0800 10/13 0000 Intake Total 240 700 Output Total 8374 184 7558 Balance -1500 40 -700 Intake, Oral 240 700 Output, Urine 0541 034 9127 Impression/Plan Impression/Plan Impression/Plan: General Appearance Alert, Oriented X3, Mild Distress Skin pale, Neck No JVD Cardiovascular Regular Rate, Normal S1, Normal S2, No Murmurs Lungs generalized wheezing, crackles at bases Abdomen Soft, No Tenderness, distended Extremities mild peripheral edema, weak pulses, chronic skin changes Vascular poor/weak pulses IMPRESSION This is an 82-year-old gentleman on long-term steroids hence immunosuppressed with the relapsing polychondritis, previous multiple hospitalization, previous flareup with Sweet syndrome, 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 This is also compounded by type II myocardial ischemia due to initial hypotension upon admission which seems to have improved. 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 * Multiple DVTs in the past on anticoagulation, P atrial fibrillation as well patient is on warfarin * No significant evidence of bacterial pneumonia * Transient hypotension upon admission most likely related to relative cortisol deficiency which seems to have improved with hydrocortisone, now back on prednisone baseline * Paroxysmal atrial fibrillation with previous acute on chronic heart failure with preserved ejection fraction * 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
[2017-10-13 22:00] VITALS: BP 148/70
[2017-10-14 07:05] VITALS: BP 130/70
[2017-10-14 08:15] LABS: ABSOLUTE BASOPHIL COUNT 0 /CUMM (0.0-0.2); ABSOLUTE EOSINOPHIL COUNT 0.2 /CUMM (0.0-0.7); ABSOLUTE GRANULOCYTE CT 2.5 /CUMM (1.4-6.5); ABSOLUTE LYMPH COUNT 2.7 /CUMM (1.2-3.4); ABSOLUTE MONOCYTE COUNT 0.1 /CUMM (0.10-0.60); BASOPHIL % 0.5 % (0.0-2.0); GRANULOCYTE % 44.9 % (42.2-75.2); HEMATOCRIT 29.8 % (42-52); MEAN CORPUSCULAR HGB 33.3 PG (27.0-31.0); MEAN CORPUSCULAR HGB CONC 33.7 G/DL (33.0-37.0); MEAN CORPUSCULAR VOLUME 98.6 FL (80.0-94.0); MEAN PLATELET VOLUME 7.6 FL (7.4-10.4); PLATELET COUNT 198 /CUMM (130-400); RBC DISTRIBUTION WIDTH 15.9 % (11.5-14.5); RED BLOOD CELL CT 3.02 /CUMM (4.70-6.10); WHITE BLOOD CELL COUNT 5.6 /CUMM (4.8-10.8)
[2017-10-14 08:21] LABS: PT 20.7 SEC (9.4-12.5)
[2017-10-14 09:20] VITALS: BP 130/70
--- NOTE | 2017-10-14 09:28 | PN- Housestaff ---
Jim Jack MD,Ami 10/14/17 0928: Subjective Follow-up For: Influenza Pneumonia w/ Resp failure Type II AK +ve VRE Diastolic CHF stage 1 Hx of Proxysmal A-fib on Coumadin hx of Bilateral DVT Subjective: Patient visited today, sitting at the bedside no acute distress, was alert and oriented. No fever or chills, no chest pain, no other events. Daughter was also at the bedside, patient is off oxygen and is stable to be discharged. Review of Systems Constitutional: Reports: see HPI. Objective Last 24 Hrs of Vital Signs/I&O Vital Signs Date Time Temp Pulse Resp B/P B/P Pulse O2 O2 Flow FiO2 Mean Ox Delivery Rate 10/14 09 97.9 52 20 130/70 10/14 0705 97.9 52 20 130/70 92 Room Air 10/14 0000 93 Room Air 10/13 2200 98.3 83 20 148/70 93 10/13 2112 82 120/80 10/13 1457 98.7 82 20 120/80 96 Intake & Output 10/14 1600 10/14 0800 10/14 0000 Intake Total 360 360 Output Total 1 1050 1500 Balance -1 -690 -1140 Intake, Oral 360 360 Output, Stool 1 Output, Urine 1050 1500 Physical Exam General Appearance: Alert, Oriented X3, Cooperative, No Acute Distress HEENT: Atraumatic, EOMI, Mucous Membr. moist/pink Cardiovascular: Normal S1, Normal S2 Lungs: bilateral wheezing Abdomen: Soft, No Tenderness Neurological: Normal Speech Current Medications: Current Medications Sig/Renetta Start time Last Medication Dose Route Stop Time Status Admin Aspirin 81 MG DAILY 10/07 1519 AC 10/14 PO 0920 Atorvastatin Calcium 20 MG DAILY@1700 10/07 1700 AC 10/13 PO 1801 Furosemide 40 MG DAILY 10/13 1042 AC 10/14 PO 0920 Guaifenesin 600 MG Q12 10/14 1000 AC PO Guaifenesin/ 10 ML Q6P PRN 10/11 1145 AC 10/14 Dextromethorphan PO 0921 Metoprolol Tartrate 25 MG BID 10/10 1102 AC 10/14 PO 0920 Prednisone 10 MG DAILY 10/09 1000 AC 10/14 PO 0920 Tiotropium [place] 1 PUF DAILY 10/11 1000 AC 10/14 INH 0921 Last 24 Hrs of Lab/Efrain Results Last 24 Hrs of Labs/Mics: Laboratory Tests 10/14/17 0735: Anion Gap 6, Estimated GFR > 60, BUN/Creatinine Ratio 30.0 H, PT 20.7 H, INR 1.98 H, CBC w Diff NO MAN DIFF REQ, RBC 3.02 L, MCV 98.6 H, MCH 33.3 H, MCHC 33.7, RDW 15.9 H, MPV 7.6, Gran % 44.9, Lymphocytes % 48.1, Monocytes % 2.5, Eosinophils % 4.0, Basophils % 0.5, Absolute Granulocytes 2.5, Absolute Lymphocytes 2.7, Absolute Monocytes 0.1, Absolute Eosinophils 0.2, Absolute Basophils 0 Assessment/Plan Assessment: Mr. 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 Presented to ER with tachypnea cough, shortness of breath and generalized weakness. At the time of EMS arrival SPO2 was 89-90% on CPAP. In ED patient was started on BiPAP and was flu positive Patient was admitted to ICU and then transferred to [facility] upon stablization of clinical conditions: #Transient Hypotension: RESOLVED. - The episode of hypotension was transient and most likely related to relative cortisol deficiency secondary to long-term steroid use for relapsing polychondritis. - Received hydrocortisone 100mg IV given in ED intially and later 50mg IV Q8, later tapered to 10 mg by mouth prednisone in the morning and 5 mg in the evening. - Patient was now back on 10 mg by mouth prednisone, which is his daily home dose for relapsing polychondritis. #Acute Hypoxemic Respiratory Failure, resolving: Likely Influenza Pnemonia. - Patient had weaned off Bipap from ICU - Breathing comfortably 2LNC satting 98% - Continue Tamiflu 30mg BID PO x total 5 day, completed - Follow culture results - Lasix 1 dose given - taper off oxygen - stable to be discharged Type II AK: mild elevation in troponins likely secondary to demand supply mismatch. 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 Gama. Rhythm has been ranging from normal sinus to a regular with PACs and supraventricular ectopy. - Metoprolol was initially held because of hypotension and has been restarted at dose of 25 mg BID (in EMR home dose is 50 BID). - Coumadin is being dosed as per INR - dose was given in preparation for discharge but patient stayed - discharge home on 25mg BID DESHAUN: resolved to Cr 0.8 on latest lab. Will continue monitor DVT PPX Warfarin + ALPS Heart Healthy Diet DNR/DNI Patient was discharged with recommendations to follow in outpatient. Problem List: 1. Influenza A Pain Ratin Pain Location: continue current plan Pain Goal: Pain 4 or less Pain Plan: to discharge Tomorrow's Labs & Rationales: to discharge Lorraine Burton 10/14/17 1059: Attending MD Review Statement Attending Statement Attending MD Statement: examined this patient, discuss w/resident/PA/FLOWER GROWER, agreed w/resident/PA/FLOWER GROWER, discussed with family, reviewed EMR data (avail), discussed with nursing, discussed with case mgmt, reviewed images, amended to note Attending Assessment/Plan: 82-year-old gentleman on long-term steroids hence immunosuppressed with the relapsing polychondritis, previous multiple hospitalization, previous flareup with Sweet syndrome, 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 Lasix as per cards, resumed lasix 40 mg daily. P atrial fibrillation as well patient is on warfarin. Metoprolol. Multiple DVTs in the past on anticoagulation, warfarin INR 2-3. Relapsing polychondritis on steroids and hence immunosupp. continue Has chronic low back pain and degenerative back issues. Bronchodilators use as per pulm. PT consult for dc planning. [facility] Patient is medically stable for discharge. D/sun patient and her daughter at discharge.
[2017-10-14] MEDS ORDERED: METOPROLOL TART25 M1 PO (11:09)
== END 2017-10-14 14:40 | disposition home health service (06) | DRG 193 ==
LOC: ERH 12:18 → CRI 14:04 → ERHI 14:04 → ENRESERV 16:21 → ENTRNSPT 17:08 → EDTRNSPTSTS 17:17 → CRI 17:51 → CMPTRNSPT 17:55 → CRI 10-08 10:31 → ENTRNSPT 10-11 14:09 → EDTRNSPTSTS 10-11 14:37 → EDTRNSPT 10-11 14:37 → CMPTRNSPT 10-11 14:51 → 2NA 10-11 14:56 → ENPENDDIS 10-14 11:16 → 2NA 10-14 14:40
PROVIDERS: Emergency Medicine; Internal Medicine; Internal Medicine Adolescent Medicine; Radiology Vascular & Interventional Radiology
PROC: 5A09457 Assistance with Respiratory Ventilation, 24-96 Consecutive Hours, Continuous Positive Airway Pressure (ICD-10-PCS; principal; 2017-10-07)
PROC: 30233K1 Transfusion of Nonautologous Frozen Plasma into Peripheral Vein, Percutaneous Approach (ICD-10-PCS; 2017-10-07)
DX: J10.00 Influenza due to other identified influenza virus with unspecified type of pneumonia (principal); J96.21 Acute and chronic respiratory failure with hypoxia; I21.A1 Myocardial infarction type 2; N17.9 Acute kidney failure, unspecified; I11.0 Hypertensive heart disease with heart failure; E27.40 Unspecified adrenocortical insufficiency; I95.9 Hypotension, unspecified; I50.32 Chronic diastolic (congestive) heart failure; B02.22 Postherpetic trigeminal neuralgia; Z68.41 Body mass index [BMI] 40.0-44.9, adult; I27.20 Pulmonary hypertension, unspecified; I48.0 Paroxysmal atrial fibrillation; M94.8X9 Other specified disorders of cartilage, unspecified sites; Z79.01 Long term (current) use of anticoagulants; E66.9 Obesity, unspecified; K21.9 Gastro-esophageal reflux disease without esophagitis; M19.90 Unspecified osteoarthritis, unspecified site; M94.8X0 Other specified disorders of cartilage, multiple sites; M11.20 Other chondrocalcinosis, unspecified site; L98.2 Febrile neutrophilic dermatosis [Sweet]; Z79.82 Long term (current) use of aspirin; Z79.52 Long term (current) use of systemic steroids; Z83.3 Family history of diabetes mellitus; Z66 Do not resuscitate; Z86.718 Personal history of other venous thrombosis and embolism; M54.9 Dorsalgia, unspecified; R00.0 Tachycardia, unspecified
CPT/HCPCS: 2NAP; 87184; CCU; 36415; 36592; 71045; 81001; 82436; 87040; 87070; 87086; 87147; 87449; 87450; 87804; 87804-59; 93005; 93010; 96374; 97116-GO; 97161-GP; 97530-GO; 99291; J0696; J1720; J1940; J2930; J3490; J7040; J7512